=== PATIENT | male | born 1950 | race Caucasian/White ===

== ENCOUNTER → 2016-08-02 | Outpatient (CLI) | payer OTHER, MEDICARE ==
[~2016-08-02] MED LIST: ACET1TAB84 PO; ASPCH81 PO; ASPI81TA28 PO; ATOR-26 PO; CLOP1TAB15 PO; COLC0.6T54 PO; CRS20 PO; HYDR-5688 PO; IBUP-1050 PO; IBUP1TAB PO; LEVO25TA5 PO; METO25TA3 PO; METO25TA56 PO; NTRGSL/4 UT; OMEG10007 PO; [UNRECOGNIZED DRUG - OTHER] PO
--- NOTE | 2016-08-02 16:00 | DIAGNOSTIC IMAGING REPORT ---
RIGHT INGUINAL ULTRASOUND CLINICAL HISTORY: Right lower quadrant pain. Evaluate for inguinal hernia. COMPARISON STUDY: No previous studies for comparison. TECHNIQUE: Sonography of the right groin was performed with and without stress maneuvers. FINDINGS: Note was made of a reducible right inguinal hernia which likely contains bowel and fat. IMPRESSION: Reducible bowel and fat-containing right inguinal hernia. Electronically signed by: Geoff Sutherland M.D. 08/02/2016 3:59 PM Dictated Date/Time: 08/02/2016 3:58 PM
== END | disposition home or self-care (01) ==
LOC: C.ULTR 15:33
PROVIDERS: ATTEND Family Medicine
DX: K40.90 Unilateral inguinal hernia, without obstruction or gangrene, not specified as recurrent (principal)

== ENCOUNTER → 2016-08-24 | Outpatient (CLI) | payer OTHER, MEDICARE ==
--- NOTE | 2016-08-24 16:04 | DIAGNOSTIC IMAGING REPORT ---
CHEST 2 VIEWS ROUTINE CLINICAL HISTORY: COUGH dyspnea COMPARISON STUDY: 12/17/2014 FINDINGS: Mild emphysematous and chronic interstitial change. No acute infiltrate. No evidence for significant cardiac enlargement. Degenerative change thoracic spine. IMPRESSION: Chronic change. No acute process. Electronically signed by: Diony Schaeffer M.D. 08/24/2016 4:02 PM Dictated Date/Time: 08/24/2016 4:01 PM
== END | disposition home or self-care (01) ==
LOC: C.RAD1850 15:52
PROVIDERS: ATTEND Family Medicine
DX: R05 Cough (principal)

== ENCOUNTER → 2016-08-24 | Outpatient (CLI) | payer OTHER, MEDICARE | END | disposition home or self-care (01) | LOC: C.RDSM 14:02 | PROVIDERS: ATTEND Orthopaedic Surgery Sports Medicine | DX: M25.531 Pain in right wrist (principal); R05 Cough ==

== ENCOUNTER → 2016-09-06 | Outpatient (CLI) | payer OTHER, MEDICARE ==
--- NOTE | 2016-09-06 10:06 | DIAGNOSTIC IMAGING REPORT ---
CT SCAN OF THE PARANASAL SINUSES CLINICAL HISTORY: Chronic sinusitis. History of remote sinus surgery. COMPARISON STUDY: No priors. TECHNIQUE: High-resolution CT scan of the paranasal sinuses is performed. Images are reviewed in the axial, sagittal, and coronal planes. IV contrast was not administered for this examination. CT DOSE: 738.91 mGy.cm FINDINGS: Postoperative change: There is evidence of previous maxillary antrectomy with antrostomy formation as well as ethmoid sinus resection. Maxillary antra: There is trace dependent mucosal thickening seen bilaterally. Incomplete bony septation is seen anteriorly on the right. Ethmoid cavities: Mild mucosal thickening is seen bilaterally. Sphenoid sinuses: Trace mucosal thickening is seen on the left. Frontal sinuses: Trace mucosal thickening is seen bilaterally. Ostiomeatal complexes: The antrostomies are widely patent bilaterally. Frontoethmoidal and sphenoethmoidal recesses: Patent bilaterally. Carotid arteries: The carotid arteries are protuberant but covered. A septal attachment is seen bilaterally. Ethmoid roofs: The ethmoid roofs are symmetric. Nasal turbinates: There is mild geoff bullosa of the middle nasal turbinates. Nasal septum: There is mild rightward deviation of the bony nasal septum. Optic nerves: Covered. Orbits: There is no evidence of orbital fracture. There is a full-thickness cortical defect identified in the inferior right orbit with protrusion of orbital fat. This is best seen on coronal image #23. A tiny full-thickness bony defect is also seen within the far lateral aspect of the left orbital floor on coronal image #20. Orbital contents are normal in appearance. Calvarium: The imaged calvarium is normal in appearance Mastoid air cells: There is a left mastoid effusion. The right vascular cells are clear. Brain parenchyma: Partially visualized brain parenchyma is within normal limits. IMPRESSION: 1. Mild paranasal sinus disease and postoperative change as above. 2. There are full-thickness bony defects identified within the orbital floor bilaterally, right larger than left. There is protrusion of orbital fat on the right. 3. Left mastoid effusion. Electronically signed by: Santy Will M.D. 09/06/2016 10:03 AM Dictated Date/Time: 09/06/2016 9:58 AM
== END | disposition home or self-care (01) ==
LOC: C.CTS 09:42
PROVIDERS: ATTEND Otolaryngology
DX: J32.9 Chronic sinusitis, unspecified (principal)

== ENCOUNTER 2016-09-27 07:36 | Day surgery (SDC) | payer OTHER, MEDICARE ==
[2016-09-11 13:15] VITALS: BMI 25.0
--- NOTE | 2016-09-11 13:44 | PAT Medication Instructions ---
Service Date Sep 11, 2016. Current Home Medication List Aspirin (Aspirin Tab-Chewable *), 81 MG PO HS Atorvastatin (Lipitor), 80 MG PO HS Clopidogrel (Plavix), 75 MG PO HS Colchicine (Colchicine), 0.6 MG PO QAM Ibuprofen (Advil), 800 MG PO PRN Ibuprofen-Diphenhydramine Citr (Advil Pm), 2 TAB PO HS Levothyroxine Sodium (Levothyroxine Sodium), 1 TAB PO QAM Metoprolol Succ (Toprol Xl) (Toprol-Xl), 12.5 MG PO HS Nitroglycerin (Nitrostat), 0.4 MG UT PRN [Aleve D Sinus], 1 TAB PO PRN Medication Instructions For Your Scheduled Surgery - Continue as directed: Nitroglycerin (Nitrostat), 0.4 MG UT PRN - Hold the following medications per Cardiology instructions: Clopidogrel (Plavix), 75 MG PO HS - Hold the following medications the morning of surgery: Ibuprofen (Advil), 800 MG PO PRN (otherwise okay to continue per surgeon) [Aleve D Sinus], 1 TAB PO PRN (otherwise okay to continue per surgeon) - Take the following medications the morning of surgery with a sip of water OTHERWISE NOTHING TO EAT OR DRINK AFTER MIDNIGHT: Levothyroxine Sodium (Levothyroxine Sodium), 1 TAB PO QAM Colchicine (Colchicine), 0.6 MG PO QAM - Take the following medications as scheduled the night before surgery: Atorvastatin (Lipitor), 80 MG PO HS Metoprolol Succ (Toprol Xl) (Toprol-Xl), 12.5 MG PO HS Aspirin (Aspirin Tab-Chewable *), 81 MG PO HS Ibuprofen (Advil), 800 MG PO PRN Ibuprofen-Diphenhydramine Citr (Advil Pm), 2 TAB PO HS [Aleve D Sinus], 1 TAB PO PRN If you have any questions please call us at [phone] or [phone] or [phone]
[2016-09-11 14:56] LABS: BASO % 1.2 %; COMPLETE YES; EOS % 5.9 %; HEMATOCRIT 47.1 % (42-52); IG% 0.6 %; LYMPH % 29.9 %; LYMPH ABS # 2.47 K/uL (1.2-3.4); MEAN CELL VOLUME 88.5 fL (80-100); MEAN PLATELET VOLUME 10.4 fL (7.4-10.4); NEUT % 55.4 %; PLATELET COUNT 231 K/uL (130-400); RED BLOOD COUNT 5.32 M/uL (4.7-6.1); WHITE BLOOD COUNT 8.26 K/uL (4.8-10.8)
[2016-09-11 15:26] LABS: BUN/CREATININE RATIO 12.6 (10-20); CALCIUM 9.1 mg/dl (8.5-10.1); CREATININE 1.6 mg/dl (0.60-1.40); POTASSIUM 5.3 mmol/L (3.5-5.1)
[2016-09-20 15:54] LABS: BUN/CREATININE RATIO 9.8 (10-20); CALCIUM 9.1 mg/dl (8.5-10.1); CREATININE 1.8 mg/dl (0.60-1.40); POTASSIUM 4.9 mmol/L (3.5-5.1)
[~2016-09-27] VITALS: Ht 154.9 cm; Wt 62.6 kg
[~2016-09-27 07:36] MED LIST changes: -ACET1TAB84 PO; -ASPI81TA28 PO; +CEFAZOLIN 2000 MG/60 ML D5W IV SCH; -CRS20 PO; +HEPARIN BOLUS IV ONE; +HEPARIN SOD 5000 UNIT/0.5 ML CARP SC SCH; -HYDR-5688 PO; +LACTATED RINGER'S 1000ML 1,000 ML IV SCH; -METO25TA56 PO; -OMEG10007 PO
[2016-09-27] MEDS ORDERED: ONDANSETRON INJ 2 MG/ML 2 ML VIAL ONE (07:53)
[2016-09-27] MEDS ORDERED: PROPOFOL IV EMULSION 10 MG/ML 20 ML VIAL IV ONE (07:53)
[2016-09-27] MEDS ORDERED: MIDAZOLAM HCL 1 MG/ML 2ML VIAL ONE (07:53)
[2016-09-27] MEDS ORDERED: DEXAMETHASONE SOD INJ 4 MG/ML VIAL ONE (07:53)
[2016-09-27] MEDS ORDERED: FENTANYL CITRATE INJ 50 MCG/1 ML 2 ML VIAL ONE (07:53)
[2016-09-27] MEDS ORDERED: LIDOCAINE HCL 2% 2 ML VIAL (20MG/ML) ONE (07:53)
[2016-09-27 07:58] VITALS: BP 117/71; PULSE 63; TEMP 37.1; O2SAT 95; Ht 154.9 cm; Wt 62.6 kg
[2016-09-27] MEDS ORDERED: BUPIVACAINE/EPINEPHRINE 0.5% MPF 1:200,000 30 ML VIAL ONE (08:47)
--- NOTE | 2016-09-27 08:48 | History & Physical Bridge Note ---
H&P Re-Evaluation Bridge Note: I have examined the patient, reviewed the History & Physical and in the interval since the performance of the History & Physical I have noted the following changes of clinical significance: No changes noted
[2016-09-27] MEDS ORDERED: HYDR-5688 PO (08:50)
--- NOTE | 2016-09-27 08:52 | Discharge Instructions ---
Discharge Instructions Date of Service September 27, 2016. Admission Reason for Admission: Right Inguinal Hernia Discharge Discharge Diagnosis / Problem: Right Inguinal Hernia Discharge Goals Goal(s): Decrease discomfort, Improve function Activity Recommendations Activity Limitations: as noted below Lifting Limitations: no more than 10 pounds Exercise/Sports Limitations: until after follow-up appointment May Resume Sexual Activity: after follow-up appointment Shower/Bathe: tomorrow . Instructions / Follow-Up Instructions / Follow-Up You may resume Plavix tomorrow (09/28/2016). Please follow-up with Dr. Jane in the office in 1-2 weeks. Please call the office at [phone] with any questions or concerns. Current Hospital Diet Patient's current hospital diet: Discharge Diet Recommended Diet: Regular Diet Pending Studies Studies pending at discharge: no Medical Emergencies . Who to Call and When: Medical Emergencies: If at any time you feel your situation is an emergency, please call 911 immediately. . Non-Emergent Contact Non-Emergency issues call your: Primary Care Provider, Surgeon Call Non-Emergent contact if: temperature is above 101.5, your pain is not controlled, wound has increased drainage, wound has increased redness . "Provider Documentation" section prepared by Domonique Hernandez. . VTE Core Measure Inpt VTE Proph given/why not?: Unfractionated heparin SQ, SCD's [place] Drug Monitoring Program Search Results: patient reviewed within database, no issues identified
[2016-09-27] MEDS ORDERED: FENTANYL CITRATE INJ 50 MCG/1 ML 2 ML VIAL IV PRN (09:00)
[2016-09-27] MEDS ORDERED: MEPERIDINE HCL 25 MG/ML CARP IV PRN (09:00)
[2016-09-27] MEDS ORDERED: EpHEDrine SULFATE INJ 50 MG/ML AMP IV PRN (09:00)
[2016-09-27] MEDS ORDERED: HYDROmorphone INJ 1 MG/ML SYR IV PRN (09:00)
[2016-09-27] MEDS ORDERED: LABETALOL HCL IV 5 MG/ML 20ML IV PRN (09:00)
[2016-09-27] MEDS ORDERED: ONDANSETRON INJ 2 MG/ML 2 ML VIAL IV PRN ×2 (09:00→10:15)
[2016-09-27] MEDS ORDERED: ATROPINE SULFATE 0.1 MG/ML 5ML SYR IV PRN (09:00)
[2016-09-27] MEDS ORDERED: NEOSTIGMINE METHYLSULFATE 5 MG/5 ML SYR ONE (09:13)
[2016-09-27] MEDS ORDERED: GLYCOPYRROLATE INJ 0.2 MG/ML VIAL ONE (09:13)
[2016-09-27] MEDS ORDERED: ROCURONIUM BROMIDE 10 MG/ML 5 ML VIAL ONE (09:13)
[2016-09-27] MEDS ORDERED: SODIUM CHLORIDE 0.9% 1000ML 1,000 ML IV SCH (10:13)
[2016-09-27] MEDS ORDERED: HYDROCODONE/ACETAMOPHEN 5/325MG TAB PO PRN ×2 (10:15)
--- NOTE | 2016-09-27 10:26 | [facility] Operative Report ---
Operative Report Operative Date September 27, 2016. Pre-Operative Diagnosis Right inguinal hernia Post-Operative Diagnosis indirect right inguinal hernia Procedure(s) Performed open right inguinal hernia repair with mesh Surgeon Dr Jane Book Jogger Surgeon(s) Domonique Hernandez PA-C Estimated Blood Loss 10ML Findings indirect inguinal hernia Specimens NONE Anesthesia LMA Complication(s) None Disposition Recovery Room / PACU I attest to the content of the Intraoperative Record and any orders documented therein. Any exceptions are noted below.
[2016-09-27 11:00] VITALS: BP 110/74; PULSE 73; TEMP 36.9; O2SAT 96
--- NOTE | 2016-09-27 11:09 | OPERATIVE REPORT ---
DATE OF OPERATION: 09/27/2016 PREOPERATIVE DIAGNOSIS: Right inguinal hernia. POSTOPERATIVE DIAGNOSIS: Indirect right inguinal hernia. PROCEDURE: Open right inguinal hernia repair with mesh. SURGEON: Dr. Elfego Jane. COLLAR CUTTER: Domonique Hernandze PA-C. ESTIMATED BLOOD LOSS: Approximately 10 mL. COMPLICATIONS: No immediate. ANESTHESIA: General laryngeal mask airway. OPERATIVE NOTE: After informed consent was obtained, the patient was taken to the operating suite and placed in supine position. After successful placement of laryngeal mask airway, the right groin was shaved and sterilely prepped and draped in usual fashion. An inguinal incision was made with a 15 blade scalpel and carried down through the soft tissue using electrocautery. A Weitlaner retractor was used to help exposure. We skeletonized the external oblique aponeurosis and made a small incision with a new fresh 15 blade. Using Metzenbaum scissors, we did extend this distally through the external ring as well as for several centimeters proximally. Once in the inguinal canal, we were able to bluntly dissect the tissue. I was able to gently elevate the cord and cord structures off the pubic bone using a blunt finger dissection and placed a [place] around it. When we elevated the cord and cord structures, there was no evidence of a direct hernia. We then used small amounts of electrocautery and blunt dissection to inspect the cord. There was a rather large indirect hernia sac as it was intimately associated with the cord structures. We were able use gentle traction countertraction and again small amounts of electrocautery to take this sac down, clear down to the neck of the cord. We were then able to easily dunk this back down into the abdominal cavity. We used a keyholed piece of polypropylene mesh to repair the defect as an onlay. It was secured distally to Asad's ligament, laterally along the shelving portion of Poupart's ligament and medially along the midline musculature. The "arms" of the mesh were wrapped around behind the cord and cord structures and secured to underlying muscle. All this done with 0 Ethibond. The mesh did not impinge on the cord structures themselves and there was adequate hemostasis at the end of the procedure. We did perform a thorough irrigation. I used some Marcaine around the periphery of the mesh for postoperative analgesia. We then closed the external oblique aponeurosis with 2-0 Vicryl in a running fashion. Soft tissue was irrigated and closed with 3-0 Vicryl and skin with 4-0 Monocryl. Some additional Marcaine was injected around the skin for postoperative analgesia and skin glue used as a dressing. The patient was awakened, extubated, and transferred to recovery in stable condition. I attest to the content of the Intraoperative Record and any orders documented therein. Any exceptio ns are noted below.
[2016-09-27 11:30] VITALS: BP 111/81; PULSE 80; O2SAT 93
[2016-09-27 12:02] VITALS: BP 118/67; PULSE 66; TEMP 36.5; O2SAT 94
--- NOTE | 2016-09-27 12:30 | Anesthesiology Progress Note ---
Anesthesia Post Op Note Date & Time September 27, 2016 at 12:29 Vital Signs Pain Intensity: 1 Vital Signs Past 12 Hours Date Time Temp Pulse Resp B/P Pulse Ox O2 Delivery O2 Flow Rate FiO2 09/27/16 12:02 36.5 66 18 118/67 94 Room Air 09/27/16 11:30 80 18 111/81 93 Room Air 09/27/16 11:00 36.9 73 18 110/74 96 Room Air 09/27/16 10:52 68 18 09/27/16 10:52 68 18 90 09/27/16 10:50 113/78 09/27/16 10:50 36.6 66 16 113/78 97 Room Air 09/27/16 10:47 69 17 96 09/27/16 10:47 70 17 09/27/16 10:45 122/76 09/27/16 10:42 70 18 97 09/27/16 10:42 70 18 09/27/16 10:40 129/83 09/27/16 10:37 68 22 09/27/16 10:37 69 22 98 09/27/16 10:36 121/79 09/27/16 10:32 63 17 100 09/27/16 10:32 63 17 09/27/16 10:31 63 16 100 09/27/16 10:31 63 16 09/27/16 10:30 130/79 09/27/16 10:26 60 17 09/27/16 10:26 60 17 100 09/27/16 10:25 120/75 09/27/16 10:21 60 18 100 09/27/16 10:21 61 18 09/27/16 10:20 123/66 09/27/16 10:16 62 18 09/27/16 10:16 62 18 131/68 100 09/27/16 10:16 36.6 62 14 131/68 100 Mask 10 09/27/16 07:58 37.1 63 18 117/71 95 Room Air Notes Mental Status: alert / awake / arousable, participated in evaluation Pt Amnestic to Procedure: Yes Nausea / Vomiting: adequately controlled Pain: adequately controlled Airway Patency, RR, SpO2: stable & adequate BP & HR: stable & adequate Hydration State: stable & adequate Anesthetic Complications: no major complications apparent
== END 2016-09-27 12:27 | disposition home or self-care (01) ==
LOC: C.ACU 07:36
PROVIDERS: ATTEND Surgery
DX: K40.90 Unilateral inguinal hernia, without obstruction or gangrene, not specified as recurrent (principal); J44.9 Chronic obstructive pulmonary disease, unspecified; R91.1 Solitary pulmonary nodule; Z72.0 Tobacco use; Z79.82 Long term (current) use of aspirin; Z79.899 Other long term (current) drug therapy

== ENCOUNTER → 2016-11-08 | Outpatient (CLI) | payer OTHER, MEDICARE ==
[~2016-11-08] MED LIST changes: +ACET1TAB84 PO; +ASPI81TA28 PO; -CEFAZOLIN 2000 MG/60 ML D5W IV SCH; -HEPARIN BOLUS IV ONE; -HEPARIN SOD 5000 UNIT/0.5 ML CARP SC SCH; -IBUP1TAB PO; -LACTATED RINGER'S 1000ML 1,000 ML IV SCH; +METO25TA56 PO; +OMEG10007 PO; -[UNRECOGNIZED DRUG - OTHER] PO
== END | disposition home or self-care (01) ==
LOC: C.RDSM 09:05
PROVIDERS: ATTEND Orthopaedic Surgery Sports Medicine
DX: M25.562 Pain in left knee (principal); M79.672 Pain in left foot

== ENCOUNTER 2017-02-09 13:54 | Emergency (ER) | payer OTHER, MEDICARE ==
[~2017-02-09] VITALS: Ht 165.1 cm; Wt 65.2 kg
[~2017-02-09 13:54] MED LIST changes: -ACET1TAB84 PO; -ASPI81TA28 PO; -METO25TA56 PO; -OMEG10007 PO
[2017-02-09 14:03] VITALS: TEMP 36.5; Ht 165.1 cm; Wt 65.2 kg
--- NOTE | 2017-02-09 15:10 | DIAGNOSTIC IMAGING REPORT ---
R RIBS UNILATERAL WITH PA CHEST CLINICAL HISTORY: fall onto log. Right-sided chest pain. COMPARISON STUDY: Chest 08/24/2016. FINDINGS: The lungs are clear. The heart is normal in size. No pleural effusions. No pneumothorax. Mild deformity within the right lateral ninth and 10th ribs consistent with old, healed fractures. No acute rib fractures. IMPRESSION: No acute rib fractures. No pneumothorax. Electronically signed by: Ike Burnham M.D. 02/09/2017 3:09 PM Dictated Date/Time: 02/09/2017 3:06 PM
[2017-02-09] MEDS ORDERED: ASPI81TA28 PO ×2 (15:14→15:15)
[2017-02-09] MEDS ORDERED: ACET1TAB84 PO (15:14)
[2017-02-09] MEDS ORDERED: OMEG10007 PO (15:14)
[2017-02-09] MEDS ORDERED: METO25TA56 PO (15:14)
[2017-02-09 15:50] VITALS: BP 138/62; PULSE 66; O2SAT 98
--- NOTE | 2017-02-09 21:39 | EMERGENCY ROOM VISIT NOTE ---
History First contact with patient: 14:16 Chief Complaint: RIB PAIN Stated Complaint: ARM AND CHEST PAIN AFTER FALL Nursing Triage Summary: right rib pain and skin tear / abrasion right upper arm s/p fall History of Present Illness The patient is a 66 year old white male who presents to the Emergency Room with complaints of right-sided rib pain after falling earlier today. Patient's accompanies him. He states he was short of breath earlier at home but this has resolved. He was cutting firewood and tripped, falling against a large log. There was no loss of consciousness. He denies striking his head. He does have abrasions present on his right chicas and right upper arm. He also notes a deformity to his right bicep. He denies any loss of motion of the elbow. He has a previous right shoulder rotator cuff insufficiency and states this is unchanged. Right-hand dominant. He points to the anterior lower ribs as his area of discomfort. No abdominal pain. No nausea or vomiting. He denies any cough. He does take Plavix for heart disease. His is worried about any potential bruising or bleeding in his chest. No other complaints. Review of Systems REVIEW OF SYSTEM: HEENT: No dizziness, visual problems, hearing loss, or tinnitus. There is no difficulty swallowing and no oral lesions are present. PULMONARY: No cough, sputum production or hemoptysis. CARDIOVASCULAR: No chest pain, palpitations, or peripheral edema. GASTROINTESTINAL: No diarrhea, constipation, nausea, vomiting, or abdominal pain. GENITOURINARY: No dysuria, frequency, urgency or nocturia. NEUROLOGIC: No weakness, muscle tenderness, epilepsy or history of neurological problems. MUSCULOSKELETAL: No history of joint tenderness/swelling. Positive history of arthritis and arthralgias. SKIN: No rashes or lesions. PSYCHIATRIC: No history of depression or mental illness. ENDOCRINE: No history of diabetes or abnormal hair growth. Past Medical/Surgical History Previous surgeries: Right shoulder surgery 2, knee surgery, hand surgery, foot surgery, cardiac stent placement Medical history: Significant for osteoarthritis, hypertension, heart disease, previous [place], elevated cholesterol, and hypothyroidism Family History Father is from lung cancer. Mother is living. Significant for diabetes, heart disease, hypertension, and cancer. Social History Smoking Status: Former Smoker Smokeless Tobacco Use: No Alcohol Use: none Drug Use: none Marital Status: Housing Status: lives with family Occupation Status: unemployed Current/Historical Medications Scheduled Acetaminophen (Tylenol Arthritis Ext Rel), 1,300 MG PO DAILY Aspirin (Aspirin Ec), 81 MG PO HS Aspirin (Aspirin Ec), 81 MG PO DAILY Atorvastatin (Lipitor), 80 MG PO HS Clopidogrel (Plavix), 75 MG PO HS Colchicine (Colchicine), 0.6 MG PO QAM Fish Oil ([place]-3), 2,400 MG PO BID Levothyroxine Sodium (Levothyroxine Sodium), 1 TAB PO QAM Metoprolol Tartrate (Lopressor) (Lopressor), 12.5 MG PO HS Nitroglycerin (Nitrostat), 0.4 MG UT PRN Physical Exam Vital Signs Date Time Temp Pulse Resp B/P (MAP) Pulse Ox O2 Delivery O2 Flow Rate FiO2 02/09/17 15:50 66 16 138/62 98 02/09/17 14:03 36.5 61 18 149/73 98 Room Air Physical Exam Gen.: Well-developed, well-nourished, elderly white male, in no acute distress. Sitting on a chair. Alert and oriented. Skin:Warm and dry with good turgor. No rashes or lesions. No erythema. He has ecchymosis and mild edema present over the mid body of his right bicep. The patient is not diaphoretic. He has a small abrasion present over the right anterior chicas. He is controlled. He has a larger excoriation present over the right lateral bicep. Bleeding is controlled. No significant for material. No true laceration. Heart: Heart RRR. No MGR. Peripheral pulses are 2+. Lungs: Lungs are clear to auscultation. No crackles rhonchi or wheezing. Good air movement. The patient is able to take a deep breath. Abdomen: Abdomen was inspected, auscultated, and palpated. Bowel sounds present x 4. Soft, nontender to palpation. No hepato-splenomegaly. No masses noted. No rebound. Musculoskeletal: Patient has no discomfort with palpation over his cervical spine, thoracic spine or lumbar spine. He has no pain with palpation over the ribs posteriorly or laterally. He does have discomfort with palpation over the anterior ribs and cartilage at the midclavicular line. It is over ribs 10, 11 and 12. He has discomfort with palpation over his right bicep. Lateral head is flaccid. He continues to have intact tension along the distal tendon. No increase in baseline pain with palpation over his shoulder. Limited shoulder motion secondary to his rotator cuff injury. Neurologic: Gross sensation is intact across the right arm by soft touch. Peripheral pulses are 2+. Medical Decision & Procedures ER Provider Diagnostic Interpretation: Radiographic imaging obtained today of the chest and ribs was read by radiology. No pneumothorax. No acute rib fractures. Old healed rib fractures are present on the right ninth and 10th ribs. ED Course Patient was educated regarding today's findings. Findings were also discussed with his . He was reassured that I do not suspect acute fracture. Practice deep breaths several times per day. Return to the ED for any acute worsening of symptoms or shortness of breath. In regard to the bicep, he will likely require musculoskeletal ultrasound. He already sees Dr. Carvalho and states he will make arrangements for this. In regard to the abrasions, he will keep them clean with soap and water and cover with Triple Antibiotic ointment. Watch for any signs of infection and return to the ED for any other concerns. He should avoid any heavy lifting with the right arm, and I cautioned him about further cutting of firewood until symptoms fully resolve. Medical Decision Possibility of pneumothorax, hemothorax, rib fracture, rib contusion, biceps tendon rupture, biceps muscle rupture, humeral fracture, and abdominal organ injury were considered. Medication Reconcilliation Current Medication List: was personally reviewed by me Blood Pressure Screening Patient's blood pressure: Normal blood pressure Impression Primary Impression: Tear of right biceps muscle Additional Impression: Contusion of rib on right side Departure Information Dispostion Home / Self-Care Referrals Robbin Carvalho MD Forms WORK / SCHOOL INSTRUCTIONS, HOME CARE DOCUMENTATION FORM, TYLENOL USE, IMPORTANT VISIT INFORMATION [facility] Inst[facility] Additional Instructions Ice intermittently as needed for discomfort Gentle motion of the shoulder and elbow to prevent stiffness Follow-up with Dr. Carvalho for reexamination of your right bicep Tylenol every 6 hours as needed for discomfort Return to the ED for any acute changes including shortness of breath Avoid any heavy lifting until symptoms have fully resolved Keep the abrasions clean with soap and water and cover with antibiotic ointment until healed. Problem Qualifiers Primary Impression: Tear of right biceps muscle Encounter type: initial encounter Qualified Codes: S46.211A - Strain of muscle, fascia and tendon of other parts of biceps, right arm, initial encounter Additional Impression: Contusion of rib on right side Encounter type: initial encounter Qualified Codes: S20.211A - Contusion of right front wall of thorax, initial encounter
== END 2017-02-09 15:52 | disposition home or self-care (01) ==
LOC: C.EDB 13:55 → C.EDD 15:52
DX: S46.211A Strain of muscle, fascia and tendon of other parts of biceps, right arm, initial encounter (principal); S20.20XA Contusion of thorax, unspecified, initial encounter; W01.0XXA Fall on same level from slipping, tripping and stumbling without subsequent striking against object, initial encounter; Z79.82 Long term (current) use of aspirin; Z79.899 Other long term (current) drug therapy

== ENCOUNTER → 2017-02-11 | Outpatient (CLI) | payer OTHER, MEDICARE ==
[~2017-02-11] MED LIST changes: +ACET1TAB84 PO; -ASPCH81 PO; +ASPI81TA28 PO; -IBUP-1050 PO; -METO25TA3 PO; +METO25TA56 PO; +OMEG10007 PO
--- NOTE | 2017-02-11 16:17 | DIAGNOSTIC IMAGING REPORT ---
RIGHT ARM 3 VIEWS HISTORY: RIGHT HUMERUS PAIN COMPARISON: None. FINDINGS: There is no fracture or dislocation. Soft tissues are unremarkable. No radiopaque foreign bodies. Mild degenerative changes within the right elbow and glenohumeral joint. Distal resection of the right clavicle. IMPRESSION: No acute fracture or dislocation within the right humerus. Electronically signed by: Ike Burnham M.D. 02/11/2017 4:15 PM Dictated Date/Time: 02/11/2017 4:14 PM
== END | disposition home or self-care (01) ==
LOC: C.RDSM 15:44
PROVIDERS: ATTEND Physician Assistant
DX: M79.601 Pain in right arm (principal)

== ENCOUNTER → 2017-04-09 | Outpatient (CLI) | payer OTHER, MEDICARE ==
--- NOTE | 2017-04-09 12:58 | DIAGNOSTIC IMAGING REPORT ---
EXAMINATION: RENAL ULTRASOUND CLINICAL HISTORY: N18.9 CHRONIC RENAL DISEASE COMPARISON STUDY: FINDINGS: The right kidney measures 10 cm. The left kidney measures 10.5 cm. There is no evidence of hydronephrosis. There is an equivocal 18 mm hypoechoic lesion abutting or arising from the mid pole of the left kidney. This is poorly demonstrated on the current study.. No bladder abnormalities are visualized. Bilateral ureteral jets were visualized. IMPRESSION : 1. Technically limited study secondary to the patient's body habitus and absence of optimal acoustic windows 2. Symmetric renal size and cortical thickness 3. No evidence of hydronephrosis 4. Equivocal 18 mm hypoechoic structure abutting or arising from the mid pole of the left kidney. Electronically signed by: Lan Moreno M.D. 04/09/2017 12:57 PM Dictated Date/Time: 04/09/2017 12:53 PM
== END | disposition home or self-care (01) ==
LOC: C.ULTR 12:04
PROVIDERS: ATTEND Family Medicine
DX: N18.9 Chronic kidney disease, unspecified (principal)

== ENCOUNTER → 2017-04-26 | Outpatient (CLI) | payer OTHER, MEDICARE ==
--- NOTE | 2017-04-26 11:11 | DIAGNOSTIC IMAGING REPORT ---
CT SCAN OF THE PELVIS WITHOUT IV CONTRAST CLINICAL HISTORY: Bilateral groin pain. History of right inguinal hernia repair. COMPARISON STUDY: No priors. TECHNIQUE: CT scan of the pelvis is performed from the pelvic inlet to the proximal femora. Images are reviewed in the axial, sagittal, and coronal planes. IV contrast was not administered due to poor renal function. Oral contrast was utilized. Note that the examination is suboptimal without IV contrast. A dose lowering technique was utilized adhering to the principles of ALARA. CT DOSE: 388.19 mGy.cm FINDINGS: The prostate is mildly enlarged and heterogeneous. The bladder wall is mildly thickened and trabeculated. The seminal vesicles are normal in appearance. There is no pelvic sidewall or inguinal lymphadenopathy. There is atherosclerotic calcification and ectasia of the visualized abdominal aorta. This measures up to 2.5 cm. There is also atherosclerotic calcification of the iliac arteries. The iliac arteries appear ectatic and measure up to 1.8 cm. No inguinal hernia is identified. There is fatty reconversion along the left inguinal canal. The visualized loops of small bowel and colon are normal in caliber. There is moderate diverticulosis of the sigmoid colon without CT evidence of acute diverticulitis. No free air or free fluid is seen in the pelvis. The skeletal structures are osteopenic. Mild arthritic change is present in the hips. There is calcification at the origin of the hamstrings tendon. Advanced lumbosacral spondylosis is partially imaged. There are bilateral pars defects at L5. There is 11 mm of anterolisthesis and advanced degenerative disc space narrowing at L5-S1. Bony overgrowth and degenerative changes also seen at the pubic symphysis. The regional musculature is normal in bulk. IMPRESSION: 1. No inguinal hernia is identified as clinically queried. 2. The prostate is mildly enlarged. There is circumferential bladder wall thickening and trabeculation, likely related to chronic bladder outlet obstruction. Clinical correlation will be required. 3. There is moderate sigmoid diverticulosis without CT evidence of acute diverticulitis. 4. There are bilateral pars defects at L5 with grade 1 anterolisthesis and advanced spondylotic change at this level. Dictated: 04/26/2017 10:15 AM Transcribed: 04/26/2017 11:10 AM [facility] Electronically signed by: Santy Will M.D. 04/26/2017 11:15 AM Dictated Date/Time: 04/26/2017 10:15 AM
== END | disposition home or self-care (01) ==
LOC: C.CTS 09:50
PROVIDERS: ATTEND Surgery
DX: K40.90 Unilateral inguinal hernia, without obstruction or gangrene, not specified as recurrent (principal); N40.0 Benign prostatic hyperplasia without lower urinary tract symptoms; K57.30 Diverticulosis of large intestine without perforation or abscess without bleeding; M43.16 Spondylolisthesis, lumbar region

== ENCOUNTER → 2017-05-15 | Outpatient (CLI) | payer OTHER, MEDICARE ==
[~2017-05-15] MED LIST changes: +ACET650T97 PO; +ASPCH81X PO; +CEPH500C PO; +COEN1CAP7 PO; +COQ10 PO; +LEVO50TA6 PO; +MELA1TAB5 PO; +PHEN10TA31 PO; +TPRSR50 PO; +ZICAM NAE
--- NOTE | 2017-05-16 09:37 | DIAGNOSTIC IMAGING REPORT ---
MRI OF THE CERVICAL SPINE WITHOUT CONTRAST CLINICAL HISTORY: Paresthesias. Hand weakness. Neck pain radiating into right upper extremity. COMPARISON: None. TECHNIQUE: Utilizing a 1.5 Yen magnet and dedicated coil, multiplanar, multiecho imaging of the cervical spine was performed without IV contrast. FINDINGS: There is 3 mm of anterolisthesis of C7 on T1. Note is made of mild levoscoliosis of the cervical spine and dextroscoliosis within visualized portions of the thoracic spine. There is no suspicious marrow replacement. Visualized portions of the posterior fossa are unremarkable. There is no intracanalicular mass or fluid collection. Note is made of a 9 mm focus of increased T2 signal within the right lateral aspect of the cord at the C6 level. There is mild cord volume loss. No additional sites of cord signal abnormality are present. Paravertebral soft tissues are unremarkable. Severe multilevel degenerative disc disease and facet arthrosis is present. No evidence for fracture. C2-C3: The central canal and neural foramen are patent. C3-C4: There is disc space narrowing. Central canal is patent. There is severe bilateral neural foraminal stenosis due to facet arthrosis and uncovertebral hypertrophy. C4-C5: There is disc space narrowing with disc bulge. There is moderate narrowing of the central canal and severe narrowing of both neural foramen. C5-C6: There is disc space narrowing with disc bulge and ligamentous hypertrophy. This results in severe narrowing of the central canal. There is severe right and mild left neural foraminal stenosis. C6-C7: There is disc bulge. There is moderate central canal stenosis with moderate to severe right and moderate left neural foraminal stenosis. C7-T1: Central canal and neural foramen are patent. IMPRESSION: 1. Severe multilevel degenerative disc disease and facet arthrosis with severe central canal stenosis at C5-C6 due to disc bulge and ligamentous hypertrophy. Moderate central canal stenosis at C4-C5 and C6-C7. 2. 9 mm focus of increased T2 signal within the right lateral aspect of the cervical cord at the C6 level. This favors myelomalacia. Cord edema could appear similar although is considered less likely. 3. Severe multilevel neural foraminal stenosis, as detailed above, due to facet arthrosis and uncovertebral hypertrophy. 4. Mild levoscoliosis of the cervical spine and mild dextroscoliosis of the visualized portions of the thoracic spine. Electronically signed by: Geoff Sutherland M.D. 05/16/2017 9:36 AM Dictated Date/Time: 05/16/2017 9:17 AM
== END | disposition home or self-care (01) ==
LOC: C.MRIBC 14:54
PROVIDERS: ATTEND Physician Assistant
DX: R20.2 Paresthesia of skin (principal); M48.02 Spinal stenosis, cervical region; M50.322 Other cervical disc degeneration at C5-C6 level; M47.892 Other spondylosis, cervical region; M50.20 Other cervical disc displacement, unspecified cervical region; M41.23 Other idiopathic scoliosis, cervicothoracic region

== ENCOUNTER → 2017-05-16 | Outpatient (CLI) | payer OTHER, MEDICARE ==
[~2017-05-16] MED LIST changes: -ACET650T97 PO; -ASPCH81X PO; -CEPH500C PO; -COEN1CAP7 PO; -COQ10 PO; -LEVO50TA6 PO; -MELA1TAB5 PO; -PHEN10TA31 PO; -TPRSR50 PO; -ZICAM NAE
[2017-05-16 16:51] LABS: BASO % 1.1 %; BASO ABS # 0.07 K/uL (0-0.2); COMPLETE YES; EOS % 6.8 %; HEMATOCRIT 45.1 % (42-52); IG% 0.8 %; LYMPH % 34.4 %; LYMPH ABS # 2.28 K/uL (1.2-3.4); MEAN CELL VOLUME 87.7 fL (80-100); MEAN CORPUSCULAR HEMOGLOBIN 30.7 pg (25-34); MEAN PLATELET VOLUME 10.6 fL (7.4-10.4); MONO % 9.5 %; NEUT % 47.4 %; PLATELET COUNT 173 K/uL (130-400); RED BLOOD COUNT 5.14 M/uL (4.7-6.1); WHITE BLOOD COUNT 6.63 K/uL (4.8-10.8)
[2017-05-16 17:01] LABS: ALT/SGPT 36 U/L (12-78); AST/SGOT 23 U/L (15-37); BLOOD UREA NITROGEN 14 mg/dl (7-18); BUN/CREATININE RATIO 9.4 (10-20); CALCIUM 8.8 mg/dl (8.5-10.1); CARBON DIOXIDE 29 mmol/L (21-32); CHLORIDE 104 mmol/L (98-107); CREATININE 1.46 mg/dl (0.60-1.40); GLUCOSE 113 mg/dl (70-99); POTASSIUM 4.3 mmol/L (3.5-5.1); SODIUM 136 mmol/L (136-145)
[2017-05-16 17:12] LABS: ALB/GLOB RATIO 1.2 (0.9-2); ALKALINE PHOSPHATASE 117 U/L (45-117)
== END | disposition home or self-care (01) ==
LOC: C.LABBC 14:40
PROVIDERS: ATTEND Physician Assistant
DX: R20.2 Paresthesia of skin (principal); R29.898 Other symptoms and signs involving the musculoskeletal system; E03.9 Hypothyroidism, unspecified; N28.9 Disorder of kidney and ureter, unspecified; M54.5 Low back pain

== ENCOUNTER → 2017-05-28 | Outpatient (CLI) | payer OTHER, MEDICARE ==
--- NOTE | 2017-05-28 15:41 | DIAGNOSTIC IMAGING REPORT ---
LUMBAR SPINE W/O CONTRAST HISTORY: Pain. Neuropathy. LUMBALGIA,NUMBNESS TECHNIQUE: Multiplanar multisequence MRI of the lumbar spine was performed without the use of contrast. COMPARISON: None. FINDINGS: For the purpose of the report the L5-S1 disc space will be located on axial image 5 of 10. Considerable degenerative disc change throughout the entire lumbar region. No evidence for bone marrow replacing process. Reactive edema of the endplates at the L2-L3 level. Grade 1 anterolisthesis L5 on S1 associated with a 6 mm anterior subluxation. L1-L2: Minimal broad-based disc bulge. Neuroforamina are patent bilaterally. Minimal impact anterior thecal sac. L2-L3: Moderate multifactorial narrowing of the spinal canal. Mild broad-based disc herniation. Moderate hypertrophic change posterior elements. Rectosigmoid area osteophytic narrowing left neural foramina. With moderate narrowing of the right. L3-L4: Mild osteophytic narrowing of the neuroforamina bilaterally. Minimal disc bulge. Minimal impact anterior thecal sac. L4-L5: Significant to moderately severe narrowing of the spinal canal multifactorial basis. Broad-based disc herniation. Hypertrophic change posterior elements and facets. Considerable narrowing of the neuroforamina bilaterally. L5-S1: Moderate multifactorial narrowing of the spinal canal. Broad-based disc herniation. Degenerative degenerative change posterior elements with a grade 1 anterolisthesis of L5 on S1 accentuated all findings. This also creates significant narrowing of the neuroforamina bilaterally. IMPRESSION: 1. Multilevel disc herniation spinal stenosis. 2. Grade 1 anterolisthesis L5 on S1 creating moderate narrowing of spinal canal and significant narrowing of the neuroforamina bilaterally. 3. Moderately severe multifactorial narrowing of spinal canal at L4-L5 with considerable narrowing of the neuroforamina bilaterally. 4. Mild osteophytic narrowing of the neuroforamina bilaterally at L3-L4. 5. Moderate multifactorial narrowing of the spinal canal and neuroforamina L2-L3. The above report was generated using voice recognition software. It may contain grammatical, syntax or spelling errors. Electronically signed by: Diony Schaeffer M.D. 05/28/2017 3:39 PM Dictated Date/Time: 05/28/2017 3:35 PM
== END | disposition home or self-care (01) ==
LOC: C.MRIBC 14:32
PROVIDERS: ATTEND Physician Assistant
DX: M54.5 Low back pain (principal); R20.2 Paresthesia of skin

== ENCOUNTER → 2017-06-05 | Outpatient (CLI) | payer OTHER, MEDICARE ==
--- NOTE | 2017-06-05 14:00 | DIAGNOSTIC IMAGING REPORT ---
RENAL ULTRASOUND CLINICAL HISTORY: Left renal lesion. COMPARISON STUDY: Renal ultrasound April 09, 2017. TECHNIQUE: Sonography of the kidneys and the urinary bladder was performed. FINDINGS: The right kidney measures 9.2 x 5.2 x 4.3 cm and the left kidney measures 10.2 x 5.6 x 4.1 cm. There is no hydronephrosis. Note is made of an apparent 1.5 cm lesion arising from the midpole of the left kidney which corresponds to the finding shown on study of April 09, 2017. The appearance favors a cyst although evaluation is difficult given suboptimal penetration. No discrete bladder mass is identified by sonography. IMPRESSION: 1. No hydronephrosis. 2. Apparent 1.5 cm left renal lesion which represents the possible lesion shown on ultrasound April 09, 2017. Evaluation is difficult given suboptimal penetration however the appearance favors a cyst. If desired, a renal protocol CT could be obtained for definitive characterization. Electronically signed by: Geoff Sutherland M.D. 06/05/2017 1:59 PM Dictated Date/Time: 06/05/2017 1:54 PM
== END | disposition home or self-care (01) ==
LOC: C.ULTR 12:50
PROVIDERS: ATTEND Family Medicine
DX: N18.9 Chronic kidney disease, unspecified (principal)

== ENCOUNTER → 2017-07-22 | Outpatient (CLI) | payer OTHER, MEDICARE ==
--- NOTE | 2017-07-22 16:13 | DIAGNOSTIC IMAGING REPORT ---
CHEST 2 VIEWS ROUTINE CLINICAL HISTORY: COUGH dyspnea COMPARISON STUDY: 08/24/2016 FINDINGS: Moderate emphysematous change. No evidence for acute infiltrate. No significant cardiac enlargement. IMPRESSION: Moderate emphysematous change. No acute process. The above report was generated using voice recognition software. It may contain grammatical, syntax or spelling errors. Electronically signed by: Diony Schaeffer M.D. 07/22/2017 4:11 PM Dictated Date/Time: 07/22/2017 4:10 PM
== END | disposition home or self-care (01) ==
LOC: C.RAD1850 16:01
PROVIDERS: ATTEND Family Medicine
DX: R05 Cough (principal)

== ENCOUNTER → 2017-08-16 | Outpatient (CLI) | payer OTHER, MEDICARE ==
--- NOTE | 2017-08-16 13:42 | DIAGNOSTIC IMAGING REPORT ---
LUNG SCREENING, LOW DOSE CLINICAL HISTORY: Smoking history screening COMPARISON STUDY: No previous studies for comparison. CT DOSE: 91.25 mGy.cm TECHNIQUE: Low-dose helical CT was acquired without intravenous contrast from lung apices to bases and reconstructed at 2.5 mm every 2 mm. CAD was utilized for this study. A dose lowering technique was utilized adhering to the principles of ALARA. FINDINGS: Diffuse emphysematous and fibrotic change. No focal infiltrate. No significant mediastinal or hilar adenopathy. 3 mm nodule anterior aspect right middle lobe image 79 considered low suspicion. 2 mm nodular density pleural-based posterior aspect left lower lobe. Nodule 2 Category: Nodule 2 Status: Nodule 2 Description: Nodule 2 Lesion ID: Nodule 2 Slice Number: Nodule 2 Volume (mm3): Nodule 2 Major [place] mm: Nodule 2 Minor [place] mm: Nodule 1 Category: Nodule 1 Status: Nodule 1 Description: Nodule 1 Lesion ID: Nodule 1 Slice Number: Nodule 1 Volume (mm3): Nodule 1 Major [place] mm: Nodule 1 Minor [place] mm: IMPRESSION: Emphysematous change. Diffuse chronic fibrosis. Small low suspicion nodules anterior right middle lobe and posterior left lower lobe. CAD FINDINGS: Overall Lung RADS Category: 1 Lung RADS Management Recommendation: Continue annual lung cancer screening. Lung RADS Follow Up Date: 2018-08-16 Lung RADS Nodule ID: The above report was generated using voice recognition software. It may contain grammatical, syntax or spelling errors. Electronically signed by: Diony Schaeffer M.D. 08/16/2017 1:41 PM Dictated Date/Time: 08/16/2017 1:28 PM
== END | disposition home or self-care (01) ==
LOC: C.CTS 13:11
PROVIDERS: ATTEND Family Medicine
DX: Z12.2 Encounter for screening for malignant neoplasm of respiratory organs (principal)

== ENCOUNTER → 2017-08-29 | Outpatient (CLI) | payer OTHER, MEDICARE ==
--- NOTE | 2017-08-29 14:41 | DIAGNOSTIC IMAGING REPORT ---
CT SCAN OF THE ABDOMEN WITHOUT IV CONTRAST CLINICAL HISTORY: Left renal lesion questioned by ultrasound. COMPARISON STUDY: Renal ultrasound dated 06/05/2017. TECHNIQUE: CT scan of the abdomen is performed from the lung bases to the pelvic inlet. Images are reviewed in the axial, sagittal, and coronal planes. IV contrast was not administered for this examination. A dose lowering technique was utilized adhering to the principles of ALARA. CT DOSE: 373.59 mGycm FINDINGS: Lung bases: The heart is normal in size and without pericardial effusion. The coronary arteries are densely calcified. Emphysematous change is noted. There is bibasilar scarring/atelectasis. No airspace consolidation or pleural effusion is identified. There is a tiny hiatal hernia. Liver: The unenhanced liver is normal in size, contour, and attenuation. There is no intrahepatic biliary ductal dilatation. Gallbladder: Unremarkable. Spleen: Normal in size and attenuation. Pancreas: Scattered parenchymal calcifications suggest chronic pancreatitis. The unenhanced pancreas is otherwise grossly unremarkable. Adrenal glands: Unremarkable. Kidneys: The unenhanced kidneys are normal in size and without hydronephrosis. There are no renal calculi identified. There is no evidence of contour deforming renal mass lesion. Abdominal vasculature: There is advanced atherosclerotic calcification and ectasia of the abdominal aorta. The distal abdominal aorta measures up to 2.6 cm. Bowel: Visualized portions of the small bowel and colon are normal in course and caliber. The appendix is well-visualized and normal. Peritoneum: There is no intraperitoneal free air or abdominal ascites. There is a small fat-containing umbilical hernia. Lymphadenopathy: Shotty retroperitoneal nodes measure up to 8 mm in short axis. Skeletal structures: There is moderate lumbar sacral spondylosis as well as mild scoliosis. Bilateral pars defects are noted at L5. No lytic or blastic lesions are seen. IMPRESSION: 1. No lesion is identified in the left kidney on this unenhanced examination. The sonographic finding remains indeterminant. A definitive assessment of the left kidney would require IV contrast. 2. Emphysema. 3. Additional findings as above. Electronically signed by: Santy Will M.D. 08/29/2017 2:40 PM Dictated Date/Time: 08/29/2017 2:33 PM
== END | disposition home or self-care (01) ==
LOC: C.CTS 14:19
PROVIDERS: ATTEND Family Medicine
DX: N28.9 Disorder of kidney and ureter, unspecified (principal); R10.9 Unspecified abdominal pain; R53.83 Other fatigue; J43.9 Emphysema, unspecified

== ENCOUNTER 2017-09-23 20:04 | Emergency (ER) | payer OTHER, MEDICARE ==
[~2017-09-23] VITALS: Ht 154.9 cm; Wt 69.1 kg
[2017-09-23 20:06] VITALS: TEMP 36.6; Ht 154.9 cm; Wt 69.1 kg
--- NOTE | 2017-09-23 21:37 | DIAGNOSTIC IMAGING REPORT ---
R FINGER(S) MIN 2 VIEWS ROUTINE CLINICAL HISTORY: R thumb distal injury ? bony involvement COMPARISON: None. DISCUSSION: Considerable soft tissue edematous change. Considerable overlying packing material. No well-defined acute bony abnormality. IMPRESSION: Considerable soft tissue edematous change. No acute bony abnormality. The above report was generated using voice recognition software. It may contain grammatical, syntax or spelling errors. Electronically signed by: Diony Schaeffer M.D. 09/23/2017 9:36 PM Dictated Date/Time: 09/23/2017 9:34 PM
[2017-09-23] MEDS ORDERED: DIPHTHERIA/TETANUS/PERTUSSIS 0.5 ML SYR/VIAL IM. ONE (21:45)
--- NOTE | 2017-09-23 21:51 | EMERGENCY ROOM VISIT NOTE ---
History First contact with patient: 20:16 Chief Complaint: LACERATION/CUT (SUT/DERMABOND) Stated Complaint: R THUMB LACERATION Nursing Triage Summary: Pt cut right thumb tip off on table saw about 1 hour ago. History of Present Illness The patient is a 67 year old male who presents to the Emergency Room with complaints of a laceration to his right thumb that he sustained when he was working with a circular saw. The patient complains of moderate bleeding as he is on Plavix and aspirin. He is right-hand dominant. He denies any other injuries. He is unsure of his last tetanus shot. The patient was first seen by [facility]. He was sent here for evaluation for possible bony involvement and need for cauterization Review of Systems 6 system review negative. Please see pertinent positives in the history of present illness section. Past Medical/Surgical History Coronary artery disease, hypertension Social History Smoking Status: Former Smoker Alcohol Use: none Drug Use: none Marital Status: Housing Status: lives with family Occupation Status: unemployed Current/Historical Medications Scheduled Acetaminophen (Tylenol Arthritis Ext Rel), 1,300 MG PO DAILY Aspirin (Aspirin Ec), 81 MG PO HS Aspirin (Aspirin Ec), 81 MG PO DAILY Atorvastatin (Lipitor), 80 MG PO HS Cephalexin Monohydrate (Keflex), 500 MG PO TID Clopidogrel (Plavix), 75 MG PO HS Colchicine (Colchicine), 0.6 MG PO QAM Fish Oil ([place]-3), 2,400 MG PO BID Levothyroxine Sodium (Levothyroxine Sodium), 1 TAB PO QAM Metoprolol Tartrate (Lopressor) (Lopressor), 12.5 MG PO HS Nitroglycerin (Nitrostat), 0.4 MG UT PRN Physical Exam Vital Signs Date Time Temp Pulse Resp B/P (MAP) Pulse Ox O2 Delivery O2 Flow Rate FiO2 09/23/17 22:37 69 18 155/71 96 09/23/17 20:06 36.6 71 18 160/89 96 Room Air Physical Exam VITALS: Vitals are noted on the nurse's note and reviewed by myself. Vital signs stable. GENERAL: 67-year-old male, in no acute distress, nondiaphoretic, well-developed well-nourished. SKIN: The skin was warm and dry HEAD: Normocephalic atraumatic. MUSCULOSKELETAL: RIGHT HAND: There is a macerated avulsion noted to the distal aspect of the right thumb measuring approximately 3 cm. Mild oozing of blood. No significant blood vessels noted. No bone is visualized at the end of the wound. Full flexion and extension of the thumb NEURO: Patient was alert and oriented to person place and time. Normal sensation to touch. No focal neurological deficits. Medical Decision & Procedures ER Provider Diagnostic Interpretation: thumb xray IMPRESSION: Considerable soft tissue edematous change. No acute bony abnormality. The above report was generated using voice recognition software. It may contain grammatical, syntax or spelling errors. Electronically signed by: Diony Schaeffer M.D. 09/23/2017 9:36 PM Dictated Date/Time: 09/23/2017 9:34 PM Medications Administered Medications (Trade) Dose Ordered Sig/Verena Route Start Time Stop Time Status Last Admin Dose Admin Diphtheria/ Pertussis/Tetanus Vacc (Adacel Inj) 0.5 ml ONCE ONCE IM. 09/23/17 21:45 09/23/17 21:46 DC 09/23/17 21:47 0.5 ML Cephalexin Monohydrate (Keflex Cap) 500 mg NOW ONCE PO 09/23/17 22:15 09/23/17 22:16 DC 09/23/17 22:10 500 MG Gelatin (Surgifoam Sponge 12-7MM (SMALL)) 1 ea STK-MED ONCE .ROUTE 09/23/17 22:09 09/23/17 22:10 DC 09/23/17 22:12 1 EA Procedure The physician assistant district attorney student cleansed and dressed the wound in the following manner under my direct supervision Sterile field was achieved The wound was copiously cleansed with Betadine and irrigated with normal saline under pressure The wound was explored and described as above No significant bleeding was noted Gelfoam was applied to the avulsion He was then given a bulky bandage The patient tolerated the procedure well Hemostasis was achieved ED Course The patient was seen and examined An x-ray of the right thumb was performed The patient was given an Adacel injection. He was also given 1 dose of Keflex 500 mg p.o. The physician assistant district attorney student repaired the wound under my direct supervision Discharge instructions were reviewed, and the patient was discharged in good condition Medical Decision Differential diagnosis: Avulsion injury, laceration, open fracture, coagulopathy This patient is a 67-year-old male presents to the emergency department with an avulsion injury with a table salt to the distal aspect of the right thumb. No bone was visible at the bottom of the wound. X-rays show no fracture. There is no significant active bleeding. It was however fairly deep. The wound was copiously irrigated and cleansed. Gelfoam was applied with hemostasis achieved. Given the depth of the wound in the history of diabetes, the patient will be put on prophylactic antibiotics. He will follow-up with his primary care for a wound recheck later this week. He was cautioned for signs of infection, for which she will return to the emergency department This chart was completed in part utilizing [email or web address] Speech Voice Recognition software. Attempts were made to minimize the grammatical errors, random word insertions, pronoun errors and incomplete sentences. Any formal questions or concerns about the content, text or information contained within the body of this dictation should be directly addressed to the provider for clarification. Medication Reconcilliation Current Medication List: was personally reviewed by me Blood Pressure Screening Patient's blood pressure: Elevated blood pressure Blood pressure disposition: Did not require urgent referral Impression Primary Impression: Avulsion of skin of right thumb Departure Information Dispostion Home / Self-Care Condition GOOD Prescriptions Cephalexin Monohydrate (Keflex) 500 Mg Cap 500 MG PO TID for 5 Days, #15 CAP Prov: Stacia Olivera PA-C 09/23/17 Referrals Dylon James M.D. (PCP) Patient Instructions ED Gelfoam Dressing, [facility] Additional Instructions You were seen in the emergency department for a laceration to your right thumb. A Gelfoam dressing was applied. Please take the ENTIRE course of Keflex Please follow-up with your primary care physician or the orthopedic doctor this Saturday to have the wound rechecked. Leave the GELFOAM and dressing in place for the next 48 hours. Keep the dressing clean and dry until time for removal. To remove the GELFOAM dressing, remove the overlying tape and then soak the wound in warm water until the piece of GELFOAM can be easily removed. Proper wound care is essential for adequate wound healing and infection prevention. You can shower and clean the wound with soap and water. Do not scour over the wound, pat dry with a towel. You can use a dressing/bandage over the wound for the next 2-3 days. After this time you may leave the wound dry and open to the air. Look for signs of infection of the wound including: increased pain, swelling, foul discharge, streaking, or increased temperature. If any of these are noticed you should return to the Emergency Department for further assessment and treatment. As with any laceration you may have received nerve damage to the surrounding tissues. This damage could be permanent. For pain control, you can use the following [id number] medicines (if >12 yo): - Regular strength (325mg/tab) Tylenol (acetaminophen) 2 tabs every 4-6 hours as needed. Do not exceed 12 tablets in a 24 hour period. Avoid taking more than 4 grams (4000 mg) of Tylenol per day. This includes any other sources of acetaminophen you may take on a regular basis. Return to the emergency department if your symptoms worsen despite treatment course outlined above.
[2017-09-23] MEDS ORDERED: GELATIN SPONGE SZ 100 EXT STA (22:02)
[2017-09-23] MEDS ORDERED: GELATIN SPONGE 12-7MM ONE (22:09)
[2017-09-23] MEDS ORDERED: CEPHALEXIN MONOHYDRATE 250 MG CAP PO ONE (22:15)
[2017-09-23] MEDS ORDERED: CEPH500C PO ×2 (22:25→22:30)
[2017-09-23 22:37] VITALS: BP 155/71; PULSE 69; O2SAT 96
== END 2017-09-23 22:38 | disposition home or self-care (01) ==
LOC: C.EDB 20:06 → C.EDD 22:38
DX: S61.002A Unspecified open wound of left thumb without damage to nail, initial encounter (principal); W31.2XXA Contact with powered woodworking and forming machines, initial encounter; I10 Essential (primary) hypertension; I25.10 Atherosclerotic heart disease of native coronary artery without angina pectoris; Z79.01 Long term (current) use of anticoagulants; Z79.82 Long term (current) use of aspirin; Z79.899 Other long term (current) drug therapy; Z87.891 Personal history of nicotine dependence

== ENCOUNTER → 2017-09-26 | Outpatient (CLI) | payer OTHER, MEDICARE ==
[~2017-09-26] MED LIST changes: +CEPH500C PO
[2017-09-26 18:21] LABS: ALBUMIN 3.7 gm/dl (3.4-5.0); BLOOD UREA NITROGEN 11 mg/dl (7-18); CALCIUM 8.7 mg/dl (8.5-10.1); CARBON DIOXIDE 29 mmol/L (21-32); CREATININE 0.93 mg/dl (0.60-1.40); GLUCOSE 87 mg/dl (70-99); POTASSIUM 3.9 mmol/L (3.5-5.1); SODIUM 142 mmol/L (136-145)
[2017-09-26 18:24] LABS: ALKALINE PHOSPHATASE 89 U/L (45-117); ALT/SGPT 43 U/L (12-78); AST/SGOT 29 U/L (15-37); TOTAL PROTEIN 6.5 gm/dl (6.4-8.2)
== END | disposition home or self-care (01) ==
LOC: C.LAB 16:50
PROVIDERS: ATTEND Urology
DX: N28.1 Cyst of kidney, acquired (principal)

== ENCOUNTER → 2017-10-03 | Outpatient (CLI) | payer OTHER, MEDICARE ==
[2017-10-03 17:11] LABS: CREATININE 1.66 mg/dl (0.60-1.40)
== END | disposition home or self-care (01) ==
LOC: C.LAB 16:05
PROVIDERS: ATTEND Internal Medicine Gastroenterology
DX: K86.1 Other chronic pancreatitis (principal)

== ENCOUNTER → 2017-12-20 | Day surgery (SDC) | payer OTHER, MEDICARE ==
[2017-12-16 13:13] VITALS: Ht 156.2 cm; Wt 67.3 kg
[~2017-12-20] VITALS: Ht 156.2 cm; Wt 67.3 kg
[~2017-12-20] MED LIST changes: -ACET1TAB84 PO; +ACET650T97 PO; +ASPCH81X PO; -ASPI81TA28 PO; -ATOR-26 PO; +ATROPINE SULFATE 0.1 MG/ML 5ML SYR IV PRN; -CEPH500C PO; -COLC0.6T54 PO; +COQ10 PO; +DEXAMETHASONE SOD INJ 4 MG/ML VIAL ONE; +EpHEDrine SULFATE INJ 50 MG/ML AMP IV PRN; +FENTANYL CITRATE INJ 50 MCG/1 ML 2 ML VIAL IV PRN; +FENTANYL CITRATE INJ 50 MCG/1 ML 2 ML VIAL ONE; +HYDROmorphone INJ 1 MG/ML SYR IV PRN; +LACTATED RINGER'S 1000ML 1,000 ML IV SCH; -LEVO25TA5 PO; +LEVO50TA6 PO; +LIDOCAINE HCL 2% 2 ML VIAL (20MG/ML) ONE; +MELA1TAB5 PO; -METO25TA56 PO; -NTRGSL/4 UT; +ONDANSETRON INJ 2 MG/ML 2 ML VIAL IV PRN; +ONDANSETRON INJ 2 MG/ML 2 ML VIAL ONE; +PHEN10TA31 PO; +PHENYLEPHRINE 100MCG/ML 5ML SYR IV PRN; +PROMETHAZINE HCL INJ 12.5 MG in SODIUM CHLORIDE 0.9% 50ML 50 ML IV PRN; +PROPOFOL IV EMULSION 10 MG/ML 20 ML VIAL ONE; +SODIUM CHLORIDE 0.9% 500ML 500 ML IV ONE; +SUCCINYLCHOLINE CHLORIDE 20 MG/ML 10 ML VIAL IV ONE; +TPRSR50 PO; +ZICAM NAE
[2017-12-20 07:03] VITALS: BP 133/80; PULSE 82; TEMP 36.3; O2SAT 95
[2017-12-20 07:21] LABS: HEMATOCRIT 47.4 % (42-52); HEMOGLOBIN 16.6 g/dL (14.0-18.0); MEAN CELL VOLUME 87.8 fL (80-100); MEAN CORPUSCULAR HEMOGLOBIN 30.7 pg (25-34); MEAN PLATELET VOLUME 10.7 fL (7.4-10.4); PLATELET COUNT 202 K/uL (130-400); RED CELL DISTRIBUTION WIDTH SD 41.1 fL (36.4-46.3)
--- NOTE | 2017-12-20 08:15 | Endo History and Physical ---
History & Physical Date of Service: Dec 20, 2017. Chief Complaint: Referring Physician: History of Present Illness abd pain; chnages on CT of [place]ance[place] Past Surgical History Hx Cardiac Surgery: Yes (HEART CATH/2 STENTS 2008,CATH NO STENT 2010) Hx Abdominal Surgery: Yes (INGUINAL HERNIA) Hx Post-Op Nausea and Vomiting: No Hx Cancer Surgery: No Hx Thoracic Surgery: No Hx Orthopedic: Yes (RT FOOT SURGERY X2,RT SHOULDER ARTHRSOCOPY, RT RCR,RT KNEE SCOPE) Hx Urinary Tract Surgery: No Social History Smoking Status: Former Smoker Hx Substance Use: No Hx Alcohol Use: No Allergies Coded Allergies: Tomato (Verified Allergy, Intermediate, HIVES, 12/20/17) Codeine (Verified Adverse Reaction, Mild, STOMACH PROBLEMS-ABD PAIN, ) Oxycodone (Verified Adverse Reaction, Unknown, GI SYMPTOMS, 12/20/17) Current Medications Reported Home Medications Medications Dose Route/Sig Max Daily Dose Days Date Category Dose Instructions [Coq10] 1 Tab PO HS 12/16/17 Reported Phenylephrine Hcl (Phenylephrine Hcl (Oral)) 10 Mg Tab 1 Tab PO BID 11/01/17 Reported [Zicam] 1 [place] GRISEL BID 11/01/17 Reported Kp Melatonin (Melatonin) 3 Mg Tab 2 Tab PO HS 11/01/17 Reported Tylenol 8 Hour Arthritis (Acetaminophen) 650 Mg Tab 2 Tab PO TID PRN 11/01/17 Reported [place]-3 (Fish Oil) 1 Ea Cap 1,200 Mg PO HS 11/01/17 Reported Aspirin Chewable (Aspirin) 81 Mg Chew 81 Mg PO HS 11/01/17 Reported PT WILL FOLLOW [employer] Levothyroxine Sodium 50 Mcg Tab 1 Tab PO HS 11/01/17 Reported Metoprolol Succinate ER (Metoprolol Succinate) 50 Mg Tabcr 25 Mg PO HS 11/01/17 Reported Plavix (Clopidogrel Bisulfate) 75 Mg Tab 75 Mg PO HS 09/03/11 Reported PT WILL FOLLOW CARDIOLOGST INSTRUCTIONS Vital Signs Weight (Kilograms): 67.27 Height (Feet): 5 Height (Inches): 1.5 Date Time Temp Pulse Resp B/P (MAP) Pulse Ox O2 Delivery O2 Flow Rate FiO2 12/20/17 07:03 36.3 82 18 133/80 (97) 95 Room Air Physical Exam General Appearance: WD/WN, no apparent distress Respiratory/Chest: Auscultation: breath sounds normal Cardiovascular: Heart Auscultation: RRR Abdomen: Bowel Sounds: normal Inspection & Palpation: soft, non-distended, no tenderness, guarding & rebound Assessment and Plan EGD/EUS possible FNA
--- NOTE | 2017-12-20 09:24 | [facility] Post Operative Brief Note ---
Immediate Operative Summary Operative Date Dec 20, 2017. Pre-Operative Diagnosis abdominal pain; abnormal CT scan Post-Operative Diagnosis abdominal pain; abnormal CT scan Procedure(s) Performed Esophagogastroduodenoscopy with Biopsies; Upper Endoscopic Ultrasonography with hyperechoic stranding Surgeon Dr. Ernesto Godoy Rail Operator Surgeon(s) none Estimated Blood Loss 0mL Findings Consistent with Post-Op Diagnosis Fluids (cc crystalloids) o ml Specimens specimens maintained by cytology & endoscopy staff Drains None Anesthesia Type General Complication(s) none Disposition Disposition: Recovery Room / PACU Overlapping Procedure I was immediately available: during the entire case
--- NOTE | 2017-12-20 09:56 | GI REPORT ---
Patient Name: Ryan Trujillo Procedure Date: 12/20/2017 8:32 AM Date of : 1950 Admit Type: Outpatient Age: 67 Gender: Male Attending MD: Blayne Godoy MD Procedure: Upper GI endoscopy Providers: Blayne Godoy MD Referring MD: Blayne Godoy MD Indications: Epigastric abdominal pain Medicines: General Anesthesia Complications: No immediate complications. Estimated blood loss: Minimal. Estimated Blood Loss: Estimated blood loss: none. Procedure: Pre-Anesthesia Assessment: - Prior to the procedure, a History and Physical was performed, and patient medications and allergies were reviewed. The patient's tolerance of previous anesthesia was also reviewed. The risks and benefits of the procedure and the sedation options and risks were discussed with the patient. All questions were answered, and informed consent was obtained. Prior Anticoagulants: The patient has taken no previous anticoagulant or antiplatelet agents. ASA Grade Assessment: II - A patient with mild systemic disease. After reviewing the risks and benefits, the patient was deemed in satisfactory condition to undergo the procedure. After obtaining informed consent, the endoscope was passed under direct vision. Throughout the procedure, the patient's blood pressure, pulse, and oxygen saturations were monitored continuously. The Scope was introduced through the mouth, and advanced to the second part of duodenum. The upper GI endoscopy was accomplished without difficulty. The patient tolerated the procedure well. Findings: The upper third of the esophagus and middle third of the esophagus were normal. A medium-sized hiatus hernia was found. The proximal extent of the gastric folds (end of tubular esophagus) was 33 cm from the incisors. The hiatal narrowing was 37 cm from the incisors. The Z-line was 33 cm from the incisors. Patchy mildly erythematous mucosa without bleeding was found in the gastric body and in the gastric antrum. Biopsies were taken with a cold forceps for histology. Verification of patient identification for the specimen was done by the physician and radio electronics technician using the patient's name and medical record number. Patchy mildly erythematous mucosa without active bleeding and with no stigmata of bleeding was found in the duodenal bulb and in the first portion of the duodenum. The second portion of the duodenum was normal. The cardia and gastric fundus were normal on retroflexion. Impression: - Normal upper third of esophagus and middle third of esophagus. - Medium-sized hiatal hernia. - Erythematous mucosa in the gastric body and antrum. Biopsied. - Erythematous duodenopathy. - Normal second portion of the duodenum. Recommendation: - Perform an upper endoscopic ultrasound (UEUS) today. - Discharge patient to home (ambulatory). - Advance diet as tolerated. - Continue present medications. - Await pathology results. - Return to referring physician as previously scheduled. MD Blayne Durant MD 12/20/2017 9:56:01 AM This report has been signed electronically. Note Initiated On: 12/20/2017 8:32 AM Number of Addenda: 0 I attest to the content of the Intraoperative Record and orders documented therein, exceptions below {[id number]}
--- NOTE | 2017-12-20 10:13 | Anesthesiology Progress Note ---
Anesthesia Post Op Note Date & Time Dec 20, 2017 at 10:13 Vital Signs Pain Intensity: 0 Vital Signs Past 12 Hours Date Time Temp Pulse Resp B/P (MAP) Pulse Ox O2 Delivery O2 Flow Rate FiO2 12/20/17 10:10 65 16 114/74 95 Nasal Cannula 3 12/20/17 10:00 36.4 65 16 117/80 95 Nasal Cannula 3 12/20/17 09:50 68 16 107/77 95 Nasal Cannula 3 12/20/17 09:40 68 16 110/72 95 Oxymask 3 12/20/17 09:32 36.5 65 18 115/70 97 Oxymask 5 12/20/17 07:03 36.3 82 18 133/80 (97) 95 Room Air Notes Mental Status: alert / awake / arousable, participated in evaluation Pt Amnestic to Procedure: Yes Nausea / Vomiting: adequately controlled Pain: adequately controlled Airway Patency, RR, SpO2: stable & adequate BP & HR: stable & adequate Hydration State: stable & adequate Anesthetic Complications: no major complications apparent
[2017-12-20 10:25] VITALS: BP 109/60; PULSE 63; TEMP 36.8; O2SAT 96
--- NOTE | 2017-12-20 10:33 | GI REPORT ---
Patient Name: Ryan Trujillo Procedure Date: 12/20/2017 8:31 AM Date of : 1950 Admit Type: Outpatient Age: 67 Gender: Male Attending MD: Blayne Godoy MD Procedure: Upper EUS Providers: Blayne Godoy MD Referring MD: Fransisco Bruce MD Indications: Suspected chronic pancreatitis, Suspected esophageal neoplasm Medicines: General Anesthesia Complications: No immediate complications. Estimated blood loss: Minimal. Estimated Blood Loss: Estimated blood loss was minimal. Estimated blood loss: None. Estimated blood loss: none. Estimated blood loss: none. Procedure: Pre-Anesthesia Assessment: - Prior to the procedure, a History and Physical was performed, and patient medications and allergies were reviewed. The patient's tolerance of previous anesthesia was also reviewed. The risks and benefits of the procedure and the sedation options and risks were discussed with the patient. All questions were answered, and informed consent was obtained. Prior Anticoagulants: The patient has taken no previous anticoagulant or antiplatelet agents. ASA Grade Assessment: II - A patient with mild systemic disease. After reviewing the risks and benefits, the patient was deemed in satisfactory condition to undergo the procedure. After obtaining informed consent, the endoscope was passed under direct vision. Throughout the procedure, the patient's blood pressure, pulse, and oxygen saturations were monitored continuously. The Endosonoscope was introduced through the mouth, and advanced to the duodenum for ultrasound examination from the esophagus, stomach and duodenum. The upper EUS was accomplished without difficulty. The patient tolerated the procedure well. Findings: Endoscopic Finding : The examined esophagus was normal. A medium-sized hiatal hernia was present. Patchy mild inflammation characterized by erythema was found in the gastric body and in the gastric antrum. Patchy mild inflammation characterized by erythema was found in the duodenal bulb. Endosonographic Finding : The esophagus, stomach and duodenum and adjacent structures were visualized endosonographically. There was no sign of significant endosonographic abnormality in the esophagus. No pathologic lymphadenopathy was identified. Endosonographic images of the stomach were unremarkable. No pathologic lymphadenopathy was identified. There was no sign of significant endosonographic abnormality in the examined duodenum. No pathologic lymphadenopathy was identified. There was no sign of significant endosonographic abnormality in the ampulla. No pathologic lymphadenopathy and no masses were identified. There was no sign of significant endosonographic abnormality in the common bile duct and in the gallbladder. The maximum diameter of the ducts were 4 mm. No stones, no biliary sludge and ducts of normal caliber were identified. There was no sign of significant endosonographic abnormality in the visualized portion of the liver. No focal pathology was identified. Pancreatic parenchymal abnormalities were noted in the entire pancreas. These consisted of hyperechoic foci. There was no sign of significant endosonographic abnormality in the pancreatic head, pancreatic body and pancreatic tail. The pancreatic duct measured up to 3 mm in diameter. The pancreatic duct was well visualized from ampulla to tail, the pancreatic duct was regular in contour. No lymphadenopathy seen. There was no sign of significant endosonographic abnormality in the entire examined left adrenal gland. No abnormal echogenicity was identified. There was no sign of significant endosonographic abnormality in the entire examined left kidney. No abnormal echogenicity was identified. There was no sign of significant endosonographic abnormality in the in the kidney/right. No focal pathology was identified. There was no sign of significant endosonographic abnormality in the visualized portion of the spleen. No abnormal echogenicity was identified. The region of the celiac plexus and celiac ganglia was visualized and showed no sign of significant endosonographic abnormality. The vascular anatomy of the region was normal. Impression: - Normal esophagus. - Medium-sized hiatal hernia. - Gastritis. - Duodenitis. - No specimens collected. Recommendation: - Discharge patient to home (ambulatory). - Resume regular diet indefinitely. - Continue present medications. - Repeat the upper endoscopic ultrasound is not recommended. - Return to referring physician as previously scheduled. MD Blayne Durant MD 12/20/2017 10:33:00 AM This report has been signed electronically. Note Initiated On: 12/20/2017 8:31 AM Number of Addenda: 0 I attest to the content of the Intraoperative Record and orders documented therein, exceptions below {[id number]}
--- NOTE | 2017-12-20 10:42 | Discharge Instructions ---
Endoscopy Patient Instructions Date / Procedure(s) Performed Dec 20, 2017. EGD, Other Allergy Information Coded Allergies: Tomato (Verified Allergy, Intermediate, HIVES, 12/20/17) Codeine (Verified Adverse Reaction, Mild, STOMACH PROBLEMS-ABD PAIN, ) Oxycodone (Verified Adverse Reaction, Unknown, GI SYMPTOMS, 12/20/17) Discharge Date / Findings Dec 20, 2017. mild gastritis /duodenitis on EGD- bx 20 EUS with minimal hyperechoic pancreatic stranding- no smples taken Medication Instructions Restart Stopped Medication(s): Reported Home Medications Medications Dose Route/Sig Max Daily Dose Days Date Category Dose Instructions [Coq10] 1 Tab PO HS 12/16/17 Reported Phenylephrine Hcl (Phenylephrine Hcl (Oral)) 10 Mg Tab 1 Tab PO BID 11/01/17 Reported [Zicam] 1 [place] GRISEL BID 11/01/17 Reported Kp Melatonin (Melatonin) 3 Mg Tab 2 Tab PO HS 11/01/17 Reported Tylenol 8 Hour Arthritis (Acetaminophen) 650 Mg Tab 2 Tab PO TID PRN 11/01/17 Reported [place]-3 (Fish Oil) 1 Ea Cap 1,200 Mg PO HS 11/01/17 Reported Aspirin Chewable (Aspirin) 81 Mg Chew 81 Mg PO HS 11/01/17 Reported PT WILL FOLLOW [facility]ICKER Levothyroxine Sodium 50 Mcg Tab 1 Tab PO HS 11/01/17 Reported Metoprolol Succinate ER (Metoprolol Succinate) 50 Mg Tabcr 25 Mg PO HS 11/01/17 Reported Plavix (Clopidogrel Bisulfate) 75 Mg Tab 75 Mg PO HS 09/03/11 Reported PT WILL FOLLOW CARDIOLOGST INSTRUCTIONS Increase Zantac - ranitidine to 150mg twice daily Reported Home Medications Medications Dose Route/Sig Max Daily Dose Days Date Category Dose Instructions [Coq10] 1 Tab PO HS 12/16/17 Reported Phenylephrine Hcl (Phenylephrine Hcl (Oral)) 10 Mg Tab 1 Tab PO BID 11/01/17 Reported [Zicam] 1 [place] GRISEL BID 11/01/17 Reported Kp Melatonin (Melatonin) 3 Mg Tab 2 Tab PO HS 11/01/17 Reported Tylenol 8 Hour Arthritis (Acetaminophen) 650 Mg Tab 2 Tab PO TID PRN 11/01/17 Reported [place]-3 (Fish Oil) 1 Ea Cap 1,200 Mg PO HS 11/01/17 Reported Aspirin Chewable (Aspirin) 81 Mg Chew 81 Mg PO HS 11/01/17 Reported PT WILL FOLLOW T[facility]DEM [facility] STICKER Levothyroxine Sodium 50 Mcg Tab 1 Tab PO HS 11/01/17 Reported Metoprolol Succinate ER (Metoprolol Succinate) 50 Mg Tabcr 25 Mg PO HS 11/01/17 Reported Plavix (Clopidogrel Bisulfate) 75 Mg Tab 75 Mg PO HS 09/03/11 Reported PT WILL FOLLOW CARDIOLOGST INSTRUCTIONS Provider Instructions Activity Restrictions - No exercising or heavy lifting for 24 hours. - Do not drink alcohol the day of the procedure. - Do not drive a car or operate machinery until the day after the procedure. - Do not make any important decisions or sign important papers in 24 hours after the procedure. Following Day: - Return to full activity which may include returning to work/school. Diet Start your diet with liquids and light foods (jello, soup, juice, toast). Then eat your usual diet if not nauseated. Treatment For Common After Affects For mild abdominal pain, bloating, or excessive gas: - Rest - Eat lightly - Lie on right side Follow-Up Information Follow-up with as scheduled Anesthesia Information What You Should Know You have had a procedure that required some medicine to reduce anxiety and discomfort. This treatment is called moderate sedation. After receiving the treatment, you may be sleepy, but you will be able to breathe on your own. The effects of the treatment may last for several hours. Follow these instructions along with Activity/Diet recommendations noted above: * Do NOT do anything where dizziness or clumsiness would be dangerous. * Rest quietly at home today, then you can be up and about tomorrow. * Have a responsible person stay with you the rest of today. * You may have had an I.V. today. If so, you may take the dressing off later today. Recommendations Call your doctor if: * Trouble breathing * Continuous vomiting for more than 24 hours * Temperature above 101 degrees * Severe abdominal pain or bloating * Pain not relieved by pain medicine ordered * There is increased drainage or redness from any incision * A large amount of rectal bleeding greater than 2-3 tablespoons. (If you had a polyp/s removed or have hemorrhoids, a small amount of blood - from the rectum is to be expected.) * You have any unanswered questions or concerns. IN THE EVENT OF A SERIOUS EMERGENCY, GO TO THE NEAREST EMERGENCY ROOM Your discharge instructions were prepared by provider Blayne Godoy. Patient Instructions Signature Page Ryan Trujillo Patient (or Guardian) Signature/Date: I have read and understand the instructions given to me by my caregivers. Caregiver/RN/Doctor Signature/Date: The above-named patient and/or guardian has received patient instructions on this date. + Original Patient Signature Page (only) stays with chart. Please make copy for patient.
[2017-12-20 11:00] VITALS: BP 115/65; PULSE 64; TEMP 36.8; O2SAT 96
== END | disposition home or self-care (01) ==
LOC: C.ACU 06:44
PROVIDERS: ATTEND Internal Medicine Gastroenterology
DX: R10.9 Unspecified abdominal pain (principal); K86.1 Other chronic pancreatitis; Z87.891 Personal history of nicotine dependence; Z88.5 Allergy status to narcotic agent; Z79.82 Long term (current) use of aspirin; J44.9 Chronic obstructive pulmonary disease, unspecified; I25.2 Old myocardial infarction; I25.10 Atherosclerotic heart disease of native coronary artery without angina pectoris; I12.9 Hypertensive chronic kidney disease with stage 1 through stage 4 chronic kidney disease, or unspecified chronic kidney disease; K21.9 Gastro-esophageal reflux disease without esophagitis; M19.90 Unspecified osteoarthritis, unspecified site; N18.2 Chronic kidney disease, stage 2 (mild); E21.3 Hyperparathyroidism, unspecified

== ENCOUNTER 2021-05-31 17:55 | Inpatient (IN) ==
[2021-05-31 18:45] LABS: Basophils # (auto) 0.06 K/uL (0-0.2); Eosinophils # (auto) 0.02 K/uL (0-0.5); Eosinophils % (auto) 0.3 %; Hematocrit (blood only) 53.9 % (42-52); Immature Granulocytes # (auto) 0.04 K/uL (0.00-0.02); Immature Granulocytes % (auto) 0.7 %; Lymphocytes # (auto) 0.59 K/uL (1.2-3.4); Lymphocytes % (auto) 9.6 %; Mean Corpuscular Hemoglobin 32.8 pg (25-34); Mean Corpuscular Hgb Conc 35.3 g/dL (32-36); Mean Corpuscular Volume 92.9 fL (80-100); Mean Platelet Volume 11.2 fL (7.4-10.4); Monocytes # (auto) 0.92 K/uL (0.11-0.59); Neutrophils # (auto) 4.51 K/uL (1.4-6.5); Neutrophils % (auto) 73.4 %; Platelet Count 191 K/uL (130-400); RDW Coefficient of Variation 14.2 % (11.5-14.5); RDW Standard Deviation 48.1 fL (36.4-46.3); White Blood Count 6.14 K/uL (4.8-10.8)
[2021-05-31] MEDS ORDERED: DEXAMETHASONE SOD INJ 4 MG/ML VIAL IV STA (18:50)
[2021-05-31] MEDS ORDERED: ASPIRIN CHEW 324 MG PO STA (18:50)
[2021-05-31 19:00] LABS: INR 1.1 (0.9-1.1); Partial Thromboplastin Ratio 1.1; Prothrombin Time 10.7 Seconds (9.0-12.0)
[2021-05-31 19:16] LABS: Troponin I 0.06 ng/ml (0-0.04)
--- NOTE | 2021-05-31 19:17 | Emergency Department Note ---
History of Present Illness General Chief Complaint: Shortness of Breath/Dyspnea Stated Complaint: SOB, TROUBLE SLEEPING, SINUS INFECTION Time Seen by Provider: 05/31/21 18:36 History of Present Illness Provider Complaint: shortness of breath Onset (ago): day(s) (1) Severity: moderate Consistency/Duration: + progressively worsening Maximum Pain Intensity: 7 Current Pain Intensity: 7 Relieved By: + oxygen and + rest Exacerbated By: + exertion and + coughing Context: + recent illness (Recently diagnosed with influenza) Known history of: COPD Associated symptoms: + chest pain, + fever, + cough, + wheezing, + sputum production and + chest congestion; no hemoptysis, no nausea/vomiting, no abdominal pain or no rash Treatment prior to arrival: none Related Data Home oxygen amount: none Home Medications Medication Instructions Recorded Confirmed Type aspirin 81 mg chewable tablet 81 mg PO HS 02/07/18 05/31/21 History clopidogrel 75 mg tablet (Plavix) 75 mg PO HS 02/07/18 05/31/21 History levothyroxine 50 mcg capsule 50 mcg PO QAM 02/07/18 05/31/21 History metoprolol tartrate 25 mg tablet 12.5 mg PO HS 09/10/18 05/31/21 History cholecalciferol (vitamin D3) 50 50 mcg PO Q OTHER DAY cap 02/02/20 05/31/21 History mcg (2,000 unit) capsule (Vitamin D3) cartilage 40 mg-collagen II 10 1 tab PO BID 11/24/20 05/31/21 History mg-boron 5 mg-hyaluronate 3.3 mg tablet ([employer]) nitroglycerin 0.4 mg sublingual 0.4 mg USEASDIRECTD PRN 11/24/20 05/31/21 History tablet (Nitrostat) albuterol sulfate 90 mcg/actuation 2 puff INHALATION Q6H PRN #18 g 12/05/20 05/31/21 Rx aerosol inhaler atorvastatin 40 mg tablet (Lipitor) 40 mg PO HS 01/03/21 05/31/21 History melatonin 10 mg tablet 10 mg PO HS PRN 01/03/21 05/31/21 History tiotropium 2.5 mcg-olodaterol 2.5 2 puff INHALATION DAILY 01/03/21 05/31/21 History mcg/actuation mist for inhalation (Stiolto Respimat) diphenhydramine HCl 25 mg capsule 25 - 50 mg PO DIRECTED PRN 01/22/21 05/31/21 History (Benadryl) acetaminophen 500 mg tablet 1,000 mg PO BID 04/23/21 05/31/21 History (Tylenol Extra Strength) amoxicillin 875 mg-potassium 1 tab PO BID 05/27/21 05/31/21 History clavulanate 125 mg tablet prednisone 20 mg tablet 20 mg PO .as directed #15 tab 05/30/21 05/31/21 Rx Allergies Allergy/AdvReac Type Severity Reaction Status Date / Time hornet venom Allergy Intermediate EXTRA Verified 05/31/21 19:42 SWELLING AT SITE tomato Allergy Intermediate HIVES Verified 05/31/21 19:42 codeine AdvReac Mild STOMACH Verified 05/31/21 19:42 PROBLEMS-ABD PAIN Past Med/Surg History Medical History (Updated 05/31/21 @ 21:02 by Klever Condon) Chronic kidney disease STAGE 3 Chronic obstructive pulmonary disease GERD (gastroesophageal reflux disease) Hyperlipidemia Hypertension Hypothyroidism Insomnia Myocardial Infarction 2008 Osteoarthritis Spinal stenosis Stomach ulcer Surgical History Hammer toes of both feet History of arthroscopy KNEE History of cardiac cath History of colonoscopy History of endoscopic sinus surgery History of heart artery stent STENT X 06/2008 History of herniorrhaphy INGUINAL History of repair of rotator cuff RT History of surgery LEFT INDEX FINGER REPAIR History of tooth extraction Family History Brother Family history of diabetes mellitus Mother Family history of diabetes mellitus Social History Smoking Status: Former smoker Cigarettes Per Day: 40; Second Hand Exposure: No; Hx Alcohol Use: No Hx Substance Use: No Preferred Language: Albanian Communication Ability: Effective Control Systems Drafting Officer Required: No Beliefs That Will Affect Care: None Current Living Situation: Spouse Feels Safe at Home: Yes Assistive Devices: None Review of Systems A total of 10 systems reviewed and were otherwise negative Physical Exam Vital Signs: Vital Signs - 24 hr 05/31/21 18:07 05/31/21 18:13 05/31/21 19:00 Temperature 36.3 C L Temperature Source Temporal Artery Sc an Pulse Rate 101 H Pulse Rate [Apical ] 78 Pulse Rhythm Regular Pulse Strength Normal Respiratory Rate 28 H 20 Respiratory Effort / Characteristics Labored Respiratory Depth Respiratory Patter n Regular Blood Pressure [Ri ght Arm] 103/79 Blood Pressure Madisyn n [Right Arm] 87 Blood Pressure Pos ition Sitting Pulse Oximetry 88 L 94 95 Oxygen Delivery Me thod Room Air Nasal Cannula Nasal Cannula Oxygen Flow Rate 2 2 Sepsis Recent Feve r Within 48 Hours No Sepsis New/Unexpla ined Change in Men bola Status No Sepsis Action Take n by Nursing No Action Required 05/31/21 19:01 05/31/21 19:05 05/31/21 19:12 Temperature Temperature Source Pulse Rate 77 Pulse Rate [Apical ] Pulse Rhythm Pulse Strength Respiratory Rate Respiratory Effort / Characteristics Respiratory Depth Respiratory Patter n Blood Pressure [Ri ght Arm] Blood Pressure Madisyn n [Right Arm] Blood Pressure Pos ition Pulse Oximetry 95 95 95 Oxygen Delivery Me thod Nasal Cannula Nasal Cannula Nasal Cannula Oxygen Flow Rate 2 2 2 Sepsis Recent Feve r Within 48 Hours Sepsis New/Unexpla ined Change in Men bola Status Sepsis Action Take n by Nursing 05/31/21 19:20 05/31/21 19:42 05/31/21 20:00 Temperature Temperature Source Pulse Rate Pulse Rate [Apical ] 74 73 Pulse Rhythm Pulse Strength Respiratory Rate 22 22 20 Respiratory Effort / Characteristics Spontaneous Short of Breath Spontaneous Short of Breath Spontaneous Short of Breath Respiratory Depth Normal Normal Respiratory Patter n Blood Pressure [Ri ght Arm] 116/72 119/82 Blood Pressure Madisyn n [Right Arm] 86 94 Blood Pressure Pos ition Pulse Oximetry 94 95 95 Oxygen Delivery Me thod Nasal Cannula Nasal Cannula Nasal Cannula Oxygen Flow Rate 2 2 2 Sepsis Recent Feve r Within 48 Hours Sepsis New/Unexpla ined Change in Men bola Status Sepsis Action Take n by Nursing Physical Exam: Physical Exam HENT: Exam performed. - Head: Normocephalic and atraumatic. - Right Ear: External ear normal. No mastoid tenderness. - Left Ear: External ear normal. No mastoid tenderness. - Mouth/Throat: The oropharynx is clear and moist. No trismus in the jaw. No dental abscesses or uvula swelling. No oropharyngeal exudate or tonsillar abscesses. EYES: Conjunctivae and EOM are normal. Pupils are equal, round, and reactive to light. Right eye exhibits no discharge. Left eye exhibits no discharge. No scleral icterus. NECK: Normal range of motion. Neck supple. No JVD present. No spinous process tenderness present. No carotid bruit present. No rigidity. No tracheal deviation and normal range of motion present. No Brudzinski's sign and no Kernig's sign noted. CV: Normal rate, regular rhythm, normal heart sounds and intact distal pulses. There is no peripheral edema. Palpable radial pulses bue. PULM/CHEST: Rhonchi bilaterally ABD: The abdomen is soft. Bowel sounds are normal. He has no distension. No mass is present. There is no tenderness. There is no rebound, no guarding, no Valdes's sign and no tenderness at McBurney's point. Rovsig negative. MUSC/SKEL: Normal range of motion. There is no peripheral edema, tenderness or deformity. LYMPH: No cervical adenopathy. NEURO: He is alert and oriented to person, place, and time. He has normal strength. No cranial nerve deficit or sensory deficit. Coordination and gait normal. GCS eye subscore is 4. GCS verbal subscore is 5. GCS motor subscore is 6. Cerebellar tests wnl. SKIN: Skin is warm and dry. He is not diaphoretic. PSYCH: He has a normal mood and affect. Behavior is normal. Judgment and thought content normal. Course Course 183: The patient was evaluated in room C10. A complete history and physical exam was performed Cardiac monitoring: An order was placed for continuous cardiac monitoring. The monitor shows a rate of 70 with sinus rhythm Patient was found to be hypoxic on room air. Supplemental oxygen was applied to the patient which improved his oxygen saturation. Patient has many symptoms concerning for COVID-19. Given the patient's hypoxia, Decadron 6 mg IV ordered for the patient. Patient's EKG does show a lot of T wave inversions. These T wave inversions do appear old. Aspirin also ordered for the patient 2015: Vital signs stable on supplemental oxygen via nasal cannula. Labs show a elevated troponin of 0.06. Hemoglobin 19. VBG within normal limits. Patient is COVID-positive. Imaging does show no central pulmonary emboli however there is question segmental pulmonary embolus of the right lower lobe. Given the CTA finding as well as the elevated troponin, patient will be started on heparin bolus and drip as patient is in a hypercoagulable state with his COVID diagnosis. [facility]. Post notified. Administered Medications Heparin Sodium/Dextrose (Heparin Sodium/Dextrose) 25,000 units in 500 mls @ 21 mls/hr IV .[id number] [facility]; Protocol Stop: 06/30/21 20:29 Last Admin: 05/31/21 20:37 Dose: 1,050 units/hr, 21 mls/hr Documented by: [id number] Cosigned by: [id number] Discontinued Medications Aspirin (Aspirin Chew 324 Mg) 324 mg PO NOW STA Stop: 05/31/21 18:51 Last Admin: 05/31/21 18:57 Dose: 324 mg Documented by: [id number] Dexamethasone (Dexamethasone Sod Inj 4 Mg/Ml Vial) 6 mg IV NOW STA Stop: 05/31/21 18:51 Last Admin: 05/31/21 18:57 Dose: 6 mg Documented by: [id number] Heparin Sodium (Porcine) (Heparin Sod (Porcine) 1000 Unit/Ml) 1 units IV NOW ONE Stop: 05/31/21 20:27 Last Admin: 05/31/21 20:37 Dose: 5,000 units Documented by: [id number] Cosigned by: [id number] Heparin Sodium/Dextrose (Heparin Iv Adult Wt-Based Standard With Bolus Protocol) 1 ea IV NOW STA; Protocol Stop: 05/31/21 20:12 Last Admin: 05/31/21 20:21 Dose: 1 ea Documented by: [id number] Ioversol (Optiray 320 125ml) 113 ml IV ONCE ONE Stop: 05/31/21 19:34 Last Admin: 05/31/21 19:36 Dose: 113 ml Documented by: [id number] Medical Decision Making Laboratory Data Result diagrams: 05/31/21 18:25 05/31/21 18:25 Lab Results 05/31/21 05/31/21 05/31/21 Range/Units 18:25 18:25 18:25 WBC 6.14 (4.8-10.8) K/uL RBC 5.80 (4.7-6.1) M/uL Hgb 19.0 H (14.0-18.0) g/dL Hct 53.9 H (42-52) % MCV 92.9 (80-100) fL MCH 32.8 (25-34) pg MCHC 35.3 (32-36) g/dL RDW Std Deviation 48.1 H (36.4-46.3) fL RDW Coeff of Navin 14.2 (11.5-14.5) % Plt Count 191 (130-400) K/uL MPV 11.2 H (7.4-10.4) fL Immature Gran % (Auto) 0.7 % Neut % (Auto) 73.4 % Lymph % (Auto) 9.6 % Rutherford % (Auto) 15.0 % Eos % (Auto) 0.3 % Baso % (Auto) 1.0 % Neut # (Auto) 4.51 (1.4-6.5) K/uL Lymph # (Auto) 0.59 L (1.2-3.4) K/uL [place]ford # (Auto) 0.92 H (0.11-0.59) K/uL Eos # (Auto) 0.02 (0-0.5) K/uL Baso # (Auto) 0.06 (0-0.2) K/uL Immature Gran # (Auto) 0.04 H (0.00-0.02) K/uL PT 10.7 (9.0-12.0) Seconds INR 1.1 (0.9-1.1) APTT 29.0 (21.0-31.0) Seconds PTT Ratio 1.1 VBG pH (7.36-7.41) VBG pCO2 (38-50) mmHg VBG pO2 mmHg VBG HCO3 mmol/L VBG O2 Saturation % VBG Base Excess mEq/L Barometric Pressure mm/Hg Sodium 136 (136-145) mmol/L Potassium 4.4 (3.5-5.1) mmol/L Chloride 105 (98-107) mmol/L Carbon Dioxide 18 L (21-32) mmol/L Anion Gap 13 H (3-11) BUN 17 (6-23) mg/dl Creatinine 1.00 (0.6-1.4) mg/dl Est Cr Clr Drug Dosing 56.2 ml/min Est GFR ( Amer) 87.4 ml/min Est GFR (Non-Af Amer) 75.4 ml/min BUN/Creatinine Ratio 17.0 (10-20) Glucose 117 H (70-99) mg/dl Lactate (0.4-2.0) mmol/L Calcium 9.5 (8.5-10.1) mg/dl Magnesium 1.8 (1.7-2.4) mg/dl Total Bilirubin 0.9 (0.2-1.0) mg/dl AST 43 H (13-39) U/L ALT 43 (7-52) U/L Alkaline Phosphatase 78 (34-104) U/L Troponin I 0.06 H* (0-0.04) ng/ml B-Natriuretic Peptide Total Protein 7.3 (6.0-8.3) gm/dl Albumin 4.5 (3.4-5.0) gm/dl Globulin 2.8 (2.5-4.0) gm/dl Albumin/Globulin Ratio 1.6 (0.9-2) Procalcitonin (0-0.5) ng/ml SARS-CoV-2 (PCR) (Negative) Influenza Type A (PCR) (Neg) Influenza Type B (PCR) (Neg) RSV (RT-PCR) (Neg) 05/31/21 05/31/21 05/31/21 Range/Units 18:25 18:28 19:14 WBC (4.8-10.8) K/uL RBC (4.7-6.1) M/uL Hgb (14.0-18.0) g/dL Hct (42-52) % MCV (80-100) fL MCH (25-34) pg MCHC (32-36) g/dL RDW Std Deviation (36.4-46.3) fL RDW Coeff of Navin (11.5-14.5) % Plt Count (130-400) K/uL MPV (7.4-10.4) fL Immature Gran % (Auto) % Neut % (Auto) % Lymph % (Auto) % Rutherford % (Auto) % Eos % (Auto) % Baso % (Auto) % Neut # (Auto) (1.4-6.5) K/uL Lymph # (Auto) (1.2-3.4) K/uL [place] # (Auto) (0.11-0.59) K/uL Eos # (Auto) (0-0.5) K/uL Baso # (Auto) (0-0.2) K/uL Immature Gran # (Auto) (0.00-0.02) K/uL PT (9.0-12.0) Seconds INR (0.9-1.1) APTT (21.0-31.0) Seconds PTT Ratio VBG pH 7.45 H (7.36-7.41) VBG pCO2 29 L (38-50) mmHg VBG pO2 57 mmHg VBG HCO3 20 mmol/L VBG O2 Saturation 89.4 % VBG Base Excess -2.6 mEq/L Barometric Pressure 732.5 mm/Hg Sodium (136-145) mmol/L Potassium (3.5-5.1) mmol/L Chloride (98-107) mmol/L Carbon Dioxide (21-32) mmol/L Anion Gap (3-11) BUN (6-23) mg/dl Creatinine (0.6-1.4) mg/dl Est Cr Clr Drug Dosing ml/min Est GFR ( Amer) ml/min Est GFR (Non-Af Amer) ml/min BUN/Creatinine Ratio (10-20) Glucose (70-99) mg/dl Lactate (0.4-2.0) mmol/L Calcium (8.5-10.1) mg/dl Magnesium (1.7-2.4) mg/dl Total Bilirubin (0.2-1.0) mg/dl AST (13-39) U/L ALT (7-52) U/L Alkaline Phosphatase (34-104) U/L Troponin I (0-0.04) ng/ml B-Natriuretic Peptide Total Protein (6.0-8.3) gm/dl Albumin (3.4-5.0) gm/dl Globulin (2.5-4.0) gm/dl Albumin/Globulin Ratio (0.9-2) Procalcitonin < 0.05 (0-0.5) ng/ml SARS-CoV-2 (PCR) POSITIVE A* (Negative) Influenza Type A (PCR) Negative (Neg) Influenza Type B (PCR) Negative (Neg) RSV (RT-PCR) Negative (Neg) 05/31/21 05/31/21 05/31/21 Range/Units 19:14 19:14 19:57 WBC (4.8-10.8) K/uL RBC (4.7-6.1) M/uL Hgb (14.0-18.0) g/dL Hct (42-52) % MCV (80-100) fL MCH (25-34) pg MCHC (32-36) g/dL RDW Std Deviation (36.4-46.3) fL RDW Coeff of Navin (11.5-14.5) % Plt Count (130-400) K/uL MPV (7.4-10.4) fL Immature Gran % (Auto) % Neut % (Auto) % Lymph % (Auto) % [place] % (Auto) % Eos % (Auto) % Baso % (Auto) % Neut # (Auto) (1.4-6.5) K/uL Lymph # (Auto) (1.2-3.4) K/uL [place] # (Auto) (0.11-0.59) K/uL Eos # (Auto) (0-0.5) K/uL Baso # (Auto) (0-0.2) K/uL Immature Gran # (Auto) (0.00-0.02) K/uL PT (9.0-12.0) Seconds INR (0.9-1.1) APTT (21.0-31.0) Seconds PTT Ratio VBG pH (7.36-7.41) VBG pCO2 (38-50) mmHg VBG pO2 mmHg VBG HCO3 mmol/L VBG O2 Saturation % VBG Base Excess mEq/L Barometric Pressure mm/Hg Sodium (136-145) mmol/L Potassium (3.5-5.1) mmol/L Chloride (98-107) mmol/L Carbon Dioxide (21-32) mmol/L Anion Gap (3-11) BUN (6-23) mg/dl Creatinine (0.6-1.4) mg/dl Est Cr Clr Drug Dosing ml/min Est GFR ( Amer) ml/min Est GFR (Non-Af Amer) ml/min BUN/Creatinine Ratio (10-20) Glucose (70-99) mg/dl Lactate Cancelled (0.4-2.0) mmol/L Calcium (8.5-10.1) mg/dl Magnesium (1.7-2.4) mg/dl Total Bilirubin (0.2-1.0) mg/dl AST (13-39) U/L ALT (7-52) U/L Alkaline Phosphatase (34-104) U/L Troponin I (0-0.04) ng/ml B-Natriuretic Peptide Cancelled Total Protein (6.0-8.3) gm/dl Albumin (3.4-5.0) gm/dl Globulin (2.5-4.0) gm/dl Albumin/Globulin Ratio (0.9-2) Procalcitonin (0-0.5) ng/ml SARS-CoV-2 (PCR) (Negative) Influenza Type A (PCR) (Neg) Influenza Type B (PCR) (Neg) RSV (RT-PCR) (Neg) 05/31/21 Range/Units 20:42 WBC (4.8-10.8) K/uL RBC (4.7-6.1) M/uL Hgb (14.0-18.0) g/dL Hct (42-52) % MCV (80-100) fL MCH (25-34) pg MCHC (32-36) g/dL RDW Std Deviation (36.4-46.3) fL RDW Coeff of Navin (11.5-14.5) % Plt Count (130-400) K/uL MPV (7.4-10.4) fL Immature Gran % (Auto) % Neut % (Auto) % Lymph % (Auto) % [place] % (Auto) % Eos % (Auto) % Baso % (Auto) % Neut # (Auto) (1.4-6.5) K/uL Lymph # (Auto) (1.2-3.4) K/uL [place] # (Auto) (0.11-0.59) K/uL Eos # (Auto) (0-0.5) K/uL Baso # (Auto) (0-0.2) K/uL Immature Gran # (Auto) (0.00-0.02) K/uL PT (9.0-12.0) Seconds INR (0.9-1.1) APTT (21.0-31.0) Seconds PTT Ratio VBG pH (7.36-7.41) VBG pCO2 (38-50) mmHg VBG pO2 mmHg VBG HCO3 mmol/L VBG O2 Saturation % VBG Base Excess mEq/L Barometric Pressure mm/Hg Sodium (136-145) mmol/L Potassium (3.5-5.1) mmol/L Chloride (98-107) mmol/L Carbon Dioxide (21-32) mmol/L Anion Gap (3-11) BUN (6-23) mg/dl Creatinine (0.6-1.4) mg/dl Est Cr Clr Drug Dosing ml/min Est GFR ( Amer) ml/min Est GFR (Non-Af Amer) ml/min BUN/Creatinine Ratio (10-20) Glucose (70-99) mg/dl Lactate (0.4-2.0) mmol/L Calcium (8.5-10.1) mg/dl Magnesium (1.7-2.4) mg/dl Total Bilirubin (0.2-1.0) mg/dl AST (13-39) U/L ALT (7-52) U/L Alkaline Phosphatase (34-104) U/L Troponin I (0-0.04) ng/ml B-Natriuretic Peptide Total Protein (6.0-8.3) gm/dl Albumin (3.4-5.0) gm/dl Globulin (2.5-4.0) gm/dl Albumin/Globulin Ratio (0.9-2) Procalcitonin Cancelled (0-0.5) ng/ml SARS-CoV-2 (PCR) (Negative) Influenza Type A (PCR) (Neg) Influenza Type B (PCR) (Neg) RSV (RT-PCR) (Neg) Imaging Data Radiologist's Impression: Chest CTA 05/31/21 18:51 CT angio chest PE protocol CT DOSE: 342.73 mGy.cm HISTORY: 70 years-old Male with roPE. Acute shortness of breath TECHNIQUE: Multiple CTA images of the chest were obtained after the intravenous administration of 113 ml Optiray. Coronal and sagittal MIPS were obtained from the axial data set and were submitted for review. All measurements were obtained according to NASCET criteria. A dose lowering technique was utilized adhering to the principles of ALARA. COMPARISON: CT abdomen and pelvis the eighth 2021, CTA chest 01/03/2021 FINDINGS: CTA: Mild cardiomegaly with moderate coronary artery calcifications. There is no pericardial effusion. Atherosclerosis of the thoracic aorta without aneurysm. Dilated pulmonary artery measuring over 3 cm redemonstrated. There is satisfactory opacification of the pulmonary arterial tree, however there is limited evaluation of the segmental and subsegmental branches secondary to respiratory motion artifact. No central pulmonary emboli identified. There is a questioned segmental filling defects within the right lower lobe on image [address] CHEST: Unremarkable thyroid. Mildly enlarged paratracheal lymph nodes measuring up to approximate 1.2 cm are similar to prior. No new or progressive adenopathy. Unchanged mild subcarinal and right hilar adenopathy. No pneumothorax, pleural effusion or overt pulmonary edema. Severe pulmonary emphysema with areas of pleural-parenchymal scarring. Areas of chronic reticulation are suggestive of fibrosis. Limited evaluation of the lungs secondary to respiratory motion artifact. There are no suspicious pulmonary nodules or masses identified. Unchanged likely benign fissural lymph nodes node of the left lung as seen on images 117 and 190. The central airways are patent. Mild distal esophageal wall thickening. No acute process of the imaged upper abdomen. Unremarkable soft tissues. Degenerative changes of the spine and shoulders. Lower cervical spinal fusion hardware is again noted. 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 Upper thoracic dextroscoliosis. IMPRESSION: 1. Limited exam secondary to respiratory motion artifact. No central pulmonary emboli are identified, however there is a questioned segmental pulmonary embolus of the right lower lobe. Correlation with lower extremity Doppler recommended. 2. Severe emphysema. 3. Unchanged mediastinal and hilar adenopathy. 4. No pleural effusion or airspace consolidation typical for pneumonia. ACT 112: Negative or not required by law. The above report was generated using voice recognition software. It may contain grammatical, syntax or spelling errors. Electronically signed by: Ji Rosa M.D. 05/31/2021 8:00 PM ECG Data Interpretation: EKG #1 1815: Sinus rhythm with rate of 84. RI QRS and QTc intervals within normal limits. T wave inversion leads V1 through V5. No ST elevation or ST depression. No signal change from the EKG done in May 2021. EKG #2 at 1901: Sinus rhythm with a rate of 79. RI QRS and QTc intervals within normal limits. No ST elevation ST depression. T wave inversion in leads V1 through V5. No significant change from the previous EKG. [facility] Narrative 1836: The patient was evaluated in room C10. A complete history and physical e xam was performed Cardiac monitoring: An order was placed for continuous cardiac monitoring. The monitor shows a rate of 70 with sinus rhythm Patient was found to be hypoxic on room air. Supplemental oxygen was applied to the patient which improved his oxygen saturation. Patient has many symptoms concerning for COVID-19. Given the patient's hypoxia, Decadron 6 mg IV ordered for the patient. Patient's EKG does show a lot of T wave inversions. These T wave inversions do appear old. Aspirin also ordered for the patient 2015: Vital signs stable on supplemental oxygen via nasal cannula. Labs show a elevated troponin of 0.06. Hemoglobin 19. VBG within normal limits. Patient is COVID-positive. Imaging does show no central pulmonary emboli however there is question segmental pulmonary embolus of the right lower lobe. Given the CTA finding as well as the elevated troponin, patient will be started on heparin bolus and drip as patient is in a hypercoagulable state with his COVID d iagnosis. Patient will be admitted to the [facility] hospitalist team Dr. Post notified. Impression & Plan Hypoxia, Pulmonary embolism, COVID-19 Discharge Plan Visit Data Chief Complaint: Shortness of Breath/Dyspnea Stated Complaint: SOB, TROUBLE SLEEPING, SINUS INFECTION Discharge Problem: Hypoxia, Pulmonary embolism, COVID-19 Patient Disposition: Admitted As Inpatient Forms Stand Alone Forms: [facility] Prescriptions Prescriptions: No Action prednisone 20 mg tablet 20 mg PO .as directed Qty: 15 RF: 0 albuterol sulfate 90 mcg/actuation HFA aerosol inhaler 2 puff inhalation Q6H PRN (Reason: Shortness Of Breath Or Wheezing) Qty: 18 RF: 3 metoprolol tartrate 25 mg tablet 12.5 mg PO HS RF: 0 cholecalciferol (vitamin D3) [Vitamin D3] 50 mcg (2,000 unit) capsule 50 mcg PO Q OTHER DAY RF: 0 clopidogrel [Plavix] 75 mg Tablet 75 mg PO HS RF: 0 aspirin 81 mg Tablet,Chewable 81 mg PO HS RF: 0 levothyroxine 50 mcg Capsule 50 mcg PO QAM RF: 0 Stiolto Respimat 2.5-2.5 mcg/actuation Mist 2 puff INHALATION DAILY RF: 0 atorvastatin [Lipitor] 40 mg tablet 40 mg PO HS RF: 0 melatonin 10 mg Tablet 10 mg PO HS PRN (Reason: Sleep) RF: 0 amoxicillin-pot clavulanate 875-125 mg tablet 1 tab PO BID RF: 0 nitroglycerin [Nitrostat] 0.4 mg Tablet, Sublingual 0.4 mg USEASDIRECTD PRN (Reason: Chest Pain) RF: 0 [facility] 40-10-5-3.3 mg Tablet 1 tab PO BID RF: 0 diphenhydramine HCl [Benadryl] 25 mg Capsule 25 - 50 mg PO DIRECTED PRN (Reason: Allergic Reaction) RF: 0 acetaminophen [Tylenol Extra Strength] 500 mg Tablet 1,000 mg PO BID RF: 0 Referrals Referrals: Dylon James [Primary Care Provider] -
[2021-05-31 19:24] LABS: Albumin Globulin Ratio 1.6 (0.9-2); Albumin Level 4.5 gm/dl (3.4-5.0); Bilirubin,Total 0.9 mg/dl (0.2-1.0); Calcium 9.5 mg/dl (8.5-10.1); Creatinine Clr Calc Pharmacy 56.2 ml/min; Est GFR (African American) 87.4 ml/min; Est GFR (Non-African American) 75.4 ml/min; Globulin 2.8 gm/dl (2.5-4.0); Magnesium 1.8 mg/dl (1.7-2.4); Potassium 4.4 mmol/L (3.5-5.1); Total Protein 7.3 gm/dl (6.0-8.3)
[2021-05-31] MEDS ORDERED: OPTIRAY 320 125ml IV ONE (19:33)
[2021-05-31 19:43] LABS: Influenza A virus by PCR Negative (Neg); Influenza B virus by PCR Negative (Neg); RSV by PCR Negative (Neg)
[2021-05-31 19:44] LABS: Base Excess VBG -2.6 mEq/L; Oxygen Saturation VBG 89.4 %; pH VBG 7.45 (7.36-7.41)
[2021-05-31 19:56] LABS: SARS CoV2 RNA(COVID-19) InHosp POSITIVE (Negative)
--- NOTE | 2021-05-31 20:01 | CT Scan Report ---
CT angio chest PE protocol CT DOSE: 342.73 mGy.cm HISTORY: 70 years-old Male with roPE. Acute shortness of breath TECHNIQUE: Multiple CTA images of the chest were obtained after the intravenous administration of 113 ml Optiray. Coronal and sagittal MIPS were obtained from the axial data set and were submitted for review. All measurements were obtained according to NASCET criteria. A dose lowering technique was u tilized adhering to the principles of ALARA. COMPARISON: CT abdomen and pelvis the eighth 2021, CTA chest 01/03/2021 FINDINGS: CTA: Mild cardiomegaly with moderate coronary artery calcifications. There is no pericardial effusion. Ath erosclerosis of the thoracic aorta without aneurysm. Dilated pulmonary artery measuring over 3 cm red emonstrated. There is satisfactory opacification of the pulmonary arterial tree, however there is haknins ited evaluation of the segmental and subsegmental branches secondary to respiratory motion artifact. No central pulmonary emboli identified. There is a questioned segmental filling defects within the ri ght lower lobe on image [address] CHEST: Unremarkable thyroid. Mildly enlarged paratracheal lymph nodes measuring up to approximate 1.2 cm are similar to prior. No new or progressive adenopathy. Unchanged mild subcarinal and right hilar adenop athy. No pneumothorax, pleural effusion or overt pulmonary edema. Severe pulmonary emphysema with areas of pleural-parenchymal scarring. Areas of chronic reticulation are suggestive of fibrosis. Limited evalu ation of the lungs secondary to respiratory motion artifact. There are no suspicious pulmonary nodule s or masses identified. Unchanged likely benign fissural lymph nodes node of the left lung as seen on images 117 and 190. The central airways are patent. Mild distal esophageal wall thickening. No acute process of the imaged upper abdomen. Unremarkable so ft tissues. Degenerative changes of the spine and shoulders. Lower cervical spinal fusion hardware is again noted. 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 Upper thoracic dextroscolios is. IMPRESSION: 1. Limited exam secondary to respiratory motion artifact. No central pulmonary emboli are identified, however there is a questioned segmental pulmonary embolus of the right lower lobe. Correlation with lower extremity Doppler recommended. 2. Severe emphysema. 3. Unchanged mediastinal and hilar adenopathy. 4. No pleural effusion or airspace consolidation typical for pneumonia. ACT 112: Negative or not required by law. The above report was generated using voice recognition software. It may contain grammatical, syntax o r spelling errors. Electronically signed by: Ji Rosa M.D. 05/31/2021 8:00 PM
[2021-05-31] MEDS ORDERED: Heparin IV Adult Wt-Based Standard WITH Bolus Protocol IV STA (20:11)
[2021-05-31] MEDS ORDERED: HEPARIN SOD (PORCINE) 1000 UNIT/ML IV ONE (20:26)
[2021-05-31] MEDS: HEPARIN SODIUM/DEXTROSE 25,000 UNITS/500 ML BAG IV SCH (20:37)
[2021-05-31] MEDS ORDERED: AZITHROMYCIN 500 MG in DEXTROSE 5% 250 ML IV STA (21:21)
--- NOTE | 2021-05-31 21:27 | History & Physical Report ---
Date of Service May 31, 2021 Assessment & Plan (1) COVID-19: Plan: COVID 19 - Patient vaccinated x 2 with Pfizer, no Booster - patient is approximate day 3 of illness - Mildly hypoxia however considering he has Severe Emphysema (C)- a spo2 on room air of 88 is acceptable- however with returning from restroom he was 80% and visibly dyspneic - Continue Decadron for his dyspnea- 6mg - Patient currently declined remdesivir, but if he did not feel better in the ne xt few days would like to re-address - Continue oxygen support he is currently on 2LNC- titrate for SPo2 >88--- NC/HNFC/CPAP/BIPAP/INTUBATION - CRP <0.5 - PCT pending on admission - LDH 133 (2) COPD with emphysema: Plan: As above - continue his albuterol - Continue his tiotropium - He was trialed on breo and Spiriva to see if improved symptoms last year- he did not feel this helped much - He was started on prednisone as outpatient but 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 No central pulmonary emboli are identified, however there is a questioned segmental pulmonary embolus of the right lower lobe. Correlation with lower extremity Doppler recommended. - Can't exclude so will continue heparin drip at this time - Will get lower extremity duplex - Continue anticoagulation as warranted (4) Elevated troponin I level: Plan: Likely demand type II from hypoxia - continue trend troponin q6 hours (5) CAD (coronary artery disease): Plan: As above - Was on Plavix and ASA - Heparin drip so will hold Plavix at this time - Continue statin - Continue with metoprolol - NTG sl prn (6) Multiple pulmonary nodules: Plan: Follows with pulmonary (7) Hyperlipidemia: Plan: Continue statin History of Present Illness Primary Care Provider: Dylon James 70 YOM with past medical history of: CAD with bare metal stents x2 2008-LAD left circ, and recent cath in November with non-obstructive disease, HTN, HLD, Hypothyroidism, Emphysema, pulmonary nodules. Patient comes to the EMD today for complaints of increased dyspnea, head congestion and chest pressure with cough. Patient originally started feeling ill the day after [place] with onset of chills, fatigue, body aches and sinus congestion. He was tested positive for influenza at that time but his COVID test was negative at that time. He continued to experience head congestion and was seen here on the with negative COVID test. He was started on Doxycycline at that time which upset his stomach, so he came back in today for concern. He was also experiencing increase in his shortness of breath and cough. He is not coughing up anything but at times will cough up some yellow sputum, his normal COPD sputum is brown. He has not had to use his inhalers more and his SPO2 on arrival was 88. He had another COVID test today that was positive. He also had a CTA of the chest that revealed a possible right lower segmental PE, he also had routine labs drawn to include Troponin I that was minimally elevated to 0.06, no acute dynamic changes on his ECG. His pain that he was experiencing was pressure that was associated with making him cough. This has not occurred with him getting up and ambulating or when he was feeling dyspneic. Not associated with any other symptoms. For this he was started on Heparin drip by the [facility]. Patient states that he is vaccinated but did not get his booster and that is grand kids that live with him have had some fatigue and URI symptoms this past week. Patient will be admitted, he is early in his COVID course at this time, continue to trend out his Troponin I, will continue Decadron and will add on Azithromycin for COPD and possible bacterial component and his sinus congestion. Patient has had his COVID vaccine and his COVID test is: POSITIVE Allergies Allergy/AdvReac Type Severity Reaction Status Date / Time hornet venom Allergy Intermediate EXTRA Verified 05/31/21 19:42 SWELLING AT SITE tomato Allergy Intermediate HIVES Verified 05/31/21 19:42 codeine AdvReac Mild STOMACH Verified 05/31/21 19:42 PROBLEMS-ABD PAIN Home Medications Medication Instructions Recorded Confirmed Type aspirin 81 mg chewable tablet 81 mg PO HS 02/07/18 05/31/21 History clopidogrel 75 mg tablet (Plavix) 75 mg PO HS 02/07/18 05/31/21 History levothyroxine 50 mcg capsule 50 mcg PO QAM 02/07/18 05/31/21 History metoprolol tartrate 25 mg tablet 12.5 mg PO HS 09/10/18 05/31/21 History cholecalciferol (vitamin D3) 50 50 mcg PO Q OTHER DAY cap 02/02/20 05/31/21 History mcg (2,000 unit) capsule (Vitamin D3) cartilage 40 mg-collagen II 10 1 tab PO BID 11/24/20 05/31/21 History mg-boron 5 mg-hyaluronate 3.3 mg tablet ([facility]) nitroglycerin 0.4 mg sublingual 0.4 mg USEASDIRECTD PRN 11/24/20 05/31/21 History tablet (Nitrostat) albuterol sulfate 90 mcg/actuation 2 puff INHALATION Q6H PRN #18 g 12/05/20 05/31/21 Rx aerosol inhaler atorvastatin 40 mg tablet (Lipitor) 40 mg PO HS 01/03/21 05/31/21 History melatonin 10 mg tablet 10 mg PO HS PRN 01/03/21 05/31/21 History tiotropium 2.5 mcg-olodaterol 2.5 2 puff INHALATION DAILY 01/03/21 05/31/21 History mcg/actuation mist for inhalation (Stiolto Respimat) diphenhydramine HCl 25 mg capsule 25 - 50 mg PO DIRECTED PRN 01/22/21 05/31/21 History (Benadryl) acetaminophen 500 mg tablet 1,000 mg PO BID 04/23/21 05/31/21 History (Tylenol Extra Strength) amoxicillin 875 mg-potassium 1 tab PO BID 05/27/21 05/31/21 History clavulanate 125 mg tablet prednisone 20 mg tablet 20 mg PO .as directed #15 tab 05/30/21 05/31/21 Rx Past Med/Surg History Medical History Chronic kidney disease STAGE 3 Chronic obstructive pulmonary disease GERD (gastroesophageal reflux disease) Hyperlipidemia Hypertension Hypothyroidism Insomnia Myocardial Infarction 2008 Osteoarthritis Spinal stenosis Stomach ulcer Surgical History Hammer toes of both feet History of arthroscopy KNEE History of cardiac cath History of colonoscopy History of endoscopic sinus surgery History of heart artery stent STENT X 06/2008 History of herniorrhaphy INGUINAL History of repair of rotator cuff RT History of surgery LEFT INDEX FINGER REPAIR History of tooth extraction Family History Brother Family history of diabetes mellitus Mother Family history of diabetes mellitus Social History Smoking Status: Former smoker Cigarettes Per Day: 40; Second Hand Exposure: No; Hx Alcohol Use: No Hx Substance Use: No Preferred Language: Cambodian Communication Ability: Effective [employer] Required: No Beliefs That Will Affect Care: None Current Living Situation: Family Other Information That Helps Us Care for You: No Feels Safe at Home: Yes Safety Concerns: Feels Safe At This Time Assistive Devices: Oxygen - Continuous Review of Systems Constitutional: REVIEW OF SYSTEMS: Constitutional: No fever, sweats or chills Eyes: No diplopia, no worsening or blurred vision ENT: normal hearing, no trouble swallowing Respiratory: (+) cough, sputum, dyspnea at rest or on exertion Cardiovascular: (+) pressure, No chest pain, palpitations Abdomen: No pain, nausea, vomiting, diarrhea or constipation Musculoskeletal: joint pain, calf pain, swelling Neurologic: No weakness, numbness/tingling, or balance problems Psychiatric: No anxiety or depression Skin: No rash or itch Physical Exam Physical Exam: PHYSICAL EXAM: General: awake, alert, no apparent distress Head: Normocephalic, atraumatic ENT: PERRL, EOMI, no pharyngeal exudate, mucous membranes moist Neuro: AAO x 3, speech clear and appropriate, strength intact bilaterally 5/5, sensation intact and equal all extremities and dermatomes, no pronator drift Chest: equal rise and fall of the chest, no accessory muscle use, no heaves or thrills, Clear to auscultation, on room air, Cardiac: Regular rate and rhythm, telemetry reviewed, skin warm dry, cap refill <3 seconds, peripheral pulses +2 no JVD, no murmur, no edema GI: NABS x 4 quadrants, soft, nontender to palpation, no rebound, guarding or tenderness : Spontaneously voiding, no pain, no CVA tenderness, Extremities: Normal inspection, no peripheral edema or erythema, calfs nontender to palpation Psych: Normal mood and affect Skin: no rash or erythema Results & Data Results & Data ([facility]) Vital Signs (Past 12 Hours) Vital Signs Temp Pulse Pulse Resp BP Pulse Ox 05/31/21 20:00 73 20 119/82 95 05/31/21 19:42 74 22 116/72 95 05/31/21 19:20 22 94 05/31/21 19:12 77 95 05/31/21 19:05 95 05/31/21 19:01 95 05/31/21 19:00 78 20 103/79 95 05/31/21 18:13 94 05/31/21 18:07 36.3 C L 101 H 28 H 88 L Laboratory Results Abnormal lab results 05/31/21 05/31/21 05/31/21 Range/Units 18:25 18:25 18:28 Hgb 19.0 H (14.0-18.0) g/dL Hct 53.9 H (42-52) % RDW Std Deviation 48.1 H (36.4-46.3) fL MPV 11.2 H (7.4-10.4) fL Lymph # (Auto) 0.59 L (1.2-3.4) K/uL [place] # (Auto) 0.92 H (0.11-0.59) K/uL Immature Gran # (Auto) 0.04 H (0.00-0.02) K/uL VBG pH (7.36-7.41) VBG pCO2 (38-50) mmHg Carbon Dioxide 18 L (21-32) mmol/L Anion Gap 13 H (3-11) Glucose 117 H (70-99) mg/dl AST 43 H (13-39) U/L Troponin I 0.06 H* (0-0.04) ng/ml B-Natriuretic Peptide (0-100) pg/ml SARS-CoV-2 (PCR) POSITIVE A* (Negative) 05/31/21 05/31/21 Range/Units 19:14 20:42 Hgb (14.0-18.0) g/dL Hct (42-52) % RDW Std Deviation (36.4-46.3) fL MPV (7.4-10.4) fL Lymph # (Auto) (1.2-3.4) K/uL [place] # (Auto) (0.11-0.59) K/uL Immature Gran # (Auto) (0.00-0.02) K/uL VBG pH 7.45 H (7.36-7.41) VBG pCO2 29 L (38-50) mmHg Carbon Dioxide (21-32) mmol/L Anion Gap (3-11) Glucose (70-99) mg/dl AST (13-39) U/L Troponin I (0-0.04) ng/ml B-Natriuretic Peptide 277 H (0-100) pg/ml SARS-CoV-2 (PCR) (Negative) Diagnostic Findings Chest CTA 05/31/21 18:51 CT angio chest PE protocol CT DOSE: 342.73 mGy.cm HISTORY: 70 years-old Male with roPE. Acute shortness of breath TECHNIQUE: Multiple CTA images of the chest were obtained after the intravenous administration of 113 ml Optiray. Coronal and sagittal MIPS were obtained from the axial data set and were submitted for review. All measurements were obtain ed according to NASCET criteria. A dose lowering technique was utilized adhering to the principles of ALARA. COMPARISON: CT abdomen and pelvis the eighth 2021, CTA chest 01/03/2021 FINDINGS: CTA: Mild cardiomegaly with moderate coronary artery calcifications. There is no pericardial effusion. Atherosclerosis of the thoracic aorta without aneurysm. Dilated pulmonary artery measuring over 3 cm redemonstrated. There is satisfactory opacification of the pulmonary arterial tree, however there is limited evaluation of the segmental and subsegmental branches secondary to respiratory motion artifact. No central pulmonary emboli identified. There is a questioned segmental filling defects within the right lower lobe on image [address] CHEST: Unremarkable thyroid. Mildly enlarged paratracheal lymph nodes measuring up to approximate 1.2 cm are similar to prior. No new or progressive adenopathy. Unchanged mild subcarinal and right hilar adenopathy. No pneumothorax, pleural effusion or overt pulmonary edema. Severe pulmonary emphysema with areas of pleural-parenchymal scarring. Areas of chronic reticulation are suggestive of fibrosis. Limited evaluation of the lungs secondary to respiratory motion artifact. There are no suspicious pulmonary nodules or masses identified. Unchanged likely benign fissural lymph nodes node of the left lung as seen on images 117 and 190. The central airways are patent. Mild distal esophageal wall thickening. No acute process of the imaged upper abdomen. Unremarkable soft tissues. Degenerative changes of the spine and shoulders. Lower cervical spinal fusion hardware is again noted. 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 Upper thoracic dextroscoliosis. IMPRESSION: 1. Limited exam secondary to respiratory motion artifact. No central pulmonary emboli are identified, however there is a questioned segmental pulmonary embolus of the right lower lobe. Correlation with lower extremity Doppler recommended. 2. Severe emphysema. 3. Unchanged mediastinal and hilar adenopathy. 4. No pleural effusion or airspace consolidation typical for pneumonia. ACT 112: Negative or not required by law. The above report was generated using voice recognition software. It may contain grammatical, syntax or spelling errors. Electronically signed by: Ji Rosa M.D. 05/31/2021 8:00 PM Medications Administered Home Medications aspirin 81 mg chewable tablet 81 mg PO HS 02/07/18 [History Confirmed 05/31/21] clopidogrel 75 mg tablet (Plavix) 75 mg PO HS 02/07/18 [History Confirmed 05/31/21] levothyroxine 50 mcg capsule 50 mcg PO QAM 02/07/18 [History Confirmed 05/31/21] metoprolol tartrate 25 mg tablet 12.5 mg PO HS 09/10/18 [History Confirmed 05/31/21] cholecalciferol (vitamin D3) 50 mcg (2,000 unit) capsule (Vitamin D3) 50 mcg PO Q OTHER DAY cap 02/02/20 [History Confirmed 05/31/21] cartilage 40 mg-collagen II 10 mg-boron 5 mg-hyaluronate 3.3 mg tablet ([email or web address]) 1 tab PO BID 11/24/20 [History Confirmed 05/31/21] nitroglycerin 0.4 mg sublingual tablet (Nitrostat) 0.4 mg USEASDIRECTD PRN 11/24/20 [History Confirmed 05/31/21] albuterol sulfate 90 mcg/actuation aerosol inhaler 2 puff INHALATION Q6H PRN #18 g 12/05/20 [Rx Confirmed 05/31/21] atorvastatin 40 mg tablet (Lipitor) 40 mg PO HS 01/03/21 [History Confirmed 05/31/21] melatonin 10 mg tablet 10 mg PO HS PRN 01/03/21 [History Confirmed 05/31/21] tiotropium 2.5 mcg-olodaterol 2.5 mcg/actuation mist for inhalation (Stiolto Respimat) 2 puff INHALATION DAILY 01/03/21 [History Confirmed 05/31/21] diphenhydramine HCl 25 mg capsule (Benadryl) 25 - 50 mg PO DIRECTED PRN 01/22/21 [History Confirmed 05/31/21] acetaminophen 500 mg tablet (Tylenol Extra Strength) 1,000 mg PO BID 04/23/21 [History Confirmed 05/31/21] amoxicillin 875 mg-potassium clavulanate 125 mg tablet 1 tab PO BID 05/27/21 [History Confirmed 05/31/21] prednisone 20 mg tablet 20 mg PO .as directed #15 tab 05/30/21 [Rx Confirmed 05/31/21] Active Medications Heparin Sodium/Dextrose (Heparin Sodium/Dextrose) 25,000 units in 500 mls @ 21 mls/hr IV .[id number] [facility]; Protocol Stop: 06/30/21 20:29 Last Admin: 05/31/21 20:37 Dose: 1,050 units/hr, 21 mls/hr Documented by: Azithromycin 500 mg/ Dextrose 255 mls @ 127.5 mls/hr IV NOW STA Stop: 05/31/21 23:20 ECG Additional Comments: Normal sinus rhythm Right axis deviation ST & T wave abnormality, consider anterolateral ischemia Abnormal ECG When compared with ECG of 31-MAY-2021 18:15, (unconfirmed) No significant change was found Code Status & VTE Plan Code Status CODE: FULL VTE: SCDS, Heparin drip VTE Prophylaxis Plan VTE Prophylaxis will be ordered: Yes Supervising Physician Co-Signing Physician Notes Patient examined, chart reviewed, discussed with ARASELI Osullivan and I agree with the plan as above Covid-19, hypoxic on arrival at 88% on RA. Hypoxic after ambulation to 80% Elevated troponin Possible PE noted on CTA Exam is unremarkable +S1/S2, regular, no m//rg Lungs CTA Abd soft, NT/ND Ext- no edema Labs and images reviewed Inflammatory markers are WNL Assessment/Plan -Covid tx with O2, Dexamethasone -Azithromycin -Trend troponin -Heparin gtt for PE -Continue home medications for COPD, CAD - holding plavix -Remainder as above PG Care Time/CCT Total # of Minutes Spent Total Time Spent with Patient: Total time spent is greater than 50% in coordination of care (as documented) at patient's floor/unit and/or counseling patient: Coding Level of Care Code 00077 Initial Inpt Care Lvl 3 Diagnoses COPD with emphysema J43.9 Emphysema type: unspecified Pulmonary embolism I26.99 Acute cor pulmonale presence: unspecified Chronicity: acute Pulmonary embolism type: unspecified CAD (coronary artery disease) I25.10 Multiple pulmonary nodules R91.8 Hyperlipidemia E78.5 COVID-19 U07.1 Elevated troponin I level R77.8 (1) COPD with emphysema Emphysema type: unspecified Qualified Code(s): J43.9 - Emphysema, unspecified (2) Pulmonary embolism Acute cor pulmonale presence: unspecified Chronicity: acute Pulmonary embolism type: unspecified Qualified Code(s): I26.99 - Other pulmonary embolism without acute cor pulmonale
[2021-05-31 21:44] LABS: Ferritin 159.4 ng/ml (8-388)
[2021-05-31 22:25] LABS: Appearance Urine Clear (Clear); Bilirubin Urine Negative (Negative); Blood Urine Negative (Negative); Color Urine Yellow; Glucose Urine UA Negative (Negative); Ketones Urine 1+ (Negative); Leukocyte Esterase Urine Negative (Negative); Nitrite Urine Negative (Negative); Protein Urine Negative (Negative); Specific Gravity Urine > 1.045 (1.000-1.030); Urobilinogen Urine Negative (Negative)
[2021-05-31] MEDS ORDERED: ACETAMINOPHEN 325 MG TAB PO PRN (22:53)
[2021-05-31] MEDS ORDERED: NITROGLYCERIN SL 0.4 MG/TAB TAB SL PRN (22:53)
[2021-05-31] MEDS ORDERED: ONDANSETRON INJ 2 MG/ML 2 ML VIAL IV PRN (22:53)
[2021-05-31] MEDS: ATORVASTATIN 40 MG TAB PO SCH (23:34)
[2021-05-31] MEDS: ASPIRIN 81 MG ECTAB PO SCH (23:34)
[2021-05-31] MEDS: METOPROLOL TARTRATE 25 MG TAB PO SCH (23:34)
[2021-06-01 01:31] LABS: Partial Thromboplastin Ratio > 5.3
[2021-06-01 01:42] LABS: Partial Thromboplastin Time > 139.0 Seconds (21.0-31.0)
[2021-06-01] MEDS: ALBUTEROL HFA 8 GM INHALER INH SCH ×4 (01:55→20:43)
[2021-06-01 03:14] LABS: Partial Thromboplastin Ratio > 5.3
[2021-06-01 03:18] LABS: Partial Thromboplastin Time > 139.0 Seconds (21.0-31.0)
[2021-06-01 04:43] LABS: Basophils # (auto) 0.01 K/uL (0-0.2); Basophils % (auto) 0.2 %; Hematocrit (blood only) 51.2 % (42-52); Hemoglobin 17.4 g/dL (14.0-18.0); Immature Granulocytes # (auto) 0.04 K/uL (0.00-0.02); Immature Granulocytes % (auto) 0.8 %; Lymphocytes # (auto) 0.88 K/uL (1.2-3.4); Lymphocytes % (auto) 17.7 %; Mean Corpuscular Hemoglobin 32.3 pg (25-34); Mean Corpuscular Volume 95.2 fL (80-100); Mean Platelet Volume 10.9 fL (7.4-10.4); Monocytes # (auto) 0.26 K/uL (0.11-0.59); Monocytes % (auto) 5.2 %; Neutrophils # (auto) 3.79 K/uL (1.4-6.5); Neutrophils % (auto) 76.1 %; Platelet Count 195 K/uL (130-400); RDW Coefficient of Variation 14.2 % (11.5-14.5); RDW Standard Deviation 49.1 fL (36.4-46.3); Red Blood Count 5.38 M/uL (4.7-6.1); White Blood Count 4.98 K/uL (4.8-10.8)
[2021-06-01 05:02] LABS: BUN Creatinine Ratio 16.7 (10-20); Calcium 9.4 mg/dl (8.5-10.1); Creatinine Clr Calc Pharmacy 51.7 ml/min; Est GFR (African American) 79.6 ml/min; Est GFR (Non-African American) 68.7 ml/min; Potassium 5.2 mmol/L (3.5-5.1)
[2021-06-01 05:08] LABS: Partial Thromboplastin Ratio 2.5
[2021-06-01 05:10] LABS: Partial Thromboplastin Time 66.3 Seconds (21.0-31.0)
[2021-06-01] MEDS: LEVOTHYROXINE SODIUM 50 MCG TABLET PO SCH (05:49)
[2021-06-01] MEDS: dexAMETHasone 6 MG in SYRINGE 0 ML IV SCH (07:33)
[2021-06-01] MEDS: FAMOTIDINE 20 MG in SYRINGE 3 ML IV SCH (07:33)
[2021-06-01] MEDS: UMECLIDINIUM/VILANTEROL 62.5/25MCG 7 PUFFS/INHALER INH SCH (07:33)
--- NOTE | 2021-06-01 07:54 | Ultrasound Report ---
US venous doppler LE BI CLINICAL HISTORY: Bilateral lower extremity swelling. Evaluate for DVT- questionable segmental PE COMPARISON: None available at the time of this dictation. TECHNIQUE: Bilateral lower extremity real-time compression venous ultrasound with Color Doppler imagi ng. Utilizing real-time ultrasonic imaging multiple real time high-resolution ultrasonic images with comp ression and noncompression maneuvers of the deep venous system in addition to color doppler imaging w ere performed from the common femoral vein through the proximal calf veins. FINDINGS: Currently there is normal compressibility of the deep venous system from the common femoral vein thro ugh the proximal calf veins. No current evidence of acute thrombosis is identified. Impression: No evidence of deep venous thrombus. ACT 112: Negative or not required by law. Electronically signed by: Abdirashid Escobar M.D. 06/01/2021 7:53 AM
[2021-06-01 12:18] LABS: Partial Thromboplastin Ratio 2.9
[2021-06-01 12:22] LABS: Partial Thromboplastin Time 76.6 Seconds (21.0-31.0)
--- NOTE | 2021-06-01 14:30 | Electrocardiogram Report ---
Test Reason : Blood Pressure : / mmHG Vent. Rate : 084 BPM Atrial Rate : 084 BPM P-R Int : 136 ms QRS Dur : 090 ms QT Int : 386 ms P-R-T Axes : 049 120 -14 degrees QTc Int : 456 ms Normal sinus rhythm Right axis deviation Persistent T-wave inversion in Anterior leads Nonspecific ST abnormality Inferior leads Abnormal ECG When compared with ECG of 27-MAY-2021 12:21, Vent. rate has increased BY [address] abnormality Inferior leads now present Confirmed by Irving Chapin ([id number]) on 06/01/2021 2:30:17 PM Referred By: REFERRED SELF Confirmed By:Irving Chapin
--- NOTE | 2021-06-01 14:31 | Electrocardiogram Report ---
Test Reason : Blood Pressure : / mmHG Vent. Rate : 054 BPM Atrial Rate : 054 BPM P-R Int : 148 ms QRS Dur : 098 ms QT Int : 508 ms P-R-T Axes : 000 106 179 degrees QTc Int : 481 ms Sinus bradycardia Rightward axis Persistent T-wave inversion in Anterior leads Abnormal ECG When compared with ECG of 31-MAY-2021 19:01, No significant change was found Confirmed by Irving Chapin ([id number]) on 06/01/2021 2:31:18 PM Referred By: REFERRED SELF Confirmed By:Irving Chapin
--- NOTE | 2021-06-01 14:31 | Electrocardiogram Report ---
Test Reason : Blood Pressure : / mmHG Vent. Rate : 079 BPM Atrial Rate : 079 BPM P-R Int : 138 ms QRS Dur : 086 ms QT Int : 392 ms P-R-T Axes : 037 111 010 degrees QTc Int : 449 ms Normal sinus rhythm Right axis deviation T-wave inversion in Anterior leads Abnormal ECG When compared with ECG of 31-MAY-2021 18:15, Nonspecific ST abnormality Inferior leads no longer present Confirmed by Irving Chapin ([id number]) on 06/01/2021 2:30:50 PM Referred By: REFERRED SELF Confirmed By:Irving Chapin
[2021-06-01] MEDS: HEPARIN SODIUM/DEXTROSE 25,000 UNITS/500 ML BAG IV SCH ×2 (19:05→21:20)
[2021-06-01 19:23] LABS: Partial Thromboplastin Ratio 2.5
[2021-06-01 19:26] LABS: Partial Thromboplastin Time 66.4 Seconds (21.0-31.0)
[2021-06-01] MEDS: ASPIRIN 81 MG ECTAB PO SCH (20:55)
[2021-06-01] MEDS: ATORVASTATIN 40 MG TAB PO SCH (20:55)
[2021-06-01] MEDS: METOPROLOL TARTRATE 25 MG TAB PO SCH (20:55)
[2021-06-01] MEDS: AZITHROMYCIN 250 MG in DEXTROSE 5% 250 ML IV SCH (21:20)
--- NOTE | 2021-06-01 21:51 | Hospitalist Progress Note ---
Date of Service June 01, 2021 Assessment & Plan (1) COVID-19: Plan: COVID 19 - Patient vaccinated x 2 with Pfizer, no Booster - patient is approximate day 3 of illness - Mildly hypoxia however considering he has Severe Emphysema (C)- a spo2 on room air of 88 is acceptable- however with returning from restroom he was 80% and visibly dyspneic - Continue Decadron for his dyspnea- 6mg - Patient currently declined remdesivir, but if he did not feel better in the ne xt few days would like to re-address - Continue oxygen support he is currently on 2LNC- titrate for SPo2 >88--- NC/HNFC/CPAP/BIPAP/INTUBATION - CRP <0.5 - Procalcitonin is negative. - LDH 133 -currently on 2 liters, continue decadron as above. (2) COPD with emphysema: Plan: As above - continue his albuterol - Continue his tiotropium - He was trialed on breo and Spiriva to see if improved symptoms last year- he did not feel this helped much - He was started on prednisone as outpatient but did not greens picker the prescription yet- as above continue Decadron (3) Pulmonary embolism: Plan: Limited exam secondary to respiratory motion artifact. No central pulmonary emboli are identified, however there is a questioned segmental pulmonary embolus of the right lower lobe. Correlation with lower extremity Doppler recommended. - Can't exclude so will continue heparin drip at this time - Will get lower extremity duplex - Continue anticoagulation as warranted (4) Elevated troponin I level: Plan: Likely demand type II from hypoxia - continue trend troponin q6 hours (5) CAD (coronary artery disease): Plan: As above - Was on Plavix and ASA - Heparin drip so will hold Plavix at this time - Continue statin - Continue with metoprolol - NTG sl prn (6) Multiple pulmonary nodules: Plan: Follows with pulmonary (7) Hyperlipidemia: Plan: Continue statin Admission and Anticipated Discharge Date Admission Date: May 31, 2021 Subjective 70 yo male reports feeling well. He is tolerating 2 liters nasal cannula. Review of Systems Review of Systems: All systems reviewed & are unremarkable except as noted in HPI & below Physical Exam Physical Exam: General: awake, alert, no apparent distress Head: Normocephalic, atraumatic ENT: PERRL, EOMI, no pharyngeal exudate, mucous membranes moist Neuro: AAO x 3, speech clear and appropriate, strength intact bilaterally 5/5, sensation intact and equal all extremities and dermatomes, no pronator drift Chest: equal rise and fall of the chest, no accessory muscle use, no heaves or thrills, Clear to auscultation, on room air, Cardiac: Regular rate and rhythm, telemetry reviewed, skin warm dry, cap refill <3 seconds, peripheral pulses +2 no JVD, no murmur, no edema GI: NABS x 4 quadrants, soft, nontender to palpation, no rebound, guarding or tenderness : Spontaneously voiding, no pain, no CVA tenderness, Extremities: Normal inspection, no peripheral edema or erythema, calfs nontender to palpation Psych: Normal mood and affect Skin: no rash or erythema Results & Data Results & Data ([facility]) Vital Signs (Past 12 Hours) Vital Signs Temp Pulse Resp BP Pulse Ox 06/01/21 20:44 69 18 93 06/01/21 19:00 36.7 C 73 20 108/72 94 06/01/21 15:04 36.5 C 57 L 20 101/61 95 06/01/21 13:26 65 18 93 06/01/21 11:03 36.6 C 65 20 110/69 96 PG Care Time/CCT Total # of Minutes Spent Total Time Spent with Patient: Total time spent is greater than 50% in coordination of care (as documented) at patient's floor/unit and/or counseling patient: Coding Level of Care Code 30472 Subseq Hosp Care Lvl 2 Diagnoses COVID-19 U07.1 COPD with emphysema J43.9 Emphysema type: unspecified Pulmonary embolism I26.99 Acute cor pulmonale presence: unspecified Chronicity: acute Pulmonary embolism type: unspecified Elevated troponin I level R77.8 CAD (coronary artery disease) I25.10 Multiple pulmonary nodules R91.8 Hyperlipidemia E78.5 Time Spent (min) 25 (1) COPD with emphysema Emphysema type: unspecified Qualified Code(s): J43.9 - Emphysema, unspecified (2) Pulmonary embolism Acute cor pulmonale presence: unspecified Chronicity: acute Pulmonary embolism type: unspecified Qualified Code(s): I26.99 - Other pulmonary embolism without acute cor pulmonale
[2021-06-01] MEDS: DEXTROMETHORPHAN POLYMR COMPLX 30 MG/5 ML UDP PO PRN (22:48)
[2021-06-02] MEDS: MELATONIN 3 MG TAB PO PRN ×2 (00:01→21:59)
[2021-06-02] MEDS: ALBUTEROL HFA 8 GM INHALER INH SCH ×4 (00:46→19:41)
[2021-06-02 02:36] LABS: Hematocrit (blood only) 49.4 % (42-52); Hemoglobin 17.4 g/dL (14.0-18.0); Immature Granulocytes # (auto) 0.02 K/uL (0.00-0.02); Immature Granulocytes % (auto) 0.2 %; Lymphocytes # (auto) 1.02 K/uL (1.2-3.4); Lymphocytes % (auto) 11.9 %; Mean Corpuscular Hemoglobin 32.9 pg (25-34); Mean Corpuscular Hgb Conc 35.2 g/dL (32-36); Mean Corpuscular Volume 93.4 fL (80-100); Mean Platelet Volume 10.4 fL (7.4-10.4); Monocytes # (auto) 1.02 K/uL (0.11-0.59); Monocytes % (auto) 11.9 %; Neutrophils # (auto) 6.51 K/uL (1.4-6.5); Platelet Count 192 K/uL (130-400); RDW Coefficient of Variation 13.8 % (11.5-14.5); RDW Standard Deviation 46.8 fL (36.4-46.3); Red Blood Count 5.29 M/uL (4.7-6.1); White Blood Count 8.57 K/uL (4.8-10.8)
[2021-06-02 03:00] LABS: Partial Thromboplastin Ratio 2.6
[2021-06-02 03:01] LABS: Partial Thromboplastin Time 68.4 Seconds (21.0-31.0)
[2021-06-02 03:03] LABS: Anion Gap 7 (3-11); BUN Creatinine Ratio 20.2 (10-20); Blood Urea Nitrogen 20 mg/dl (6-23); Carbon Dioxide 24 mmol/L (21-32); Chloride 101 mmol/L (98-107); Creatinine Clr Calc Pharmacy 56.4 ml/min; Est GFR (African American) 88.4 ml/min; Est GFR (Non-African American) 76.3 ml/min; Glucose 124 mg/dl (70-99); Magnesium 1.9 mg/dl (1.7-2.4); Potassium 4.7 mmol/L (3.5-5.1); Sodium 132 mmol/L (136-145)
[2021-06-02] MEDS: LEVOTHYROXINE SODIUM 50 MCG TABLET PO SCH (05:29)
[2021-06-02] MEDS: dexAMETHasone 6 MG in SYRINGE 0 ML IV SCH (08:56)
[2021-06-02] MEDS: FAMOTIDINE 20 MG in SYRINGE 3 ML IV SCH (08:56)
[2021-06-02] MEDS: UMECLIDINIUM/VILANTEROL 62.5/25MCG 7 PUFFS/INHALER INH SCH (08:57)
[2021-06-02 10:55] LABS: Partial Thromboplastin Time 53.2 Seconds (21.0-31.0)
[2021-06-02 17:34] LABS: Partial Thromboplastin Ratio 1.9
[2021-06-02 17:41] LABS: Partial Thromboplastin Time 50.3 Seconds (21.0-31.0)
--- NOTE | 2021-06-02 19:14 | Electrocardiogram Report ---
Test Reason : Blood Pressure : / mmHG Vent. Rate : 057 BPM Atrial Rate : 057 BPM P-R Int : 146 ms QRS Dur : 096 ms QT Int : 482 ms P-R-T Axes : 044 080 -08 degrees QTc Int : 469 ms Sinus bradycardia Prolonged QT Abnormal ECG When compared with ECG of 01-JUN-2021 05:44, No significant change was found Confirmed by Navarro Mcduffie ([id number]) on 06/02/2021 7:14:34 PM Referred By: REFERRED SELF Confirmed By:Navarro Mcduffie
[2021-06-02] MEDS: DEXTROMETHORPHAN POLYMR COMPLX 30 MG/5 ML UDP PO PRN (19:21)
--- NOTE | 2021-06-02 20:11 | Hospitalist Progress Note ---
Date of Service June 02, 2021 Assessment & Plan (1) COVID-19: Plan: COVID 19 - Patient vaccinated x 2 with Pfizer, no Booster - patient is approximate day 5 of illness - Mildly hypoxia however considering he has Severe Emphysema (C)- a spo2 on room air of 88 is acceptable- however with returning from restroom he was 80% and visibly dyspneic - Continue Decadron for his dyspnea- 6mg - Patient currently declined remdesivir, as patient feels well, will hold off. - Continue oxygen support he is currently on 2LNC- titrate for SPo2 >88--- NC/HNFC/CPAP/BIPAP/INTUBATION - CRP <0.5 - Procalcitonin is negative. - LDH 133 -currently on 2 liters, continue decadron as above. -Plan for 2 step in AM. (2) COPD with emphysema: Plan: Acute and chronic respiratory failure with hypoxia Presenting with increased SOB with cough, wheezing, SpO2 on arrival of 88% with worsening hypoxia after ambulation to 80%. Risk Factor(s): Age, COPD, COVID-19, possible PE Treatment: Decadron, supplemental O2, labs, albuterol, tiotropium, heparin infusionAs above - continue his albuterol - Continue his tiotropium - He was trialed on breo and Spiriva to see if improved symptoms last year- he did not feel this helped much - He was started on prednisone as outpatient but did not picker feeder the prescription yet- as above continue Decadron (3) Pulmonary embolism: Plan: Limited exam secondary to respiratory motion artifact. No central pulmonary emboli are identified, however there is a questioned segmental pulmonary embolus of the right lower lobe. Correlation with lower extremity Doppler recommended. - Can't exclude so will continue heparin drip at this time - Will get lower extremity duplex: this is negative. - will likely withold anticoagulation at discharge. - may consider curbsiding pulmonary tomorrow if agree with radiological finding. - Continue anticoagulation for the meantime (4) Elevated troponin I level: Plan: demand ischemia - trop peaked at 0.06 (5) CAD (coronary artery disease): Plan: As above - Was on Plavix and ASA - Heparin drip so will hold Plavix at this time - Continue statin - Continue with metoprolol - NTG sl prn (6) Multiple pulmonary nodules: Plan: Follows with pulmonary (7) Hyperlipidemia: Plan: Continue statin Admission and Anticipated Discharge Date Admission Date: May 31, 2021 Subjective Patient reports breathing better. He has no new cough. Review of Systems Review of Systems: All systems reviewed & are unremarkable except as noted in HPI & below Physical Exam Physical Exam: General: awake, alert, no apparent distress Head: Normocephalic, atraumatic ENT: PERRL, EOMI, no pharyngeal exudate, mucous membranes moist Neuro: AAO x 3, speech clear and appropriate, strength intact bilaterally 5/5, sensation intact and equal all extremities and dermatomes, no pronator drift Chest: equal rise and fall of the chest, no accessory muscle use, no heaves or thrills, Clear to auscultation, on room air, Cardiac: Regular rate and rhythm, telemetry reviewed, skin warm dry, cap refill <3 seconds, peripheral pulses +2 no JVD, no murmur, no edema GI: NABS x 4 quadrants, soft, nontender to palpation, no rebound, guarding or tenderness : Spontaneously voiding, no pain, no CVA tenderness, Extremities: Normal inspection, no peripheral edema or erythema, calfs nontender to palpation Psych: Normal mood and affect Skin: no rash or erythema Results & Data Results & Data ([facility]) Vital Signs (Past 12 Hours) Vital Signs Temp Pulse Pulse Resp BP BP Pulse Ox 06/02/21 19:41 70 18 90 06/02/21 19:09 36.6 C 68 20 110/68 91 06/02/21 14:41 36.7 C 64 18 106/60 91 06/02/21 12:41 71 18 94 06/02/21 12:09 53 L 06/02/21 11:02 36.5 C 59 L 16 106/67 94 PG Care Time/CCT Total # of Minutes Spent Total Time Spent with Patient: Total time spent is greater than 50% in coordination of care (as documented) at patient's floor/unit and/or counseling patient: Coding Level of Care Code 60311 Subseq Hosp Care Lvl 2 Diagnoses COVID-19 U07.1 COPD with emphysema J43.9 Emphysema type: unspecified Pulmonary embolism I26.99 Acute cor pulmonale presence: unspecified Chronicity: acute Pulmonary embolism type: unspecified Elevated troponin I level R77.8 CAD (coronary artery disease) I25.10 Multiple pulmonary nodules R91.8 Hyperlipidemia E78.5 (1) COPD with emphysema Emphysema type: unspecified Qualified Code(s): J43.9 - Emphysema, unspecified (2) Pulmonary embolism Acute cor pulmonale presence: unspecified Chronicity: acute Pulmonary embolism type: unspecified Qualified Code(s): I26.99 - Other pulmonary embolism without acute cor pulmonale
[2021-06-02] MEDS: ATORVASTATIN 40 MG TAB PO SCH (21:59)
[2021-06-02] MEDS: AZITHROMYCIN 250 MG in DEXTROSE 5% 250 ML IV SCH (22:00)
[2021-06-02] MEDS: ASPIRIN 81 MG ECTAB PO SCH (22:00)
[2021-06-02] MEDS: METOPROLOL TARTRATE 25 MG TAB PO SCH (22:00)
[2021-06-03] MEDS: ALBUTEROL HFA 8 GM INHALER INH SCH ×2 (01:00→08:33)
[2021-06-03] MEDS: LEVOTHYROXINE SODIUM 50 MCG TABLET PO SCH (05:54)
[2021-06-03 07:13] LABS: Basophils # (auto) 0.01 K/uL (0-0.2); Basophils % (auto) 0.2 %; Hematocrit (blood only) 45.6 % (42-52); Hemoglobin 15.7 g/dL (14.0-18.0); Immature Granulocytes # (auto) 0.02 K/uL (0.00-0.02); Immature Granulocytes % (auto) 0.3 %; Lymphocytes # (auto) 0.74 K/uL (1.2-3.4); Lymphocytes % (auto) 11.3 %; Mean Corpuscular Hemoglobin 32.2 pg (25-34); Mean Corpuscular Hgb Conc 34.4 g/dL (32-36); Mean Corpuscular Volume 93.6 fL (80-100); Mean Platelet Volume 10.8 fL (7.4-10.4); Monocytes # (auto) 0.57 K/uL (0.11-0.59); Monocytes % (auto) 8.7 %; Neutrophils # (auto) 5.23 K/uL (1.4-6.5); Neutrophils % (auto) 79.5 %; Platelet Count 167 K/uL (130-400); RDW Coefficient of Variation 13.9 % (11.5-14.5); RDW Standard Deviation 47.4 fL (36.4-46.3); Red Blood Count 4.87 M/uL (4.7-6.1); White Blood Count 6.57 K/uL (4.8-10.8)
[2021-06-03 07:32] LABS: BUN Creatinine Ratio 18.9 (10-20); Calcium 8.8 mg/dl (8.5-10.1); Creatinine Clr Calc Pharmacy 52.5 ml/min; Est GFR (African American) 81.4 ml/min; Est GFR (Non-African American) 70.3 ml/min; Magnesium 1.7 mg/dl (1.7-2.4); Potassium 4.6 mmol/L (3.5-5.1)
[2021-06-03 08:10] LABS: Partial Thromboplastin Time 53.2 Seconds (21.0-31.0)
[2021-06-03] MEDS: dexAMETHasone 6 MG in SYRINGE 0 ML IV SCH (08:57)
[2021-06-03] MEDS: FAMOTIDINE 20 MG in SYRINGE 3 ML IV SCH (09:01)
[2021-06-03] MEDS: UMECLIDINIUM/VILANTEROL 62.5/25MCG 7 PUFFS/INHALER INH SCH (09:02)
[2021-06-03] MEDS ORDERED: ALBUTEROL HFA 8 GM INHALER INH PRN (09:47)
--- NOTE | 2021-06-03 13:24 | Discharge Summary ---
Date of Service June 03, 2021 Admission HPI Per Admitting Provider 70 YOM with past medical history of: CAD with bare metal stents x2 2008-LAD left circ, and recent cath in November with non-obstructive disease, HTN, HLD, Hypothyroidism, Emphysema, pulmonary nodules. Patient comes to the EMD today for complaints of increased dyspnea, head congestion and chest pressure with cough. Patient originally started feeling ill the day after [place] with onset of chills, fatigue, body aches and sinus congestion. He was tested positive for influenza at that time but his COVID test was negative at that time. He continued to experience head congestion and was seen here on the with negative COVID test. He was started on Doxycycline at that time which upset his stomach, so he came back in today for concern. He was also experiencing increase in his shortness of breath and cough. He is not coughing up anything but at times will cough up some yellow sputum, his normal COPD sputum is brown. He has not had to use his inhalers more and his SPO2 on arrival was 88. He had another COVID test today that was positive. He also had a CTA of the chest that revealed a possible right lower segmental PE, he also had routine labs drawn to include Troponin I that was minimally elevated to 0.06, no acute dynamic changes on his ECG. His pain that he was experiencing was pressure that was associated with making him cough. This has not occurred with him getting up and ambulating or when he was feeling dyspneic. Not associated with any other symptoms. For this he was started on Heparin drip by the EMD. Patient states that he is vaccinated but did not get his booster and that is grand kids that live with him have had some fatigue and URI symptoms this past week. Patient will be admitted, he is early in his COVID course at this time, continue to trend out his Troponin I, will continue Decadron and will add on Azithromycin for COPD and possible bacterial component and his sinus congestion. Patient has had his COVID vaccine and his COVID test is: POSITIVE Principal Diagnosis Covid-19 COPD exacerbation Discharge Exam Constitutional WD/WN, vitals as above Eyes EOM intact bilaterally; no conjunctival abnormality ENMT external ear and nose normal, oropharynx normal Neck trachea midline, no thyromegaly normal visual inspection Respiratory normal respiratory effort, lungs clear to auscultation no respiratory distress Cardiovascular RRR, no murmur, no edema Gastrointestinal (Abdomen) Inspection/Auscultation: abdomen normal to inspection; abdomen not distended Musculoskeletal no cyanosis or clubbing, extremities motor strength 5/5 Skin no rashes, warm and dry Neurologic moves all extremities and awake Psychiatric Orientation: alert, oriented to person and cooperative Discharge Data Allergies Allergy/AdvReac Type Severity Reaction Status Date / Time hornet venom Allergy Intermediate EXTRA Verified 05/31/21 19:42 SWELLING AT SITE tomato Allergy Intermediate HIVES Verified 05/31/21 19:42 codeine AdvReac Mild STOMACH Verified 05/31/21 19:42 PROBLEMS-ABD PAIN Consultations 05/31/21 20:16 ED Decision to Admit Stat Ordered Studies 05/31/21 18:51 CT angio chest PE protocol Stat 06/01/21 US venous doppler LE Routine Hospital Course (1) COVID-19: COVID 19 - Patient vaccinated x 2 with Pfizer, no Booster. Do NOT feel he has Covid-19 pneumonia given CTA chest findings. - patient is approximate day 5 of illness - Mildly hypoxia however considering he has Severe Emphysema (C)- a spo2 on room air of 88 is acceptable- however with returning from restroom he was 80% and visibly dyspneic - Continue Decadron for his dyspnea- 6mg - Patient currently declined remdesivir, as patient feels well, will hold off. - Continue oxygen support he is currently on 2LNC- titrate for SPo2 >88--- NC/HNFC/CPAP/BIPAP/INTUBATION - CRP <0.5 - Procalcitonin is negative. - LDH 133 -currently on 2 liters, continue decadron as above. -> Discharged with home O2 arranged for 3L at rest and 5L with exertion. Discharged home to complete previously obtained steroids and antibiotics. (2) COPD with emphysema: Acute and chronic respiratory failure with hypoxia Presenting with increased SOB with cough, wheezing, SpO2 on arrival of 88% with worsening hypoxia after ambulation to 80%. Risk Factor(s): Age, COPD, COVID-19, possible PE Treatment: Decadron, supplemental O2, labs, albuterol, tiotropium, heparin infusionAs above - continue his albuterol - Continue his tiotropium - He was trialed on breo and Spiriva to see if improved symptoms last year- he did not feel this helped much - He was started on prednisone as outpatient but had not picked up the prescription yet -> Instructed to do so. (3) Pulmonary embolism: Limited exam secondary to respiratory motion artifact. No central pulmonary emboli are identified, however there is a questioned segmental pulmonary embolus of the right lower lobe. Correlation with lower extremity Doppler recommended. - Was on heparin drip in hospital - Will get lower extremity duplex: this is negative. -> Reviewed in person with in-house radiologist who feels this is unlikely to be a PE and more likely to be artifact. Given lack of any other VTE present (no other areas on CTA chest and negative LE Dopplers) elect to avoid anticoagulation and continue his DAPT. (4) Elevated troponin I level: demand ischemia - trop peaked at 0.06 (5) CAD (coronary artery disease): As above - Continue Plavix and ASA - Continue statin - Continue with metoprolol - NTG sl prn (6) Multiple pulmonary nodules: Follows with pulmonary (7) Hyperlipidemia: Continue statin Total Time Total Time Spent Total Time Spent (In Minutes): 35 Discharge Plan Discharge Items Patient Disposition: Home - Self-Care Reason For Visit: DYSPNEA, HYPOXIA, COVID, ? SEGMENTAL PE Discharge Diagnosis: Covid-19 pneumonia Activity: Resume your previous activity Non-emergency contact: Primary Care Provider Call non-emergency contact if: your pain is not controlled and your temperature is above 101 Follow-up/Referrals: Dylon James [Primary Care Provider] - Diet: Regular Addtl Attending Provider Instructions: Mr. Trujillo, You were admitted with Covid-19 pneumonia which caused you to have trouble breathing and lowered your oxygen level. You are doing better, and we are sending you home on home oxygen which we will arrange prior to you going home. There was some question of whether you had a small (tiny!) blood clot in your lungs, but on re-review, we do not feel this is the case. We also did ultrasounds of your legs and there was definitely NO blood clot in the legs. Because you were having a mild COPD flare, you should continue the steroids (prednisone) that Dr. Price had ordered for you. Our record indicates you picked it up on May 31, so you should have 4 more days of this left. You should als o finish the antibiotic that Dr. Maloney prescribed to help finish off any bacteria in your lungs or elsewhere. Pending Studies at Discharge: No Stand-Alone Forms: My [facility], Smoking Cessation Medications and DC Order Prescriptions: Continued prednisone 20 mg tablet 20 mg PO .as directed Qty: 15 RF: 0 albuterol sulfate 90 mcg/actuation HFA aerosol inhaler 2 puff inhalation Q6H PRN (Reason: Shortness Of Breath Or Wheezing) Qty: 18 RF: 3 metoprolol tartrate 25 mg tablet 12.5 mg PO HS RF: 0 cholecalciferol (vitamin D3) [Vitamin D3] 50 mcg (2,000 unit) capsule 50 mcg PO Q OTHER DAY RF: 0 clopidogrel [Plavix] 75 mg Tablet 75 mg PO HS RF: 0 aspirin 81 mg Tablet,Chewable 81 mg PO HS RF: 0 levothyroxine 50 mcg Capsule 50 mcg PO QAM RF: 0 Stiolto Respimat 2.5-2.5 mcg/actuation Mist 2 puff INHALATION DAILY RF: 0 atorvastatin [Lipitor] 40 mg tablet 40 mg PO HS RF: 0 melatonin 10 mg Tablet 10 mg PO HS PRN (Reason: Sleep) RF: 0 amoxicillin-pot clavulanate 875-125 mg tablet 1 tab PO BID RF: 0 nitroglycerin [Nitrostat] 0.4 mg Tablet, Sublingual 0.4 mg USEASDIRECTD PRN (Reason: Chest Pain) RF: 0 [facility] 40-10-5-3.3 mg Tablet 1 tab PO BID RF: 0 diphenhydramine HCl [Benadryl] 25 mg Capsule 25 - 50 mg PO DIRECTED PRN (Reason: Allergic Reaction) RF: 0 acetaminophen [Tylenol Extra Strength] 500 mg Tablet 1,000 mg PO BID RF: 0 Discharge Orders: Discharge Order (Routine); Ordered 06/03/21 Ordered By: Pranav Moya Admission Data Admit Date/Time: 05/31/21 20:46 Attending Provider: Pranav Moya Admit Provider: Mechelle Post Primary Care Provider: Dylon James Other Providers: Pranav Moya Coding Level of Care Code D/C DAY MANAGEMENT >30 MINS Diagnoses COVID-19 U07.1 COPD with emphysema J43.9 Emphysema type: unspecified Pulmonary embolism I26.99 Acute cor pulmonale presence: unspecified Chronicity: acute Pulmonary embolism type: unspecified Elevated troponin I level R77.8 CAD (coronary artery disease) I25.10 Multiple pulmonary nodules R91.8 Hyperlipidemia E78.5
[2021-06-05 11:29] LABS: C Reactive Protein < 0.50 mg/dl (0-0.5)
[2021-06-05 12:08] LABS: C Reactive Protein < 0.50 mg/dl (0-0.5)
== END 2021-06-03 16:00 | disposition home or self-care (01) | DRG 177 ==
LOC: ED 17:55 → SUATTDRO 20:46 → 2W 20:46

== ENCOUNTER 2021-06-08 16:58 | Inpatient (IN) ==
--- NOTE | 2021-06-08 17:18 | Emergency Department Note ---
History of Present Illness General Chief complaint: Shortness of Breath/Dyspnea Stated complaint: SOB Time Seen by Provider: 06/08/21 17:06 Source: patient History of Present Illness Provider complaint: Shortness of breath Onset (ago): day(s) Location: chest Severity: moderate Pain Consistency: + intermittent Quality: + other (Short of breath) Exacerbated By: + other (Exertion) Associated symptoms: + chest pain, + cough and + shortness of breath; no fever/chills, no headaches or no nausea/vomiting This is a 70-year-old male recently discharged from the hospital for COVID-19 and placed on supplemental oxygen presenting with worsening shortness of breath for the past day. He states that whenever he exerts himself he gets very short of breath even walking across the hallway. He has had no chest pain except for 2 days ago when he had some pressure in the middle of his chest. He has had no chest pain or discomfort since then. He denies any leg swelling or pain. He has a history of COPD but was not on oxygen until he was admitted for COVID-19. He did receive 2 Pfizer vaccinations but no booster shot. He denies any fever, abdominal pain, vomiting or urinary symptoms. He does state that he has had diarrhea since he got COVID. Home Medications Medication Instructions Recorded Confirmed Type aspirin 81 mg chewable tablet 81 mg PO HS 02/07/18 06/08/21 History clopidogrel 75 mg tablet (Plavix) 75 mg PO HS 02/07/18 06/08/21 History levothyroxine 50 mcg capsule 50 mcg PO QAM 02/07/18 06/08/21 History metoprolol tartrate 25 mg tablet 12.5 mg PO HS 09/10/18 06/08/21 History cholecalciferol (vitamin D3) 50 50 mcg PO Q OTHER DAY cap 02/02/20 06/08/21 History mcg (2,000 unit) capsule (Vitamin D3) cartilage 40 mg-collagen II 10 1 tab PO BID 11/24/20 06/08/21 History mg-boron 5 mg-hyaluronate 3.3 mg tablet (CloudTalk) nitroglycerin 0.4 mg sublingual 0.4 mg SUBLINGUAL USEASDIRECTD PRN 11/24/20 06/08/21 History tablet (Nitrostat) albuterol sulfate 90 mcg/actuation 2 puff INHALATION Q6H PRN #18 g 12/05/20 06/08/21 Rx aerosol inhaler atorvastatin 40 mg tablet (Lipitor) 40 mg PO HS 01/03/21 06/08/21 History melatonin 10 mg tablet 10 mg PO HS PRN 01/03/21 06/08/21 History tiotropium 2.5 mcg-olodaterol 2.5 2 puff INHALATION DAILY 01/03/21 06/08/21 H istory mcg/actuation mist for inhalation (Stiolto Respimat) diphenhydramine HCl 25 mg capsule 25 - 50 mg PO DIRECTED PRN 01/22/21 06/08/21 History (Benadryl) acetaminophen 500 mg tablet 1,000 mg PO BID 04/23/21 06/08/21 History (Tylenol Extra Strength) prednisone 20 mg tablet 20 mg PO .as directed #15 tab 05/30/21 06/08/21 Rx Allergies Allergy/AdvReac Type Severity Reaction Status Date / Time hornet venom Allergy Intermediate EXTRA Verified 06/08/21 18:32 SWELLING AT SITE tomato Allergy Intermediate HIVES Verified 06/08/21 18:32 codeine AdvReac Mild STOMACH Verified 06/08/21 18:32 PROBLEMS-ABD PAIN Past Med/Surg History Medical History Chronic kidney disease STAGE 3 Chronic obstructive pulmonary disease GERD (gastroesophageal reflux disease) Hyperlipidemia Hypertension Hypothyroidism Insomnia Myocardial Infarction 2008 Osteoarthritis Spinal stenosis Stomach ulcer Surgical History Hammer toes of both feet History of arthroscopy KNEE History of cardiac cath History of colonoscopy History of endoscopic sinus surgery History of heart artery stent STENT X 06/2008 History of herniorrhaphy INGUINAL History of repair of rotator cuff RT History of surgery LEFT INDEX FINGER REPAIR History of tooth extraction Family History Brother Family history of diabetes mellitus Mother Family history of diabetes mellitus Social History Smoking Status: Former smoker Cigarettes Per Day: 40; Second Hand Exposure: No; Hx Alcohol Use: No Hx Substance Use: No Preferred Language: Yakut Communication Ability: Effective 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 and A total of 10 systems reviewed and were otherwise negative Physical Exam Vital Signs Vital Signs - 24 hr 06/08/21 17:26 06/08/21 17:51 06/08/21 18:27 Temperature 36.8 C Temperature Source Oral Pulse Rate 61 Pulse Rate [Left Apical] 63 61 Pulse Rhythm Regular Pulse Rhythm [Left Apical] Regular Regular Pulse Strength Normal Pulse Strength [Left Apical] Normal Normal Respiratory Rate 20 20 20 Respiratory Effort / Characteristics Non-Labored Non-Labored Non-Labored Respiratory Depth Normal Normal Normal Respiratory Pattern Regular Blood Pressure 133/76 Blood Pressure [Left Arm] 133/76 109/68 Blood Pressure Mean 95 Blood Pressure Mean [Left Arm] 95 81 Pulse Oximetry 96 95 94 Oxygen Delivery Method Nasal Cannula Nasal Cannula Nasal Cannula Oxygen Flow Rate 6 4 4 Sepsis Recent Fever Within 48 Hours No Sepsis New/Unexplained Change in Mental Status No Sepsis Action Taken by Nursing No Action Required Oxygen Flow Rate - Titration 4 Pulse Oximetry Post Tiitration 95 06/08/21 19:50 06/08/21 19:52 06/08/21 20:00 Temperature Temperature Source Pulse Rate 66 Pulse Rate [Left Apical] Pulse Rhythm Pulse Rhythm [Left Apical] Pulse Strength Pulse Strength [Left Apical] Respiratory Rate 20 Respiratory Effort / Characteristics Respiratory Depth Respiratory Pattern Blood Pressure 113/81 Blood Pressure [Left Arm] Blood Pressure Mean 91 Blood Pressure Mean [Left Arm] Pulse Oximetry 48 L 96 98 Oxygen Delivery Method Nasal Cannula Oxymask Non-rebreather Oxymask Oxymask Oxygen Flow Rate 4 15 10 Sepsis Recent Fever Within 48 Hours Sepsis New/Unexplained Change in Mental Status Sepsis Action Taken by Nursing Oxygen Flow Rate - Titration 15 10 Pulse Oximetry Post Tiitration 96 90 06/08/21 21:15 Temperature Temperature Source Pulse Rate Pulse Rate [Left Apical] 65 Pulse Rhythm Pulse Rhythm [Left Apical] Pulse Strength Pulse Strength [Left Apical] Respiratory Rate 23 Respiratory Effort / Characteristics Respiratory Depth Respiratory Pattern Blood Pressure Blood Pressure [Left Arm] 119/76 Blood Pressure Mean Blood Pressure Mean [Left Arm] 90 Pulse Oximetry 93 Oxygen Delivery Method Oxymask Oxygen Flow Rate 10 Sepsis Recent Fever Within 48 Hours Sepsis New/Unexplained Change in Mental Status Sepsis Action Taken by Nursing Oxygen Flow Rate - Titration Pulse Oximetry Post Tiitration Constitutional: Vital signs reviewed. Eyes: Pupils are equal round reactive to light. Conjunctiva are noninjected. ENT: Pharynx is clear without erythema or exudate. Mucous membranes are moist. Neck supple without meningeal signs. Respiratory: Bibasilar rales. No wheezing. Breath sounds are equal bilaterally. Cardiovascular: Regular rate and rhythm. No rubs or gallops. GI: Soft, nondistended and nontender. Bowel sounds are present. Musculoskeletal: No peripheral edema. No lower extremity tenderness. Integumentary: No cyanosis. or jaundice. Neurological: The patient is awake and alert. No focal deficits. Psychiatric: Normal affect. Not anxious appearing. Course Administered Medications Vancomycin HCl 1,250 mg/ (Sodium Chloride) 525 mls @ 200 mls/hr IV NOW ONE Stop: 06/08/21 22:42 Last Admin: 06/08/21 21:32 Dose: 200 mls/hr Documented by: [id number] Discontinued Medications Dexamethasone Sodium Phosphate (DexamethasonePf 10 Mg/Ml Vial) 10 mg IV NOW ONE Stop: 06/08/21 20:09 Last Admin: 06/08/21 20:37 Dose: 10 mg Documented by: [id number] Piperacillin Sod/Tazobactam Sod (Zosyn) 4.5 gm in 120 mls @ 240 mls/hr IV NOW ONE Stop: 06/08/21 20:35 Last Infusion: 06/08/21 21:07 Dose: 0 mls/hr Documented by: [id number] Admin: 06/08/21 20:37 Dose: 240 mls/hr Documented by: [id number] Azithromycin 500 mg/ Dextrose 255 mls @ 127.5 mls/hr IV NOW STA Stop: 06/08/21 22:05 Last Admin: 06/08/21 21:49 Dose: 127.5 mls/hr Documented by: [id number] Ioversol (Optiray 320 125ml) 113 ml IV ONCE ONE Stop: 06/08/21 19:38 Last Admin: 06/08/21 19:39 Dose: 113 ml Documented by: [id number] Critical Care Time Critical Care Time: Yes Total Critical Care Time: 35 I have personally spent approximately 35 minutes of critical care time in the direct management of this patient. This includes bedside care, interpretation of diagnostic studies, and testing, discussion with consultants, patient, and family members, and other required patient management activities. These minutes are in excess of all separately billable procedures. Medical Decision Making Differential Diagnosis COPD exacerbation, CHF, multifocal pneumonia, pulmonary embolism, COVID-19 Medical Records Attestation: I reviewed the patient's medical records. I did perform a limited focused review of portions of the patient's old chart on the electronic medical record. The patient was admitted on May 31 for chest pain and shortness of breath. He was diagnosed with COVID-19. He had an elevated troponin which was thought to be demand ischemia. He had a CT of his chest which was equivocal but ultimately the radiologist felt it was not likely to be a PE and he had no signs of DVT on Dopplers of his legs. He was not anticoagulated. Home Medications Current Medication List: was personally reviewed by me Laboratory Data Attestation: I reviewed the patient's lab results. Result diagrams: 06/08/21 17:12 06/08/21 17:12 Lab Results 06/08/21 06/08/21 06/08/21 Range/Units 17:12 17:12 17:12 WBC 8.21 (4.8-10.8) K/uL RBC 5.25 (4.7-6.1) M/uL Hgb 16.9 (14.0-18.0) g/dL Hct 48.7 (42-52) % MCV 92.8 (80-100) fL MCH 32.2 (25-34) pg MCHC 34.7 (32-36) g/dL RDW Std Deviation 45.8 (36.4-46.3) fL RDW Coeff of Navin 13.5 (11.5-14.5) % Plt Count 182 (130-400) K/uL MPV 10.9 H (7.4-10.4) fL Immature Gran % (Auto) 0.7 % Neut % (Auto) 82.1 % Lymph % (Auto) 7.3 % [place] % (Auto) 8.5 % Eos % (Auto) 1.2 % Baso % (Auto) 0.2 % Neut # (Auto) 6.73 H (1.4-6.5) K/uL Lymph # (Auto) 0.60 L (1.2-3.4) K/uL [place] # (Auto) 0.70 H (0.11-0.59) K/uL Eos # (Auto) 0.10 (0-0.5) K/uL Baso # (Auto) 0.02 (0-0.2) K/uL Immature Gran # (Auto) 0.06 H (0.00-0.02) K/uL PT 10.1 (9.0-12.0) Seconds INR 1.0 (0.9-1.1) APTT 24.4 (21.0-31.0) Seconds PTT Ratio 0.9 ABG pH (7.35-7.45) ABG pCO2 (35-46) mmHg ABG pO2 (80-95) mmHg ABG HCO3 (19-24) mmol/L ABG O2 Saturation (90-95) % ABG Base Excess (-9-1.8) mEq/L Jesus Test (Pos) Barometric Pressure mm/Hg Oxygen Given Sodium 136 (136-145) mmol/L Potassium 3.9 (3.5-5.1) mmol/L Chloride 102 (98-107) mmol/L Carbon Dioxide 27 (21-32) mmol/L Anion Gap 7 (3-11) BUN 21 (6-23) mg/dl Creatinine 0.92 (0.6-1.4) mg/dl Est Cr Clr Drug Dosing 64.1 ml/min Est GFR ( Amer) 96.6 ml/min Est GFR (Non-Af Amer) 83.4 ml/min BUN/Creatinine Ratio 22.8 H (10-20) Glucose 147 H (70-99(Fasting)) mg/dl Calcium 8.7 (8.5-10.1) mg/dl Total Bilirubin 1.1 H (0.2-1.0) mg/dl AST 30 (13-39) U/L ALT 29 (7-52) U/L Alkaline Phosphatase 61 (34-104) U/L Troponin I 0.04 (0-0.04) ng/ml C-Reactive Protein (0-0.5) mg/dl B-Natriuretic Peptide (0-100) pg/ml Total Protein 6.1 (6.0-8.3) gm/dl Albumin 3.6 (3.4-5.0) gm/dl Globulin 2.5 (2.5-4.0) gm/dl Albumin/Globulin Ratio 1.4 (0.9-2) Procalcitonin (0-0.5) ng/ml 06/08/21 06/08/21 06/08/21 Range/Units 17:44 20:25 20:25 WBC (4.8-10.8) K/uL RBC (4.7-6.1) M/uL Hgb (14.0-18.0) g/dL Hct (42-52) % MCV (80-100) fL MCH (25-34) pg MCHC (32-36) g/dL RDW Std Deviation (36.4-46.3) fL RDW Coeff of Navin (11.5-14.5) % Plt Count (130-400) K/uL MPV (7.4-10.4) fL Immature Gran % (Auto) % Neut % (Auto) % Lymph % (Auto) % [place] % (Auto) % Eos % (Auto) % Baso % (Auto) % Neut # (Auto) (1.4-6.5) K/uL Lymph # (Auto) (1.2-3.4) K/uL [place] # (Auto) (0.11-0.59) K/uL Eos # (Auto) (0-0.5) K/uL Baso # (Auto) (0-0.2) K/uL Immature Gran # (Auto) (0.00-0.02) K/uL PT (9.0-12.0) Seconds INR (0.9-1.1) APTT (21.0-31.0) Seconds PTT Ratio ABG pH 7.42 (7.35-7.45) ABG pCO2 32 L (35-46) mmHg ABG pO2 79 L (80-95) mmHg ABG HCO3 21 (19-24) mmol/L ABG O2 Saturation 96.3 H (90-95) % ABG Base Excess -2.8 (-9-1.8) mEq/L Jesus Test Pos (Pos) Barometric Pressure 741.4 mm/Hg Oxygen Given ROOM AIR Sodium (136-145) mmol/L Potassium (3.5-5.1) mmol/L Chloride (98-107) mmol/L Carbon Dioxide (21-32) mmol/L Anion Gap (3-11) BUN (6-23) mg/dl Creatinine (0.6-1.4) mg/dl Est Cr Clr Drug Dosing ml/min Est GFR ( Amer) ml/min Est GFR (Non-Af Amer) ml/min BUN/Creatinine Ratio (10-20) Glucose (70-99(Fasting)) mg/dl Calcium (8.5-10.1) mg/dl Total Bilirubin (0.2-1.0) mg/dl AST (13-39) U/L ALT (7-52) U/L Alkaline Phosphatase (34-104) U/L Troponin I (0-0.04) ng/ml C-Reactive Protein 1.23 H (0-0.5) mg/dl B-Natriuretic Peptide 104 H (0-100) pg/ml Total Protein (6.0-8.3) gm/dl Albumin (3.4-5.0) gm/dl Globulin (2.5-4.0) gm/dl Albumin/Globulin Ratio (0.9-2) Procalcitonin (0-0.5) ng/ml 06/08/21 Range/Units 20:25 WBC (4.8-10.8) K/uL RBC (4.7-6.1) M/uL Hgb (14.0-18.0) g/dL Hct (42-52) % MCV (80-100) fL MCH (25-34) pg MCHC (32-36) g/dL RDW Std Deviation (36.4-46.3) fL RDW Coeff of Navin (11.5-14.5) % Plt Count (130-400) K/uL MPV (7.4-10.4) fL Immature Gran % (Auto) % Neut % (Auto) % Lymph % (Auto) % [place] % (Auto) % Eos % (Auto) % Baso % (Auto) % Neut # (Auto) (1.4-6.5) K/uL Lymph # (Auto) (1.2-3.4) K/uL [place] # (Auto) (0.11-0.59) K/uL Eos # (Auto) (0-0.5) K/uL Baso # (Auto) (0-0.2) K/uL Immature Gran # (Auto) (0.00-0.02) K/uL PT (9.0-12.0) Seconds INR (0.9-1.1) APTT (21.0-31.0) Seconds PTT Ratio ABG pH (7.35-7.45) ABG pCO2 (35-46) mmHg ABG pO2 (80-95) mmHg ABG HCO3 (19-24) mmol/L ABG O2 Saturation (90-95) % ABG Base Excess (-9-1.8) mEq/L Jesus Test (Pos) Barometric Pressure mm/Hg Oxygen Given Sodium (136-145) mmol/L Potassium (3.5-5.1) mmol/L Chloride (98-107) mmol/L Carbon Dioxide (21-32) mmol/L Anion Gap (3-11) BUN (6-23) mg/dl Creatinine (0.6-1.4) mg/dl Est Cr Clr Drug Dosing ml/min Est GFR ( Amer) ml/min Est GFR (Non-Af Amer) ml/min BUN/Creatinine Ratio (10-20) Glucose (70-99(Fasting)) mg/dl Calcium (8.5-10.1) mg/dl Total Bilirubin (0.2-1.0) mg/dl AST (13-39) U/L ALT (7-52) U/L Alkaline Phosphatase (34-104) U/L Troponin I (0-0.04) ng/ml C-Reactive Protein (0-0.5) mg/dl B-Natriuretic Peptide (0-100) pg/ml Total Protein (6.0-8.3) gm/dl Albumin (3.4-5.0) gm/dl Globulin (2.5-4.0) gm/dl Albumin/Globulin Ratio (0.9-2) Procalcitonin < 0.05 (0-0.5) ng/ml Imaging Data Radiologist's Impression: Chest CTA 06/08/21 17:28 CT ANGIOGRAM OF THE CHEST CLINICAL HISTORY: Dyspnea. Covid. COMPARISON STUDY: Chest CT dated 05/31/2021. TECHNIQUE: Following the IV administration of 113 cc of Optiray 320, CT angiogram of the chest was performed from the upper abdomen to the thoracic inlet utilizing the pulmonary embolus protocol. Images are reviewed in the axial, sagittal, and coronal planes. 3-D MIPS images are created and assessed. IV contrast was administered without complication. A dose lowering technique was utilized adhering to the principles of ALARA. CT DOSE: 397.90 mGy.cm FINDINGS: Thyroid: Imaged portions of the thyroid gland are normal in size and attenuation. Thoracic aorta: The thoracic aorta is normal in caliber and demonstrates standar d 3-vessel arch anatomy. No dissection is seen. Pulmonary vasculature: The pulmonary trunk is dilated, measuring up to 3.8 cm in diameter. This suggests pulmonary artery hypertension. There are no filling defects identified in main, lobar, or segmental pulmonary branches to suggest pulmonary embolus. Heart: The heart is enlarged and without pericardial effusion. The coronary arteries are densely calcified. Lungs and pleural spaces: Emphysema is noted. Multifocal groundglass consolidation is seen throughout both lungs with a subpleural and lower lobe predominant. This has significantly progressed from 05/31/2021. No pleural effusion is seen. Foci of parenchymal scarring are seen throughout both lungs. The trachea and central airways are clear. A 5 mm pleural-based nodule in the left lower lobe along the major fissure on image #148 is unchanged. Mediastinum: There are mildly enlarged mediastinal lymph nodes. An AP window node measures 12 mm in short axis. Autumn: Enlarged hilar nodes measure up to 14 mm in short axis. Axillae: There is no axillary lymphadenopathy. Upper abdomen: A small hiatal hernia is noted. Partially visualized upper abdominal viscera is otherwise grossly unremarkable. Skeletal structures: The skeletal structures are osteopenic. No lytic or blastic bony lesions are seen. Fusion hardware is seen in the lower cervical spine. Degenerative change and kyphoscoliosis is noted in the thoracic spine. Advanced arthritic change is seen in the shoulders. IMPRESSION: 1. There is no evidence of pulmonary embolus in the main, lobar, or segmental pulmonary arteries. The subsegmental pulmonary embolus suggested in the right lower lobe on 05/31/2021 is no longer identified. 2. Cardiomegaly and emphysema with evidence of pulmonary artery hypertension. 3. Multifocal groundglass consolidation has significantly progressed from 05/31/2021 and consistent with the reported history of a viral pneumonia. Radiographic follow-up to resolution is recommended. 4. Enlarged mediastinal and hilar lymph nodes are likely reactive. 5. Additional findings as above. ACT 112: Negative or not required by law. Electronically signed by: Santy Will M.D. 06/08/2021 7:53 PM ECG Data Attestation: I personally reviewed and interpreted this ECG as follows: Indication: + SOB/dyspnea Rate (beats per minute): 77 Rhythm: + normal sinus ECG Lynn: + Normal ECG ST segments: + T-wave inversions (Anterior septal leads and lead III); no ST elevation ECG Findings: no PVCs Comparison ECG Date: from (06/02/2021) Change: the following changes noted (T wave inversions were present previously and were more pronounced then) MDM Narrative I did evaluate the patient as noted above. The patient has COVID-19. He is presenting with worsening shortness of breath with a decrease in his pulse ox. He did have chest pain 2 days ago but not since. He was recently admitted for COVID-19 and an elevated troponin. He had an equivocal CT angiogram of the chest. After discussion with the patient he was agreeable to performing a second CT angiogram to make sure he did not have a PE. IV access was established. I did place an order for continuous cardiac monitoring. The monitor showed normal sinus rhythm at a rate of 63 bpm. I did order and personally review the patient's 12-lead EKG as described above. He has T wave inversions as noted above but they were more prominent on his previous EKG. I did order and review the patient's blood work as noted in the electronic medical record. CBC is unremarkable without leukocytosis or anemia. His electrolytes are unremarkable. Troponin is negative. LFTs are unremarkable. I did order a CT angiogram of the chest. I did review the images myself as well as the radiology report as described above. There is no evidence of pulmonary embolism. He does have groundglass opacities consistent with multifocal viral pneumonia. When he came back from CT he desatted into the 40s. He was placed on a nonrebreather mask and then high flow oxygen. An ABG was ordered and is pending. I did discuss case with the hospitalist and case manager specialist. The hospitalist requested the patient be treated with IV Decadron and IV antibiotics which the resident did order. Resident Physician Supervision Note: I did perform an independent evaluation and examination of this patient as described. I also saw this patient in conjunction with the resident, Dr. Kelly, and guided management for the patient. Impression & Plan Hypoxemia, COPD with emphysema, Multifocal pneumonia, COVID-19 Discharge Plan Visit Data Chief Complaint: Shortness of Breath/Dyspnea Stated Complaint: SOB ED Provider: Christian Emmanuel ED Midlevel Provider: Mackenzie Kelly Discharge Problem: Hypoxemia, COPD with emphysema, Multifocal pneumonia, COVID-19 Patient Disposition: Being Evaluated by Hospitalist Forms Stand Alone Forms: [facility] [place] Prescriptions Prescriptions: No Action prednisone 20 mg tablet 20 mg PO .as directed Qty: 15 RF: 0 albuterol sulfate 90 mcg/actuation HFA aerosol inhaler 2 puff inhalation Q6H PRN (Reason: Shortness Of Breath Or Wheezing) Qty: 18 RF: 3 metoprolol tartrate 25 mg tablet 12.5 mg PO HS RF: 0 cholecalciferol (vitamin D3) [Vitamin D3] 50 mcg (2,000 unit) capsule 50 mcg PO Q OTHER DAY RF: 0 clopidogrel [Plavix] 75 mg Tablet 75 mg PO HS RF: 0 aspirin 81 mg Tablet,Chewable 81 mg PO HS RF: 0 levothyroxine 50 mcg Capsule 50 mcg PO QAM RF: 0 Stiolto Respimat 2.5-2.5 mcg/actuation Mist 2 puff INHALATION DAILY RF: 0 atorvastatin [Lipitor] 40 mg tablet 40 mg PO HS RF: 0 melatonin 10 mg Tablet 10 mg PO HS PRN (Reason: Sleep) RF: 0 nitroglycerin [Nitrostat] 0.4 mg Tablet, Sublingual 0.4 mg sublingual USEASDIRECTD PRN (Reason: Chest Pain) RF: 0 [facility] 40-10-5-3.3 mg Tablet 1 tab PO BID RF: 0 diphenhydramine HCl [Benadryl] 25 mg Capsule 25 - 50 mg PO DIRECTED PRN (Reason: Allergic Reaction) RF: 0 acetaminophen [Tylenol Extra Strength] 500 mg Tablet 1,000 mg PO BID RF: 0 Referrals Referrals: Dylon James [Primary Care Provider] - Discharge Problem: COPD with emphysema Qualifiers: Emphysema type: unspecified Qualified Code(s): J43.9 - Emphysema, unspecified
[2021-06-08 17:45] LABS: Basophils # (auto) 0.02 K/uL (0-0.2); Basophils % (auto) 0.2 %; Eosinophils % (auto) 1.2 %; Hematocrit (blood only) 48.7 % (42-52); Hemoglobin 16.9 g/dL (14.0-18.0); Immature Granulocytes # (auto) 0.06 K/uL (0.00-0.02); Immature Granulocytes % (auto) 0.7 %; Lymphocytes % (auto) 7.3 %; Mean Corpuscular Hemoglobin 32.2 pg (25-34); Mean Corpuscular Hgb Conc 34.7 g/dL (32-36); Mean Corpuscular Volume 92.8 fL (80-100); Mean Platelet Volume 10.9 fL (7.4-10.4); Monocytes % (auto) 8.5 %; Neutrophils # (auto) 6.73 K/uL (1.4-6.5); Neutrophils % (auto) 82.1 %; Platelet Count 182 K/uL (130-400); RDW Coefficient of Variation 13.5 % (11.5-14.5); RDW Standard Deviation 45.8 fL (36.4-46.3); Red Blood Count 5.25 M/uL (4.7-6.1); White Blood Count 8.21 K/uL (4.8-10.8)
[2021-06-08 17:58] LABS: Partial Thromboplastin Ratio 0.9; Partial Thromboplastin Time 24.4 Seconds (21.0-31.0); Prothrombin Time 10.1 Seconds (9.0-12.0)
[2021-06-08 18:06] LABS: Albumin Globulin Ratio 1.4 (0.9-2); Albumin Level 3.6 gm/dl (3.4-5.0); BUN Creatinine Ratio 22.8 (10-20); Bilirubin,Total 1.1 mg/dl (0.2-1.0); Calcium 8.7 mg/dl (8.5-10.1); Creatinine Clr Calc Pharmacy 64.1 ml/min; Est GFR (African American) 96.6 ml/min; Est GFR (Non-African American) 83.4 ml/min; Globulin 2.5 gm/dl (2.5-4.0); Potassium 3.9 mmol/L (3.5-5.1); Total Protein 6.1 gm/dl (6.0-8.3)
[2021-06-08 18:53] LABS: Troponin I 0.04 ng/ml (0-0.04)
[2021-06-08] MEDS ORDERED: OPTIRAY 320 125ml IV ONE (19:37)
--- NOTE | 2021-06-08 19:55 | CT Scan Report ---
CT ANGIOGRAM OF THE CHEST CLINICAL HISTORY: Dyspnea. Covid. COMPARISON STUDY: Chest CT dated 05/31/2021. TECHNIQUE: Following the IV administration of 113 cc of Optiray 320, CT angiogram of the chest was pe rformed from the upper abdomen to the thoracic inlet utilizing the pulmonary embolus protocol. Images are reviewed in the axial, sagittal, and coronal planes. 3-D MIPS images are created and assessed. I V contrast was administered without complication. A dose lowering technique was utilized adhering to the principles of ALARA. CT DOSE: 397.90 mGy.cm FINDINGS: Thyroid: Imaged portions of the thyroid gland are normal in size and attenuation. Thoracic aorta: The thoracic aorta is normal in caliber and demonstrates standard 3-vessel arch anato my. No dissection is seen. Pulmonary vasculature: The pulmonary trunk is dilated, measuring up to 3.8 cm in diameter. This sugge sts pulmonary artery hypertension. There are no filling defects identified in main, lobar, or segment al pulmonary branches to suggest pulmonary embolus. Heart: The heart is enlarged and without pericardial effusion. The coronary arteries are densely calc ified. Lungs and pleural spaces: Emphysema is noted. Multifocal groundglass consolidation is seen throughout both lungs with a subpleural and lower lobe predominant. This has significantly progressed from 05/31. No pleural effusion is seen. Foci of parenchymal scarring are seen throughout both lungs. The trachea and central airways are clear. A 5 mm pleural-based nodule in the left lower lobe along the m ajor fissure on image #148 is unchanged. Mediastinum: There are mildly enlarged mediastinal lymph nodes. An AP window node measures 12 mm in s hort axis. Autumn: Enlarged hilar nodes measure up to 14 mm in short axis. Axillae: There is no axillary lymphadenopathy. Upper abdomen: A small hiatal hernia is noted. Partially visualized upper abdominal viscera is otherw ise grossly unremarkable. Skeletal structures: The skeletal structures are osteopenic. No lytic or blastic bony lesions are see n. Fusion hardware is seen in the lower cervical spine. Degenerative change and kyphoscoliosis is not ed in the thoracic spine. Advanced arthritic change is seen in the shoulders. IMPRESSION: 1. There is no evidence of pulmonary embolus in the main, lobar, or segmental pulmonary arteries. The subsegmental pulmonary embolus suggested in the right lower lobe on 05/31/2021 is no longer identifie d. 2. Cardiomegaly and emphysema with evidence of pulmonary artery hypertension. 3. Multifocal groundglass consolidation has significantly progressed from 05/31/2021 and consistent wi th the reported history of a viral pneumonia. Radiographic follow-up to resolution is recommended. 4. Enlarged mediastinal and hilar lymph nodes are likely reactive. 5. Additional findings as above. ACT 112: Negative or not required by law. Electronically signed by: Santy Will M.D. 06/08/2021 7:53 PM
[2021-06-08] MEDS ORDERED: VANCOMYCIN CONSULT ACTIVE PRN ×2 (20:05→23:20)
[2021-06-08] MEDS ORDERED: VANCOMYCIN HCL 1,250 MG in SODIUM CHLORIDE 0.9% 500 ML IV ONE (20:05)
[2021-06-08] MEDS ORDERED: PIPERACILLIN/TAZOBACTAM 4.5 GM/120 ML BAG IV ONE (20:06)
[2021-06-08] MEDS ORDERED: PIPERACILL/TAZOBAC CONSULT ACTIVE PRN ×2 (20:06→23:20)
[2021-06-08] MEDS ORDERED: AZITHROMYCIN 500 MG in DEXTROSE 5% 250 ML IV STA (20:06)
[2021-06-08] MEDS ORDERED: dexAMETHasone**PF** 10 MG/ML VIAL IV ONE (20:08)
[2021-06-08 20:40] LABS: Base Excess ABG -2.8 mEq/L (-9-1.8); HCO3 ABG 21 mmol/L (19-24); Oxygen Saturation ABG 96.3 % (90-95); PCO2 ABG 32 mmHg (35-46); PO2 ABG 79 mmHg (80-95); pH ABG 7.42 (7.35-7.45)
[2021-06-08 20:41] LABS: Allen Test Pos (Pos)
--- NOTE | 2021-06-08 21:29 | History & Physical Report ---
Date of Service June 08, 2021 Assessment & Plan (1) COVID-19: Plan: COVID-19 multifocal pneumonia/secondary bacterial pneumonia/COPD/with progressively worsening hypoxia- Admit to monitored bed Dexamethasone 10 mg IV every morning Vancomycin IV per pharmacokinetic monitoring Zosyn 4.5 g IV every 8 hours Azithromycin 500 mg IV daily Guaifenesin extended release 1200 mg p.o. twice daily Vitamin D 5000 international units p.o. every morning Albuterol HFA 2 puffs 4 times daily, and every 2 hours as needed DuoNebs every 2 hours as needed Oxygen titration to keep pulse ox 92% (2) Secondary bacterial pneumonia: Plan: See above (3) Multifocal pneumonia: Plan: See above (4) Hypoxemia: Plan: See above (5) Hyperlipidemia: Plan: Continue atorvastatin 40 mg daily (6) COPD (chronic obstructive pulmonary disease): Plan: See above (7) CAD (coronary artery disease): Plan: Continue metoprolol and aspirin History of Present Illness Chief Complaint: The patient presents to the emergency department with persistent worsening shortness of breath and a pulse ox recording of 64% at home Primary Care Provider: Dylon James The patient is a 70-year-old male with a past medical history including COVID-19 pneumonia, hyperlipidemia, COPD, pulmonary embolism, CAD, multiple pulmonary nodules and hypoxia. The patient is most recently admitted from 05/31-06/03/21 for treatment of COVID-19 infection, COPD, pulmonary embolism and elevated troponin level with hypoxia. Patient was discharged on increased oxygen of 3 L at rest and 5 L with exertion, steroids and antibiotics. He was noted to have more difficulty breathing today by his , who measured his pulse ox at home while on oxygen, which was recorded as 64%, and came to the ED for assessment Allergies Allergy/AdvReac Type Severity Reaction Status Date / Time hornet venom Allergy Intermediate EXTRA Verified 06/08/21 18:32 SWELLING AT SITE tomato Allergy Intermediate HIVES Verified 06/08/21 18:32 codeine AdvReac Mild STOMACH Verified 06/08/21 18:32 PROBLEMS-ABD PAIN Home Medications Medication Instructions Recorded Confirmed Type aspirin 81 mg chewable tablet 81 mg PO HS 02/07/18 06/08/21 History clopidogrel 75 mg tablet (Plavix) 75 mg PO HS 02/07/18 06/08/21 History levothyroxine 50 mcg capsule 50 mcg PO QAM 02/07/18 06/08/21 History metoprolol tartrate 25 mg tablet 12.5 mg PO HS 09/10/18 06/08/21 History cholecalciferol (vitamin D3) 50 50 mcg PO Q OTHER DAY cap 02/02/20 06/08/21 History mcg (2,000 unit) capsule (Vitamin D3) cartilage 40 mg-collagen II 10 1 tab PO BID 11/24/20 06/08/21 History mg-boron 5 mg-hyaluronate 3.3 mg tablet ([employer]) nitroglycerin 0.4 mg sublingual 0.4 mg SUBLINGUAL USEASDIRECTD PRN 11/24/20 06/08/21 History tablet (Nitrostat) albuterol sulfate 90 mcg/actuation 2 puff INHALATION Q6H PRN #18 g 12/05/20 06/08/21 Rx aerosol inhaler atorvastatin 40 mg tablet (Lipitor) 40 mg PO HS 01/03/21 06/08/21 History melatonin 10 mg tablet 10 mg PO HS PRN 01/03/21 06/08/21 History tiotropium 2.5 mcg-olodaterol 2.5 2 puff INHALATION DAILY 01/03/21 06/08/21 History mcg/actuation mist for inhalation (Stiolto Respimat) diphenhydramine HCl 25 mg capsule 25 - 50 mg PO DIRECTED PRN 01/22/21 06/08/21 History (Benadryl) acetaminophen 500 mg tablet 1,000 mg PO BID 04/23/21 06/08/21 History (Tylenol Extra Strength) prednisone 20 mg tablet 20 mg PO .as directed #15 tab 05/30/21 06/08/21 Rx Past Med/Surg History Medical History (Updated 06/09/21 @ 02:44 by Van Ackerman MD) Chronic kidney disease STAGE 3 Chronic obstructive pulmonary disease GERD (gastroesophageal reflux disease) Hyperlipidemia Hypertension Hypothyroidism Insomnia Myocardial Infarction 2008 Osteoarthritis Spinal stenosis Stomach ulcer Surgical History Hammer toes of both feet History of arthroscopy KNEE History of cardiac cath History of colonoscopy History of endoscopic sinus surgery History of heart artery stent STENT X 06/2008 History of herniorrhaphy INGUINAL History of repair of rotator cuff RT History of surgery LEFT INDEX FINGER REPAIR History of tooth extraction Family History Brother Family history of diabetes mellitus Mother Family history of diabetes mellitus Social History Smoking Status: Former smoker Cigarettes Per Day: 40; Second Hand Exposure: No; Do You Dip or Chew Tobacco: No; Tobacco Cessation Education Requested by Patient: No Hx Alcohol Use: No Hx Substance Use: No Preferred Language: [place] Communication Ability: Effective Rn X Ray Required: No Beliefs That Will Affect Care: None marital status: Current Living Situation: Spouse Other Information That Helps Us Care for You: No Feels Safe at Home: Yes Safety Concerns: Feels Safe At This Time Assistive Devices: Hearing Aid - Right and Oxygen - Continuous Review of Systems Review of Systems: The patient denies chest pain, palpitations, lower extremity swelling, sore throat, fevers, chills, sweats, nausea, vomiting, diarrhea , constipation, abdominal pain, pelvic pain, blood in urine or stool, dysuria, urinary frequency or urgency, lightheadedness, dizziness, headache, memory loss, loss of consciousness, rash, abnormal bruising or bleeding, focal weakness, numbness or tingling in arms or legs, generalized arthralgias or myalgias, back or neck pain, or night sweats. The review of systems is otherwise negative other than for that already noted above, and at least 10 systems have been reviewed. Physical Exam Physical Exam: The patient is awake, alert and oriented 3, well developed and well nourished, normocephalic and atraumatic, lying in bed and in no acute distress. HEENT--PERRL, EOMI, mucous membranes and oropharynx normal Neck--supple. No JVD. No bruits. Thyroid normal, trachea midline, no adenopathy. Heart--normal S1 and S2. No murmurs, rubs or gallops. Lungs--coarse breath sounds bilaterally. No further respiratory distress, no accessory muscle use. Abdomen--normal bowel sounds and soft. Nontender. Nondistended, no hernias or masses, no organomegaly. Extremities--no cyanosis or clubbing. No edema. Dermatologic--normal skin turgor, normal color, no abnormal lymph nodes, no rash. Neurologic--cranial nerves II through XII grossly intact. Rheumatologic--normal range of motion. Psychiatric--normal affect. Results & Data Results & Data ([facility] [place]) Vital Signs (Past 12 Hours) Vital Signs Temp Pulse Pulse Resp BP BP Pulse Ox 06/08/21 21:15 65 23 119/76 93 06/08/21 20:00 66 20 113/81 98 06/08/21 19:52 96 06/08/21 19:50 48 L 06/08/21 18:27 61 20 109/68 94 06/08/21 17:51 63 20 133/76 95 06/08/21 17:26 36.8 C 61 20 133/76 96 Laboratory Results Laboratory Results WBC 8.21 K/uL (4.8-10.8) 06/08/21 17:12 RBC 5.25 M/uL (4.7-6.1) 06/08/21 17:12 Hgb 16.9 g/dL (14.0-18.0) 06/08/21 17:12 Hct 48.7 % (42-52) 06/08/21 17:12 MCV 92.8 fL (80-100) 06/08/21 17:12 MCH 32.2 pg (25-34) 06/08/21 17:12 MCHC 34.7 g/dL (32-36) 06/08/21 17:12 RDW Std Deviation 45.8 fL (36.4-46.3) 06/08/21 17:12 RDW Coeff of Navin 13.5 % (11.5-14.5) 06/08/21 17:12 Plt Count 182 K/uL (130-400) 06/08/21 17:12 MPV 10.9 fL (7.4-10.4) H 06/08/21 17:12 Immature Gran % (Auto) 0.7 % 06/08/21 17:12 Neut % (Auto) 82.1 % 06/08/21 17:12 Lymph % (Auto) 7.3 % 06/08/21 17:12 Allen % (Auto) 8.5 % 06/08/21 17:12 Eos % (Auto) 1.2 % 06/08/21 17:12 Baso % (Auto) 0.2 % 06/08/21 17:12 Neut # (Auto) 6.73 K/uL (1.4-6.5) H 06/08/21 17:12 Lymph # (Auto) 0.60 K/uL (1.2-3.4) L 06/08/21 17:12 Allen # (Auto) 0.70 K/uL (0.11-0.59) H 06/08/21 17:12 Eos # (Auto) 0.10 K/uL (0-0.5) 06/08/21 17:12 Baso # (Auto) 0.02 K/uL (0-0.2) 06/08/21 17:12 Immature Gran # (Auto) 0.06 K/uL (0.00-0.02) H 06/08/21 17:12 PT 10.1 Seconds (9.0-12.0) 06/08/21 17:12 INR 1.0 (0.9-1.1) 06/08/21 17:12 APTT 24.4 Seconds (21.0-31.0) 06/08/21 17:12 PTT Ratio 0.9 06/08/21 17:12 ABG pH 7.42 (7.35-7.45) 06/08/21 20:25 ABG pCO2 32 mmHg (35-46) L 06/08/21 20:25 ABG pO2 79 mmHg (80-95) L 06/08/21 20:25 ABG HCO3 21 mmol/L (19-24) 06/08/21 20:25 ABG O2 Saturation 96.3 % (90-95) H 06/08/21 20:25 ABG Base Excess -2.8 mEq/L (-9-1.8) 06/08/21 20:25 Jesus Test Pos (Pos) 06/08/21 20:25 Barometric Pressure 741.4 mm/Hg 06/08/21 20:25 Oxygen Given ROOM AIR 06/08/21 20:25 Sodium 136 mmol/L (136-145) 06/08/21 17:12 Potassium 3.9 mmol/L (3.5-5.1) 06/08/21 17:12 Chloride 102 mmol/L (98-107) 06/08/21 17:12 Carbon Dioxide 27 mmol/L (21-32) 06/08/21 17:12 Anion Gap 7 (3-11) 06/08/21 17:12 BUN 21 mg/dl (6-23) 06/08/21 17:12 Creatinine 0.92 mg/dl (0.6-1.4) 06/08/21 17:12 Est Cr Clr Drug Dosing 64.1 ml/min 06/08/21 17:12 Est GFR ( Amer) 96.6 ml/min 06/08/21 17:12 Est GFR (Non-Af Amer) 83.4 ml/min 06/08/21 17:12 BUN/Creatinine Ratio 22.8 (10-20) H 06/08/21 17:12 Glucose 147 mg/dl (70-99(Fasting)) H 06/08/21 17:12 Calcium 8.7 mg/dl (8.5-10.1) 06/08/21 17:12 Total Bilirubin 1.1 mg/dl (0.2-1.0) H 06/08/21 17:12 AST 30 U/L (13-39) 06/08/21 17:12 ALT 29 U/L (7-52) 06/08/21 17:12 Alkaline Phosphatase 61 U/L (34-104) 06/08/21 17:12 Troponin I 0.04 ng/ml (0-0.04) 06/08/21 17:12 C-Reactive Protein 1.23 mg/dl (0-0.5) H 06/08/21 20:25 B-Natriuretic Peptide 104 pg/ml (0-100) H 06/08/21 17:44 Total Protein 6.1 gm/dl (6.0-8.3) 06/08/21 17:12 Albumin 3.6 gm/dl (3.4-5.0) 06/08/21 17:12 Globulin 2.5 gm/dl (2.5-4.0) 06/08/21 17:12 Albumin/Globulin Ratio 1.4 (0.9-2) 06/08/21 17:12 Procalcitonin < 0.05 ng/ml (0-0.5) 06/08/21 20:25 Urine Color Yellow 06/08/21 Unknown Urine Appearance Clear (Clear) 06/08/21 Unknown Urine pH 7.0 (4.5-7.5) 06/08/21 Unknown Ur Specific [place] > 1.045 (1.000-1.030) H 06/08/21 Unknown Urine Protein Negative (Negative) 06/08/21 Unknown Urine Glucose (UA) 1+ (Negative) H 06/08/21 Unknown Urine Ketones Negative (Negative) 06/08/21 Unknown Urine Blood Negative (Negative) 06/08/21 Unknown Urine Nitrite Negative (Negative) 06/08/21 Unknown Urine Bilirubin Negative (Negative) 06/08/21 Unknown Urine Urobilinogen Negative (Negative) 06/08/21 Unknown Ur Leukocyte Esterase Negative (Negative) 06/08/21 Unknown Impressions Chest CTA 06/08/21 17:28 CT ANGIOGRAM OF THE CHEST CLINICAL HISTORY: Dyspnea. Covid. COMPARISON STUDY: Chest CT dated 05/31/2021. TECHNIQUE: Following the IV administration of 113 cc of Optiray 320, CT angiogram of the chest was performed from the upper abdomen to the thoracic inlet utilizing the pulmonary embolus protocol. Images are reviewed in the axial, sagittal, and coronal planes. 3-D MIPS images are created and assessed. IV contrast was administered without complication. A dose lowering technique was utilized adhering to the principles of ALARA. CT DOSE: 397.90 mGy.cm FINDINGS: Thyroid: Imaged portions of the thyroid gland are normal in size and att enuation. Thoracic aorta: The thoracic aorta is normal in caliber and demonstrates standard 3-vessel arch anatomy. No dissection is seen. Pulmonary vasculature: The pulmonary trunk is dilated, measuring up to 3.8 cm in diameter. This suggests pulmonary artery hypertension. There are no filling defects identified in main, lobar, or segmental pulmonary branches to suggest pulmonary embolus. Heart: The heart is enlarged and without pericardial effusion. The coronary arteries are densely calcified. Lungs and pleural spaces: Emphysema is noted. Multifocal groundglass consolidation is seen throughout both lungs with a subpleural and lower lobe predominant. This has significantly progressed from 05/31/2021. No pleural effusion is seen. Foci of parenchymal scarring are seen throughout both lungs. The trachea and central airways are clear. A 5 mm pleural-based nodule in the left lower lobe along the major fissure on image #148 is unchanged. Mediastinum: There are mildly enlarged mediastinal lymph nodes. An AP window node measures 12 mm in short axis. Autumn: Enlarged hilar nodes measure up to 14 mm in short axis. Axillae: There is no axillary lymphadenopathy. Upper abdomen: A small hiatal hernia is noted. Partially visualized upper abdominal viscera is otherwise grossly unremarkable. Skeletal structures: The skeletal structures are osteopenic. No lytic or blastic bony lesions are seen. Fusion hardware is seen in the lower cervical spine. Degenerative change and kyphoscoliosis is noted in the thoracic spine. Advanced arthritic change is seen in the shoulders. IMPRESSION: 1. There is no evidence of pulmonary embolus in the main, lobar, or segmental pulmonary arteries. The subsegmental pulmonary embolus suggested in the right lower lobe on 05/31/2021 is no longer identified. 2. Cardiomegaly and emphysema with evidence of pulmonary artery hypertension. 3. Multifocal groundglass consolidation has significantly progressed from 05/31/2021 and consistent with the reported history of a viral pneumonia. Radiographic follow-up to resolution is recommended. 4. Enlarged mediastinal and hilar lymph nodes are likely reactive. 5. Additional findings as above. ACT 112: Negative or not required by law. Electronically signed by: Santy Will M.D. 06/08/2021 7:53 PM Code Status & VTE Plan Code Status Full code VTE Prophylaxis Plan VTE Prophylaxis will be ordered: Yes PG Care Time/CCT Total # of Minutes Spent Total Time Spent with Patient: Total time spent is greater than 50% in coordination of care (as documented) at patient's floor/unit and/or counseling patient: Coding Level of Care Code 18470 Initial Inpt Care Lvl 3 Diagnoses Secondary bacterial pneumonia J15.9 Hypoxemia R09.02 Multifocal pneumonia J18.9 COVID-19 U07.1 Hyperlipidemia E78.5 COPD (chronic obstructive pulmonary disease) J44.9 CAD (coronary artery disease) I25.10
[2021-06-08 22:20] LABS: Appearance Urine Clear (Clear); Bilirubin Urine Negative (Negative); Blood Urine Negative (Negative); Color Urine Yellow; Glucose Urine UA 1+ (Negative); Ketones Urine Negative (Negative); Leukocyte Esterase Urine Negative (Negative); Nitrite Urine Negative (Negative); Protein Urine Negative (Negative); Specific Gravity Urine > 1.045 (1.000-1.030); Urobilinogen Urine Negative (Negative)
[2021-06-08] MEDS ORDERED: ONDANSETRON INJ 2 MG/ML 2 ML VIAL IV PRN (23:20)
[2021-06-08] MEDS ORDERED: NITROGLYCERIN SL 0.4 MG/TAB TAB SL PRN (23:20)
[2021-06-09] MEDS ORDERED: ACETAMINOPHEN 500 MG TAB PO ONE (00:22)
[2021-06-09] MEDS ORDERED: TRIAMCINOLONE ACET NASAL SPRAY 10.8ML BTL NAE PRN (00:44)
[2021-06-09] MEDS: SODIUM CHLORIDE 0.65% NA SOLN 45 ML (OCEAN) NAE PRN (01:15)
[2021-06-09] MEDS ORDERED: PIPERACILLIN/TAZOBACTAM 3.375 GM in DEXTROSE 5% 100 ML IV SCH (02:00)
--- NOTE | 2021-06-09 03:30 | Pharmacy Report ---
Pharmacy Vanc AUC Short Note - Date of Service June 09, 2021 - Assessment & Plan Assessment 70 year old M receiving Vancomycin, Zosyn and Azithromycin for treatment of COVID Pneumonia. * PMHx significant for COPD and CKD. Recently admitted and recent abx received. No allergies to abx. * Afebrile. No leukocytosis. Procal negative. * Cultures pending. MRSA nasal swab pending. Plan Vancomycin * AUC/FLYNN is the preferred PK/PD target for vancomycin * AUC guided dosing is effective and associated with decreased risk of nephrotoxicity compared to traditional trough targets * [place] 1250 mg IV x 1 in ED * Maintenance dose of 750 mg IV every 12 hours is expected to achieve goal AUC/FLYNN of 400-600 mg/L.hr and associated with a 12% risk of nephrotoxicity. * Trough ordered for 06/10/21 Zosyn * 4.5 g IV x 1 in the ED followed by 3.375 g IV every 8 hours Pharmacy will continue to follow and will adjust dose/frequency as necessary. Thank you.
[2021-06-09] MEDS: LEVOTHYROXINE SODIUM 50 MCG TABLET PO SCH (06:41)
[2021-06-09] MEDS ORDERED: ALBUTEROL HFA 8 GM INHALER INH SCH (07:00)
[2021-06-09 07:30] LABS: Hematocrit (blood only) 44.8 % (42-52); Hemoglobin 15.7 g/dL (14.0-18.0); Immature Granulocytes # (auto) 0.04 K/uL (0.00-0.02); Immature Granulocytes % (auto) 0.9 %; Lymphocytes # (auto) 0.56 K/uL (1.2-3.4); Lymphocytes % (auto) 12.5 %; Mean Corpuscular Hemoglobin 32.2 pg (25-34); Mean Platelet Volume 10.9 fL (7.4-10.4); Monocytes # (auto) 0.21 K/uL (0.11-0.59); Monocytes % (auto) 4.7 %; Neutrophils # (auto) 3.68 K/uL (1.4-6.5); Neutrophils % (auto) 81.9 %; Platelet Count 179 K/uL (130-400); RDW Coefficient of Variation 13.4 % (11.5-14.5); RDW Standard Deviation 45.2 fL (36.4-46.3); Red Blood Count 4.87 M/uL (4.7-6.1); White Blood Count 4.49 K/uL (4.8-10.8)
[2021-06-09 07:51] LABS: Albumin Globulin Ratio 1.3 (0.9-2); Albumin Level 3.2 gm/dl (3.4-5.0); BUN Creatinine Ratio 24.1 (10-20); Bilirubin,Total 1.1 mg/dl (0.2-1.0); Calcium 8.2 mg/dl (8.5-10.1); Creatinine Clr Calc Pharmacy 70.1 ml/min; Est GFR (African American) 104.7 ml/min; Est GFR (Non-African American) 90.3 ml/min; Globulin 2.4 gm/dl (2.5-4.0); Potassium 4.5 mmol/L (3.5-5.1); Total Protein 5.6 gm/dl (6.0-8.3)
[2021-06-09] MEDS ORDERED: VANCOMYCIN HCL 750 MG in SODIUM CHLORIDE 0.9% 250 ML IV SCH (09:00)
[2021-06-09] MEDS ORDERED: dexAMETHasone 10 MG in SYRINGE 0 ML IV SCH (09:00)
[2021-06-09] MEDS ORDERED: dexAMETHasone 20 MG in SYRINGE 0 ML IV SCH (09:00)
[2021-06-09] MEDS: ACETAMINOPHEN 500 MG TAB PO SCH ×2 (09:25→22:11)
[2021-06-09] MEDS: CHOLECALCIFEROL 1,000 UNITS 25 MCG TAB PO SCH (09:26)
[2021-06-09] MEDS: UMECLIDINIUM/VILANTEROL 62.5/25MCG 7 PUFFS/INHALER INH SCH (09:26)
[2021-06-09] MEDS: guaiFENesin 600 MG TABCR PO SCH ×2 (09:26→22:14)
[2021-06-09] MEDS ORDERED: ALBUTEROL HFA 8 GM INHALER INH PRN (09:39)
[2021-06-09] MEDS: dexAMETHasone 20 MG in DEXTROSE 5% 25 ML IV SCH (11:21)
--- NOTE | 2021-06-09 11:49 | Hospitalist Progress Note ---
Date of Service June 09, 2021 Assessment & Plan (1) COVID-19: Plan: COVID-19 multifocal pneumonia/COPD/with progressively worsening hypoxia- will give dexamethasone 20mg IV x 5 days then 10mg IV x 5 days since he got worse since discharge CRP is slightly elevated hold on antibiotics for now, MRSA swab negative told him to lay prone as much as possible he is on 15L mask today, might need high flow for his nasal congestion he has his own nasal spray BID, Delsym for cough (his request) he says Afrin does not help him (2) Multifocal pneumonia: Plan: See above (3) Hypoxemia: Plan: See above on 15L mask currently told him to lay prone as often as possible dexamethasone (4) Hyperlipidemia: Plan: Continue atorvastatin 40 mg daily (5) COPD (chronic obstructive pulmonary disease): Plan: See above (6) CAD (coronary artery disease): Plan: Continue metoprolol and aspirin Admission and Anticipated Discharge Date Admission Date: June 08, 2021 Subjective patient says he was doing okay at home after being discharged on 06/03, but he would get short of breath on exertion just walking to the bathroom and he was winded (suspect he was removing his oxygen to walk) he complains of nasal congestion, brought in his own nasal spray requesting Delsym for his cough reviewed labs and chart he is eating very little today, was not eating well at home either encouraged him to lay on his stomach will give him dexamethasone 20mg IV daily x 5 days Review of Systems Review of Systems: All systems reviewed & are unremarkable except as noted in Subjective Constitutional: + fatigue and + weakness Ear, Nose, Mouth, Throat: + nasal congestion Respiratory: + cough, + dyspnea and + dyspnea on exertion Physical Exam Physical Exam: General: well developed, well nourished, ill appearing, no distress Neck: supple, trachea midline, normal thyroid Lungs: clear to auscultation bilaterally, slightly tachypneic, no accessory muscle use, no distress Heart: regular S1 and S2, no murmur, peripheral pulses normal, capillary refill normal, no edema Abdomen: soft, NT, ND, + BS, no hepatomegaly, normal to percussion Extremities: normal in appearance, no cyanosis, no petechiae, strength is 5/5 bilaterally Neuro: awake, cooperative, moves all extremities, no focal motor deficits, CN II-XII intact, sensation in extremities intact, normal speech Skin: warm, dry, no rash, normal turgor Psych: Awake, alert oriented x 3, euthymic affect Results & Data Results & Data ([facility]) Vital Signs (Past 12 Hours) Vital Signs Temp Pulse Pulse Resp BP Pulse Ox 06/09/21 11:26 36.0 C L 62 19 123/72 91 06/09/21 08:22 62 20 83 L 06/09/21 07:39 36.4 C L 79 18 97/59 L 89 L 06/09/21 07:24 60 06/09/21 03:13 66 16 93/45 L 92 Laboratory Results Laboratory Results - last 24 hr 06/08/21 06/08/21 06/08/21 17:12 17:12 17:12 WBC 8.21 RBC 5.25 Hgb 16.9 Hct 48.7 MCV 92.8 MCH 32.2 MCHC 34.7 RDW Std Deviation 45.8 RDW Coeff of Navin 13.5 Plt Count 182 MPV 10.9 H Immature Gran % (Auto) 0.7 Neut % (Auto) 82.1 Lymph % (Auto) 7.3 [place] % (Auto) 8.5 Eos % (Auto) 1.2 Baso % (Auto) 0.2 Neut # (Auto) 6.73 H Lymph # (Auto) 0.60 L [place] # (Auto) 0.70 H Eos # (Auto) 0.10 Baso # (Auto) 0.02 Immature Gran # (Auto) 0.06 H PT 10.1 INR 1.0 APTT 24.4 PTT Ratio 0.9 ABG pH ABG pCO2 ABG pO2 ABG HCO3 ABG O2 Saturation ABG Base Excess Jesus Test Barometric Pressure Oxygen Given Sodium 136 Potassium 3.9 Chloride 102 Carbon Dioxide 27 Anion Gap 7 BUN 21 Creatinine 0.92 Est Cr Clr Drug Dosing 64.1 Est GFR ( Amer) 96.6 Est GFR (Non-Af Amer) 83.4 BUN/Creatinine Ratio 22.8 H Glucose 147 H Calcium 8.7 Total Bilirubin 1.1 H AST 30 ALT 29 Alkaline Phosphatase 61 Troponin I 0.04 C-Reactive Protein B-Natriuretic Peptide Total Protein 6.1 Albumin 3.6 Globulin 2.5 Albumin/Globulin Ratio 1.4 Procalcitonin Urine Color Urine Appearance Urine pH Ur Specific [place] Urine Protein Urine Glucose (UA) Urine Ketones Urine Blood Urine Nitrite Urine Bilirubin Urine Urobilinogen Ur Leukocyte Esterase Nasal Screen MRSA (PCR) 06/08/21 06/08/21 06/08/21 17:44 20:25 20:25 WBC RBC Hgb Hct MCV MCH MCHC RDW Std Deviation RDW Coeff of Navin Plt Count MPV Immature Gran % (Auto) Neut % (Auto) Lymph % (Auto) [place] % (Auto) Eos % (Auto) Baso % (Auto) Neut # (Auto) Lymph # (Auto) [place] # (Auto) Eos # (Auto) Baso # (Auto) Immature Gran # (Auto) PT INR APTT PTT Ratio ABG pH 7.42 ABG pCO2 32 L ABG pO2 79 L ABG HCO3 21 ABG O2 Saturation 96.3 H ABG Base Excess -2.8 Jesus Test Pos Barometric Pressure 741.4 Oxygen Given ROOM AIR Sodium Potassium Chloride Carbon Dioxide Anion Gap BUN Creatinine Est Cr Clr Drug Dosing Est GFR ( Amer) Est GFR (Non-Af Amer) BUN/Creatinine Ratio Glucose Calcium Total Bilirubin AST ALT Alkaline Phosphatase Troponin I C-Reactive Protein 1.23 H B-Natriuretic Peptide 104 H Total Protein Albumin Globulin Albumin/Globulin Ratio Procalcitonin Urine Color Urine Appearance Urine pH Ur Specific [place] Urine Protein Urine Glucose (UA) Urine Ketones Urine Blood Urine Nitrite Urine Bilirubin Urine Urobilinogen Ur Leukocyte Esterase Nasal Screen MRSA (PCR) 06/08/21 06/08/21 06/09/21 20:25 Unknown 06:29 WBC 4.49 L RBC 4.87 Hgb 15.7 Hct 44.8 MCV 92.0 MCH 32.2 MCHC 35.0 RDW Std Deviation 45.2 RDW Coeff of Navin 13.4 Plt Count 179 MPV 10.9 H Immature Gran % (Auto) 0.9 Neut % (Auto) 81.9 Lymph % (Auto) 12.5 [place] % (Auto) 4.7 Eos % (Auto) 0.0 Baso % (Auto) 0.0 Neut # (Auto) 3.68 Lymph # (Auto) 0.56 L [place] # (Auto) 0.21 Eos # (Auto) 0.00 Baso # (Auto) 0.00 Immature Gran # (Auto) 0.04 H PT INR APTT PTT Ratio ABG pH ABG pCO2 ABG pO2 ABG HCO3 ABG O2 Saturation ABG Base Excess Jesus Test Barometric Pressure Oxygen Given Sodium Potassium Chloride Carbon Dioxide Anion Gap BUN Creatinine Est Cr Clr Drug Dosing Est GFR ( Amer) Est GFR (Non-Af Amer) BUN/Creatinine Ratio Glucose Calcium Total Bilirubin AST ALT Alkaline Phosphatase Troponin I C-Reactive Protein B-Natriuretic Peptide Total Protein Albumin Globulin Albumin/Globulin Ratio Procalcitonin < 0.05 Urine Color Yellow Urine Appearance Clear Urine pH 7.0 Ur Specific [place] > 1.045 H Urine Protein Negative Urine Glucose (UA) 1+ H Urine Ketones Negative Urine Blood Negative Urine Nitrite Negative Urine Bilirubin Negative Urine Urobilinogen Negative Ur Leukocyte Esterase Negative Nasal Screen MRSA (PCR) 06/09/21 06/09/21 06:29 Unknown WBC RBC Hgb Hct MCV MCH MCHC RDW Std Deviation RDW Coeff of Navin Plt Count MPV Immature Gran % (Auto) Neut % (Auto) Lymph % (Auto) [place] % (Auto) Eos % (Auto) Baso % (Auto) Neut # (Auto) Lymph # (Auto) [place] # (Auto) Eos # (Auto) Baso # (Auto) Immature Gran # (Auto) PT INR APTT PTT Ratio ABG pH ABG pCO2 ABG pO2 ABG HCO3 ABG O2 Saturation ABG Base Excess Jesus Test Barometric Pressure Oxygen Given Sodium 132 L Potassium 4.5 Chloride 103 Carbon Dioxide 24 Anion Gap 5 BUN 19 Creatinine 0.79 Est Cr Clr Drug Dosing 70.1 Est GFR ( Amer) 104.7 Est GFR (Non-Af Amer) 90.3 BUN/Creatinine Ratio 24.1 H Glucose 193 H Calcium 8.2 L Total Bilirubin 1.1 H AST 22 ALT 23 Alkaline Phosphatase 56 Troponin I C-Reactive Protein B-Natriuretic Peptide Total Protein 5.6 L Albumin 3.2 L Globulin 2.4 L Albumin/Globulin Ratio 1.3 Procalcitonin Urine Color Urine Appearance Urine pH Ur Specific [place] Urine Protein Urine Glucose (UA) Urine Ketones Urine Blood Urine Nitrite Urine Bilirubin Urine Urobilinogen Ur Leukocyte Esterase Nasal Screen MRSA (PCR) Negative Medications Administered Current Inpatient Medications Acetaminophen (Acetaminophen 500 Mg Tab) 1,000 mg PO BID [facility] Stop: 07/09/21 08:59 Last Admin: 06/09/21 09:25 Dose: 1,000 mg Documented by: Albuterol (Albuterol Hfa 8 Gm Inhaler) 2 puffs INH QIDR PRN PRN Reason: Shortness Of Breath Or Wheezing Stop: 07/09/21 06:59 Aspirin (Aspirin 81 Mg Chew) 81 mg PO HS [facility] Stop: 07/09/21 20:59 Atorvastatin Calcium (Atorvastatin 40 Mg Tab) 40 mg PO HS [facility] Stop: 07/09/21 20:59 Clopidogrel Bisulfate (Clopidogrel Bisulfate 75 Mg Tab) 75 mg PO HS [facility] Stop: 07/09/21 20:59 Enoxaparin Sodium (Enoxaparin Inj 40 Mg/0.4 Ml Syr) 40 mg SQ Q24H [facility] Stop: 07/10/21 08:59 Guaifenesin (Guaifenesin 600 Mg Tabcr) 1,200 mg PO Q12 [facility] Stop: 07/09/21 08:59 Last Admin: 06/09/21 09:26 Dose: 1,200 mg Documented by: Dexamethasone 20 mg/ Dextrose 30 mls @ 0.833 mls/min IV DAILY [facility] Stop: 07/09/21 08:59 Last Admin: 06/09/21 11:21 Dose: 0.8 mls/min Documented by: Levothyroxine Sodium (Levothyroxine Sodium 50 Mcg Tablet) 50 mcg PO DAILYBB [facility] Stop: 07/09/21 06:29 Last Admin: 06/09/21 06:41 Dose: 50 mcg Documented by: Melatonin (Melatonin 3 Mg Tab) 3 mg PO HS PRN; Protocol PRN Reason: Sleep Stop: 07/09/21 00:01 Metoprolol Tartrate (Metoprolol Tartrate 25 Mg Tab) 12.5 mg PO HS [facility] Stop: 07/09/21 20:59 Nitroglycerin (Nitroglycerin Sl 0.4 Mg/Tab Tab) 0.4 mg SL UD PRN PRN Reason: Chest Pain Stop: 07/08/21 23:19 Ondansetron HCl (Ondansetron Inj 2 Mg/Ml 2 Ml Vial) 4 mg IV Q6H PRN PRN Reason: Nausea Stop: 07/08/21 23:19 Sodium Chloride (Sodium Chloride 0.65% Na Soln 45 Ml ([place])) 2 sprays GRISEL Q12H PRN PRN Reason: Nasal Congestion Stop: 07/09/21 00:43 Last Admin: 06/09/21 01:15 Dose: 2 sprays Documented by: Triamcinolone Acetonide (Triamcinolone Acet Nasal [place] 10.8ml Btl) 2 sprays GRISEL DAILY PRN PRN Reason: nasal congestion Stop: 07/09/21 08:59 Last Admin: 06/09/21 02:55 Dose: 2 sprays Documented by: Umeclidinium/Vilanterol (Umeclidinium/Vilanterol 62.5/25mcg 7 Puffs/Inhaler) 1 puffs INH DAILY [facility]; Protocol Stop: 07/09/21 08:59 Last Admin: 06/09/21 09:26 Dose: 1 puffs Documented by: Vitamin D (Cholecalciferol 1,000 Units 25 Mcg Tab) 2,000 units PO DAILY [facility] Stop: 07/09/21 08:59 Last Admin: 06/09/21 09:26 Dose: 2,000 units Documented by: PG Care Time/CCT Total # of Minutes Spent Total Time Spent with Patient: Total time spent is greater than 50% in coordination of care (as documented) at patient's floor/unit and/or counseling patient: Coding Level of Care Code 31764 Subseq Hosp Care Lvl 2 Diagnoses COVID-19 U07.1 Multifocal pneumonia J18.9 Hypoxemia R09.02 Hyperlipidemia E78.5 COPD (chronic obstructive pulmonary disease) J44.9 CAD (coronary artery disease) I25.10
--- NOTE | 2021-06-09 20:58 | Electrocardiogram Report ---
Test Reason : Blood Pressure : / mmHG Vent. Rate : 073 BPM Atrial Rate : 073 BPM P-R Int : 128 ms QRS Dur : 100 ms QT Int : 396 ms P-R-T Axes : 051 078 011 degrees QTc Int : 436 ms Normal sinus rhythm Possible Left atrial enlargement T wave abnormality, consider anterior ischemia Abnormal ECG When compared with ECG of 02-JUN-2021 05:17, No significant change was found Confirmed by Koko Giles ([id number]) on 06/09/2021 8:58:41 PM Referred By: REFERRED SELF Confirmed By:Koko Giles
[2021-06-09] MEDS ORDERED: AZITHROMYCIN 500 MG in DEXTROSE 5% 250 ML IV SCH (21:00)
[2021-06-09] MEDS: CLOPIDOGREL BISULFATE 75 MG TAB PO SCH (22:14)
[2021-06-09] MEDS: ATORVASTATIN 40 MG TAB PO SCH (22:14)
[2021-06-09] MEDS: ASPIRIN 81 MG CHEW PO SCH (22:14)
[2021-06-09] MEDS: METOPROLOL TARTRATE 25 MG TAB PO SCH (22:15)
[2021-06-10] MEDS: LEVOTHYROXINE SODIUM 50 MCG TABLET PO SCH (05:49)
[2021-06-10 08:06] LABS: Hematocrit (blood only) 45.3 % (42-52); Hemoglobin 15.6 g/dL (14.0-18.0); Immature Granulocytes # (auto) 0.07 K/uL (0.00-0.02); Immature Granulocytes % (auto) 0.7 %; Lymphocytes # (auto) 0.82 K/uL (1.2-3.4); Lymphocytes % (auto) 8.7 %; Mean Corpuscular Hemoglobin 31.6 pg (25-34); Mean Corpuscular Hgb Conc 34.4 g/dL (32-36); Mean Corpuscular Volume 91.9 fL (80-100); Mean Platelet Volume 10.5 fL (7.4-10.4); Monocytes # (auto) 0.73 K/uL (0.11-0.59); Monocytes % (auto) 7.8 %; Neutrophils # (auto) 7.76 K/uL (1.4-6.5); Neutrophils % (auto) 82.8 %; Platelet Count 190 K/uL (130-400); RDW Coefficient of Variation 13.2 % (11.5-14.5); Red Blood Count 4.93 M/uL (4.7-6.1); White Blood Count 9.38 K/uL (4.8-10.8)
[2021-06-10 08:29] LABS: Albumin Globulin Ratio 1.3 (0.9-2); Albumin Level 3.3 gm/dl (3.4-5.0); BUN Creatinine Ratio 27.4 (10-20); Calcium 8.6 mg/dl (8.5-10.1); Creatinine Clr Calc Pharmacy 65.4 ml/min; Est GFR (African American) 102.1 ml/min; Est GFR (Non-African American) 88.1 ml/min; Globulin 2.6 gm/dl (2.5-4.0); Potassium 4.5 mmol/L (3.5-5.1); Total Protein 5.9 gm/dl (6.0-8.3)
[2021-06-10] MEDS ORDERED: VANCOMYCIN TROUGH ONE (08:30)
[2021-06-10] MEDS: ACETAMINOPHEN 500 MG TAB PO SCH ×2 (08:33→20:59)
[2021-06-10] MEDS: ENOXAPARIN INJ 40 MG/0.4 ML SYR SQ SCH (08:34)
[2021-06-10] MEDS: CHOLECALCIFEROL 1,000 UNITS 25 MCG TAB PO SCH (08:35)
[2021-06-10] MEDS: guaiFENesin 600 MG TABCR PO SCH ×2 (08:35→21:02)
[2021-06-10] MEDS: dexAMETHasone 20 MG in DEXTROSE 5% 25 ML IV SCH (08:36)
[2021-06-10] MEDS: UMECLIDINIUM/VILANTEROL 62.5/25MCG 7 PUFFS/INHALER INH SCH (08:39)
--- NOTE | 2021-06-10 13:43 | Hospitalist Progress Note ---
Date of Service June 10, 2021 Assessment & Plan (1) COVID-19: Plan: COVID-19 multifocal pneumonia/COPD/with progressively worsening hypoxia- Was requiring 15L Oxymask yesterday, now weaned to 10L Oxymask but dropped to 85% with talking to me in the room. continue dexamethasone 20mg IV x 5 days then 10mg IV x 5 days since he got worse since discharge-change to 10mg on 06/14/21 CRP is slightly elevated-repeat in AM hold on antibiotics for now, MRSA swab negative, PCT negative CTA Chest neg for PE but shows multifocal PNA -told him to lay prone as much as possible -continue supplemental O2 to keep POx>88% -follow Sputum cx, BCxs -for his nasal congestion he has his own nasal spray BID, Delsym for cough (his request) -he says Afrin does not help him -continue IS, added flutter valve-will need to be on wall high flow NC to use flutter (2) Multifocal pneumonia: Plan: See above (3) Hypoxemia: Plan: See above (4) Hyperlipidemia: Plan: Continue atorvastatin 40 mg daily (5) COPD (chronic obstructive pulmonary disease): Plan: See above (6) CAD (coronary artery disease): Plan: Continue metoprolol and aspirin, Plavix (7) Hypothyroidism: Plan: no TSH in our system for 5 years -check TSH in AM continue LT4 Plan: DVT proph-Lovenox Dispo- continued stay on tele, would not dc until O2 requirement no more than 4- 5LNC with exertion Admission and Anticipated Discharge Date Admission Date: June 08, 2021 Subjective Pt anxious to get out of here, discussed need to get O2 requirement down to 4- 5LNC prior to disharge. Encouraged prone positioning, OOB to chair. He is lying flat on his back in bed to watch TV but says he will get OOB to chair later. Has back pain with sitting upright in bed. Feels like mucus is stuck in his anterior chest. No nausea, is eating, moving his bowels. Tele with SB, rates 40-50s Review of Systems Review of Systems: All systems reviewed & are unremarkable except as noted in HPI & below Physical Exam Constitutional: WD/WN, vitals as above Eyes: + anicteric sclerae Neck: trachea midline, no thyromegaly Respiratory: normal respiratory effort, lungs clear to auscultation Cardiovascular: RRR, no murmur, no edema Chest (Breasts): Chest: normal inspection of chest Gastrointestinal (Abdomen): normal bowel sounds, soft, nontender, no hepatosplenomegaly Musculoskeletal: Extremities: extremities normal to inspection; no cyanosis and no clubbing Skin: no rashes, warm and dry Neurologic: moves all extremities and awake; no focal motor deficits Psychiatric: A+Ox3, euthymic affect Lymphatic: no lymphedema Results & Data Results & Data ([facility]) Vital Signs (Past 12 Hours) Vital Signs Temp Pulse Pulse Resp BP Pulse Ox 06/10/21 11:06 37.0 C 54 L 20 118/66 94 06/10/21 10:26 47 L 06/10/21 08:29 36.5 C 75 18 123/73 91 06/10/21 03:12 36.6 C 60 18 133/73 90 Laboratory Results 06/10/21 06/10/21 Range/Units 07:24 07:24 WBC 9.38 (4.8-10.8) K/uL RBC 4.93 (4.7-6.1) M/uL Hgb 15.6 (14.0-18.0) g/dL Hct 45.3 (42-52) % MCV 91.9 (80-100) fL MCH 31.6 (25-34) pg MCHC 34.4 (32-36) g/dL RDW Std Deviation 44.0 (36.4-46.3) fL RDW Coeff of Navin 13.2 (11.5-14.5) % Plt Count 190 (130-400) K/uL MPV 10.5 H (7.4-10.4) fL Immature Gran % (Auto) 0.7 % Neut % (Auto) 82.8 % Lymph % (Auto) 8.7 % [place] % (Auto) 7.8 % Eos % (Auto) 0.0 % Baso % (Auto) 0.0 % Neut # (Auto) 7.76 H (1.4-6.5) K/uL Lymph # (Auto) 0.82 L (1.2-3.4) K/uL [place] # (Auto) 0.73 H (0.11-0.59) K/uL Eos # (Auto) 0.00 (0-0.5) K/uL Baso # (Auto) 0.00 (0-0.2) K/uL Immature Gran # (Auto) 0.07 H (0.00-0.02) K/uL Sodium 134 L (136-145) mmol/L Potassium 4.5 (3.5-5.1) mmol/L Chloride 102 (98-107) mmol/L Carbon Dioxide 27 (21-32) mmol/L Anion Gap 5 (3-11) BUN 23 (6-23) mg/dl Creatinine 0.84 (0.6-1.4) mg/dl Est Cr Clr Drug Dosing 65.4 ml/min Est GFR ( Amer) 102.1 ml/min Est GFR (Non-Af Amer) 88.1 ml/min BUN/Creatinine Ratio 27.4 H (10-20) Glucose 143 H (70-99(Fasting)) mg/dl Calcium 8.6 (8.5-10.1) mg/dl Total Bilirubin 1.0 (0.2-1.0) mg/dl AST 17 (13-39) U/L ALT 20 (7-52) U/L Alkaline Phosphatase 53 (34-104) U/L Total Protein 5.9 L (6.0-8.3) gm/dl Albumin 3.3 L (3.4-5.0) gm/dl Globulin 2.6 (2.5-4.0) gm/dl Albumin/Globulin Ratio 1.3 (0.9-2) PG Care Time/CCT Total # of Minutes Spent Total Time Spent with Patient: Total time spent is greater than 50% in coordination of care (as documented) at patient's floor/unit and/or counseling patient: Coding Level of Care Code 98956 Subseq Hosp Care Lvl 3 Diagnoses COVID-19 U07.1 Multifocal pneumonia J18.9 Hypoxemia R09.02 Hyperlipidemia E78.5 COPD (chronic obstructive pulmonary disease) J44.9 CAD (coronary artery disease) I25.10 Hypothyroidism E03.9
[2021-06-10] MEDS ORDERED: ACETAMINOPHEN 500 MG TAB PO ONE (18:23)
[2021-06-10] MEDS: ATORVASTATIN 40 MG TAB PO SCH (21:01)
[2021-06-10] MEDS: ASPIRIN 81 MG CHEW PO SCH (21:02)
[2021-06-10] MEDS: METOPROLOL TARTRATE 25 MG TAB PO SCH (21:03)
[2021-06-10] MEDS: CLOPIDOGREL BISULFATE 75 MG TAB PO SCH (21:03)
[2021-06-10] MEDS: MELATONIN 3 MG TAB PO PRN (23:36)
[2021-06-11] MEDS: LEVOTHYROXINE SODIUM 50 MCG TABLET PO SCH (06:10)
[2021-06-11 06:46] LABS: Basophils # (auto) 0.01 K/uL (0-0.2); Basophils % (auto) 0.1 %; Eosinophils # (auto) 0.01 K/uL (0-0.5); Eosinophils % (auto) 0.1 %; Hematocrit (blood only) 43.7 % (42-52); Hemoglobin 15.1 g/dL (14.0-18.0); Immature Granulocytes # (auto) 0.13 K/uL (0.00-0.02); Immature Granulocytes % (auto) 1.3 %; Lymphocytes # (auto) 0.77 K/uL (1.2-3.4); Lymphocytes % (auto) 7.5 %; Mean Corpuscular Hemoglobin 31.9 pg (25-34); Mean Corpuscular Hgb Conc 34.6 g/dL (32-36); Mean Corpuscular Volume 92.2 fL (80-100); Mean Platelet Volume 10.5 fL (7.4-10.4); Monocytes # (auto) 0.68 K/uL (0.11-0.59); Monocytes % (auto) 6.6 %; Neutrophils # (auto) 8.63 K/uL (1.4-6.5); Neutrophils % (auto) 84.4 %; Platelet Count 211 K/uL (130-400); RDW Standard Deviation 43.7 fL (36.4-46.3); Red Blood Count 4.74 M/uL (4.7-6.1); White Blood Count 10.23 K/uL (4.8-10.8)
[2021-06-11 07:22] LABS: Albumin Globulin Ratio 1.3 (0.9-2); Albumin Level 3.2 gm/dl (3.4-5.0); BUN Creatinine Ratio 30.2 (10-20); Bilirubin,Total 0.9 mg/dl (0.2-1.0); C Reactive Protein 0.51 mg/dl (0-0.5); Calcium 8.8 mg/dl (8.5-10.1); Creatinine Clr Calc Pharmacy 63.9 ml/min; Est GFR (African American) 101.1 ml/min; Est GFR (Non-African American) 87.2 ml/min; Globulin 2.4 gm/dl (2.5-4.0); Potassium 4.9 mmol/L (3.5-5.1); Total Protein 5.6 gm/dl (6.0-8.3)
[2021-06-11] MEDS: guaiFENesin 600 MG TABCR PO SCH ×2 (08:26→21:40)
[2021-06-11] MEDS: ENOXAPARIN INJ 40 MG/0.4 ML SYR SQ SCH ×2 (08:28→21:40)
[2021-06-11] MEDS: CHOLECALCIFEROL 1,000 UNITS 25 MCG TAB PO SCH (08:28)
[2021-06-11] MEDS: dexAMETHasone 20 MG in DEXTROSE 5% 25 ML IV SCH (08:31)
[2021-06-11] MEDS: UMECLIDINIUM/VILANTEROL 62.5/25MCG 7 PUFFS/INHALER INH SCH (08:32)
[2021-06-11] MEDS ORDERED: FUROSEMIDE 40 MG TAB PO ONE (15:38)
[2021-06-11] MEDS: DEXTROMETHORPHAN POLYMR COMPLX 30 MG/5 ML UDP PO PRN ×2 (15:40→21:41)
--- NOTE | 2021-06-11 15:40 | Hospitalist Progress Note ---
Date of Service June 11, 2021 Assessment & Plan (1) COVID-19: Plan: COVID-19 multifocal pneumonia/COPD/with progressively worsening hypoxia- Still requiring 15L Oxymask and desaturates with removing the mask even for a couple of seconds to eat or drink. Tried on Vapotherm high flow nasal cannula 06/11 and he could not tolerate it Does use wall high flow nasal cannula at 15 L in order to eat continue dexamethasone 20mg IV x 5 days then 10mg IV x 5 days since he got worse since discharge-change to 10mg on 06/14/21 CRP was only slightly elevated-now down to 0.5 No need for antibiotics, MRSA swab negative, PCT negative CTA Chest neg for PE but shows multifocal PNA -told him to lay prone or on his side as much as possible -continue supplemental O2 to keep POx>88%, he cannot tolerate Vapotherm HFNC -Sputum culture with light normal [place], blood cultures no growth to date -for his nasal congestion he has his own nasal spray BID, Delsym for cough (his request) -he says Afrin does not help him -continue IS, flutter valve -Make DuoNebs scheduled every 6 (2) Multifocal pneumonia: Plan: See above (3) Hypoxemia: Plan: See above (4) Hyperlipidemia: Plan: Continue atorvastatin 40 mg daily (5) COPD (chronic obstructive pulmonary disease): Plan: See above (6) CAD (coronary artery disease): Plan: Continue metoprolol and aspirin, Plavix (7) Hypothyroidism: Plan: TSH here normal continue LT4 at home dose (8) Hyponatremia: Plan: Sodium dropped slightly to 133 Could be from volume overload Give Lasix 40 mg p.o. daily which may help his hypoxia as well Follow BMP in the morning Plan: DVT proph-Lovenox but increase to 40 mg twice daily Dispo- continued stay on tele, would not dc until O2 requirement no more than 4- 5LNC with exertion Admission and Anticipated Discharge Date Admission Date: June 08, 2021 Subjective Patient was very upset that he was on a sodium restricted diet and requested that this be removed. When we discussed the importance of a low-sodium diet preventing fluid retention, he stated "we will put me on my water pill, I take that at home." He reports he was out of bed to chair for a little bit but is currently lying flat on his back when I saw him. Still on 15 L of oxygen mask and very frustrated about when he can go home. He was tried on a Vapotherm high flow nasal cannula and said that it made his whole chest burn and he could not tolerate it. He also reports a lot of coughing causing burning in the chest and requests [facility] cough medicine. Telemetry with sinus bradycardia normal sinus rhythm with rates in the 40s to 70s Review of Systems Review of Systems: All systems reviewed & are unremarkable except as noted in HPI & below Physical Exam Constitutional: WD/WN, vitals as above Eyes: + anicteric sclerae Neck: trachea midline, no thyromegaly Respiratory: normal respiratory effort Auscultation: + diminished lung sounds (Throughout); no crackles, no rhonchi and no wheezes Cardiovascular: RRR, no murmur, no edema Chest (Breasts): Chest: normal inspection of chest Gastrointestinal (Abdomen): normal bowel sounds, soft, nontender, no hepatosplenomegaly Musculoskeletal: Extremities: extremities normal to inspection; no cyanosis and no clubbing Skin: no rashes, warm and dry Neurologic: moves all extremities and awake; no focal motor deficits Psychiatric: A+Ox3, euthymic affect Lymphatic: no lymphedema Results & Data Results & Data ([facility]) Vital Signs (Past 12 Hours) Vital Signs Temp Pulse Pulse Resp BP Pulse Ox 06/11/21 15:00 69 06/11/21 11:27 36.4 C L 64 18 134/69 88 L 06/11/21 08:00 51 L 06/11/21 07:44 36.5 C 62 18 128/71 94 06/11/21 04:30 36.7 C 52 L 20 120/67 93 Laboratory Results 06/11/21 05:48 06/11/21 05:48 CRP 0.51 TSH 1.55 PG Care Time/CCT Total # of Minutes Spent Total Time Spent with Patient: Total time spent is greater than 50% in coordination of care (as documented) at patient's floor/unit and/or counseling patient: Coding Level of Care Code 98417 Subseq Hosp Care Lvl 3 Diagnoses COVID-19 U07.1 Multifocal pneumonia J18.9 Hypoxemia R09.02 Hyperlipidemia E78.5 COPD (chronic obstructive pulmonary disease) J44.9 CAD (coronary artery disease) I25.10 Hypothyroidism E03.9 Hyponatremia E87.1
[2021-06-11] MEDS: ALBUT/IPRATROP 3MG/0.5MG NEB 3 ML VIAL NEB SCH ×2 (16:00→19:17)
[2021-06-11] MEDS ORDERED: CALCIUM CARBONATE 500 MG CHEWABLE TAB PO PRN (19:22)
[2021-06-11] MEDS ORDERED: CALCIUM CARBONATE 500 MG CHEWABLE TAB ONE (19:26)
[2021-06-11] MEDS ORDERED: Nursing to Pharmacy Communication SCH (19:30)
[2021-06-11] MEDS: ATORVASTATIN 40 MG TAB PO SCH (21:40)
[2021-06-11] MEDS: ASPIRIN 81 MG CHEW PO SCH (21:40)
[2021-06-11] MEDS: CLOPIDOGREL BISULFATE 75 MG TAB PO SCH (21:41)
[2021-06-11] MEDS: METOPROLOL TARTRATE 25 MG TAB PO SCH (21:41)
[2021-06-11] MEDS: MELATONIN 3 MG TAB PO PRN (21:41)
[2021-06-12] MEDS ORDERED: COUGH DROP (SUGAR FREE) LOZ 24 LOZ/1 BOX BUCCAL ONE (00:05)
[2021-06-12] MEDS: LEVOTHYROXINE SODIUM 50 MCG TABLET PO SCH (06:18)
[2021-06-12 07:32] LABS: Basophils # (auto) 0.01 K/uL (0-0.2); Basophils % (auto) 0.1 %; Eosinophils # (auto) 0.02 K/uL (0-0.5); Eosinophils % (auto) 0.2 %; Hematocrit (blood only) 44.8 % (42-52); Hemoglobin 15.5 g/dL (14.0-18.0); Immature Granulocytes # (auto) 0.25 K/uL (0.00-0.02); Immature Granulocytes % (auto) 2.4 %; Lymphocytes # (auto) 0.91 K/uL (1.2-3.4); Lymphocytes % (auto) 8.6 %; Mean Corpuscular Hemoglobin 31.8 pg (25-34); Mean Corpuscular Hgb Conc 34.6 g/dL (32-36); Mean Platelet Volume 10.4 fL (7.4-10.4); Monocytes # (auto) 0.57 K/uL (0.11-0.59); Monocytes % (auto) 5.4 %; Neutrophils # (auto) 8.86 K/uL (1.4-6.5); Neutrophils % (auto) 83.3 %; Platelet Count 228 K/uL (130-400); RDW Coefficient of Variation 13.2 % (11.5-14.5); RDW Standard Deviation 44.1 fL (36.4-46.3); Red Blood Count 4.87 M/uL (4.7-6.1); White Blood Count 10.62 K/uL (4.8-10.8)
[2021-06-12 08:27] LABS: BUN Creatinine Ratio 27.8 (10-20); Calcium 8.9 mg/dl (8.5-10.1); Creatinine Clr Calc Pharmacy 56.6 ml/min; Est GFR (African American) 90.7 ml/min; Est GFR (Non-African American) 78.2 ml/min; Magnesium 1.9 mg/dl (1.7-2.4)
[2021-06-12] MEDS: ALBUT/IPRATROP 3MG/0.5MG NEB 3 ML VIAL NEB SCH ×4 (08:28→19:25)
[2021-06-12] MEDS: dexAMETHasone 20 MG in DEXTROSE 5% 25 ML IV SCH (09:19)
[2021-06-12] MEDS: CALCIUM CARBONATE 500 MG CHEWABLE TAB PO PRN ×2 (09:19→15:30)
[2021-06-12] MEDS: ENOXAPARIN INJ 40 MG/0.4 ML SYR SQ SCH ×2 (09:20→20:16)
[2021-06-12] MEDS: FUROSEMIDE 40 MG TAB PO SCH (09:21)
[2021-06-12] MEDS: guaiFENesin 600 MG TABCR PO SCH ×2 (09:21→20:17)
[2021-06-12] MEDS: UMECLIDINIUM/VILANTEROL 62.5/25MCG 7 PUFFS/INHALER INH SCH (09:22)
[2021-06-12] MEDS: CHOLECALCIFEROL 1,000 UNITS 25 MCG TAB PO SCH (09:22)
[2021-06-12] MEDS ORDERED: POLYETHYLENE (MIRALAX) 17 GM PACK PO ONE ×2 (10:00→15:37)
--- NOTE | 2021-06-12 11:03 | Hospitalist Progress Note ---
Date of Service June 12, 2021 Assessment & Plan (1) COVID-19: Plan: COVID-19 multifocal pneumonia/COPD/with progressively worsening hypoxia- Continues to be requiring 15L Oxymask and desaturates with removing the mask even for a couple of seconds to eat or drink or with short distances walking Tried on Vapotherm high flow nasal cannula 06/11 and he could not tolerate it Does use wall high flow nasal cannula at 15 L in order to eat CRP was only slightly elevated-now down to 0.5 No need for antibiotics, MRSA swab negative, PCT negative CTA Chest neg for PE but shows multifocal PNA -Continue dexamethasone 20mg IV x 5 days then 10mg IV x 5 days since he got wo rse since discharge-change to 10mg on 06/14/21 -told him to lay prone or on his side as much as possible-he is finally doing this today -continue supplemental O2 to keep POx>88%, he cannot tolerate Vapotherm HFNC -Sputum culture with light normal malaika, blood cultures no growth to date -for his nasal congestion he has his own nasal spray BID, Delsym for cough (his request) -he says Afrin does not help him -continue IS, flutter valve -Continue DuoNebs scheduled every 6 -Encouraged him to continue to get out of bed and ambulate short distances to expand his lungs -Continue daily Lasix started on 06/11 to keep lungs dry (2) Multifocal pneumonia: Plan: See above (3) Hypoxemia: Plan: See above (4) Hyperlipidemia: Plan: Continue atorvastatin 40 mg daily (5) COPD (chronic obstructive pulmonary disease): Plan: See above (6) CAD (coronary artery disease): Plan: With a history of proximal LAD and mid left circumflex stents Most recent cardiac catheterization on 01/07 performed for abnormal pharmacologic nuclear stress test revealed nonobstructive disease of the LAD and widely patent stents, slow flow in the RCA without significant obstruction suggesting microvascular disease-recommended medical management No acute issues Continue metoprolol and aspirin, Plavix, atorvastatin (7) Hypothyroidism: Plan: TSH here normal continue LT4 at home dose (8) Hyponatremia: Plan: Sodium dropped slightly to 133 and stable today Could be from volume overload Continue to give Lasix 40 mg p.o. daily which may help his hypoxia as well Follow BMP in the morning (9) GERD (gastroesophageal reflux disease): Plan: Having significant indigestion last 24 hours-likely secondary to high-dose corticosteroids He reports he takes Nexium at home, however this is not on his home medication list -Add Protonix Add Carafate Tums as needed (10) Constipation: Plan: Feels constipated, no bowel movement since 06/10 Add on MiraLAX daily and can give an extra dose later if needed Add on senna/docusate 1 tab daily Plan: DVT proph-Lovenox 40 mg twice daily Dispo- continued stay on tele, would not dc until O2 requirement no more than 4- 5LNC with exertion, told him this might take a while Admission and Anticipated Discharge Date Admission Date: June 08, 2021 Subjective Patient reports frustration that his oxygen requirement remains so high. He ambulates in the room and his pulse ox drops but he denies any shortness of breath and does not feel poorly with this. He was lying on his side when I came in and is diligently using his flutter valve and incentive spirometer. He is feeling very constipated today and requests MiraLAX. Had a lot of indigestion last night after eating beef and was taking Tums which helped a little bit but still has some indigestion today Telemetry with normal sinus rhythm with rates in the 60s to 70s, PVCs Overall seems to be in better spirits today Review of Systems Review of Systems: All systems reviewed & are unremarkable except as noted in HPI & below Physical Exam Constitutional: WD/WN, vitals as above Eyes: + anicteric sclerae Neck: trachea midline, no thyromegaly Respiratory: normal respiratory effort, lungs clear to auscultation normal respiratory effort Auscultation: + diminished lung sounds (Throughout); no crackles, no rhonchi and no wheezes Cardiovascular: RRR, no murmur, no edema Chest (Breasts): Chest: normal inspection of chest Gastrointestinal (Abdomen): normal bowel sounds, soft, nontender, no hepatosplenomegaly Musculoskeletal: Extremities: extremities normal to inspection; no cyanosis and no clubbing Skin: no rashes, warm and dry Neurologic: moves all extremities and awake; no focal motor deficits Psychiatric: A+Ox3, euthymic affect Lymphatic: no lymphedema Results & Data Results & Data ([facility]) Vital Signs (Past 12 Hours) Vital Signs Temp Pulse Pulse Resp BP Pulse Ox 06/12/21 08:30 56 L 20 90 06/12/21 07:55 36.9 C 55 L 20 116/74 93 06/12/21 06:26 36.4 C L 54 L 22 142/89 H 91 06/12/21 00:00 73 Laboratory Results 06/12/21 06/12/21 Range/Units 06:33 06:33 WBC 10.62 (4.8-10.8) K/uL RBC 4.87 (4.7-6.1) M/uL Hgb 15.5 (14.0-18.0) g/dL Hct 44.8 (42-52) % MCV 92.0 (80-100) fL MCH 31.8 (25-34) pg MCHC 34.6 (32-36) g/dL RDW Std Deviation 44.1 (36.4-46.3) fL RDW Coeff of Navin 13.2 (11.5-14.5) % Plt Count 228 (130-400) K/uL MPV 10.4 (7.4-10.4) fL Immature Gran % (Auto) 2.4 % Neut % (Auto) 83.3 % Lymph % (Auto) 8.6 % Tyrrell % (Auto) 5.4 % Eos % (Auto) 0.2 % Baso % (Auto) 0.1 % Neut # (Auto) 8.86 H (1.4-6.5) K/uL Lymph # (Auto) 0.91 L (1.2-3.4) K/uL Tyrrell # (Auto) 0.57 (0.11-0.59) K/uL Eos # (Auto) 0.02 (0-0.5) K/uL Baso # (Auto) 0.01 (0-0.2) K/uL Immature Gran # (Auto) 0.25 H (0.00-0.02) K/uL Sodium 133 L (136-145) mmol/L Potassium 4.0 (3.5-5.1) mmol/L Chloride 100 (98-107) mmol/L Carbon Dioxide 25 (21-32) mmol/L Anion Gap 8 (3-11) BUN 27 H (6-23) mg/dl Creatinine 0.97 (0.6-1.4) mg/dl Est Cr Clr Drug Dosing 56.6 ml/min Est GFR ( Amer) 90.7 ml/min Est GFR (Non-Af Amer) 78.2 ml/min BUN/Creatinine Ratio 27.8 H (10-20) Glucose 146 H (70-99(Fasting)) mg/dl Calcium 8.9 (8.5-10.1) mg/dl Magnesium 1.9 (1.7-2.4) mg/dl PG Care Time/CCT Total # of Minutes Spent Total Time Spent with Patient: Total time spent is greater than 50% in coordination of care (as documented) at patient's floor/unit and/or counseling patient: Coding Level of Care Code 26970 Subseq Hosp Care Lvl 3 Diagnoses COVID-19 U07.1 Multifocal pneumonia J18.9 Hypoxemia R09.02 Hyperlipidemia E78.5 COPD (chronic obstructive pulmonary disease) J44.9 CAD (coronary artery disease) I25.10 Hypothyroidism E03.9 Hyponatremia E87.1 GERD (gastroesophageal reflux disease) K21.9 Constipation K59.00
[2021-06-12] MEDS: DOCUSATE SODIUM/SENNA 50/8.6MG TAB PO SCH (13:13)
[2021-06-12] MEDS: SUCRALFATE 1 GM/10 ML UDC PO SCH ×3 (13:13→20:17)
[2021-06-12] MEDS: ACETAMINOPHEN 500 MG TAB PO PRN (15:29)
[2021-06-12] MEDS: PANTOprazole 40 MG TAB PO SCH (17:04)
[2021-06-12] MEDS: DEXTROMETHORPHAN POLYMR COMPLX 30 MG/5 ML UDP PO PRN (20:16)
[2021-06-12] MEDS: CLOPIDOGREL BISULFATE 75 MG TAB PO SCH (20:17)
[2021-06-12] MEDS: ASPIRIN 81 MG CHEW PO SCH (20:17)
[2021-06-12] MEDS: MELATONIN 3 MG TAB PO PRN (20:17)
[2021-06-12] MEDS: ATORVASTATIN 40 MG TAB PO SCH (20:17)
[2021-06-12] MEDS: METOPROLOL TARTRATE 25 MG TAB PO SCH (20:17)
[2021-06-13 06:53] LABS: BUN Creatinine Ratio 33.3 (10-20); Calcium 9.1 mg/dl (8.5-10.1); Creatinine Clr Calc Pharmacy 70.5 ml/min; Est GFR (African American) 105.3 ml/min; Est GFR (Non-African American) 90.8 ml/min; Magnesium 1.9 mg/dl (1.7-2.4); Phosphorus 3.4 mg/dl (2.5-4.9); Potassium 4.3 mmol/L (3.5-5.1)
[2021-06-13] MEDS: ALBUT/IPRATROP 3MG/0.5MG NEB 3 ML VIAL NEB SCH ×4 (08:03→19:19)
[2021-06-13] MEDS: PANTOprazole 40 MG TAB PO SCH (08:10)
[2021-06-13] MEDS: LEVOTHYROXINE SODIUM 50 MCG TABLET PO SCH (08:11)
[2021-06-13] MEDS: SUCRALFATE 1 GM/10 ML UDC PO SCH ×4 (09:33→21:31)
[2021-06-13] MEDS: POLYETHYLENE (MIRALAX) 17 GM PACK PO SCH (09:33)
[2021-06-13] MEDS: FUROSEMIDE 40 MG TAB PO SCH (09:33)
[2021-06-13] MEDS: DOCUSATE SODIUM/SENNA 50/8.6MG TAB PO SCH (09:33)
[2021-06-13] MEDS: CHOLECALCIFEROL 1,000 UNITS 25 MCG TAB PO SCH (09:33)
[2021-06-13] MEDS: ENOXAPARIN INJ 40 MG/0.4 ML SYR SQ SCH ×2 (09:34→21:32)
[2021-06-13] MEDS: guaiFENesin 600 MG TABCR PO SCH ×2 (09:34→21:31)
[2021-06-13] MEDS: dexAMETHasone 20 MG in DEXTROSE 5% 25 ML IV SCH (09:35)
[2021-06-13] MEDS: UMECLIDINIUM/VILANTEROL 62.5/25MCG 7 PUFFS/INHALER INH SCH (09:36)
[2021-06-13] MEDS: CALCIUM CARBONATE 500 MG CHEWABLE TAB PO PRN ×2 (09:38→21:31)
--- NOTE | 2021-06-13 12:45 | Hospitalist Progress Note ---
Date of Service June 13, 2021 Assessment & Plan (1) COVID-19: Plan: COVID-19 multifocal pneumonia/COPD/with progressively worsening hypoxia- Continues to be requiring 15L Oxymask and desaturates with removing the mask even for a couple of seconds to eat or drink or with short distances walking Tried on Vapotherm high flow nasal cannula 06/11 and he could not tolerate it Does use wall high flow nasal cannula at 15 L in order to eat CRP was only slightly elevated-now down to 0.5 No need for antibiotics, MRSA swab negative, PCT negative CTA Chest neg for PE but shows multifocal PNA Slightly improved on 06/13 with pulse ox 94-95% at rest on 15 L-continue to wean down -Continue dexamethasone 20mg IV x 5 days then 10mg IV x 5 days (since he got worse since discharge) change to 10mg on 06/14/21 -told him to lay prone or on his side as much as possible-he is finally doing this -continue supplemental O2 to keep POx>88%, he cannot tolerate Vapotherm HFNC -Sputum culture with light normal malaika, blood cultures no growth to date -for his nasal congestion he has his own nasal spray BID, Delsym for cough (his request) -he says Afrin does not help him -continue IS, flutter valve -Continue DuoNebs scheduled every 6 -Encouraged him to continue to get out of bed and ambulate short distances to expand his lungs-asked the nurse to supervise him doing this today to ensure he does not get too hypoxic -Was started on daily Lasix started on 06/11 to keep lungs dry, however will hold now that he has worsening hyponatremia (2) Multifocal pneumonia: Plan: See above (3) Hypoxemia: Plan: See above (4) Hyperlipidemia: Plan: Continue atorvastatin 40 mg daily (5) COPD (chronic obstructive pulmonary disease): Plan: See above (6) CAD (coronary artery disease): Plan: With a history of proximal LAD and mid left circumflex stents Most recent cardiac catheterization on 01/07 performed for abnormal pharmacologic nuclear stress test revealed nonobstructive disease of the LAD and widely patent stents, slow flow in the RCA without significant obstruction suggesting microvascular disease-recommended medical management No acute issues Continue metoprolol and aspirin, Plavix, atorvastatin (7) Hypothyroidism: Plan: TSH here normal continue LT4 at home dose (8) Hyponatremia: Plan: Sodium dropped further to 131 Initially thought to be due to volume overload, however seems to be worsening with diuresis Hold Lasix 40 mg p.o. daily for tomorrow Follow BMP in the morning (9) GERD (gastroesophageal reflux disease): Plan: Having significant indigestion last 48 hours that is continuous- secondary to high-dose corticosteroids and the fact that his PPI was not ordered on admission He reports he takes Nexium at home, however this is not on his home medication list -Added Protonix on 06/12 Added Carafate on 06/12 Tums as needed Hopefully this will improve soon Work on bowel regimen as well (10) Constipation: Plan: Feels constipated, bloated, had a small bowel movement finally 06/12 Continue on MiraLAX daily and can give an extra dose if needed Continue on senna/docusate 1 tab daily Plan: DVT proph-Lovenox 40 mg twice daily Dispo- continued stay on tele, would not dc until O2 requirement no more than 4- 5LNC with exertion, told him this might take a while Admission and Anticipated Discharge Date Admission Date: June 08, 2021 Subjective Patient feels better today, his pulse ox is 94-95% on 15 L oxygen mask at rest. He is out of bed to chair. He reports when he tried to ambulate in the room yesterday, the respiratory therapist told him not to. I discussed this with his nurse today who will supervise him with ambulation to make sure his pulse ox does not get too low. He finally had a small bowel movement last night but feels like he could have another one here shortly and feels that will help his breathing get better if he can get emptied out. tele with SB-NSR rates 50-70s, couplets/PVCs Review of Systems Review of Systems: All systems reviewed & are unremarkable except as noted in HPI & below Physical Exam Constitutional: WD/WN, vitals as above Eyes: + anicteric sclerae Neck: trachea midline, no thyromegaly Respiratory: normal respiratory effort Auscultation: + diminished lung sounds (Throughout); no crackles, no rhonchi and no wheezes Cardiovascular: RRR, no murmur, no edema Chest (Breasts): Chest: normal inspection of chest Gastrointestinal (Abdomen): normal bowel sounds, soft, nontender, no hepatosplenomegaly Musculoskeletal: Extremities: extremities normal to inspection; no cyanosis and no clubbing Skin: no rashes, warm and dry Neurologic: moves all extremities and awake; no focal motor deficits Psychiatric: A+Ox3, euthymic affect Lymphatic: no lymphedema Results & Data Results & Data ([facility]) Vital Signs (Past 12 Hours) Vital Signs Temp Pulse Resp BP Pulse Ox 06/13/21 11:05 36.7 C 74 20 117/70 87 L 06/13/21 10:50 78 22 86 L 06/13/21 08:03 72 22 06/13/21 07:32 36.7 C 62 22 118/71 92 06/13/21 04:59 51 L 20 92 Laboratory Results 06/13/21 Range/Units 06:01 Sodium 131 L (136-145) mmol/L Potassium 4.3 (3.5-5.1) mmol/L Chloride 98 (98-107) mmol/L Carbon Dioxide 26 (21-32) mmol/L Anion Gap 7 (3-11) BUN 26 H (6-23) mg/dl Creatinine 0.78 (0.6-1.4) mg/dl Est Cr Clr Drug Dosing 70.5 ml/min Est GFR ( Amer) 105.3 ml/min Est GFR (Non-Af Amer) 90.8 ml/min BUN/Creatinine Ratio 33.3 H (10-20) Glucose 180 H (70-99(Fasting)) mg/dl Calcium 9.1 (8.5-10.1) mg/dl Phosphorus 3.4 (2.5-4.9) mg/dl Magnesium 1.9 (1.7-2.4) mg/dl PG Care Time/CCT Total # of Minutes Spent Total Time Spent with Patient: Total time spent is greater than 50% in coordination of care (as documented) at patient's floor/unit and/or counseling patient: Coding Level of Care Code 17708 Subseq Hosp Care Lvl 3 Diagnoses COVID-19 U07.1 Multifocal pneumonia J18.9 Hypoxemia R09.02 Hyperlipidemia E78.5 COPD (chronic obstructive pulmonary disease) J44.9 CAD (coronary artery disease) I25.10 Hypothyroidism E03.9 Hyponatremia E87.1 GERD (gastroesophageal reflux disease) K21.9 Constipation K59.00
[2021-06-13] MEDS: DEXTROMETHORPHAN POLYMR COMPLX 30 MG/5 ML UDP PO PRN ×2 (16:25→21:32)
[2021-06-13] MEDS: ASPIRIN 81 MG CHEW PO SCH (21:31)
[2021-06-13] MEDS: CLOPIDOGREL BISULFATE 75 MG TAB PO SCH (21:31)
[2021-06-13] MEDS: ATORVASTATIN 40 MG TAB PO SCH (21:31)
[2021-06-13] MEDS: METOPROLOL TARTRATE 25 MG TAB PO SCH (21:31)
[2021-06-13] MEDS: MELATONIN 3 MG TAB PO PRN (21:31)
[2021-06-14] MEDS: LEVOTHYROXINE SODIUM 50 MCG TABLET PO SCH (05:59)
[2021-06-14] MEDS: ALBUT/IPRATROP 3MG/0.5MG NEB 3 ML VIAL NEB SCH ×4 (07:21→19:34)
[2021-06-14 07:56] LABS: BUN Creatinine Ratio 29.4 (10-20); Calcium 8.4 mg/dl (8.5-10.1); Creatinine Clr Calc Pharmacy 64.8 ml/min; Est GFR (African American) 101.6 ml/min; Est GFR (Non-African American) 87.7 ml/min; Potassium 4.2 mmol/L (3.5-5.1)
[2021-06-14] MEDS: dexAMETHasone 10 MG in SYRINGE 0 ML IV SCH (08:45)
[2021-06-14] MEDS ORDERED: dexAMETHasone 10 MG in DEXTROSE 5% 25 ML IV SCH (09:00)
[2021-06-14] MEDS: POLYETHYLENE (MIRALAX) 17 GM PACK PO SCH (09:39)
[2021-06-14] MEDS: PANTOprazole 40 MG TAB PO SCH (09:40)
[2021-06-14] MEDS: guaiFENesin 600 MG TABCR PO SCH ×2 (09:40→20:30)
[2021-06-14] MEDS: CHOLECALCIFEROL 1,000 UNITS 25 MCG TAB PO SCH (09:40)
[2021-06-14] MEDS: SUCRALFATE 1 GM/10 ML UDC PO SCH ×4 (09:41→20:29)
[2021-06-14] MEDS: ENOXAPARIN INJ 40 MG/0.4 ML SYR SQ SCH ×2 (09:42→20:29)
[2021-06-14] MEDS: DOCUSATE SODIUM/SENNA 50/8.6MG TAB PO SCH (09:43)
[2021-06-14] MEDS: UMECLIDINIUM/VILANTEROL 62.5/25MCG 7 PUFFS/INHALER INH SCH (09:44)
--- NOTE | 2021-06-14 12:41 | Hospitalist Progress Note ---
Date of Service June 14, 2021 Assessment & Plan (1) COVID-19: Plan: COVID-19 multifocal pneumonia/COPD/with progressively worsening hypoxia- Continues to be requiring 15L Oxymask and desaturates with removing the mask even for a couple of seconds to eat or drink or with short distances walking Tried on Vapotherm high flow nasal cannula 06/11 and he could not tolerate it Does use wall high flow nasal cannula at 15 L in order to eat CRP was only slightly elevated-now down to 0.5 No need for antibiotics, MRSA swab negative, PCT negative CTA Chest neg for PE but shows multifocal PNA Slightly improved on 06/13 with pulse ox 94-95% at rest on 15 L-continue to wean down but has been stuck at 15L for many days -received dexamethasone 20mg IV x 5 day, now on 10mg IV x 5 days since 06/14/21 -told him to lay prone or on his side as much as possible-he is finally doing this -continue supplemental O2 to keep POx>88%, he cannot tolerate Vapotherm HFNC -Sputum culture with light normal malaika, blood cultures no growth to date -for his nasal congestion he has his own nasal spray BID, Delsym for cough (his request) -he says Afrin does not help him -continue IS, flutter valve -Continue DuoNebs scheduled every 6 -Encouraged him to continue to get out of bed and ambulate short distances to expand his lungs-asked the nurse to supervise him doing this today to ensure he does not get too hypoxic -Was started on daily Lasix started on 06/11 to keep lungs dry, however will hold now that he has worsening hyponatremia -check CXR today -provided encouragement that sometimes this is a normal prolonged recovery for COVID (2) Multifocal pneumonia: Plan: See above (3) Hypoxemia: Plan: See above (4) Hyperlipidemia: Plan: Continue atorvastatin 40 mg daily (5) COPD (chronic obstructive pulmonary disease): Plan: See above continue DUonebs, steroids, O2 (6) CAD (coronary artery disease): Plan: With a history of proximal LAD and mid left circumflex stents Most recent cardiac catheterization on 01/07 performed for abnormal pharmacologic nuclear stress test revealed nonobstructive disease of the LAD and widely patent stents, slow flow in the RCA without significant obstruction suggesting microvascular disease-recommended medical management No acute issues Continue metoprolol and aspirin, Plavix, atorvastatin (7) Hypothyroidism: Plan: TSH here normal continue LT4 at home dose (8) Hyponatremia: Plan: Sodium dropped to 131 and stable there Initially thought to be due to volume overload, however seems to be worsening with diuresis continue to hold Lasix 40 mg p.o. daily Follow BMP in the morning (9) GERD (gastroesophageal reflux disease): Plan: Having significant indigestion that is continuous- secondary to high-dose corticosteroids and the fact that his PPI was not ordered on admission He reports he takes Nexium at home, however this is not on his home medication list -Added Protonix on 06/12 and finally having some improvement in symptoms on 06/14 Added Carafate on 06/12 Tums as needed Constipation now improving also Hopefully GERD will improve soon (10) Constipation: Plan: Feels constipated, bloated, had a small bowel movement finally 06/12, then larger on 06/13 Continue on MiraLAX daily Continue on senna/docusate 1 tab daily Plan: DVT proph-Lovenox 40 mg twice daily Dispo- continued stay on tele, would not dc until O2 requirement no more [id number] with exertion, told him this might take a while Admission and Anticipated Discharge Date Admission Date: June 08, 2021 Subjective Pt shows me a large piece of dark yellow sputum he just coughed out. Feels like his chest is finally clearing out and he can breathe better. However, he is not able to be weaned less than 15L Oxymask. He did ambulate back and forth 10 times in room yesterday without difficulty and plans on doing so again today. He moved his bowels last evening and feels better from that standpoint. Still anxious for discharge but I again reiterated he cannot go home until he is down to no more than 6LNC Tele with NSR, PVCs, rates in 70s Review of Systems Review of Systems: All systems reviewed & are unremarkable except as noted in HPI & below Physical Exam Constitutional: WD/WN, vitals as above Eyes: + anicteric sclerae Neck: trachea midline, no thyromegaly Respiratory: normal respiratory effort Auscultation: + diminished lung sounds (Throughout); no crackles, no rhonchi and no wheezes Cardiovascular: RRR, no murmur, no edema Chest (Breasts): Chest: normal inspection of chest Gastrointestinal (Abdomen): normal bowel sounds, soft, nontender, no hepatosplenomegaly Musculoskeletal: Extremities: extremities normal to inspection; no cyanosis and no clubbing Skin: no rashes, warm and dry Neurologic: moves all extremities and awake; no focal motor deficits Psychiatric: A+Ox3, euthymic affect Lymphatic: no lymphedema Results & Data Results & Data ([facility]) Vital Signs (Past 12 Hours) Vital Signs Temp Pulse Pulse Resp BP Pulse Ox 06/14/21 11:20 36.5 C 80 23 118/67 90 06/14/21 10:55 64 20 94 06/14/21 07:32 36.6 C 61 17 122/64 91 06/14/21 07:22 50 L 20 94 06/14/21 03:00 37.0 C 62 18 122/79 94 Laboratory Results 06/14/21 Range/Units 06:59 Sodium 131 L (136-145) mmol/L Potassium 4.2 (3.5-5.1) mmol/L Chloride 98 (98-107) mmol/L Carbon Dioxide 27 (21-32) mmol/L Anion Gap 6 (3-11) BUN 25 H (6-23) mg/dl Creatinine 0.85 (0.6-1.4) mg/dl Est Cr Clr Drug Dosing 64.8 ml/min Est GFR ( Amer) 101.6 ml/min Est GFR (Non-Af Amer) 87.7 ml/min BUN/Creatinine Ratio 29.4 H (10-20) Glucose 161 H (70-99(Fasting)) mg/dl Calcium 8.4 L (8.5-10.1) mg/dl Magnesium 2.0 (1.7-2.4) mg/dl PG Care Time/CCT Total # of Minutes Spent Total Time Spent with Patient: Total time spent is greater than 50% in coordination of care (as documented) at patient's floor/unit and/or counseling patient: Coding Level of Care Code 98852 Subseq Hosp Care Lvl 3 Diagnoses COVID-19 U07.1 Multifocal pneumonia J18.9 Hypoxemia R09.02 Hyperlipidemia E78.5 COPD (chronic obstructive pulmonary disease) J44.9 CAD (coronary artery disease) I25.10 Hypothyroidism E03.9 Hyponatremia E87.1 GERD (gastroesophageal reflux disease) K21.9 Constipation K59.00
--- NOTE | 2021-06-14 15:18 | XRay Report ---
XR chest 1V portable HISTORY: 70 years-old Male f/u COVID PNA,hypoxia acute shortness of breath with hypoxia. Reported Co vid pneumonia COMPARISON: CTA chest 06/08/2021, chest radiograph 05/19/2021 TECHNIQUE: Portable AP view of the chest FINDINGS: Cardiac silhouette is enlarged. Suggested trace pleural effusions. No pneumothorax. Emphysema. Inters titial coarsening with multifocal left greater than right airspace opacities redemonstrated, mildly p rogressed from prior. Degenerative changes of the shoulders and spine. Partially imaged cervical spin al fusion hardware. IMPRESSION: 1. Progressively worsened left greater than right airspace opacities suggestive of multifocal pneumon ia. 2. Cardiomegaly. 3. Emphysema. ACT 112: Negative or not required by law. The above report was generated using voice recognition software. It may contain grammatical, syntax o r spelling errors. Electronically signed by: Ji Rosa M.D. 06/14/2021 3:16 PM
[2021-06-14] MEDS: METOPROLOL TARTRATE 25 MG TAB PO SCH (20:29)
[2021-06-14] MEDS: ASPIRIN 81 MG CHEW PO SCH (20:30)
[2021-06-14] MEDS: ACETAMINOPHEN 500 MG TAB PO PRN (20:30)
[2021-06-14] MEDS: ATORVASTATIN 40 MG TAB PO SCH (20:30)
[2021-06-14] MEDS: CLOPIDOGREL BISULFATE 75 MG TAB PO SCH (20:30)
[2021-06-15] MEDS: LEVOTHYROXINE SODIUM 50 MCG TABLET PO SCH (05:39)
[2021-06-15] MEDS: ALBUT/IPRATROP 3MG/0.5MG NEB 3 ML VIAL NEB SCH ×4 (07:49→19:36)
[2021-06-15 08:22] LABS: Basophils # (auto) 0.01 K/uL (0-0.2); Basophils % (auto) 0.1 %; Eosinophils # (auto) 0.08 K/uL (0-0.5); Eosinophils % (auto) 0.8 %; Hematocrit (blood only) 43.3 % (42-52); Hemoglobin 15.4 g/dL (14.0-18.0); Immature Granulocytes # (auto) 0.39 K/uL (0.00-0.02); Lymphocytes # (auto) 0.84 K/uL (1.2-3.4); Lymphocytes % (auto) 8.7 %; Mean Corpuscular Hemoglobin 32.4 pg (25-34); Mean Corpuscular Hgb Conc 35.6 g/dL (32-36); Mean Corpuscular Volume 91.2 fL (80-100); Mean Platelet Volume 10.3 fL (7.4-10.4); Monocytes # (auto) 0.84 K/uL (0.11-0.59); Monocytes % (auto) 8.7 %; Neutrophils # (auto) 7.47 K/uL (1.4-6.5); Neutrophils % (auto) 77.7 %; Platelet Count 233 K/uL (130-400); RDW Coefficient of Variation 13.4 % (11.5-14.5); RDW Standard Deviation 43.5 fL (36.4-46.3); Red Blood Count 4.75 M/uL (4.7-6.1); White Blood Count 9.63 K/uL (4.8-10.8)
[2021-06-15 08:54] LABS: Albumin Globulin Ratio 1.6 (0.9-2); Albumin Level 3.3 gm/dl (3.4-5.0); BUN Creatinine Ratio 34.3 (10-20); Bilirubin,Total 1.1 mg/dl (0.2-1.0); Calcium 8.3 mg/dl (8.5-10.1); Creatinine Clr Calc Pharmacy 78.6 ml/min; Est GFR (Non-African American) 94.9 ml/min; Globulin 2.1 gm/dl (2.5-4.0); Phosphorus 2.3 mg/dl (2.5-4.9); Potassium 4.1 mmol/L (3.5-5.1); Total Protein 5.4 gm/dl (6.0-8.3)
[2021-06-15] MEDS: dexAMETHasone 10 MG in SYRINGE 0 ML IV SCH (09:38)
[2021-06-15] MEDS: UMECLIDINIUM/VILANTEROL 62.5/25MCG 7 PUFFS/INHALER INH SCH (09:40)
[2021-06-15] MEDS: SUCRALFATE 1 GM/10 ML UDC PO SCH ×4 (09:41→20:04)
[2021-06-15] MEDS: POLYETHYLENE (MIRALAX) 17 GM PACK PO SCH (09:43)
[2021-06-15] MEDS: guaiFENesin 600 MG TABCR PO SCH ×2 (09:44→20:06)
[2021-06-15] MEDS: ENOXAPARIN INJ 40 MG/0.4 ML SYR SQ SCH ×2 (09:44→20:04)
[2021-06-15] MEDS: CHOLECALCIFEROL 1,000 UNITS 25 MCG TAB PO SCH (09:47)
[2021-06-15] MEDS: PANTOprazole 40 MG TAB PO SCH (09:47)
[2021-06-15] MEDS: DOCUSATE SODIUM/SENNA 50/8.6MG TAB PO SCH (09:47)
[2021-06-15] MEDS: ACETAMINOPHEN 500 MG TAB PO PRN ×2 (11:16→21:20)
[2021-06-15] MEDS: POT PHOSPHATE MONOBASIC W/ SOD TAB PO SCH ×3 (12:21→20:04)
--- NOTE | 2021-06-15 13:16 | Hospitalist Progress Note ---
Date of Service June 15, 2021 Assessment & Plan (1) COVID-19: Plan: COVID-19 multifocal pneumonia/COPD/with progressively worsening hypoxia- Was continuing to be requiring 15L Oxymask for 6 days straight-finally down to 8 L oxygen mask on 06/15 after starting hypertonic saline nebulizers twice daily Tried on Vapotherm high flow nasal cannula 06/11 and he could not tolerate it CRP was only slightly elevated-now down to 0.5 No need for antibiotics, MRSA swab negative, PCT negative CTA Chest neg for PE but shows multifocal PNA -received dexamethasone 20mg IV x 5 day, now on 10mg IV x 5 days since 06/14/21 -Continue to lay prone or on his side as much as possible-he is finally doing this -continue supplemental O2 to keep POx>88%, he cannot tolerate Vapotherm HFNC -Sputum culture with light normal malaika, blood cultures no growth to date -for his nasal congestion he has his own nasal spray BID, Delsym for cough (his request) -he says Afrin does not help him -continue IS, flutter valve -Continue DuoNebs scheduled every 6 and added on hypertonic saline nebulizers twice daily on 06/15 -Encouraged him to continue to get out of bed and ambulate short distances to expand his lungs-asked the nurse to supervise him doing this today to ensure he does not get too hypoxic -Was started on daily Lasix started on 06/11 to keep lungs dry -Repeat chest x-ray 06/14 with progressively worsening left-sided pneumonia -provided encouragement that sometimes this is a normal prolonged recovery for COVID (2) Multifocal pneumonia: Plan: See above Ensure to follow chest x-ray to resolution 1 month after discharge (3) Hypoxemia: Plan: See above (4) Hyperlipidemia: Plan: Continue atorvastatin 40 mg daily (5) COPD (chronic obstructive pulmonary disease): Plan: See above continue DUonebs, steroids, O2 (6) CAD (coronary artery disease): Plan: With a history of proximal LAD and mid left circumflex stents Most recent cardiac catheterization on 01/07 performed for abnormal pharmacologic nuclear stress test revealed nonobstructive disease of the LAD and widely patent stents, slow flow in the RCA without significant obstruction suggesting microvascular disease-recommended medical management No acute issues Continue metoprolol and aspirin, Plavix, atorvastatin (7) Hypothyroidism: Plan: TSH here normal continue LT4 at home dose (8) Hyponatremia: Plan: Sodium dropped to 131 and stable there for many days Initially thought to be due to volume overload, however seems to be worsening with diuresis Urine sodium 29, urine osmolality elevated at 340-points more towards SIADH- recommend fluid restriction but he absolutely refuses as he likes to drink almost 4 L a day of water-he is agreeable to cutting this down to 3 L of water per day Restart Lasix 40 mg p.o. daily Follow BMP in the morning (9) GERD (gastroesophageal reflux disease): Plan: Having significant indigestion that is continuous- secondary to high-dose corticosteroids and the fact that his PPI was not ordered on admission He reports he takes Nexium at home, however this is not on his home medication list -Added Protonix on 06/12 and finally having some improvement in symptoms on 06/14 Added Carafate on 06/12 Tums as needed Constipation now improving also (10) Constipation: Plan: Feels constipated, bloated, had a small bowel movement finally 06/12, then larger on 06/13 and again 06/14 Continue on MiraLAX daily Continue on senna/docusate 1 tab daily Plan: DVT proph-Lovenox 40 mg twice daily Dispo- continued stay on tele, would not dc until O2 requirement no more [id number] with exertion, told him this might take a while Admission and Anticipated Discharge Date Admission Date: June 08, 2021 Subjective Patient reports feeling okay, coughed a little more sputum today. Is eating and drinking. In fact, he is drinking 3500 ounces of water every day. Still remains on 15 L oxygen. Moving bowels, making urine. Telemetry with normal sinus rhythm and sinus bradycardia. Review of Systems Review of Systems: All systems reviewed & are unremarkable except as noted in HPI & below Physical Exam Constitutional: WD/WN, vitals as above Eyes: + anicteric sclerae Neck: trachea midline, no thyromegaly Respiratory: normal respiratory effort Auscultation: + diminished lung sounds (Throughout); no crackles, no rhonchi and no wheezes Cardiovascular: RRR, no murmur, no edema Chest (Breasts): Chest: normal inspection of chest Gastrointestinal (Abdomen): normal bowel sounds, soft, nontender, no hepatosplenomegaly Musculoskeletal: Extremities: extremities normal to inspection; no cyanosis and no clubbing Skin: no rashes, warm and dry Neurologic: moves all extremities and awake; no focal motor deficits Psychiatric: A+Ox3, euthymic affect Lymphatic: no lymphedema Results & Data Results & Data ([facility]) Vital Signs (Past 12 Hours) Vital Signs Temp Pulse Resp BP Pulse Ox 06/15/21 11:36 36.9 C 71 19 101/53 L 93 06/15/21 10:52 91 06/15/21 10:43 55 L 18 95 06/15/21 07:49 57 L 21 94 06/15/21 07:12 37.0 C 54 L 18 123/73 94 06/15/21 03:00 36.6 C 54 L 18 122/76 94 Laboratory Results 06/15/21 06/15/21 06/15/21 Range/Units Unknown Unknown 08:06 WBC (4.8-10.8) K/uL RBC (4.7-6.1) M/uL Hgb (14.0-18.0) g/dL Hct (42-52) % MCV (80-100) fL MCH (25-34) pg MCHC (32-36) g/dL RDW Std Deviation (36.4-46.3) fL RDW Coeff of Navin (11.5-14.5) % Plt Count (130-400) K/uL MPV (7.4-10.4) fL Immature Gran % (Auto) % Neut % (Auto) % Lymph % (Auto) % Schleicher % (Auto) % Eos % (Auto) % Baso % (Auto) % Neut # (Auto) (1.4-6.5) K/uL Lymph # (Auto) (1.2-3.4) K/uL Schleicher # (Auto) (0.11-0.59) K/uL Eos # (Auto) (0-0.5) K/uL Baso # (Auto) (0-0.2) K/uL Immature Gran # (Auto) (0.00-0.02) K/uL Sodium 131 L (136-145) mmol/L Potassium 4.1 (3.5-5.1) mmol/L Chloride 100 (98-107) mmol/L Carbon Dioxide 24 (21-32) mmol/L Anion Gap 7 (3-11) BUN 24 H (6-23) mg/dl Creatinine 0.70 (0.6-1.4) mg/dl Est Cr Clr Drug Dosing 78.6 ml/min Est GFR ( Amer) 110.0 ml/min Est GFR (Non-Af Amer) 94.9 ml/min BUN/Creatinine Ratio 34.3 H (10-20) Glucose 130 H (70-99(Fasting)) mg/dl Calcium 8.3 L (8.5-10.1) mg/dl Phosphorus 2.3 L (2.5-4.9) mg/dl Magnesium 2.0 (1.7-2.4) mg/dl Total Bilirubin 1.1 H (0.2-1.0) mg/dl AST 20 (13-39) U/L ALT 36 (7-52) U/L Alkaline Phosphatase 47 (34-104) U/L Total Protein 5.4 L (6.0-8.3) gm/dl Albumin 3.3 L (3.4-5.0) gm/dl Globulin 2.1 L (2.5-4.0) gm/dl Albumin/Globulin Ratio 1.6 (0.9-2) Urine Osmolality 470 L (500-800) mOsm/kg Ur Random Sodium 29 mmol/L 06/15/21 Range/Units 08:06 WBC 9.63 (4.8-10.8) K/uL RBC 4.75 (4.7-6.1) M/uL Hgb 15.4 (14.0-18.0) g/dL Hct 43.3 (42-52) % MCV 91.2 (80-100) fL MCH 32.4 (25-34) pg MCHC 35.6 (32-36) g/dL RDW Std Deviation 43.5 (36.4-46.3) fL RDW Coeff of Navin 13.4 (11.5-14.5) % Plt Count 233 (130-400) K/uL MPV 10.3 (7.4-10.4) fL Immature Gran % (Auto) 4.0 % Neut % (Auto) 77.7 % Lymph % (Auto) 8.7 % Schleicher % (Auto) 8.7 % Eos % (Auto) 0.8 % Baso % (Auto) 0.1 % Neut # (Auto) 7.47 H (1.4-6.5) K/uL Lymph # (Auto) 0.84 L (1.2-3.4) K/uL Schleicher # (Auto) 0.84 H (0.11-0.59) K/uL Eos # (Auto) 0.08 (0-0.5) K/uL Baso # (Auto) 0.01 (0-0.2) K/uL Immature Gran # (Auto) 0.39 H (0.00-0.02) K/uL Sodium (136-145) mmol/L Potassium (3.5-5.1) mmol/L Chloride (98-107) mmol/L Carbon Dioxide (21-32) mmol/L Anion Gap (3-11) BUN (6-23) mg/dl Creatinine (0.6-1.4) mg/dl Est Cr Clr Drug Dosing ml/min Est GFR ( Amer) ml/min Est GFR (Non-Af Amer) ml/min BUN/Creatinine Ratio (10-20) Glucose (70-99(Fasting)) mg/dl Calcium (8.5-10.1) mg/dl Phosphorus (2.5-4.9) mg/dl Magnesium (1.7-2.4) mg/dl Total Bilirubin (0.2-1.0) mg/dl AST (13-39) U/L ALT (7-52) U/L Alkaline Phosphatase (34-104) U/L Total Protein (6.0-8.3) gm/dl Albumin (3.4-5.0) gm/dl Globulin (2.5-4.0) gm/dl Albumin/Globulin Ratio (0.9-2) Urine Osmolality (500-800) mOsm/kg Ur Random Sodium mmol/L PG Care Time/CCT Total # of Minutes Spent Total Time Spent with Patient: Total time spent is greater than 50% in coordination of care (as documented) at patient's floor/unit and/or counseling patient: Coding Level of Care Code 70002 Subseq Hosp Care Lvl 3 Diagnoses COVID-19 U07.1 Multifocal pneumonia J18.9 Hypoxemia R09.02 Hyperlipidemia E78.5 COPD (chronic obstructive pulmonary disease) J44.9 CAD (coronary artery disease) I25.10 Hypothyroidism E03.9 Hyponatremia E87.1 GERD (gastroesophageal reflux disease) K21.9 Constipation K59.00
[2021-06-15] MEDS ORDERED: FUROSEMIDE 40 MG TAB PO ONE (13:30)
[2021-06-15] MEDS: SODIUM CHLOR 7% 4 ML NEB NEB SCH ×2 (14:12→19:39)
[2021-06-15] MEDS: METOPROLOL TARTRATE 25 MG TAB PO SCH (20:04)
[2021-06-15] MEDS: ASPIRIN 81 MG CHEW PO SCH (20:05)
[2021-06-15] MEDS: ATORVASTATIN 40 MG TAB PO SCH (20:05)
[2021-06-15] MEDS: CLOPIDOGREL BISULFATE 75 MG TAB PO SCH (20:06)
[2021-06-15] MEDS: MELATONIN 3 MG TAB PO PRN (21:20)
[2021-06-15] MEDS: DEXTROMETHORPHAN POLYMR COMPLX 30 MG/5 ML UDP PO PRN (21:21)
[2021-06-16] MEDS: LEVOTHYROXINE SODIUM 50 MCG TABLET PO SCH (06:07)
[2021-06-16] MEDS ORDERED: COUGH DROP (SUGAR FREE) LOZ 24 LOZ/1 BOX BUCCAL ONE (06:12)
[2021-06-16] MEDS: UMECLIDINIUM/VILANTEROL 62.5/25MCG 7 PUFFS/INHALER INH SCH (07:21)
[2021-06-16] MEDS: POT PHOSPHATE MONOBASIC W/ SOD TAB PO SCH ×4 (07:22→19:53)
[2021-06-16] MEDS: FUROSEMIDE 40 MG TAB PO SCH (07:22)
[2021-06-16] MEDS: guaiFENesin 600 MG TABCR PO SCH ×2 (07:23→19:54)
[2021-06-16] MEDS: SUCRALFATE 1 GM/10 ML UDC PO SCH ×4 (07:23→19:53)
[2021-06-16] MEDS: ACETAMINOPHEN 500 MG TAB PO PRN ×2 (07:23→21:14)
[2021-06-16] MEDS: CHOLECALCIFEROL 1,000 UNITS 25 MCG TAB PO SCH (07:24)
[2021-06-16] MEDS: POLYETHYLENE (MIRALAX) 17 GM PACK PO SCH (07:24)
[2021-06-16] MEDS: DOCUSATE SODIUM/SENNA 50/8.6MG TAB PO SCH (07:24)
[2021-06-16] MEDS: PANTOprazole 40 MG TAB PO SCH (07:24)
[2021-06-16] MEDS: ENOXAPARIN INJ 40 MG/0.4 ML SYR SQ SCH ×2 (07:25→19:53)
[2021-06-16] MEDS: dexAMETHasone 10 MG in SYRINGE 0 ML IV SCH (07:27)
[2021-06-16] MEDS: ALBUT/IPRATROP 3MG/0.5MG NEB 3 ML VIAL NEB SCH ×4 (07:46→19:23)
[2021-06-16] MEDS: SODIUM CHLOR 7% 4 ML NEB NEB SCH ×2 (07:47→19:24)
[2021-06-16 08:18] LABS: BUN Creatinine Ratio 31.1 (10-20); Calcium 8.4 mg/dl (8.5-10.1); Creatinine Clr Calc Pharmacy 45.2 ml/min; Est GFR (African American) 68.7 ml/min; Est GFR (Non-African American) 59.3 ml/min; Potassium 3.8 mmol/L (3.5-5.1)
--- NOTE | 2021-06-16 10:02 | Hospitalist Progress Note ---
Date of Service June 16, 2021 Assessment & Plan (1) COVID-19: Plan: COVID-19 multifocal pneumonia/COPD/with progressively worsening hypoxia- Was continuing to be requiring 15L Oxymask for 6 days straight-finally down to 8 L oxygen mask on 06/15 after starting hypertonic saline nebulizers twice daily Tried on Vapotherm high flow nasal cannula 06/11 and he could not tolerate it CRP was only slightly elevated-now down to 0.5 No need for antibiotics, MRSA swab negative, PCT negative CTA Chest neg for PE but shows multifocal PNA -received dexamethasone 20mg IV x 5 day, now on 10mg IV x 5 days since 06/14/21 -Continue to lay prone or on his side as much as possible-he is finally doing this -continue supplemental O2 to keep POx>88%, he cannot tolerate Vapotherm HFNC -Sputum culture with light normal malaika, blood cultures no growth -for his nasal congestion he has his own nasal spray BID, Delsym for cough (his request) -he says Afrin does not help him -continue IS, flutter valve -Continue DuoNebs scheduled every 6 and added on hypertonic saline nebulizers twice daily on 06/15 -Encouraged him to continue to get out of bed and ambulate short distances to expand his lungs-asked the nurse to supervise him doing this today to ensure he does not get too hypoxic -Was started on daily Lasix started on 06/11 to keep lungs dry -Repeat chest x-ray 06/14 with progressively worsening left-sided pneumonia -provided encouragement that sometimes this is a normal prolonged recovery for COVID Hopeful to discharge to home once down to 6L O2 (2) Multifocal pneumonia: Plan: See above Ensure to follow chest x-ray to resolution 1 month after discharge (3) Hypoxemia: Plan: See above (4) Hyperlipidemia: Plan: Continue atorvastatin 40 mg daily, ASA (5) COPD (chronic obstructive pulmonary disease): Plan: See above continue DUonebs, steroids, O2 (6) CAD (coronary artery disease): Plan: With a history of proximal LAD and mid left circumflex stents Most recent cardiac catheterization on 01/07 performed for abnormal pharmacologic nuclear stress test revealed nonobstructive disease of the LAD and widely patent stents, slow flow in the RCA without significant obstruction suggesting microvascular disease-recommended medical management No acute issues Continue metoprolol and aspirin, Plavix, atorvastatin (7) Hypothyroidism: Plan: TSH here normal continue LT4 at home dose (8) Hyponatremia: Plan: Sodium dropped to 131 and stable there for many days Initially thought to be due to volume overload, however seemed to be worsening with diuresis Urine sodium 29, urine osmolality elevated at 340-points more towards SIADH- recommend fluid restriction but he absolutely refuses as he likes to drink almost 4 L a day of water-he is agreeable to cutting this down to 3 L of water per day Restarted Lasix 40 mg p.o. daily Na+ now improved to 132 Follow BMP in the morning (9) GERD (gastroesophageal reflux disease): Plan: Having significant indigestion that is continuous- secondary to high-dose corticosteroids and the fact that his PPI was not ordered on admission He reports he takes Nexium at home, however this is not on his home medication list -Added Protonix and Carafate on 06/12 and now improved (10) Constipation: Plan: Feels constipated, bloated, had a small bowel movement finally 06/12, then daily since then Continue on MiraLAX daily Continue on senna/docusate 1 tab daily Plan: DVT proph-Lovenox 40 mg twice daily Dispo- continued stay on tele, would not dc until O2 requirement no more than 6LNC with exertion, told him this might take a while, but is finally starting to improve Admission and Anticipated Discharge Date Admission Date: June 08, 2021 Subjective Pt coughing up a lot of sputum today and shows me the three saved tissues with sputum on his table. Feels better, had a slight bloody nose which is now resolved. Eating and drinking, moving bowels. Has mad a conscious effort to cut down to only 3 of the large cups of water in the last 24 hrs but c/o dry mouth, Biotene doesn't help. Tele NSR Review of Systems Review of Systems: All systems reviewed & are unremarkable except as noted in HPI & below Physical Exam Constitutional: WD/WN, vitals as above Eyes: + anicteric sclerae Neck: trachea midline, no thyromegaly Respiratory: normal respiratory effort Auscultation: + diminished lung sounds (left base, improving); no crackles, no rhonchi and no wheezes Cardiovascular: RRR, no murmur, no edema Chest (Breasts): Chest: normal inspection of chest Gastrointestinal (Abdomen): normal bowel sounds, soft, nontender, no hepatosplenomegaly Musculoskeletal: Extremities: extremities normal to inspection; no cyanosis and no clubbing Skin: no rashes, warm and dry Neurologic: moves all extremities and awake; no focal motor deficits Psychiatric: A+Ox3, euthymic affect Lymphatic: no lymphedema Results & Data Results & Data ([facility]) Vital Signs (Past 12 Hours) Vital Signs Temp Pulse Pulse Resp BP Pulse Ox 06/16/21 07:57 65 06/16/21 07:48 68 20 90 06/16/21 07:27 69 19 112/71 90 06/16/21 03:29 36.6 C 62 16 114/59 L 95 06/16/21 02:06 82 06/15/21 22:37 36.8 C 70 20 116/71 90 Laboratory Results 06/16/21 06/15/21 06/15/21 Range/Units 07:06 Unknown Unknown Sodium 132 L (136-145) mmol/L Potassium 3.8 (3.5-5.1) mmol/L Chloride 100 (98-107) mmol/L Carbon Dioxide 24 (21-32) mmol/L Anion Gap 8 (3-11) BUN 38 H (6-23) mg/dl Creatinine 1.22 D (0.6-1.4) mg/dl Est Cr Clr Drug Dosing 45.2 ml/min Est GFR ( Amer) 68.7 ml/min Est GFR (Non-Af Amer) 59.3 ml/min BUN/Creatinine Ratio 31.1 H (10-20) Glucose 127 H (70-99(Fasting)) mg/dl Calcium 8.4 L (8.5-10.1) mg/dl Urine Osmolality 470 L (500-800) mOsm/kg Ur Random Sodium 29 mmol/L PG Care Time/CCT Total # of Minutes Spent Total Time Spent with Patient: Total time spent is greater than 50% in coordination of care (as documented) at patient's floor/unit and/or counseling patient: Coding Level of Care Code 52037 Subseq Hosp Care Lvl 3 Diagnoses COVID-19 U07.1 Multifocal pneumonia J18.9 Hypoxemia R09.02 Hyperlipidemia E78.5 COPD (chronic obstructive pulmonary disease) J44.9 CAD (coronary artery disease) I25.10 Hypothyroidism E03.9 Hyponatremia E87.1 GERD (gastroesophageal reflux disease) K21.9 Constipation K59.00
[2021-06-16] MEDS: CLOPIDOGREL BISULFATE 75 MG TAB PO SCH (19:54)
[2021-06-16] MEDS: METOPROLOL TARTRATE 25 MG TAB PO SCH (19:54)
[2021-06-16] MEDS: ASPIRIN 81 MG CHEW PO SCH (19:54)
[2021-06-16] MEDS: ATORVASTATIN 40 MG TAB PO SCH (19:55)
[2021-06-16] MEDS: MELATONIN 3 MG TAB PO PRN (21:14)
[2021-06-16] MEDS: DEXTROMETHORPHAN POLYMR COMPLX 30 MG/5 ML UDP PO PRN (21:15)
[2021-06-17] MEDS: LEVOTHYROXINE SODIUM 50 MCG TABLET PO SCH (06:01)
[2021-06-17] MEDS: FUROSEMIDE 40 MG TAB PO SCH (07:40)
[2021-06-17] MEDS: POT PHOSPHATE MONOBASIC W/ SOD TAB PO SCH ×4 (07:40→19:59)
[2021-06-17] MEDS: SUCRALFATE 1 GM/10 ML UDC PO SCH ×4 (07:41→19:59)
[2021-06-17] MEDS: guaiFENesin 600 MG TABCR PO SCH ×2 (07:41→19:57)
[2021-06-17] MEDS: PANTOprazole 40 MG TAB PO SCH (07:41)
[2021-06-17] MEDS: ENOXAPARIN INJ 40 MG/0.4 ML SYR SQ SCH ×2 (07:41→19:57)
[2021-06-17] MEDS: CHOLECALCIFEROL 1,000 UNITS 25 MCG TAB PO SCH (07:41)
[2021-06-17] MEDS: DOCUSATE SODIUM/SENNA 50/8.6MG TAB PO SCH (07:41)
[2021-06-17] MEDS: dexAMETHasone 10 MG in SYRINGE 0 ML IV SCH (07:42)
[2021-06-17] MEDS: POLYETHYLENE (MIRALAX) 17 GM PACK PO SCH (07:42)
[2021-06-17] MEDS: UMECLIDINIUM/VILANTEROL 62.5/25MCG 7 PUFFS/INHALER INH SCH (07:42)
[2021-06-17] MEDS: SODIUM CHLOR 7% 4 ML NEB NEB SCH ×2 (08:11→21:15)
[2021-06-17] MEDS: ALBUT/IPRATROP 3MG/0.5MG NEB 3 ML VIAL NEB SCH ×4 (08:11→21:15)
[2021-06-17 09:01] LABS: BUN Creatinine Ratio 38.2 (10-20); Calcium 8.3 mg/dl (8.5-10.1); Creatinine Clr Calc Pharmacy 61.9 ml/min; Est GFR (African American) 99.7 ml/min; Phosphorus 3.1 mg/dl (2.5-4.9); Potassium 3.8 mmol/L (3.5-5.1)
--- NOTE | 2021-06-17 16:22 | Hospitalist Progress Note ---
Date of Service June 17, 2021 Assessment & Plan (1) COVID-19: Plan: COVID-19 multifocal pneumonia/COPD/withhypoxia Required 6 days of 15 L oxygen mask, now starting to downtrend Currently requiring 6-8 L, titrate to SPO2 greater than 88% Did not tolerate Vapotherm Prior CRP down trended to 0.5 PCT previously negative, MRSA swab negative, no indication for antibiotics Prior CTA negative for PE Completed high-dose Dex 20 mg x 5 days, continue 10 mg IV 5 days until 06/19 Lasix daily to promote dry status CXR 06/14 progressively worsened Attempting to titrate down to 4-6 L for discharge on home oxygen (2) Multifocal pneumonia: Plan: See above Ensure to follow chest x-ray to resolution 1 month after discharge (3) Hypoxemia: Plan: See above (4) Hyperlipidemia: Plan: Continue atorvastatin 40 mg daily, ASA (5) COPD (chronic obstructive pulmonary disease): Plan: See above continue DUonebs, steroids, O2 (6) CAD (coronary artery disease): Plan: -With a history of proximal LAD and mid left circumflex stents -Most recent cardiac catheterization on 01/07 performed for abnormal pharmacologic nuclear stress test revealed nonobstructive disease of the LAD and widely patent stents, slow flow in the RCA without significant obstruction suggesting microvascular disease -Continue medical management - No acute issues - Continue metoprolol and aspirin, Plavix, atorvastatin (7) Hypothyroidism: Plan: TSH here normal continue LT4 at home dose (8) Hyponatremia: Plan: Sodium dropped to 131 and stable there for many days Initially thought to be due to volume overload, however seemed to be worsening with diuresis Urine sodium 29, urine osmolality elevated at 340 suggestive of SIADH -recommend fluid restriction but he absolutely refuses as he likes to drink almost 4 L a day of water. Agreeable to cutting this down to 3 L of water per day Restarted Lasix 40 mg p.o. daily Na+ now improved to 133 Follow BMP (9) GERD (gastroesophageal reflux disease): Plan: Continue PPI/Carafate Previously treated with PPI/Carafate with improvement in epigastric symptoms (10) Constipation: Plan: Improved Continue on MiraLAX daily Continue on senna/docusate 1 tab daily Plan: DVT proph-Lovenox 40 mg twice daily Dispo- continued stay on tele, would not dc until O2 requirement no more than 6LNC with exertion, patient starting to clinically improve Admission and Anticipated Discharge Date Admission Date: June 08, 2021 Gennaro Davis is seen at the bedside this morning. He reports he feels well, is not short of breath. He reports that he uses oxygen at home, and has been as low as 80 and has not been lightheaded/dizzy or short of breath in the past. He denies chest pain or chest pressure at time of assessment. No nausea, vomiting. He reports it is very important for him to get out of the hospital tomorrow. Discussed that it is reasonable for him to get home when his oxygen requirements have decreased to 4-6 L or less as this is what he can be sent home with, however do not medically recommend that he return home prior to this. Review of Systems Review of Systems: All systems reviewed & are unremarkable except as noted in Subjective Physical Exam Physical Exam: General: A&Ox3. NAD. Cooperative. Nontoxic. HEENT: Atraumatic, normocephalic. Vision/hearing grossly intact. Pulm: CTAB A&P. -wheezes, -rales, -rhonchi. Symmetrical chest rise. No increased work of breathing. No respiratory distress. On oxymask at time of assessment. Cardiac: RRR, -mrg. Radial pulses intact and symmetrical. Abdominal: Nontender, nondistended, soft. BS present. Results & Data Results & Data ([facility]) Vital Signs (Past 12 Hours) Vital Signs Temp Pulse Pulse Pulse Resp BP Pulse Ox 06/17/21 15:19 80 22 84 L 06/17/21 15:07 36.6 C 85 85 19 131/78 86 L 06/17/21 12:33 60 06/17/21 11:49 36.1 C L 88 22 116/66 90 06/17/21 11:15 85 18 92 06/17/21 08:13 75 22 90 06/17/21 07:49 91 H 06/17/21 07:23 37.0 C 58 L 19 116/67 95 PG Care Time/CCT Total # of Minutes Spent Total Time Spent with Patient: Total time spent is greater than 50% in coordination of care (as documented) at patient's floor/unit and/or counseling patient: Coding Level of Care Code 19725 Subseq Hosp Care Lvl 2 Diagnoses COVID-19 U07.1 Multifocal pneumonia J18.9 Hypoxemia R09.02 Hyperlipidemia E78.5 COPD (chronic obstructive pulmonary disease) J44.9 CAD (coronary artery disease) I25.10 Hypothyroidism E03.9 Hyponatremia E87.1 GERD (gastroesophageal reflux disease) K21.9 Constipation K59.00
[2021-06-17] MEDS: CLOPIDOGREL BISULFATE 75 MG TAB PO SCH (19:57)
[2021-06-17] MEDS: METOPROLOL TARTRATE 25 MG TAB PO SCH (19:58)
[2021-06-17] MEDS: ASPIRIN 81 MG CHEW PO SCH (19:58)
[2021-06-17] MEDS: ATORVASTATIN 40 MG TAB PO SCH (19:58)
[2021-06-18] MEDS: MELATONIN 3 MG TAB PO PRN ×2 (00:26→22:44)
[2021-06-18] MEDS: ACETAMINOPHEN 500 MG TAB PO PRN ×3 (00:26→22:43)
[2021-06-18] MEDS: DEXTROMETHORPHAN POLYMR COMPLX 30 MG/5 ML UDP PO PRN ×2 (00:26→22:44)
[2021-06-18] MEDS: LEVOTHYROXINE SODIUM 50 MCG TABLET PO SCH (05:31)
[2021-06-18] MEDS: CHOLECALCIFEROL 1,000 UNITS 25 MCG TAB PO SCH (07:50)
[2021-06-18] MEDS: FUROSEMIDE 40 MG TAB PO SCH (07:50)
[2021-06-18] MEDS: DOCUSATE SODIUM/SENNA 50/8.6MG TAB PO SCH (07:50)
[2021-06-18] MEDS: POT PHOSPHATE MONOBASIC W/ SOD TAB PO SCH ×3 (07:51→19:34)
[2021-06-18] MEDS: ENOXAPARIN INJ 40 MG/0.4 ML SYR SQ SCH ×2 (07:51→19:53)
[2021-06-18] MEDS: guaiFENesin 600 MG TABCR PO SCH ×2 (07:51→19:55)
[2021-06-18] MEDS: SUCRALFATE 1 GM/10 ML UDC PO SCH ×3 (07:51→19:34)
[2021-06-18] MEDS: PANTOprazole 40 MG TAB PO SCH (07:52)
[2021-06-18] MEDS: POLYETHYLENE (MIRALAX) 17 GM PACK PO SCH (07:52)
[2021-06-18] MEDS: SODIUM CHLOR 7% 4 ML NEB NEB SCH ×2 (08:01→20:16)
[2021-06-18] MEDS: ALBUT/IPRATROP 3MG/0.5MG NEB 3 ML VIAL NEB SCH ×4 (08:01→20:15)
[2021-06-18] MEDS: dexAMETHasone 10 MG in SYRINGE 0 ML IV SCH (09:07)
[2021-06-18] MEDS: UMECLIDINIUM/VILANTEROL 62.5/25MCG 7 PUFFS/INHALER INH SCH (09:07)
--- NOTE | 2021-06-18 13:45 | Hospitalist Progress Note ---
Date of Service June 18, 2021 Assessment & Plan (1) COVID-19: Plan: COVID-19 multifocal pneumonia/COPD/withhypoxia Required 6 days of 15 L oxygen mask, now starting to downtrend Currently requiring 6-8 L, titrate to SPO2 greater than 88% Did not tolerate Vapotherm Prior CRP down trended to 0.5 PCT previously negative, MRSA swab negative, no indication for antibiotics Prior CTA negative for PE Completed high-dose Dex 20 mg x 5 days, continue 10 mg IV 5 days until 06/19 Lasix daily to promote dry status CXR 06/14 progressively worsened Attempting to titrate down to 4-6 L for discharge on home oxygen Patient with desaturations to 70s 06/18. Serial x-ray tomorrow morning. Repeat CRP tomorrow morning. (2) Multifocal pneumonia: Plan: See above Ensure to follow chest x-ray to resolution 1 month after discharge (3) Hypoxemia: Plan: See above (4) Hyperlipidemia: Plan: Continue atorvastatin 40 mg daily, ASA (5) COPD (chronic obstructive pulmonary disease): Plan: See above continue DUonebs, steroids, O2 (6) CAD (coronary artery disease): Plan: -With a history of proximal LAD and mid left circumflex stents -Most recent cardiac catheterization on 01/07 performed for abnormal pharmacologic nuclear stress test revealed nonobstructive disease of the LAD and widely patent stents, slow flow in the RCA without significant obstruction suggesting microvascular disease -Continue medical management - No acute issues - Continue metoprolol and aspirin, Plavix, atorvastatin (7) Hypothyroidism: Plan: TSH here normal continue LT4 at home dose (8) Hyponatremia: Plan: Sodium dropped to 131 and stable there for many days Initially thought to be due to volume overload, however seemed to be worsening with diuresis Urine sodium 29, urine osmolality elevated at 340 suggestive of SIADH -recommend fluid restriction but he absolutely refuses as he likes to drink almost 4 L a day of water. Agreeable to cutting this down to 3 L of water per day Restarted Lasix 40 mg p.o. daily Na+ now improved to 133 Follow BMP (9) GERD (gastroesophageal reflux disease): Plan: Continue PPI/Carafate Previously treated with PPI/Carafate with improvement in epigastric symptoms (10) Constipation: Plan: Improved Continue on MiraLAX daily Continue on senna/docusate 1 tab daily Plan: DVT proph-Lovenox 40 mg twice daily Dispo- continued stay on tele, would not dc until O2 requirement no more than 6LNC with exertion, patient with slow clinical improvement Admission and Anticipated Discharge Date Admission Date: June 08, 2021 Subjective Patient is seen in room this morning. He had taken pulse oximetry off so he can go to the bathroom and shave. He reports he feels well, and has not felt short of breath or lightheaded at all even when hypoxic. After walking back to the bed he was hypoxic to the 70s with gradual uptrend back to 80s and then 90 after increasing his oxygen to 7-9 L. Patient reports he felt well through this, and did not have symptoms. He is frustrated by his slow progression and would like to go home, discussed that with his desaturation to the 70s and still requiring 9 L of oxygen that it is not yet safe for him to return home on nasal cannula. Did discuss that it is more concerning that he tolerates his hypoxia without symptoms as oxygen levels in the 70s. Reduce stress on his heart and other organs and could lead to a shortening of his life or without him realizing that his body was having severe oxygen stress. Patient expresses understanding of this, and well frustrated by slow recovery agrees to remain for further treatment and oxygen down titration. No chest pain, chest pressure, nausea, vomiting, diarrhea, constipation, pain today. Review of Systems Review of Systems: All systems reviewed & are unremarkable except as noted in Subjective Physical Exam Physical Exam: General: A&Ox3. NAD. Cooperative. Nontoxic. Shaving at time of reassessment, walked approximately 50 feet back to bedside and found to be in the SPO2 70s on 6 L of oxygen, slow uptrend back to goal. HEENT: Atraumatic, normocephalic. Vision/hearing grossly intact. Pulm: Diminished without overt wheezes, no rales.. Symmetrical chest rise. Cardiac: Tachycardic after walking back to the bed, -mrg. Radial pulses intact and symmetrical. Abdominal: Nontender, nondistended, soft. BS present. Results & Data Results & Data ([facility]) Vital Signs (Past 12 Hours) Vital Signs Temp Pulse Pulse Resp BP Pulse Ox 06/18/21 12:00 36.7 C 100 H 20 116/67 94 06/18/21 11:10 20 84 L 06/18/21 11:00 68 17 94 06/18/21 10:16 64 06/18/21 08:17 63 06/18/21 08:02 62 20 91 06/18/21 07:28 36.7 C 68 17 117/69 91 06/18/21 05:28 36.5 C 71 20 124/72 94 PG Care Time/CCT Total # of Minutes Spent Total Time Spent with Patient: Total time spent is greater than 50% in coordination of care (as documented) at patient's floor/unit and/or counseling patient: Coding Level of Care Code 45431 Subseq Hosp Care Lvl 2 Diagnoses COVID-19 U07.1 Multifocal pneumonia J18.9 Hypoxemia R09.02 Hyperlipidemia E78.5 COPD (chronic obstructive pulmonary disease) J44.9 CAD (coronary artery disease) I25.10 Hypothyroidism E03.9 Hyponatremia E87.1 GERD (gastroesophageal reflux disease) K21.9 Constipation K59.00
[2021-06-18] MEDS: ATORVASTATIN 40 MG TAB PO SCH (19:54)
[2021-06-18] MEDS: CLOPIDOGREL BISULFATE 75 MG TAB PO SCH (19:54)
[2021-06-18] MEDS: ASPIRIN 81 MG CHEW PO SCH (19:54)
[2021-06-18] MEDS: METOPROLOL TARTRATE 25 MG TAB PO SCH (19:54)
[2021-06-19] MEDS: LEVOTHYROXINE SODIUM 50 MCG TABLET PO SCH (06:16)
[2021-06-19 06:45] LABS: Eosinophils # (auto) 0.14 K/uL (0-0.5); Eosinophils % (auto) 1.4 %; Hematocrit (blood only) 40.3 % (42-52); Hemoglobin 13.9 g/dL (14.0-18.0); Immature Granulocytes # (auto) 0.25 K/uL (0.00-0.02); Immature Granulocytes % (auto) 2.6 %; Lymphocytes # (auto) 0.66 K/uL (1.2-3.4); Lymphocytes % (auto) 6.8 %; Mean Corpuscular Hgb Conc 34.5 g/dL (32-36); Mean Corpuscular Volume 92.9 fL (80-100); Mean Platelet Volume 10.1 fL (7.4-10.4); Monocytes # (auto) 0.67 K/uL (0.11-0.59); Monocytes % (auto) 6.9 %; Neutrophils # (auto) 7.97 K/uL (1.4-6.5); Neutrophils % (auto) 82.3 %; Platelet Count 202 K/uL (130-400); RDW Coefficient of Variation 13.5 % (11.5-14.5); RDW Standard Deviation 46.1 fL (36.4-46.3); Red Blood Count 4.34 M/uL (4.7-6.1); White Blood Count 9.69 K/uL (4.8-10.8)
[2021-06-19 07:12] LABS: Anion Gap 8 (3-11); BUN Creatinine Ratio 38.2 (10-20); Blood Urea Nitrogen 34 mg/dl (6-23); C Reactive Protein < 0.50 mg/dl (0-0.5); Calcium 8.1 mg/dl (8.5-10.1); Carbon Dioxide 26 mmol/L (21-32); Chloride 99 mmol/L (98-107); Creatinine Clr Calc Pharmacy 62.7 ml/min; Est GFR (African American) 99.7 ml/min; Glucose 177 mg/dl (70-99(Fasting)); Potassium 3.7 mmol/L (3.5-5.1); Sodium 133 mmol/L (136-145)
[2021-06-19] MEDS: POT PHOSPHATE MONOBASIC W/ SOD TAB PO SCH ×5 (07:15→20:32)
[2021-06-19] MEDS: SUCRALFATE 1 GM/10 ML UDC PO SCH ×5 (07:16→20:33)
[2021-06-19] MEDS: ALBUT/IPRATROP 3MG/0.5MG NEB 3 ML VIAL NEB SCH ×2 (07:21→10:39)
[2021-06-19] MEDS: SODIUM CHLOR 7% 4 ML NEB NEB SCH ×3 (07:22→19:08)
[2021-06-19] MEDS: CHOLECALCIFEROL 1,000 UNITS 25 MCG TAB PO SCH (08:32)
[2021-06-19] MEDS: PANTOprazole 40 MG TAB PO SCH (08:32)
[2021-06-19] MEDS: FUROSEMIDE 40 MG TAB PO SCH (08:32)
[2021-06-19] MEDS: guaiFENesin 600 MG TABCR PO SCH ×2 (08:32→20:31)
[2021-06-19] MEDS: POLYETHYLENE (MIRALAX) 17 GM PACK PO SCH (08:33)
[2021-06-19] MEDS: DOCUSATE SODIUM/SENNA 50/8.6MG TAB PO SCH (08:33)
[2021-06-19] MEDS: ENOXAPARIN INJ 40 MG/0.4 ML SYR SQ SCH ×2 (08:33→20:34)
[2021-06-19] MEDS: dexAMETHasone 10 MG in SYRINGE 0 ML IV SCH (08:34)
[2021-06-19] MEDS: UMECLIDINIUM/VILANTEROL 62.5/25MCG 7 PUFFS/INHALER INH SCH (08:34)
[2021-06-19] MEDS: NYSTATIN SUSP 500,000 U/5 ML UDC PO SCH ×3 (08:43→20:31)
--- NOTE | 2021-06-19 09:53 | Hospitalist Progress Note ---
Date of Service June 19, 2021 Assessment & Plan (1) COVID-19: Plan: COVID-19 multifocal pneumonia/COPD/withhypoxia Required 6 days of 15 L oxygen mask, now starting to downtrend Currently O2 req downtrending, off oxymask to 7-8L of NC this afternoon. COntinue to titrate to SPO2 greater than 88% Did not tolerate Vapotherm PCT previously negative, MRSA swab negative, no indication for antibiotics Prior CTA negative for PE Completed high-dose Dex 20 mg x 5 days, continue 10 mg IV 5 days until 06/19 Lasix daily to promote dry status CXR 06/14 progressively worsened CRP has downtrended to normal 06/19. Steroids complete 06/19, no additional steroids at this time - Pt feels clinically well, although still with desats to the 70s with exertion (2) Multifocal pneumonia: Plan: See above Ensure to follow chest x-ray to resolution 1 month after discharge (3) Hypoxemia: Plan: See above (4) Hyperlipidemia: Plan: Continue atorvastatin 40 mg daily, ASA (5) COPD (chronic obstructive pulmonary disease): Plan: See above continue DUonebs, steroids, O2 (6) CAD (coronary artery disease): Plan: -With a history of proximal LAD and mid left circumflex stents -Most recent cardiac catheterization on 01/07 performed for abnormal pharmacologic nuclear stress test revealed nonobstructive disease of the LAD and widely patent stents, slow flow in the RCA without significant obstruction suggesting microvascular disease -Continue medical management - No acute issues - Continue metoprolol and aspirin, Plavix, atorvastatin (7) Hypothyroidism: Plan: TSH here normal continue LT4 at home dose (8) Hyponatremia: Plan: - Initially sodium dropped to 131 and stable there for many days ?volume overload, however seemed to be worsening with diuresis - Urine sodium 29, urine osmolality elevated at 340 suggestive of SIADH - Recommend fluid restriction pt adamently refuses as he likes to drink almost 4 L a day of water. Agreeable to cutting this down to 2-3 L of water per day. Asymptomatic with Na >130, will follow with labwork at this time. - Restarted Lasix 40 mg p.o. daily - Na 133 - Follow BMP (9) GERD (gastroesophageal reflux disease): Plan: Continue PPI/Carafate Previously treated with PPI/Carafate with improvement in epigastric symptoms (10) Constipation: Plan: Improved - Continue on MiraLAX daily - Continue on senna/docusate 1 tab daily Plan: DVT proph-Lovenox 40 mg twice daily Dispo- continued stay on tele, would not dc until O2 requirement no more than 6LNC with exertion, patient with slow clinical improvement Admission and Anticipated Discharge Date Admission Date: June 08, 2021 Subjective Clinically feels well. Continues to be hypoxic with exertion, but downtrending oxygen requirements. Is asymptomatic during desaturations to the 70s. Discussed with respiratory, adjusting nebs. Patient transitioned to nasal cannula in approximately 7 L this afternoon. Continue to follow, and weaning with goal of 4 L. Denies fever, chills, sweats, Cough, lightheadedness, dizziness, chest pain, chest pressure. Review of Systems Review of Systems: The patient denies chest pain, palpitations, lower extremity swelling, sore throat, fevers, chills, sweats, nausea, vomiting, diarrhea , constipation, abdominal pain, pelvic pain, blood in urine or stool, dysuria, urinary frequency or urgency, lightheadedness, dizziness, headache, memory loss, loss of consciousness, rash, abnormal bruising or bleeding, focal weakness, numbness or tingling in arms or legs, generalized arthralgias or myalgias, back or neck pain, or night sweats. The review of systems is otherwise negative other than for that already noted above, and at least 10 systems have been reviewed. Physical Exam Physical Exam: General: A&Ox3. NAD. Cooperative. Nontoxic. HEENT: Atraumatic, normocephalic. Vision/hearing grossly intact. Pulm: Rosaclear without wheezes/rales. Symmetrical chest rise. Cardiac: Regular rate and rhythm, -mrg. Radial pulses intact and symmetrical. Abdominal: Nontender, nondistended, soft. BS present. Results & Data Results & Data ([facility]) Vital Signs (Past 12 Hours) Vital Signs Temp Pulse Pulse Resp BP Pulse Ox 06/19/21 09:10 77 18 76 L 06/19/21 07:22 68 19 97 06/19/21 07:11 36.2 C L 66 18 131/78 98 06/19/21 03:04 36.8 C 74 18 115/73 95 06/18/21 23:45 36.5 C 67 16 127/79 96 06/18/21 22:18 82 PG Care Time/CCT Total # of Minutes Spent Total Time Spent with Patient: Total time spent is greater than 50% in coordination of care (as documented) at patient's floor/unit and/or counseling patient: Coding Level of Care Code 79446 Subseq Hosp Care Lvl 2 Diagnoses COVID-19 U07.1 Multifocal pneumonia J18.9 Hypoxemia R09.02 Hyperlipidemia E78.5 COPD (chronic obstructive pulmonary disease) J44.9 CAD (coronary artery disease) I25.10 Hypothyroidism E03.9 Hyponatremia E87.1 GERD (gastroesophageal reflux disease) K21.9 Constipation K59.00
--- NOTE | 2021-06-19 11:59 | XRay Report ---
XR chest 1V portable CLINICAL HISTORY: hypoxia. Follow-up airspace opacities COMPARISON STUDY: 06/14/2021 TECHNIQUE: 1 view of the chest FINDINGS: Single frontal view of the chest demonstrates the heart to again be mildly enlarged. Compared to the previous examination, there has been continued progressive worsening of bilateral alveolar opacities, left greater than right. There is now blunting of the right costophrenic angle is well characteristi c of a right pleural effusion. There is no evidence for vascular congestion. There is no acute osseou s pathology. IMPRESSION: Continued interval worsening of bilateral airspace opacities, left greater than right. ACT 112: Negative or not required by law. Electronically signed by: Abdirashid Escobar M.D. 06/19/2021 11:57 AM
[2021-06-19] MEDS: DEXTROMETHORPHAN POLYMR COMPLX 30 MG/5 ML UDP PO PRN (20:31)
[2021-06-19] MEDS: METOPROLOL TARTRATE 25 MG TAB PO SCH (20:32)
[2021-06-19] MEDS: ASPIRIN 81 MG CHEW PO SCH (20:33)
[2021-06-19] MEDS: ATORVASTATIN 40 MG TAB PO SCH (20:33)
[2021-06-19] MEDS: ACETAMINOPHEN 500 MG TAB PO PRN (20:34)
[2021-06-19] MEDS: CLOPIDOGREL BISULFATE 75 MG TAB PO SCH (20:34)
[2021-06-19] MEDS ORDERED: COUGH DROP (SUGAR FREE) LOZ 24 LOZ/1 BOX BUCCAL PRN (21:37)
[2021-06-20] MEDS: LEVOTHYROXINE SODIUM 50 MCG TABLET PO SCH (06:52)
[2021-06-20] MEDS: SODIUM CHLOR 7% 4 ML NEB NEB SCH ×2 (07:39→19:20)
[2021-06-20] MEDS: dexAMETHasone 10 MG in SYRINGE 0 ML IV SCH (08:27)
[2021-06-20] MEDS: POLYETHYLENE (MIRALAX) 17 GM PACK PO SCH (08:27)
[2021-06-20] MEDS: ENOXAPARIN INJ 40 MG/0.4 ML SYR SQ SCH ×2 (08:28→21:05)
[2021-06-20] MEDS: PANTOprazole 40 MG TAB PO SCH (08:28)
[2021-06-20] MEDS: FUROSEMIDE 40 MG TAB PO SCH (08:29)
[2021-06-20] MEDS: UMECLIDINIUM/VILANTEROL 62.5/25MCG 7 PUFFS/INHALER INH SCH (08:29)
[2021-06-20] MEDS: POT PHOSPHATE MONOBASIC W/ SOD TAB PO SCH ×4 (08:29→21:07)
[2021-06-20] MEDS: CHOLECALCIFEROL 1,000 UNITS 25 MCG TAB PO SCH (08:29)
[2021-06-20] MEDS: DOCUSATE SODIUM/SENNA 50/8.6MG TAB PO SCH (08:29)
[2021-06-20] MEDS: NYSTATIN SUSP 500,000 U/5 ML UDC PO SCH ×3 (08:30→21:04)
[2021-06-20] MEDS: SUCRALFATE 1 GM/10 ML UDC PO SCH ×4 (08:30→21:04)
[2021-06-20] MEDS: guaiFENesin 600 MG TABCR PO SCH ×2 (08:30→21:06)
[2021-06-20] MEDS: ACETAMINOPHEN 500 MG TAB PO PRN ×2 (08:32→21:13)
[2021-06-20 09:29] LABS: Basophils # (auto) 0.02 K/uL (0-0.2); Basophils % (auto) 0.2 %; Eosinophils # (auto) 0.22 K/uL (0-0.5); Eosinophils % (auto) 1.9 %; Hematocrit (blood only) 46.5 % (42-52); Hemoglobin 16.1 g/dL (14.0-18.0); Immature Granulocytes # (auto) 0.37 K/uL (0.00-0.02); Immature Granulocytes % (auto) 3.1 %; Lymphocytes # (auto) 0.85 K/uL (1.2-3.4); Lymphocytes % (auto) 7.2 %; Mean Corpuscular Hemoglobin 32.6 pg (25-34); Mean Corpuscular Hgb Conc 34.6 g/dL (32-36); Mean Corpuscular Volume 94.1 fL (80-100); Mean Platelet Volume 10.3 fL (7.4-10.4); Monocytes # (auto) 0.81 K/uL (0.11-0.59); Monocytes % (auto) 6.9 %; Neutrophils # (auto) 9.48 K/uL (1.4-6.5); Neutrophils % (auto) 80.7 %; Platelet Count 226 K/uL (130-400); RDW Coefficient of Variation 13.8 % (11.5-14.5); Red Blood Count 4.94 M/uL (4.7-6.1); White Blood Count 11.75 K/uL (4.8-10.8)
[2021-06-20 10:12] LABS: BUN Creatinine Ratio 36.6 (10-20); Calcium 8.9 mg/dl (8.5-10.1); Creatinine Clr Calc Pharmacy 59.7 ml/min; Est GFR (African American) 95.4 ml/min; Est GFR (Non-African American) 82.3 ml/min
--- NOTE | 2021-06-20 16:52 | Hospitalist Progress Note ---
Date of Service June 20, 2021 Assessment & Plan (1) COVID-19: Plan: COVID-19 multifocal pneumonia/COPD/withhypoxia Required 6 days of 15 L oxygen mask, now starting to downtrend Currently O2 req downtrending, off oxymask to 7-8L of NC this afternoon. COntinue to titrate to SPO2 greater than 88% Did not tolerate Vapotherm PCT previously negative, MRSA swab negative, no indication for antibiotics Prior CTA negative for PE Completed high-dose Dex 20 mg x 5 days, continue 10 mg IV 5 days until 06/19 Lasix daily to promote dry status CXR 06/14 progressively worsened CRP has downtrended to normal 06/19. Steroids complete 06/19, no additional steroids at this time - Pt feels clinically well, although still with desats to the 70s with exertion. Variable oxygen requirements 06/20, up to 11 L of nasal cannula in afternoon. Continues to require hospitalization with high oxygen requirements Remains on Decadron, with slight leukocytosis today but afebrile. Follow-up chest x-ray and procal pending (2) Multifocal pneumonia: Plan: See above Ensure to follow chest x-ray to resolution 1 month after discharge (3) Hypoxemia: Plan: See above (4) Hyperlipidemia: Plan: Continue atorvastatin 40 mg daily, ASA (5) COPD (chronic obstructive pulmonary disease): Plan: See above continue DUonebs, steroids, O2 (6) CAD (coronary artery disease): Plan: -With a history of proximal LAD and mid left circumflex stents -Most recent cardiac catheterization on 01/07 performed for abnormal pharmacologic nuclear stress test revealed nonobstructive disease of the LAD and widely patent stents, slow flow in the RCA without significant obstruction suggesting microvascular disease -Continue medical management - No acute issues - Continue metoprolol and aspirin, Plavix, atorvastatin (7) Hypothyroidism: Plan: TSH here normal continue LT4 at home dose (8) Hyponatremia: Plan: - Initially sodium dropped to 131 and stable there for many days ?volume overload, however seemed to be worsening with diuresis - Urine sodium 29, urine osmolality elevated at 340 suggestive of SIADH - Recommend fluid restriction pt adamently refuses as he likes to drink almost 4 L a day of water. Agreeable to cutting this down to 2-3 L of water per day. Asymptomatic with Na >130, will follow with labwork at this time. - Restarted Lasix 40 mg p.o. daily - Na 133 - Follow BMP (9) GERD (gastroesophageal reflux disease): Plan: Continue PPI/Carafate Previously treated with PPI/Carafate with improvement in epigastric symptoms (10) Constipation: Plan: Improved - Continue on MiraLAX daily - Continue on senna/docusate 1 tab daily Plan: DVT proph-Lovenox 40 mg twice daily Dispo- continued stay on tele, would not dc until O2 requirement no more than 6LNC with exertion, patient with slow clinical improvement Admission and Anticipated Discharge Date Admission Date: June 08, 2021 Subjective Seen at bedside, patient was in bathroom on morning assessment. Asymptomatic, up to 11 L nasal cannula with ambulation Review of Systems Review of Systems: All systems reviewed & are unremarkable except as noted in Subjective Physical Exam Physical Exam: General: A&Ox3. NAD. Cooperative. Nontoxic. HEENT: Atraumatic, normocephalic. Vision/hearing grossly intact. Pulm: Rosaclear without wheezes/rales. Symmetrical chest rise. Cardiac: Regular rate and rhythm, -mrg. Radial pulses intact and symmetrical. Abdominal: Nontender, nondistended, soft. BS present. Results & Data Results & Data ([facility]) Vital Signs (Past 12 Hours) Vital Signs Temp Pulse Resp BP Pulse Ox 06/20/21 15:22 36.4 C L 93 H 20 121/88 93 06/20/21 11:37 36.6 C 72 22 117/58 L 93 06/20/21 08:01 36.4 C L 68 18 115/63 94 06/20/21 07:39 64 18 92 PG Care Time/CCT Total # of Minutes Spent Total Time Spent with Patient: Total time spent is greater than 50% in coordination of care (as documented) at patient's floor/unit and/or counseling patient: Coding Level of Care Code 15909 Subseq Hosp Care Lvl 1 Diagnoses COVID-19 U07.1 Multifocal pneumonia J18.9 Hypoxemia R09.02 Hyperlipidemia E78.5 COPD (chronic obstructive pulmonary disease) J44.9 CAD (coronary artery disease) I25.10 Hypothyroidism E03.9 Hyponatremia E87.1 GERD (gastroesophageal reflux disease) K21.9 Constipation K59.00
--- NOTE | 2021-06-20 20:23 | XRay Report ---
SINGLE VIEW CHEST CLINICAL HISTORY: Hypoxia. FINDINGS: An AP, portable, upright chest radiograph is compared to study dated 06/19/2021 and correlat ed with chest CT dated 06/08/2021. The heart is enlarged noting atherosclerotic calcification of the t horacic aorta. Emphysema and chronic interstitial thickening is similar to previous. Multifocal airsp amara opacities are again seen throughout both lungs, left greater than right. No large pleural effusio n or pneumothorax is seen. The skeletal structures are osteopenic. The bony thorax is grossly intact. Fusion hardware is noted in the lower cervical spine. IMPRESSION: 1. Cardiomegaly and emphysema. 2. Multifocal airspace opacities throughout both lungs are similar to previous. ACT 112: Negative or not required by law. Electronically signed by: Santy Will M.D. 06/20/2021 8:21 PM
[2021-06-20] MEDS: DEXTROMETHORPHAN POLYMR COMPLX 30 MG/5 ML UDP PO PRN (21:03)
[2021-06-20] MEDS: ASPIRIN 81 MG CHEW PO SCH (21:05)
[2021-06-20] MEDS: METOPROLOL TARTRATE 25 MG TAB PO SCH (21:06)
[2021-06-20] MEDS: ATORVASTATIN 40 MG TAB PO SCH (21:08)
[2021-06-20] MEDS: CLOPIDOGREL BISULFATE 75 MG TAB PO SCH (21:08)
[2021-06-21] MEDS: LEVOTHYROXINE SODIUM 50 MCG TABLET PO SCH (06:02)
[2021-06-21] MEDS: SODIUM CHLOR 7% 4 ML NEB NEB SCH ×2 (07:20→19:28)
[2021-06-21 07:47] LABS: Basophils # (auto) 0.02 K/uL (0-0.2); Basophils % (auto) 0.2 %; Eosinophils # (auto) 0.21 K/uL (0-0.5); Eosinophils % (auto) 1.8 %; Hematocrit (blood only) 42.9 % (42-52); Hemoglobin 14.7 g/dL (14.0-18.0); Immature Granulocytes # (auto) 0.38 K/uL (0.00-0.02); Immature Granulocytes % (auto) 3.2 %; Lymphocytes # (auto) 0.87 K/uL (1.2-3.4); Lymphocytes % (auto) 7.4 %; Mean Corpuscular Hgb Conc 34.3 g/dL (32-36); Mean Corpuscular Volume 93.5 fL (80-100); Mean Platelet Volume 10.4 fL (7.4-10.4); Monocytes # (auto) 0.61 K/uL (0.11-0.59); Monocytes % (auto) 5.2 %; Neutrophils # (auto) 9.62 K/uL (1.4-6.5); Neutrophils % (auto) 82.2 %; Platelet Count 203 K/uL (130-400); RDW Coefficient of Variation 13.7 % (11.5-14.5); RDW Standard Deviation 46.2 fL (36.4-46.3); Red Blood Count 4.59 M/uL (4.7-6.1); White Blood Count 11.71 K/uL (4.8-10.8)
[2021-06-21 08:32] LABS: Calcium 8.7 mg/dl (8.5-10.1); Creatinine Clr Calc Pharmacy 51.3 ml/min; Est GFR (African American) 78.7 ml/min; Est GFR (Non-African American) 67.9 ml/min; Potassium 3.7 mmol/L (3.5-5.1)
[2021-06-21] MEDS: POT PHOSPHATE MONOBASIC W/ SOD TAB PO SCH ×4 (08:35→21:13)
[2021-06-21] MEDS: POLYETHYLENE (MIRALAX) 17 GM PACK PO SCH (08:35)
[2021-06-21] MEDS: PANTOprazole 40 MG TAB PO SCH (08:35)
[2021-06-21] MEDS: guaiFENesin 600 MG TABCR PO SCH ×2 (08:35→21:12)
[2021-06-21] MEDS: DOCUSATE SODIUM/SENNA 50/8.6MG TAB PO SCH (08:36)
[2021-06-21] MEDS: FUROSEMIDE 40 MG TAB PO SCH (08:36)
[2021-06-21] MEDS: CHOLECALCIFEROL 1,000 UNITS 25 MCG TAB PO SCH (08:37)
[2021-06-21] MEDS: ENOXAPARIN INJ 40 MG/0.4 ML SYR SQ SCH ×2 (08:37→21:14)
[2021-06-21] MEDS: SUCRALFATE 1 GM/10 ML UDC PO SCH ×4 (08:39→21:13)
[2021-06-21] MEDS: dexAMETHasone 10 MG in SYRINGE 0 ML IV SCH (08:39)
[2021-06-21] MEDS: NYSTATIN SUSP 500,000 U/5 ML UDC PO SCH ×4 (08:40→21:24)
[2021-06-21] MEDS: UMECLIDINIUM/VILANTEROL 62.5/25MCG 7 PUFFS/INHALER INH SCH (10:46)
--- NOTE | 2021-06-21 18:25 | Hospitalist Progress Note ---
Date of Service June 21, 2021 Assessment & Plan (1) COVID-19: Plan: COVID-19 multifocal pneumonia/COPD/withhypoxia Required 6 days of 15 L oxygen mask, now starting to downtrend Currently O2 req downtrending, off oxymask to 7-8L of NC this afternoon. COntinue to titrate to SPO2 greater than 88% Did not tolerate Vapotherm PCT previously negative, MRSA swab negative, no indication for antibiotics Prior CTA negative for PE Completed high-dose Dex 20 mg x 5 days followed by 10 mg x 1 week Lasix daily to promote dry status CXR 06/14 progressively worsened CRP has downtrended to normal 06/19. Steroids complete, discontinued 06/21. -06/20: Pt feels clinically well, although still with desats to the 70s with exertion. Variable oxygen requirements 06/20, up to 11 L of nasal cannula in afternoon. Continues to require hospitalization with high oxygen requirements 06/21: leukocytosis persists, trend, afebrile Chest x-ray shows multifocal opacities similar to prior, PCT 0.06. Oxygen requirements slowly downtrending, continues to require admission for hypoxia. Goal no more than 6 L oxygen with exertion (2) Multifocal pneumonia: Plan: See above Ensure to follow chest x-ray to resolution 1 month after discharge (3) Hypoxemia: Plan: See above (4) Hyperlipidemia: Plan: Continue atorvastatin 40 mg daily, ASA (5) COPD (chronic obstructive pulmonary disease): Plan: See above continue DUonebs, steroids, O2 (6) CAD (coronary artery disease): Plan: -With a history of proximal LAD and mid left circumflex stents -Most recent cardiac catheterization on 01/07 performed for abnormal pharmacologic nuclear stress test revealed nonobstructive disease of the LAD and widely patent stents, slow flow in the RCA without significant obstruction suggesting microvascular disease -Continue medical management - No acute issues - Continue metoprolol and aspirin, Plavix, atorvastatin (7) Hypothyroidism: Plan: TSH here normal continue LT4 at home dose (8) Hyponatremia: Plan: - Initially sodium dropped to 131 and stable there for many days ?volume overload, however seemed to be worsening with diuresis - Urine sodium 29, urine osmolality elevated at 340 suggestive of SIADH - Recommend fluid restriction pt adamently refuses as he likes to drink almost 4 L a day of water. Agreeable to cutting this down to 2-3 L of water per day. Asymptomatic with Na >130, will follow with labwork at this time. - Restarted Lasix 40 mg p.o. daily - Na 133 - Follow BMP (9) GERD (gastroesophageal reflux disease): Plan: Continue PPI/Carafate Previously treated with PPI/Carafate with improvement in epigastric symptoms (10) Constipation: Plan: Improved - Continue on MiraLAX daily - Continue on senna/docusate 1 tab daily Plan: DVT proph-Lovenox 40 mg twice daily Dispo- continued stay on tele, two-step when nearing no more than 6 L with exertion. Patient with slow clinical improvement Admission and Anticipated Discharge Date Admission Date: June 08, 2021 Subjective Seen at bedside. Has had more desats today, but is tolerating 8-9 L of oxygen. Does desat quickly to 70s/80s with ambulation, and when taking nasal cannula off to shave. Patient encouraged to keep his nasal cannula on, discussed the importance of maintaining sats above 88% and minimizing desaturations. Continues to cough up wilson sputum. Denies shortness of breath, fever, chills, nausea, vomiting, diarrhea, constipation Review of Systems Review of Systems: All systems reviewed & are unremarkable except as noted in Subjective Physical Exam Physical Exam: General: A&Ox3. NAD. Cooperative. Nontoxic. HEENT: Atraumatic, normocephalic. Vision/hearing grossly intact. Pulm: Bibasilar crackles, moderate air movement, without wheezes/rales. Symmetrical chest rise. Does desat quickly with ambulation while in room. Cardiac: Regular rate and rhythm, -mrg. Radial pulses intact and symmetrical. Abdominal: Nontender, nondistended, soft. BS present. Results & Data Results & Data ([facility]) Vital Signs (Past 12 Hours) Vital Signs Temp Pulse Pulse Resp BP Pulse Ox 06/21/21 15:10 36.6 C 82 18 147/80 H 89 L 06/21/21 15:00 72 06/21/21 11:38 65 06/21/21 11:12 36.6 C 93 H 16 137/71 90 06/21/21 07:27 36.3 C L 65 22 119/69 96 06/21/21 07:20 62 18 90 PG Care Time/CCT Total # of Minutes Spent Total Time Spent with Patient: Total time spent is greater than 50% in coordination of care (as documented) at patient's floor/unit and/or counseling patient: Coding Level of Care Code 10003 Subseq Hosp Care Lvl 2 Diagnoses COVID-19 U07.1 Multifocal pneumonia J18.9 Hypoxemia R09.02 Hyperlipidemia E78.5 COPD (chronic obstructive pulmonary disease) J44.9 CAD (coronary artery disease) I25.10 Hypothyroidism E03.9 Hyponatremia E87.1 GERD (gastroesophageal reflux disease) K21.9 Constipation K59.00
[2021-06-21] MEDS: ASPIRIN 81 MG CHEW PO SCH (21:13)
[2021-06-21] MEDS: ATORVASTATIN 40 MG TAB PO SCH (21:13)
[2021-06-21] MEDS: CLOPIDOGREL BISULFATE 75 MG TAB PO SCH (21:13)
[2021-06-21] MEDS: METOPROLOL TARTRATE 25 MG TAB PO SCH (21:14)
[2021-06-21] MEDS: ACETAMINOPHEN 500 MG TAB PO PRN (21:15)
[2021-06-21] MEDS: MELATONIN 3 MG TAB PO PRN (21:15)
[2021-06-21] MEDS: DEXTROMETHORPHAN POLYMR COMPLX 30 MG/5 ML UDP PO PRN (21:28)
[2021-06-22] MEDS: LEVOTHYROXINE SODIUM 50 MCG TABLET PO SCH (04:58)
[2021-06-22] MEDS: SODIUM CHLOR 7% 4 ML NEB NEB SCH ×2 (07:33→19:45)
[2021-06-22 07:57] LABS: Hematocrit (blood only) 41.4 % (42-52); Hemoglobin 14.2 g/dL (14.0-18.0); Mean Corpuscular Hemoglobin 31.8 pg (25-34); Mean Corpuscular Hgb Conc 34.3 g/dL (32-36); Mean Corpuscular Volume 92.6 fL (80-100); Mean Platelet Volume 10.4 fL (7.4-10.4); Platelet Count 172 K/uL (130-400); RDW Coefficient of Variation 13.6 % (11.5-14.5); RDW Standard Deviation 45.6 fL (36.4-46.3); Red Blood Count 4.47 M/uL (4.7-6.1); White Blood Count 10.05 K/uL (4.8-10.8)
[2021-06-22 08:20] LABS: Basophils # (auto) 0.05 K/uL (0-0.2); Basophils % (auto) 0.5 %; Eosinophils # (auto) 0.22 K/uL (0-0.5); Eosinophils % (auto) 2.2 %; Immature Granulocytes # (auto) 0.51 K/uL (0.00-0.02); Immature Granulocytes % (auto) 5.1 %; Lymphocytes # (auto) 1.02 K/uL (1.2-3.4); Lymphocytes % (auto) 10.1 %; Monocytes # (auto) 0.73 K/uL (0.11-0.59); Monocytes % (auto) 7.3 %; Neutrophils # (auto) 7.52 K/uL (1.4-6.5); Neutrophils % (auto) 74.8 %
[2021-06-22 08:24] LABS: BUN Creatinine Ratio 41.8 (10-20); Calcium 8.3 mg/dl (8.5-10.1); Creatinine Clr Calc Pharmacy 61.4 ml/min; Est GFR (African American) 97.9 ml/min; Est GFR (Non-African American) 84.5 ml/min; Potassium 3.7 mmol/L (3.5-5.1)
[2021-06-22] MEDS: ASPIRIN 81 MG CHEW PO SCH (08:55)
[2021-06-22] MEDS: NYSTATIN SUSP 500,000 U/5 ML UDC PO SCH ×4 (09:21→21:05)
[2021-06-22] MEDS: CHOLECALCIFEROL 1,000 UNITS 25 MCG TAB PO SCH (09:21)
[2021-06-22] MEDS: ENOXAPARIN INJ 40 MG/0.4 ML SYR SQ SCH ×2 (09:22→21:00)
[2021-06-22] MEDS: POT PHOSPHATE MONOBASIC W/ SOD TAB PO SCH ×4 (09:22→20:57)
[2021-06-22] MEDS: DOCUSATE SODIUM/SENNA 50/8.6MG TAB PO SCH (09:22)
[2021-06-22] MEDS: POLYETHYLENE (MIRALAX) 17 GM PACK PO SCH (09:22)
[2021-06-22] MEDS: SUCRALFATE 1 GM/10 ML UDC PO SCH ×4 (09:22→20:58)
[2021-06-22] MEDS: guaiFENesin 600 MG TABCR PO SCH ×2 (09:22→20:58)
[2021-06-22] MEDS: PANTOprazole 40 MG TAB PO SCH (09:22)
[2021-06-22] MEDS: FUROSEMIDE 40 MG TAB PO SCH (09:22)
[2021-06-22] MEDS: UMECLIDINIUM/VILANTEROL 62.5/25MCG 7 PUFFS/INHALER INH SCH (09:24)
[2021-06-22] MEDS: ACETAMINOPHEN 500 MG TAB PO PRN (16:18)
--- NOTE | 2021-06-22 16:33 | Hospitalist Progress Note ---
Date of Service June 22, 2021 Assessment & Plan (1) COVID-19: Plan: COVID-19 multifocal pneumonia/COPD/withhypoxia Initial Covid + 05/31/2021 Covid - 05/27/2021 Required 6 days of 15 L oxygen mask Did not tolerate Vapotherm PCT previously negative, MRSA swab negative, no indication for antibiotics Prior CTA negative for PE Completed high-dose Dex 20 mg x 5 days followed by 10 mg x 1 week Lasix daily to promote dry status CXR 06/14 progressively worsened CRP downtrended to normal 06/19. Steroids complete, discontinued 06/21. -06/20: Pt clinically well, although still with desats to the 70s with exertion. Variable oxygen requirements 06/20, up to 11 L of nasal cannula in afternoon. Continues to require hospitalization with high oxygen requirements 06/21: leukocytosis persists, trend, afebrile Chest x-ray shows multifocal opacities similar to prior, PCT 0.06. Oxygen requirements slowly downtrending, continues to require admission for hypoxia. Goal no more than 6 L oxygen with exertion 06/22: No leukocytosis today, resolved with completion of steroids. Patient reports he had a rough night, continues to have desaturations with ambulation but felt more tired yesterday evening No fevers. Cough unchanged, does have some intermittent sinus congestion. No leukocytosis, sodium remains around 132, creatinine and potassium stable. Patient with uptrend in oxygen requirements today,on nasal cannula 8 L AM, placed on oxymask 8 L in afternoon. She continues with slow clinical improvement now 2 weeks into illness. Oxygenation is somewhat worse after finishing steroids, CRP returned to normal but we will recheck in the morning due to worsening (2) Multifocal pneumonia: Plan: See above Ensure to follow chest x-ray to resolution 1 month after discharge (3) Hypoxemia: Plan: See above (4) Hyperlipidemia: Plan: Continue atorvastatin 40 mg daily, ASA (5) COPD (chronic obstructive pulmonary disease): Plan: See above continue DUonebs, steroids, O2 (6) CAD (coronary artery disease): Plan: -With a history of proximal LAD and mid left circumflex stents -Most recent cardiac catheterization on 01/07 performed for abnormal pharmacologic nuclear stress test revealed nonobstructive disease of the LAD and widely patent stents, slow flow in the RCA without significant obstruction suggesting microvascular disease -Continue medical management - No acute issues - Continue metoprolol and aspirin, Plavix, atorvastatin (7) Hypothyroidism: Plan: TSH here normal continue LT4 at home dose (8) Hyponatremia: Plan: - Initially sodium dropped to 131 and stable there for many days ?volume overload, however seemed to be worsening with diuresis - Urine sodium 29, urine osmolality elevated at 340 suggestive of SIADH - Recommend fluid restriction pt adamently refuses as he likes to drink almost 4 L a day of water. Agreeable to cutting this down to 2-3 L of water per day. Asymptomatic with Na >130, will follow with labwork at this time. - Restarted Lasix 40 mg p.o. daily - Na remains slightly hyponatremic but stable - Follow BMP (9) GERD (gastroesophageal reflux disease): Plan: Continue PPI Previously treated with PPI/Carafate with improvement in epigastric symptoms (10) Constipation: Plan: Improved - Continue on MiraLAX daily - Continue on senna/docusate 1 tab daily Plan: DVT proph-Lovenox 40 mg twice daily Dispo- continued stay on tele, two-step when nearing no more than 6 L with exertion. Patient with slow clinical progression Admission and Anticipated Discharge Date Admission Date: June 08, 2021 Subjective Seen at bedside today. Patient is laying in bed initially, reports he had a rough night and was very tired yesterday. Has intermittently had his nasal cannula, off with quick desaturations and desaturations during exertion. He reports that he knows he is having slow clinical progression may still have many days left in the hospital. Has some nasal pressure today in the sinuses, reports he has this at baseline and improves with Zicam nasal spray. Has not had benefit with Flonase in the past, discussed rebound with this. No sinus pain. No fever/chills. Review of Systems Review of Systems: All systems reviewed & are unremarkable except as noted in Subjective Physical Exam Physical Exam: General: A&Ox3. NAD. Cooperative. Nontoxic. HEENT: Atraumatic, normocephalic. Vision/hearing grossly intact. Pulm: Bibasilar crackles, moderate air movement, without wheezes/rales. Symmetrical chest rise. Laying in bed at time of asessment SPO2 ~90 on NC, desats to 85% when sitting up to edge of bed Cardiac: Regular rate and rhythm, -mrg. Radial pulses intact and symmetrical. Abdominal: Nontender, nondistended, soft. BS present. Results & Data Results & Data ([facility]) Vital Signs (Past 12 Hours) Vital Signs Temp Pulse Pulse Resp BP Pulse Ox 06/22/21 15:40 93 H 06/22/21 15:28 36.9 C 88 19 124/82 89 L 06/22/21 08:01 63 06/22/21 07:33 69 16 89 L 06/22/21 07:23 36.5 C 91 H 19 135/77 91 PG Care Time/CCT Total # of Minutes Spent Total Time Spent with Patient: Total time spent is greater than 50% in coordination of care (as documented) at patient's floor/unit and/or counseling patient: Coding Level of Care Code 96529 Subseq Hosp Care Lvl 2 Diagnoses COVID-19 U07.1 Multifocal pneumonia J18.9 Hypoxemia R09.02 Hyperlipidemia E78.5 COPD (chronic obstructive pulmonary disease) J44.9 CAD (coronary artery disease) I25.10 Hypothyroidism E03.9 Hyponatremia E87.1 GERD (gastroesophageal reflux disease) K21.9 Constipation K59.00
[2021-06-22] MEDS: CLOPIDOGREL BISULFATE 75 MG TAB PO SCH (20:58)
[2021-06-22] MEDS: ATORVASTATIN 40 MG TAB PO SCH (20:58)
[2021-06-22] MEDS: METOPROLOL TARTRATE 25 MG TAB PO SCH (20:59)
[2021-06-22] MEDS: DEXTROMETHORPHAN POLYMR COMPLX 30 MG/5 ML UDP PO PRN (21:06)
[2021-06-23] MEDS: LEVOTHYROXINE SODIUM 50 MCG TABLET PO SCH (06:08)
[2021-06-23] MEDS: SODIUM CHLOR 7% 4 ML NEB NEB SCH ×2 (07:18→19:26)
[2021-06-23 07:45] LABS: Hematocrit (blood only) 43.9 % (42-52); Hemoglobin 15.3 g/dL (14.0-18.0); Mean Corpuscular Hemoglobin 32.6 pg (25-34); Mean Corpuscular Hgb Conc 34.9 g/dL (32-36); Mean Corpuscular Volume 93.4 fL (80-100); Mean Platelet Volume 9.7 fL (7.4-10.4); Platelet Count 153 K/uL (130-400); RDW Coefficient of Variation 13.9 % (11.5-14.5); RDW Standard Deviation 47.1 fL (36.4-46.3); White Blood Count 10.57 K/uL (4.8-10.8)
[2021-06-23] MEDS: guaiFENesin 600 MG TABCR PO SCH ×2 (07:59→22:20)
[2021-06-23] MEDS: CHOLECALCIFEROL 1,000 UNITS 25 MCG TAB PO SCH (07:59)
[2021-06-23] MEDS: FUROSEMIDE 40 MG TAB PO SCH (07:59)
[2021-06-23] MEDS: DOCUSATE SODIUM/SENNA 50/8.6MG TAB PO SCH (07:59)
[2021-06-23] MEDS: POT PHOSPHATE MONOBASIC W/ SOD TAB PO SCH ×4 (07:59→22:21)
[2021-06-23] MEDS: SUCRALFATE 1 GM/10 ML UDC PO SCH ×4 (07:59→22:21)
[2021-06-23] MEDS: PANTOprazole 40 MG TAB PO SCH (07:59)
[2021-06-23] MEDS: ENOXAPARIN INJ 40 MG/0.4 ML SYR SQ SCH ×2 (07:59→22:20)
[2021-06-23] MEDS: POLYETHYLENE (MIRALAX) 17 GM PACK PO SCH (08:00)
[2021-06-23] MEDS: NYSTATIN SUSP 500,000 U/5 ML UDC PO SCH ×3 (08:00→22:21)
[2021-06-23] MEDS: UMECLIDINIUM/VILANTEROL 62.5/25MCG 7 PUFFS/INHALER INH SCH (08:00)
[2021-06-23 08:14] LABS: BUN Creatinine Ratio 39.6 (10-20); Calcium 8.2 mg/dl (8.5-10.1); Creatinine Clr Calc Pharmacy 58.3 ml/min; Est GFR (African American) 91.8 ml/min; Est GFR (Non-African American) 79.2 ml/min; Potassium 3.7 mmol/L (3.5-5.1)
[2021-06-23 08:17] LABS: Basophils # (auto) 0.03 K/uL (0-0.2); Basophils % (auto) 0.3 %; Eosinophils # (auto) 0.46 K/uL (0-0.5); Eosinophils % (auto) 4.4 %; Immature Granulocytes # (auto) 0.44 K/uL (0.00-0.02); Immature Granulocytes % (auto) 4.2 %; Lymphocytes # (auto) 0.95 K/uL (1.2-3.4); Monocytes % (auto) 6.6 %; Neutrophils # (auto) 7.99 K/uL (1.4-6.5); Neutrophils % (auto) 75.5 %
[2021-06-23] MEDS: ACETAMINOPHEN 500 MG TAB PO PRN (09:37)
[2021-06-23] MEDS: SODIUM CHLORIDE 0.65% NA SOLN 45 ML (OCEAN) NAE PRN (10:15)
[2021-06-23] MEDS ORDERED: dexAMETHasone 10 MG in SYRINGE 0 ML IV ONE (13:30)
--- NOTE | 2021-06-23 13:39 | Hospitalist Progress Note ---
Date of Service June 23, 2021 Assessment & Plan (1) COVID-19: Plan: COVID-19 multifocal pneumonia/COPD/withhypoxia Initial Covid + 05/31/2021 Covid - 05/27/2021 Required 6 days of 15 L oxygen mask Did not tolerate Vapotherm PCT previously negative, MRSA swab negative, no indication for antibiotics Prior CTA negative for PE Completed high-dose Dex 20 mg x 5 days followed by 10 mg x 1 week Lasix daily to promote dry status CXR 06/14 progressively worsened CRP downtrended to normal 06/19. Steroids taper complete, discontinued 06/21. Patient had been clinically improving up until that point 06/23: Patient with rapid decrease in exercise tolerance and exertional hypoxia overnight, increasing fatigue, regression of his prior improvement. CRP previously normalized, is slightly elevated today. No fever, no change in cough/sputum spacious for superimposed bacterial pneumonia. Due to rapid increase in requirements will repeat CTA, patient has been on PPx Lovenox with normal kidney function. Given elevated CRP with this will follow for signs of clot or secondary causes, if negative will start with 10 mg Decadron dose, and proceed with 6 mg twice daily x4 days, then 6 mg daily repeat course. (2) Multifocal pneumonia: Plan: See above Ensure to follow chest x-ray to resolution 1 month after discharge (3) Hypoxemia: Plan: See above (4) Hyperlipidemia: Plan: Continue atorvastatin 40 mg daily, ASA (5) COPD (chronic obstructive pulmonary disease): Plan: See above continue DUonebs, steroids, O2 (6) CAD (coronary artery disease): Plan: -With a history of proximal LAD and mid left circumflex stents -Most recent cardiac catheterization on 01/07 performed for abnormal pharmacologic nuclear stress test revealed nonobstructive disease of the LAD and widely patent stents, slow flow in the RCA without significant obstruction suggesting microvascular disease -Continue medical management - No acute issues - Continue metoprolol and aspirin, Plavix, atorvastatin (7) Hypothyroidism: Plan: TSH here normal continue LT4 at home dose (8) Hyponatremia: Plan: - Initially sodium dropped to 131 and stable there for many days ?volume overload, however seemed to be worsening with diuresis - Urine sodium 29, urine osmolality elevated at 340 suggestive of SIADH - Recommend fluid restriction pt adamantly refused as he likes to drink almost 4 L a day of water. Agreeable to cutting this down to 2-3 L of water per day. Asymptomatic with Na >130, will follow with labwork at this time. - Restarted Lasix 40 mg p.o. daily. Held x1 dose for high ratio and CTA, resume next - Na remains slightly hyponatremic but stable - Follow BMP (9) GERD (gastroesophageal reflux disease): Plan: Continue PPI Previously treated with PPI/Carafate with improvement in epigastric symptoms (10) Constipation: Plan: Improved - Continue on MiraLAX daily - Continue on senna/docusate 1 tab daily Plan: DVT proph-Lovenox 40 mg twice daily, CTA eval as above Dispo- continued stay on tele, two-step when nearing no more than 6 L with exertion. Patient with slow clinical progression and worsening after completion of original steroid taper appreciative of updates by phone Admission and Anticipated Discharge Date Admission Date: June 08, 2021 Subjective Patient with increased fatigue today. Rapid increase in exertional dyspnea last night, patient feels like he suddenly just has trouble getting to the bathroom and back without shortness of breath. Denies fever, chills, sweats, nausea, vomiting, diarrhea. Appetite diminished somewhat today. Continues to have some sinus pressure after stopping Zicam, no tenderness to palpation/percussion. No leg swelling. updated on care by phone. Review of Systems Review of Systems: All systems reviewed & are unremarkable except as noted in Subjective Physical Exam Physical Exam: General: A&Ox3. NAD. Cooperative. Nontoxic. Appears more fatigued laying in bed today. HEENT: Atraumatic, normocephalic. Vision/hearing grossly intact. Pulm: On oxygen mask, trace crackles bilaterally moderate air movement, without wheezes/rales. Symmetrical chest rise. Cardiac: Regular rate and rhythm, -mrg. Radial pulses intact and symmetrical. Abdominal: Nontender, nondistended, soft. BS present. Extremities: No edema, no calf asymmetry Results & Data Results & Data ([facility]) Vital Signs (Past 12 Hours) Vital Signs Temp Pulse Pulse Pulse Resp BP Pulse Ox 06/23/21 13:15 94 H 06/23/21 11:08 90 22 101/77 92 06/23/21 09:40 24 87 L 06/23/21 09:28 96 H 06/23/21 08:41 36.4 C L 114 H 22 122/89 93 06/23/21 08:04 22 83 L 06/23/21 07:20 104 H 26 H 92 06/23/21 02:45 36.4 C L 93 H 32 H 126/74 88 L 06/23/21 01:50 78 PG Care Time/CCT Total # of Minutes Spent Total Time Spent with Patient: Total time spent is greater than 50% in coordination of care (as documented) at patient's floor/unit and/or counseling patient: Coding Level of Care Code 39327 Subseq Hosp Care Lvl 2 Diagnoses COVID-19 U07.1 Multifocal pneumonia J18.9 Hypoxemia R09.02 Hyperlipidemia E78.5 COPD (chronic obstructive pulmonary disease) J44.9 CAD (coronary artery disease) I25.10 Hypothyroidism E03.9 Hyponatremia E87.1 GERD (gastroesophageal reflux disease) K21.9 Constipation K59.00
[2021-06-23] MEDS: FLUTICASONE PROPIONATE NA SPR 16 GM BTL SCH ×2 (15:16→22:20)
[2021-06-23] MEDS ORDERED: OPTIRAY 320 125ml IV ONE (17:22)
--- NOTE | 2021-06-23 17:53 | CT Scan Report ---
CT angio chest PE protocol CLINICAL HISTORY: Covid positive for shortness of breath . Evaluate for pulmonary embolus COMPARISON STUDY: 06/08/2021 and portable chest from 06/20/2021 CT DOSE: 450.12 mGy.cm TECHNIQUE: CT Angio of the chest was performed.followed by image post processing with coronal, and s agittal MIP reformats. Contrast Volume: Optiray 320, 118 ml FINDINGS: Vasculature: There is homogeneous perfusion of the pulmonary vasculature bilaterally. No intraluminal filling defects or evidence for pulmonary embolus is seen. Airway: The airway is clear. No endobronchial lesion is identified. Lungs: There is interval worsening of interstitial and groundglass alveolar opacities bilaterally whe n compared to the previous CT. No confluent alveolar opacities or air bronchograms are seen. Pleura: There is no evidence for pleural effusion. There is no evidence for pneumothorax. Mediastinum: There is no evidence for pathologic adenopathy. The heart size is within normal limits. The thoracic aorta is within normal limits. There is no evidence for pericardial effusion. Upper abdomen:The adrenal glands are normal bilaterally. There is a small hiatal hernia. Osseous structures: There is no acute osseous pathology. Impression: 1. No CTA evidence for pulmonary embolus. 2. Mild interval worsening of diffuse interstitial and groundglass alveolar opacities bilaterally. 3. Small hiatal hernia. ACT 112: Negative or not required by law. Electronically signed by: Abdirashid Escobar M.D. 06/23/2021 5:52 PM
[2021-06-23] MEDS ORDERED: MELATONIN 3 MG TAB PO PRN (20:11)
[2021-06-23 20:54] LABS: BUN Creatinine Ratio 22.9 (10-20); Calcium 8.3 mg/dl (8.5-10.1); Est GFR (African American) 58.2 ml/min; Est GFR (Non-African American) 50.2 ml/min; Potassium 4.1 mmol/L (3.5-5.1)
--- NOTE | 2021-06-23 21:13 | Communication Note ---
Date of Service: June 23, 2021 Was notified by RN that patient developed slightly worse SOB, bibasilar crackles, and trace LE edema, though his oxygen requirement had not changed over the past few hours. I noted that patient's dose of lasix was held this morning because patient had a CTA around noon. I ordered a repeat BMP which showed a bump in creatinine from 0.94 to 1.4 likely secondary to the contrast from the CTA. I decided not to give an additional lasix dose given this new NORRIS as well as because patient's oxygen requirement had not worsened recently. I will defer further decisions for diuresis to the day team unless there is further worsening. Discussed with the main line station engineer attending who was in agreement.
[2021-06-23] MEDS ORDERED: LORazepam 1 MG TAB PO STA (21:40)
[2021-06-23] MEDS: ASPIRIN 81 MG CHEW PO SCH (22:20)
[2021-06-23] MEDS: METOPROLOL TARTRATE 25 MG TAB PO SCH (22:20)
[2021-06-23] MEDS: CLOPIDOGREL BISULFATE 75 MG TAB PO SCH (22:20)
[2021-06-23] MEDS: ATORVASTATIN 40 MG TAB PO SCH (22:20)
[2021-06-24 00:37] LABS: Appearance Urine Clear (Clear); Bilirubin Urine Negative (Negative); Blood Urine Negative (Negative); Color Urine Yellow; Glucose Urine UA 3+ (Negative); Ketones Urine Negative (Negative); Leukocyte Esterase Urine Negative (Negative); Nitrite Urine Negative (Negative); Protein Urine Negative (Negative); Specific Gravity Urine 1.042 (1.000-1.030); Urobilinogen Urine Negative (Negative); pH Urine 5.5 (4.5-7.5)
[2021-06-24] MEDS: LEVOTHYROXINE SODIUM 50 MCG TABLET PO SCH (06:34)
[2021-06-24 06:35] LABS: Basophils # (auto) 0.01 K/uL (0-0.2); Basophils % (auto) 0.1 %; Eosinophils # (auto) 0.01 K/uL (0-0.5); Eosinophils % (auto) 0.1 %; Hematocrit (blood only) 42.8 % (42-52); Immature Granulocytes # (auto) 0.24 K/uL (0.00-0.02); Immature Granulocytes % (auto) 2.9 %; Lymphocytes # (auto) 0.78 K/uL (1.2-3.4); Lymphocytes % (auto) 9.5 %; Mean Corpuscular Hemoglobin 32.5 pg (25-34); Mean Corpuscular Volume 92.8 fL (80-100); Mean Platelet Volume 10.4 fL (7.4-10.4); Monocytes # (auto) 0.51 K/uL (0.11-0.59); Monocytes % (auto) 6.2 %; Neutrophils # (auto) 6.67 K/uL (1.4-6.5); Neutrophils % (auto) 81.2 %; Platelet Count 145 K/uL (130-400); RDW Coefficient of Variation 13.9 % (11.5-14.5); RDW Standard Deviation 46.8 fL (36.4-46.3); Red Blood Count 4.61 M/uL (4.7-6.1); White Blood Count 8.22 K/uL (4.8-10.8)
[2021-06-24 07:00] LABS: BUN Creatinine Ratio 30.8 (10-20); Calcium 8.4 mg/dl (8.5-10.1); Creatinine Clr Calc Pharmacy 61.5 ml/min; Est GFR (African American) 97.9 ml/min; Est GFR (Non-African American) 84.5 ml/min
[2021-06-24] MEDS: SODIUM CHLOR 7% 4 ML NEB NEB SCH ×2 (07:29→19:09)
--- NOTE | 2021-06-24 08:21 | Hospitalist Progress Note ---
Date of Service June 24, 2021 Assessment & Plan (1) COVID-19: Plan: COVID-19 multifocal pneumonia/COPD/withhypoxia Initial Covid + 05/31/2021 Covid - 05/27/2021 Required 6 days of 15 L oxygen mask Did not tolerate Vapotherm PCT previously negative, MRSA swab negative, no indication for antibiotics 06/23/21 CTA negative for PE Completed high-dose Dex 20 mg x 5 days followed by 10 mg x 1 week-> now on 6 mg Lasix daily to promote dry status CXR 06/14 progressively worsened CRP downtrended to normal 06/19. -Given elevated CRP resume decadron 6 mg daily repeat course started 06/23/21 overall still with significant oxygen demands, pt does not want to consider returning to vapotherm as feels it is a step backward will continue to support with oxygen, and resume lasix 06/25/21 family called but mailbox is full (2) Multifocal pneumonia: Plan: now worsened respiratory distress, repeat Procalcition does not support bacterial sepsis, (3) Hypoxemia: Plan: increased respiratory demands, could be copd exacerbation (4) Hyperlipidemia: Plan: Continue atorvastatin 40 mg daily, ASA (5) COPD (chronic obstructive pulmonary disease): Plan: See above continue DUonebs, steroids, O2 (6) CAD (coronary artery disease): Plan: -With a history of proximal LAD and mid left circumflex stents -Most recent cardiac catheterization on 01/07 performed for abnormal pharmacologic nuclear stress test revealed nonobstructive disease of the LAD and widely patent stents, slow flow in the RCA without significant obstruction suggesting microvascular disease -Continue medical management - No acute issues - Continue metoprolol and aspirin, Plavix, atorvastatin (7) Hypothyroidism: Plan: TSH here normal continue LT4 at home dose (8) Hyponatremia: Plan: - Initially sodium dropped to 131 and stable there for many days ?volume overload, however seemed to be worsening with diuresis - Urine sodium 29, urine osmolality elevated at 340 suggestive of SIADH - improved with Recommended fluid restriction pt adamantly refused as he likes to drink almost 4 L a day of water. Agreeable to cutting this down to 2-3 L of water per day. Asymptomatic with Na >130, will follow with labwork at this time. - Restarted Lasix 40 mg p.o. daily. Held x1 dose for high ratio and CTA, resume next - Na remains slightly hyponatremic but stable (9) GERD (gastroesophageal reflux disease): Plan: Continue PPI Previously treated with PPI/Carafate with improvement in epigastric symptoms (10) Constipation: Plan: Improved - Continue on MiraLAX daily - Continue on senna/docusate 1 tab daily Plan: DVT proph-Lovenox 40 mg twice daily, CTA eval as above Dispo- continued stay on tele, appreciative of updates by phone Admission and Anticipated Discharge Date Admission Date: June 08, 2021 Subjective Patient was seen in his room he is walking about he was on 15 L oxygen mask with 6 L nasal cannula additional. The patient was desaturating with walking about but he was only slightly tachypneic was not cyanotic. The patient continues to voice a strong will and desire to come home or make at home. He is full of energy and is happy that he can walk about his room. He is having a cough occasionally productive of a brown-reddish mucus otherwise has no other complaints or concerns Review of Systems Review of Systems: Moderate distress and fatigue no headache, no visual changes no speech or swallowing issues no chest pain, pressure or palpitations Continue shortness of breath, productive cough or wheezes no abdominal pain, nausea or vomiting, no diarrhea no dysuria, hematuria or frequency no focal joint pain or swelling no back pain, CVA tenderness or radicular pain no bruising, bleeding or rashes no focal signs of weakness or numbness or altered sensation no complaints of anxiety or depression.. Physical Exam Physical Exam: The patient appeared mild to moderate respiratory distress Vital signs as documented. Head exam is normocephalic atraumatic Neck is without JVD, thyromegaly, or carotid bruits. Lungs are coarse bilaterally in all lung rodriguez tachypnea no cyanosis noted Cardiac exam, Rhythm is regular.. No murmurs, rubs or gallops. Abdominal exam reveals normal bowel sounds, soft non tender, no masses Extremities are nonedematous and both pedal pulses are present Neurologic exam is alert and oriented, no focal loss of strength or sensation Skin is without bruises or rashes Psychologically is without concerns for anxiety or depression.. Results & Data Results & Data ([facility]) Vital Signs (Past 12 Hours) Vital Signs Temp Pulse Pulse Resp BP Pulse Ox 06/24/21 08:09 97.5 F L 74 20 108/72 91 06/24/21 07:29 75 26 H 83 L 06/24/21 04:12 97.9 F 71 18 92/58 L 93 06/23/21 23:36 97.5 F L 78 20 90/64 L 93 06/23/21 22:20 107 H PG Care Time/CCT Total # of Minutes Spent Total Time Spent with Patient: Total time spent is greater than 50% in coordination of care (as documented) at patient's floor/unit and/or counseling patient: Coding Level of Care Code 21313 Subseq Hosp Care Lvl 3 Diagnoses COVID-19 U07.1 Multifocal pneumonia J18.9 Hypoxemia R09.02 Hyperlipidemia E78.5 COPD (chronic obstructive pulmonary disease) J44.9 CAD (coronary artery disease) I25.10 Hypothyroidism E03.9 Hyponatremia E87.1 GERD (gastroesophageal reflux disease) K21.9 Constipation K59.00
[2021-06-24] MEDS: DEXTROMETHORPHAN POLYMR COMPLX 30 MG/5 ML UDP PO PRN ×2 (08:30→20:08)
[2021-06-24] MEDS: SUCRALFATE 1 GM/10 ML UDC PO SCH ×4 (08:30→20:09)
[2021-06-24] MEDS: PANTOprazole 40 MG TAB PO SCH (08:31)
[2021-06-24] MEDS: guaiFENesin 600 MG TABCR PO SCH ×2 (08:31→20:09)
[2021-06-24] MEDS: DOCUSATE SODIUM/SENNA 50/8.6MG TAB PO SCH (08:31)
[2021-06-24] MEDS: dexAMETHasone 6 MG in SYRINGE 0 ML IV SCH ×2 (08:32→20:08)
[2021-06-24] MEDS: POT PHOSPHATE MONOBASIC W/ SOD TAB PO SCH ×4 (08:32→20:07)
[2021-06-24] MEDS: CHOLECALCIFEROL 1,000 UNITS 25 MCG TAB PO SCH (08:32)
[2021-06-24] MEDS: ENOXAPARIN INJ 40 MG/0.4 ML SYR SQ SCH ×2 (08:32→20:10)
[2021-06-24] MEDS: UMECLIDINIUM/VILANTEROL 62.5/25MCG 7 PUFFS/INHALER INH SCH (08:33)
[2021-06-24] MEDS: FLUTICASONE PROPIONATE NA SPR 16 GM BTL SCH ×2 (08:33→20:10)
[2021-06-24] MEDS: NYSTATIN SUSP 500,000 U/5 ML UDC PO SCH ×3 (08:33→20:10)
[2021-06-24] MEDS: POLYETHYLENE (MIRALAX) 17 GM PACK PO SCH (08:33)
[2021-06-24] MEDS: CLOPIDOGREL BISULFATE 75 MG TAB PO SCH (20:08)
[2021-06-24] MEDS: ACETAMINOPHEN 500 MG TAB PO PRN (20:08)
[2021-06-24] MEDS: ATORVASTATIN 40 MG TAB PO SCH (20:09)
[2021-06-24] MEDS: ASPIRIN 81 MG CHEW PO SCH (20:09)
[2021-06-24] MEDS: METOPROLOL TARTRATE 25 MG TAB PO SCH (20:12)
[2021-06-24] MEDS ORDERED: QUEtiapine FUMARATE 25 MG TABLET PO SCH (21:00)
[2021-06-25] MEDS: LEVOTHYROXINE SODIUM 50 MCG TABLET PO SCH (06:26)
--- NOTE | 2021-06-25 07:23 | Hospitalist Progress Note ---
Date of Service June 25, 2021 Assessment & Plan (1) COVID-19: Plan: COVID-19 multifocal pneumonia/COPD/withhypoxia Initial Covid + 05/31/2021 Covid - 05/27/2021 oxygen requirement is still high, will discuss with vapotherm 06/25/21 PCT previously negative, MRSA swab negative, no indication for antibiotics 06/23/21 CTA negative for PE Completed high-dose Dex 20 mg x 5 days followed by 10 mg x 1 week-> now on 6 mg Lasix daily to promote dry status CXR 06/14 progressively worsened CRP downtrended to normal 06/19. -Given elevated CRP resume decadron 6 mg daily repeat course started 06/23/21 resume lasix 06/25/21 recheck cxr 06/25/21 (2) Multifocal pneumonia: Plan: now worsened respiratory distress, repeat Procalcition does not support bacterial sepsis, (3) Hypoxemia: Plan: increased respiratory demands, could be copd exacerbation (4) Hyperlipidemia: Plan: Continue atorvastatin 40 mg daily, ASA (5) COPD (chronic obstructive pulmonary disease): Plan: See above continue DUonebs, steroids, O2 (6) CAD (coronary artery disease): Plan: -With a history of proximal LAD and mid left circumflex stents -Most recent cardiac catheterization on performed for abnormal pharmacologic nuclear stress test revealed nonobstructive disease of the LAD and widely patent stents, slow flow in the RCA without significant obstruction suggesting microvascular disease -Continue medical management - No acute issues - Continue metoprolol and aspirin, Plavix, atorvastatin (7) Hypothyroidism: Plan: TSH here normal continue LT4 at home dose (8) Hyponatremia: Plan: - Initially sodium dropped to 131 and stable there for many days ?volume overload, however seemed to be worsening with diuresis - Urine sodium 29, urine osmolality elevated at 340 suggestive of SIADH - improved with Recommended fluid restriction pt adamantly refused as he likes to drink almost 4 L a day of water. Agreeable to cutting this down to 2-3 L of water per day. Asymptomatic with Na >130, will follow with labwork at this time. - Restarted Lasix 40 mg p.o. daily. Held x1 dose for high ratio and CTA, - Na remains slightly hyponatremic but stable (9) GERD (gastroesophageal reflux disease): Plan: Continue PPI Previously treated with PPI/Carafate with improvement in epigastric symptoms (10) Constipation: Plan: Improved - Continue on MiraLAX daily - Continue on senna/docusate 1 tab daily Plan: DVT proph-Lovenox 40 mg twice daily, CTA eval as above Dispo- continued stay on tele, appreciative of updates by phone Admission and Anticipated Discharge Date Admission Date: June 08, 2021 Subjective Patient was seen in his room he is walking about he was on 15 L oxygen mask. The patient continues desaturating with walking about, only slightly tachypneic was not cyanotic. The patient continues to voice a strong will and desire to come home or make at home. He is full of energy and is happy that he can walk about his room. He is having a cough occasionally productive of a brown-reddish mucus otherwise has no other complaints or concerns. we were able to do get some nasal mucus out which helps pt feel he can breath easier Review of Systems Review of Systems: Moderate distress and fatigue no headache, no visual changes no speech or swallowing issues no chest pain, pressure or palpitations Continue shortness of breath, productive cough or wheezes no abdominal pain, nausea or vomiting, no diarrhea no dysuria, hematuria or frequency no focal joint pain or swelling no back pain, CVA tenderness or radicular pain no bruising, bleeding or rashes no focal signs of weakness or numbness or altered sensation no complaints of anxiety or depression.. Physical Exam Physical Exam: The patient appeared mild to moderate respiratory distress Vital signs as documented. Head exam is normocephalic atraumatic Neck is without JVD, thyromegaly, or carotid bruits. Lungs are coarse bilaterally in all lung rodriguez tachypnea no cyanosis noted Cardiac exam, Rhythm is regular.. No murmurs, rubs or gallops. Abdominal exam reveals normal bowel sounds, soft non tender, no masses Extremities are nonedematous and both pedal pulses are present Neurologic exam is alert and oriented, no focal loss of strength or sensation Skin is without bruises or rashes Psychologically is without concerns for anxiety or depression.. Results & Data Results & Data ([facility]) Vital Signs (Past 12 Hours) Vital Signs Temp Pulse Pulse Resp BP Pulse Ox 06/25/21 07:12 98.3 F 06/25/21 07:09 71 22 138/90 88 L 06/25/21 03:01 97.9 F 80 20 129/76 90 06/25/21 01:52 92 06/25/21 01:41 95 06/25/21 00:01 94 06/24/21 23:53 96 06/24/21 23:21 97 06/24/21 22:57 97.9 F 83 20 128/77 98 06/24/21 22:20 88 PG Care Time/CCT Total # of Minutes Spent Total Time Spent with Patient: Total time spent is greater than 50% in coordination of care (as documented) at patient's floor/unit and/or counseling patient: Coding Level of Care Code 31870 Subseq Hosp Care Lvl 3 Diagnoses COVID-19 U07.1 Multifocal pneumonia J18.9 Hypoxemia R09.02 Hyperlipidemia E78.5 COPD (chronic obstructive pulmonary disease) J44.9 CAD (coronary artery disease) I25.10 Hypothyroidism E03.9 Hyponatremia E87.1 GERD (gastroesophageal reflux disease) K21.9 Constipation K59.00
[2021-06-25] MEDS: SODIUM CHLOR 7% 4 ML NEB NEB SCH (07:44)
[2021-06-25] MEDS: SODIUM CHLORIDE 0.65% NA SOLN 45 ML (OCEAN) NAE PRN (08:33)
[2021-06-25] MEDS: ACETAMINOPHEN 500 MG TAB PO PRN ×2 (08:35→18:48)
[2021-06-25] MEDS: UMECLIDINIUM/VILANTEROL 62.5/25MCG 7 PUFFS/INHALER INH SCH (08:39)
[2021-06-25] MEDS: SUCRALFATE 1 GM/10 ML UDC PO SCH ×4 (08:40→20:05)
[2021-06-25] MEDS: guaiFENesin 600 MG TABCR PO SCH ×2 (08:40→20:04)
[2021-06-25] MEDS: DOCUSATE SODIUM/SENNA 50/8.6MG TAB PO SCH (08:41)
[2021-06-25] MEDS: PANTOprazole 40 MG TAB PO SCH (08:41)
[2021-06-25] MEDS: dexAMETHasone 6 MG in SYRINGE 0 ML IV SCH ×2 (08:41→20:06)
[2021-06-25] MEDS: CHOLECALCIFEROL 1,000 UNITS 25 MCG TAB PO SCH (08:41)
[2021-06-25] MEDS: ENOXAPARIN INJ 40 MG/0.4 ML SYR SQ SCH ×2 (08:41→20:05)
[2021-06-25] MEDS: POLYETHYLENE (MIRALAX) 17 GM PACK PO SCH (08:41)
[2021-06-25] MEDS: FLUTICASONE PROPIONATE NA SPR 16 GM BTL SCH ×2 (08:42→20:07)
[2021-06-25] MEDS: NYSTATIN SUSP 500,000 U/5 ML UDC PO SCH ×4 (08:42→20:17)
[2021-06-25] MEDS: POT PHOSPHATE MONOBASIC W/ SOD TAB PO SCH ×4 (08:45→20:01)
--- NOTE | 2021-06-25 08:58 | XRay Report ---
XR chest 1V portable CLINICAL HISTORY: look for progression of ground glass infilt. Follow-up alveolar opacities COMPARISON STUDY: 06/20/2021 TECHNIQUE: 1 view of the chest FINDINGS: Single frontal view of the chest demonstrates the cardiomediastinal silhouette to be within normal li mits. Compared to previous examination, there has been partial resolution of alveolar opacities bilat erally, left greater than right. No new alveolar opacities are identified. There is no evidence for p leural effusion. There is no evidence for vascular congestion. There is no acute osseous pathology. IMPRESSION: Partial interval resolution of alveolar opacities, left greater than right. No new alveol ar opacities are seen. ACT 112: Negative or not required by law. Electronically signed by: Abdirashid Escobar M.D. 06/25/2021 8:56 AM
[2021-06-25] MEDS: QUEtiapine FUMARATE 25 MG TABLET PO SCH (20:00)
[2021-06-25] MEDS: DEXTROMETHORPHAN POLYMR COMPLX 30 MG/5 ML UDP PO PRN (20:02)
[2021-06-25] MEDS: ASPIRIN 81 MG CHEW PO SCH (20:03)
[2021-06-25] MEDS: METOPROLOL TARTRATE 25 MG TAB PO SCH (20:03)
[2021-06-25] MEDS: ATORVASTATIN 40 MG TAB PO SCH (20:03)
[2021-06-25] MEDS: CLOPIDOGREL BISULFATE 75 MG TAB PO SCH (20:07)
[2021-06-26] MEDS: LEVOTHYROXINE SODIUM 50 MCG TABLET PO SCH (06:40)
[2021-06-26] MEDS: ACETAMINOPHEN 500 MG TAB PO PRN ×2 (06:46→21:46)
--- NOTE | 2021-06-26 07:06 | Hospitalist Progress Note ---
Date of Service June 26, 2021 Assessment & Plan (1) COVID-19: Plan: COVID-19 multifocal pneumonia/COPD/withhypoxia Initial Covid + 05/31/2021 Covid - 05/27/2021 oxygen requirement is still high, will discuss with vapotherm 06/25/21 did not want to use this feels his nose is chronically stuffed up PCT previously negative, MRSA swab negative, no indication for antibiotics 06/23/21 CTA negative for PE Completed high-dose Dex 20 mg x 5 days followed by 10 mg x 1 week-> now on 6 mg Lasix daily to promote dry status CXR 06/14 progressively worsened CRP downtrended to normal 06/19. -Given elevated CRP resume decadron 6 mg daily repeat course started 06/23/21 resume lasix 06/25/21 recheck cxr 06/25/21 improvement in appearance but overall (2) Multifocal pneumonia: Plan: now worsened respiratory distress, repeat Procalcition does not support bacterial sepsis, (3) Hypoxemia: Plan: increased respiratory demands, could be copd exacerbation (4) Hyperlipidemia: Plan: Continue atorvastatin 40 mg daily, ASA (5) COPD (chronic obstructive pulmonary disease): Plan: See above continue DUonebs, steroids, O2 (6) CAD (coronary artery disease): Plan: -With a history of proximal LAD and mid left circumflex stents -Most recent cardiac catheterization on performed for abnormal pharmacologic nuclear stress test revealed nonobstructive disease of the LAD and widely patent stents, slow flow in the RCA without significant obstruction suggesting microvascular disease -Continue medical management - No acute issues - Continue metoprolol and aspirin, Plavix, atorvastatin (7) Hypothyroidism: Plan: TSH here normal continue LT4 at home dose (8) Hyponatremia: Plan: - Initially sodium dropped to 131 and stable there for many days ?volume overload, however seemed to be worsening with diuresis - Urine sodium 29, urine osmolality elevated at 340 suggestive of SIADH - improved with Recommended fluid restriction pt adamantly refused as he likes to drink almost 4 L a day of water. Agreeable to cutting this down to 2-3 L of water per day. Asymptomatic with Na >130, will follow - Restarted Lasix 40 mg p.o. daily. Held x1 dose for high ratio and CTA, - Na remains slightly hyponatremic but stable (9) GERD (gastroesophageal reflux disease): Plan: Continue PPI Previously treated with PPI/Carafate with improvement in epigastric symptoms (10) Constipation: Plan: Improved - Continue on MiraLAX daily - Continue on senna/docusate 1 tab daily Plan: DVT proph-Lovenox 40 mg twice daily, CTA eval negative for pe significant oxygen requirement and desaturations are needs to keep in pcu Admission and Anticipated Discharge Date Admission Date: June 08, 2021 Subjective this pt still continues to be positive, still with high oxygen requirements and desaturates when speaking or moving about the room. Review of Systems Review of Systems: Moderate distress and fatigue no headache, no visual changes no speech or swallowing issues no chest pain, pressure or palpitations Continue shortness of breath, productive cough but lessening or wheezes no abdominal pain, nausea or vomiting, no diarrhea no dysuria, hematuria or frequency no focal joint pain or swelling no back pain, CVA tenderness or radicular pain no bruising, bleeding or rashes no focal signs of weakness or numbness or altered sensation no complaints of anxiety or depression.. Physical Exam Physical Exam: The patient continues to appear to be in mild to moderate respiratory distress Vital signs as documented. Head exam is normocephalic atraumatic Neck is without JVD, thyromegaly, or carotid bruits. Lungs are coarse bilaterally in all lung rodriguez tachypnea no cyanosis noted Cardiac exam, Rhythm is regular.. No murmurs, rubs or gallops. Abdominal exam reveals normal bowel sounds, soft non tender, no masses Extremities are nonedematous and both pedal pulses are present Neurologic exam is alert and oriented, no focal loss of strength or sensation Skin is without bruises or rashes Psychologically is without concerns for anxiety or depression. Results & Data Results & Data ([facility]) Vital Signs (Past 12 Hours) Vital Signs Temp Pulse Pulse Pulse Resp BP Pulse Ox 06/26/21 04:33 90 06/26/21 03:27 97.7 F 81 24 122/77 92 06/25/21 23:10 97.9 F 95 H 28 H 136/79 90 06/25/21 19:26 98.2 F 92 H 20 124/78 91 PG Care Time/CCT Total # of Minutes Spent Total Time Spent with Patient: Total time spent is greater than 50% in coordination of care (as documented) at patient's floor/unit and/or counseling patient: Coding Level of Care Code 85757 Subseq Hosp Care Lvl 3 Diagnoses COVID-19 U07.1 Multifocal pneumonia J18.9 Hypoxemia R09.02 Hyperlipidemia E78.5 COPD (chronic obstructive pulmonary disease) J44.9 CAD (coronary artery disease) I25.10 Hypothyroidism E03.9 Hyponatremia E87.1 GERD (gastroesophageal reflux disease) K21.9 Constipation K59.00
[2021-06-26] MEDS: dexAMETHasone 6 MG in SYRINGE 0 ML IV SCH ×2 (09:02→22:10)
[2021-06-26] MEDS: POT PHOSPHATE MONOBASIC W/ SOD TAB PO SCH ×4 (09:02→21:48)
[2021-06-26] MEDS: UMECLIDINIUM/VILANTEROL 62.5/25MCG 7 PUFFS/INHALER INH SCH (09:02)
[2021-06-26] MEDS: DOCUSATE SODIUM/SENNA 50/8.6MG TAB PO SCH (09:03)
[2021-06-26] MEDS: CHOLECALCIFEROL 1,000 UNITS 25 MCG TAB PO SCH (09:03)
[2021-06-26] MEDS: ENOXAPARIN INJ 40 MG/0.4 ML SYR SQ SCH ×2 (09:04→21:48)
[2021-06-26] MEDS: PANTOprazole 40 MG TAB PO SCH (09:04)
[2021-06-26] MEDS: guaiFENesin 600 MG TABCR PO SCH ×2 (09:04→21:51)
[2021-06-26] MEDS: FLUTICASONE PROPIONATE NA SPR 16 GM BTL SCH ×2 (09:04→21:51)
[2021-06-26] MEDS: NYSTATIN SUSP 500,000 U/5 ML UDC PO SCH ×3 (09:04→13:03)
[2021-06-26] MEDS: POLYETHYLENE (MIRALAX) 17 GM PACK PO SCH (09:04)
[2021-06-26] MEDS: SUCRALFATE 1 GM/10 ML UDC PO SCH ×4 (09:05→21:48)
[2021-06-26 14:34] LABS: BUN Creatinine Ratio 26.6 (10-20); Calcium 8.6 mg/dl (8.5-10.1); Creatinine Clr Calc Pharmacy 59.7 ml/min; Est GFR (African American) 94.2 ml/min; Est GFR (Non-African American) 81.2 ml/min; Magnesium 1.9 mg/dl (1.7-2.4); Potassium 4.6 mmol/L (3.5-5.1)
[2021-06-26] MEDS: DEXTROMETHORPHAN POLYMR COMPLX 30 MG/5 ML UDP PO PRN (21:47)
[2021-06-26] MEDS: CLOPIDOGREL BISULFATE 75 MG TAB PO SCH (21:49)
[2021-06-26] MEDS: QUEtiapine FUMARATE 25 MG TABLET PO SCH (21:49)
[2021-06-26] MEDS: METOPROLOL TARTRATE 25 MG TAB PO SCH (21:50)
[2021-06-26] MEDS: ASPIRIN 81 MG CHEW PO SCH (21:51)
[2021-06-26] MEDS: ATORVASTATIN 40 MG TAB PO SCH (21:51)
[2021-06-27] MEDS: LEVOTHYROXINE SODIUM 50 MCG TABLET PO SCH (05:46)
[2021-06-27] MEDS ORDERED: GLUCOSE 10 TABS/TUBE PO PRN (08:16)
[2021-06-27] MEDS ORDERED: DEXTROSE 50% 50 ML SYRINGE IV PRN (08:16)
[2021-06-27] MEDS ORDERED: GLUCOSE 40% GEL 15 GM TUBE PO PRN (08:16)
[2021-06-27] MEDS ORDERED: CARBOHYDRATES FOR HYPOGLYCEMIA PO PRN (08:16)
[2021-06-27] MEDS ORDERED: GLUCAGON FOR INJ 1 MG VIAL SQ PRN (08:16)
[2021-06-27] MEDS ORDERED: dexAMETHasone 6 MG in SYRINGE 0 ML IV SCH (09:00)
[2021-06-27] MEDS: ENOXAPARIN INJ 40 MG/0.4 ML SYR SQ SCH ×2 (09:03→21:02)
[2021-06-27] MEDS: CHOLECALCIFEROL 1,000 UNITS 25 MCG TAB PO SCH (09:04)
[2021-06-27] MEDS: guaiFENesin 600 MG TABCR PO SCH ×2 (09:04→21:04)
[2021-06-27] MEDS: POLYETHYLENE (MIRALAX) 17 GM PACK PO SCH (09:04)
[2021-06-27] MEDS: DOCUSATE SODIUM/SENNA 50/8.6MG TAB PO SCH (09:04)
[2021-06-27] MEDS: POT PHOSPHATE MONOBASIC W/ SOD TAB PO SCH ×4 (09:04→20:56)
[2021-06-27] MEDS: PANTOprazole 40 MG TAB PO SCH (09:05)
[2021-06-27] MEDS: UMECLIDINIUM/VILANTEROL 62.5/25MCG 7 PUFFS/INHALER INH SCH (09:06)
[2021-06-27] MEDS: SUCRALFATE 1 GM/10 ML UDC PO SCH ×4 (09:06→22:01)
[2021-06-27] MEDS: FLUTICASONE PROPIONATE NA SPR 16 GM BTL SCH ×2 (09:07→22:00)
[2021-06-27] MEDS: DEXTROMETHORPHAN POLYMR COMPLX 30 MG/5 ML UDP PO PRN ×3 (09:21→21:13)
[2021-06-27] MEDS: INSULIN ASPART PER UNIT SC SCH ×3 (12:16→22:06)
--- NOTE | 2021-06-27 16:17 | Hospitalist Progress Note ---
Date of Service June 27, 2021 Assessment & Plan (1) COVID-19: Plan: COVID-19 multifocal pneumonia/COPD/withhypoxia Initial Covid + 05/31/2021 Covid - 05/27/2021 oxygen requirement is still high, will discuss with vapotherm 06/25/21 did not want to use this feels his nose is chronically stuffed up PCT previously negative, MRSA swab negative, no indication for antibiotics 06/23/21 CTA negative for PE Completed high-dose Dex 20 mg x 5 days followed by 10 mg x 1 week-> now on 6 mg Lasix daily to promote dry status CXR 06/14 progressively worsened CRP downtrended to normal 06/19. -Given elevated CRP resume decadron 6 mg daily repeat course started 06/23/21 resume lasix 06/25/21 recheck cxr 06/25/21 improvement in appearance but overall (2) Multifocal pneumonia: Plan: now worsened respiratory distress, repeat Procalcition does not support bacterial sepsis, (3) Hypoxemia: Plan: increased respiratory demands, could be copd exacerbation (4) Hyperlipidemia: Plan: Continue atorvastatin 40 mg daily, ASA (5) COPD (chronic obstructive pulmonary disease): Plan: See above continue DUonebs, steroids, O2 (6) CAD (coronary artery disease): Plan: -With a history of proximal LAD and mid left circumflex stents -Most recent cardiac catheterization on performed for abnormal pharmacologic nuclear stress test revealed nonobstructive disease of the LAD and widely patent stents, slow flow in the RCA without significant obstruction suggesting microvascular disease -Continue medical management - No acute issues - Continue metoprolol and aspirin, Plavix, atorvastatin (7) Hypothyroidism: Plan: TSH here normal continue LT4 at home dose (8) Hyponatremia: Plan: - Initially sodium dropped to 131 and stable there for many days ?volume overload, however seemed to be worsening with diuresis - Urine sodium 29, urine osmolality elevated at 340 suggestive of SIADH - improved with Recommended fluid restriction pt adamantly refused as he likes to drink almost 4 L a day of water. Agreeable to cutting this down to 2-3 L of water per day. Asymptomatic with Na >130, will follow - Restarted Lasix 40 mg p.o. daily. Held x1 dose for high ratio and CTA, - Na remains slightly hyponatremic but stable (9) GERD (gastroesophageal reflux disease): Plan: Continue PPI Previously treated with PPI/Carafate with improvement in epigastric symptoms (10) Constipation: Plan: Improved - Continue on MiraLAX daily - Continue on senna/docusate 1 tab daily Plan: DVT proph-Lovenox 40 mg twice daily, CTA eval negative for pe significant oxygen requirement and desaturations are needs to keep in pcu Admission and Anticipated Discharge Date Admission Date: June 08, 2021 Subjective this pt still continues to be positive, still with high oxygen requirements and desaturates when speaking or moving about the room. Review of Systems Review of Systems: Moderate distress and fatigue no headache, no visual changes no speech or swallowing issues no chest pain, pressure or palpitations Continue shortness of breath, productive cough but lessening or wheezes no abdominal pain, nausea or vomiting, no diarrhea no dysuria, hematuria or frequency no focal joint pain or swelling no back pain, CVA tenderness or radicular pain no bruising, bleeding or rashes no focal signs of weakness or numbness or altered sensation no complaints of anxiety or depression.. Physical Exam Physical Exam: The patient continues to appear to be in mild to moderate respiratory distress Vital signs as documented. Head exam is normocephalic atraumatic Neck is without JVD, thyromegaly, or carotid bruits. Lungs are coarse bilaterally in all lung rodriguez tachypnea no cyanosis noted Cardiac exam, Rhythm is regular.. No murmurs, rubs or gallops. Abdominal exam reveals normal bowel sounds, soft non tender, no masses Extremities are nonedematous and both pedal pulses are present Neurologic exam is alert and oriented, no focal loss of strength or sensation Skin is without bruises or rashes Psychologically is without concerns for anxiety or depression. Results & Data Results & Data ([facility]) Vital Signs (Past 12 Hours) Vital Signs Temp Pulse Pulse Pulse Resp BP BP 06/27/21 16:13 97.5 F L 122 H 24 138/82 06/27/21 12:05 97.9 F 78 20 115/79 06/27/21 07:30 97.5 F L 56 L 20 134/86 06/27/21 07:21 85 Pulse Ox 06/27/21 16:13 88 L 06/27/21 12:05 89 L 06/27/21 07:30 94 06/27/21 07:21 PG Care Time/CCT Total # of Minutes Spent Total Time Spent with Patient: Total time spent is greater than 50% in coordination of care (as documented) at patient's floor/unit and/or counseling patient: Coding Level of Care Code 05652 Subseq Hosp Care Lvl 2 Diagnoses COVID-19 U07.1 Multifocal pneumonia J18.9 Hypoxemia R09.02 Hyperlipidemia E78.5 COPD (chronic obstructive pulmonary disease) J44.9 CAD (coronary artery disease) I25.10 Hypothyroidism E03.9 Hyponatremia E87.1 GERD (gastroesophageal reflux disease) K21.9 Constipation K59.00
[2021-06-27] MEDS ORDERED: INSULIN HUMAN NPH SC ONE (19:19)
[2021-06-27] MEDS: dexAMETHasone 6 MG in SYRINGE 0 ML IV SCH (20:51)
[2021-06-27] MEDS: METOPROLOL TARTRATE 25 MG TAB PO SCH (20:53)
[2021-06-27] MEDS: CLOPIDOGREL BISULFATE 75 MG TAB PO SCH (21:04)
[2021-06-27] MEDS: ASPIRIN 81 MG CHEW PO SCH (21:05)
[2021-06-27] MEDS: ATORVASTATIN 40 MG TAB PO SCH (21:05)
[2021-06-27] MEDS: QUEtiapine FUMARATE 25 MG TABLET PO SCH (22:00)
[2021-06-27] MEDS: ACETAMINOPHEN 500 MG TAB PO PRN (22:59)
[2021-06-28] MEDS: LEVOTHYROXINE SODIUM 50 MCG TABLET PO SCH (05:59)
[2021-06-28 07:35] LABS: Hematocrit (blood only) 43.8 % (42-52); Mean Corpuscular Hemoglobin 32.3 pg (25-34); Mean Corpuscular Hgb Conc 34.2 g/dL (32-36); Mean Corpuscular Volume 94.2 fL (80-100); Mean Platelet Volume 10.7 fL (7.4-10.4); Platelet Count 155 K/uL (130-400); RDW Coefficient of Variation 13.9 % (11.5-14.5); RDW Standard Deviation 47.4 fL (36.4-46.3); Red Blood Count 4.65 M/uL (4.7-6.1); White Blood Count 10.89 K/uL (4.8-10.8)
[2021-06-28 08:00] LABS: BUN Creatinine Ratio 32.9 (10-20); Calcium 8.5 mg/dl (8.5-10.1); Creatinine Clr Calc Pharmacy 65.9 ml/min; Est GFR (African American) 100.9 ml/min; Est GFR (Non-African American) 87.1 ml/min; Potassium 4.4 mmol/L (3.5-5.1)
[2021-06-28] MEDS: ACETAMINOPHEN 500 MG TAB PO PRN ×2 (08:11→21:02)
[2021-06-28] MEDS: INSULIN ASPART PER UNIT SC SCH ×4 (08:52→20:47)
[2021-06-28] MEDS: ENOXAPARIN INJ 40 MG/0.4 ML SYR SQ SCH ×2 (09:51→21:01)
[2021-06-28] MEDS: guaiFENesin 600 MG TABCR PO SCH ×2 (09:52→21:05)
[2021-06-28] MEDS: dexAMETHasone 6 MG in SYRINGE 0 ML IV SCH ×2 (09:52→21:04)
[2021-06-28] MEDS: METOPROLOL TARTRATE 25 MG TAB PO SCH ×2 (09:53→21:09)
[2021-06-28] MEDS: POT PHOSPHATE MONOBASIC W/ SOD TAB PO SCH ×4 (09:56→21:04)
[2021-06-28] MEDS: UMECLIDINIUM/VILANTEROL 62.5/25MCG 7 PUFFS/INHALER INH SCH (09:57)
[2021-06-28] MEDS: POLYETHYLENE (MIRALAX) 17 GM PACK PO SCH (09:57)
[2021-06-28] MEDS: DOCUSATE SODIUM/SENNA 50/8.6MG TAB PO SCH (09:58)
[2021-06-28] MEDS: CHOLECALCIFEROL 1,000 UNITS 25 MCG TAB PO SCH (09:58)
[2021-06-28] MEDS: SUCRALFATE 1 GM/10 ML UDC PO SCH ×4 (09:59→21:04)
[2021-06-28] MEDS: SODIUM CHLORIDE 0.65% NA SOLN 45 ML (OCEAN) NAE PRN (09:59)
[2021-06-28] MEDS: FLUTICASONE PROPIONATE NA SPR 16 GM BTL SCH ×2 (10:03→21:10)
[2021-06-28] MEDS: PANTOprazole 40 MG TAB PO SCH (10:04)
--- NOTE | 2021-06-28 10:39 | XRay Report ---
XR chest 1V portable CLINICAL HISTORY: covid, persistent hypoxia COMPARISON STUDY: Chest CT June 23, 2021. Chest radiograph June 25, 2021. FINDINGS: Postoperative findings within the spine are partially imaged. There is no pneumothorax or p leural effusion. Mild cardiomegaly is noted. Asymmetric airspace opacity and interstitial thickening within left lung is similar to prior exam of June 25, 2021. Mild right basilar opacity is present. The appearance of the chest is unchanged. Findings have slightly improved when compared to exam of [facility]2021. IMPRESSION: Asymmetric interstitial thickening and opacities within the left lung, similar to prior exam but impr john since study of June 19, 2021. The findings favor an infectious process superimposed upon emph ysema and interstitial lung disease. ACT 112: Negative or not required by law. Electronically signed by: Geoff Sutherland M.D. 06/28/2021 10:38 AM
[2021-06-28] MEDS ORDERED: INSULIN HUMAN NPH SC SCH (11:00)
--- NOTE | 2021-06-28 18:33 | Hospitalist Progress Note ---
Date of Service June 28, 2021 Assessment & Plan (1) COVID-19: Plan: COVID-19 multifocal pneumonia/COPD/with, acute on chronic respiratory failure with hypoxia Initial Covid + 05/31/2021 Covid - 05/27/2021 oxygen requirement is still high, pt is not too enthused about using vapotherm and trying this and nc plus oxymask. PCT previously negative, MRSA swab negative, no indication for antibiotics 06/23/21 CTA negative for PE Completed high-dose Dex 20 mg x 5 days followed by 10 mg x 1 week-> now on 6 mg Lasix daily to promote dry status CXR 06/14 progressively worsened CRP downtrended to normal 06/19. -Given elevated CRP resume decadron 6 mg daily repeat course started 06/23/21 resume lasix 06/25/21, attempt to increase dose recheck cxr 06/25/21 improvement in appearance but overall (2) Multifocal pneumonia: Plan: now worsened respiratory distress, repeat Procalcition does not support bacterial sepsis (3) Hypoxemia: Plan: increased respiratory demands, could be copd exacerbation (4) Hyperlipidemia: Plan: Continue atorvastatin 40 mg daily, ASA (5) COPD (chronic obstructive pulmonary disease): Plan: See above continue DUonebs, steroids, O2 (6) CAD (coronary artery disease): Plan: -With a history of proximal LAD and mid left circumflex stents -Most recent cardiac catheterization on performed for abnormal pharmacologic nuclear stress test revealed nonobstructive disease of the LAD and widely patent stents, slow flow in the RCA without significant obstruction suggesting microvascular disease will repeat Echo to see if pulmonary htn is part of his current issue with persistent hypoxia -Continue medical management - No acute issues - Continue metoprolol and aspirin, Plavix, atorvastatin (7) Hypothyroidism: Plan: TSH here normal continue LT4 at home dose (8) Hyponatremia: Plan: - Initially sodium dropped to 131 and stable there for many days ?volume overload, however seemed to be worsening with diuresis - Urine sodium 29, urine osmolality elevated at 340 suggestive of SIADH - improved with Recommended fluid restriction pt adamantly refused as he likes to drink almost 4 L a day of water. Agreeable to cutting this down to 2-3 L of water per day. Asymptomatic with Na >130, will follow - Restarted Lasix 40 mg p.o. daily. Held x1 dose for high ratio and CTA, - Na remains slightly hyponatremic but stable (9) GERD (gastroesophageal reflux disease): Plan: Continue PPI Previously treated with PPI/Carafate with improvement in epigastric symptoms (10) Constipation: Plan: Improved - Continue on MiraLAX daily - Continue on senna/docusate 1 tab daily Plan: DVT proph-Lovenox 40 mg twice daily, CTA eval negative for pe significant oxygen requirement and desaturations are needs to keep in pcu Admission and Anticipated Discharge Date Admission Date: June 08, 2021 Subjective this pt still continues to be positive, still with high oxygen requirements and desaturates when speaking or moving about the room. 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 case by pulminary plastic extrusion operator and asks to consider echo Review of Systems Review of Systems: Moderate distress and fatigue no headache, no visual changes no speech or swallowing issues no chest pain, pressure or palpitations Continue shortness of breath, productive cough but lessening or wheezes no abdominal pain, nausea or vomiting, no diarrhea no dysuria, hematuria or frequency no focal joint pain or swelling no back pain, CVA tenderness or radicular pain no bruising, bleeding or rashes no focal signs of weakness or numbness or altered sensation no complaints of anxiety or depression.. Physical Exam Physical Exam: The patient continues to appear to be in mild to moderate respiratory distress Vital signs as documented. Head exam is normocephalic atraumatic Neck is without JVD, thyromegaly, or carotid bruits. Lungs are coarse bilaterally in all lung rodriguez tachypnea no cyanosis noted Cardiac exam, Rhythm is regular.. No murmurs, rubs or gallops. Abdominal exam reveals normal bowel sounds, soft non tender, no masses Extremities are nonedematous and both pedal pulses are present Neurologic exam is alert and oriented, no focal loss of strength or sensation Skin is without bruises or rashes Psychologically is without concerns for anxiety or depression. Results & Data Results & Data ([facility]) Vital Signs (Past 12 Hours) Vital Signs Temp Pulse Pulse Resp BP BP Pulse Ox 06/28/21 15:54 98.1 F 89 20 122/85 90 06/28/21 15:53 91 06/28/21 15:03 33 L 20 91 02/09/22 11:48 82 22 135/93 93 06/28/21 10:44 84 22 94 06/28/21 10:42 85 06/28/21 08:02 97.5 F L 75 22 148/92 H 87 L 06/28/21 07:17 67 20 98 PG Care Time/CCT Total # of Minutes Spent Total Time Spent with Patient: Total time spent is greater than 50% in coordination of care (as documented) at patient's floor/unit and/or counseling patient: Coding Level of Care Code 35640 Subseq Hosp Care Lvl 3 Diagnoses COVID-19 U07.1 Multifocal pneumonia J18.9 Hypoxemia R09.02 Hyperlipidemia E78.5 COPD (chronic obstructive pulmonary disease) J44.9 CAD (coronary artery disease) I25.10 Hypothyroidism E03.9 Hyponatremia E87.1 GERD (gastroesophageal reflux disease) K21.9 Constipation K59.00
[2021-06-28] MEDS: QUEtiapine FUMARATE 25 MG TABLET PO SCH (21:05)
[2021-06-28] MEDS: ASPIRIN 81 MG CHEW PO SCH (21:06)
[2021-06-28] MEDS: CLOPIDOGREL BISULFATE 75 MG TAB PO SCH (21:06)
[2021-06-28] MEDS: ATORVASTATIN 40 MG TAB PO SCH (21:07)
[2021-06-28] MEDS: SODIUM CHLORIDE 0.65% NA SOLN 45 ML (OCEAN) PRN (21:08)
[2021-06-29] MEDS: LEVOTHYROXINE SODIUM 50 MCG TABLET PO SCH (06:31)
[2021-06-29] MEDS: guaiFENesin 600 MG TABCR PO SCH ×2 (08:28→21:07)
[2021-06-29] MEDS: DOCUSATE SODIUM/SENNA 50/8.6MG TAB PO SCH (08:28)
[2021-06-29] MEDS: CHOLECALCIFEROL 1,000 UNITS 25 MCG TAB PO SCH (08:29)
[2021-06-29] MEDS: dexAMETHasone 6 MG in SYRINGE 0 ML IV SCH ×2 (08:29→21:08)
[2021-06-29] MEDS: METOPROLOL TARTRATE 25 MG TAB PO SCH ×2 (08:31→21:06)
[2021-06-29] MEDS: PANTOprazole 40 MG TAB PO SCH (08:32)
[2021-06-29] MEDS: SUCRALFATE 1 GM/10 ML UDC PO SCH ×4 (08:32→21:09)
[2021-06-29] MEDS: POT PHOSPHATE MONOBASIC W/ SOD TAB PO SCH ×4 (08:33→21:09)
[2021-06-29] MEDS: UMECLIDINIUM/VILANTEROL 62.5/25MCG 7 PUFFS/INHALER INH SCH (08:34)
[2021-06-29] MEDS: ENOXAPARIN INJ 40 MG/0.4 ML SYR SQ SCH ×2 (08:35→21:08)
[2021-06-29] MEDS: FLUTICASONE PROPIONATE NA SPR 16 GM BTL SCH ×2 (08:36→21:11)
[2021-06-29] MEDS: ACETAMINOPHEN 500 MG TAB PO PRN ×2 (08:37→21:04)
[2021-06-29] MEDS: INSULIN ASPART PER UNIT SC SCH ×4 (08:40→21:30)
[2021-06-29] MEDS: POLYETHYLENE (MIRALAX) 17 GM PACK PO SCH (09:23)
[2021-06-29] MEDS: FUROSEMIDE 40 MG TAB PO SCH (09:23)
--- NOTE | 2021-06-29 16:27 | Hospitalist Progress Note ---
Date of Service June 29, 2021 Assessment & Plan (1) COVID-19: Plan: COVID-19 multifocal pneumonia/COPD/with, acute on chronic respiratory failure with hypoxia Initial Covid + 05/31/2021 Covid - 05/27/2021 oxygen requirement is still high, pt is not too enthused about using vapotherm and trying this and nc plus oxymask. PCT previously negative, MRSA swab negative, no indication for antibiotics 06/23/21 CTA negative for PE Completed high-dose Dex 20 mg x 5 days followed by 10 mg x 1 week-> now on 6 mg bid Lasix daily to promote dry status CXR 06/14 progressively worsened CRP downtrended to normal 06/19. -Given elevated CRP resume decadron 6 mg daily repeat course started 06/23/21 Echo with severe pulmonary HTN, will continue daily diuresis and follow electrolytes recheck cxr 06/25/21 improvement in appearance but overall (2) Multifocal pneumonia: Plan: now worsened respiratory distress, repeat Procalcition was not significantly elevated (3) Hypoxemia: Plan: increased respiratory demands, could be copd exacerbation, does have history of restrictive lung disease and decreased DLCO, severe pulmonary htn, started diuresis (4) Hyperlipidemia: Plan: Continue atorvastatin 40 mg daily, ASA (5) COPD (chronic obstructive pulmonary disease): Plan: See above continue DUonebs, steroids, O2 (6) CAD (coronary artery disease): Plan: -With a history of proximal LAD and mid left circumflex stents -Most recent cardiac catheterization on performed for abnormal pharmacologic nuclear stress test revealed nonobstructive disease of the LAD and widely patent stents, slow flow in the RCA without significant obstruction suggesting microvascular disease repeat Echo severe pulmonary htn continue daily diuresis -Continue medical management - No acute issues - Continue metoprolol and aspirin, Plavix, atorvastatin (7) Hypothyroidism: Plan: TSH here normal continue LT4 at home dose (8) Hyponatremia: Plan: - Initially sodium dropped to 131 and stable there for many days ?volume overload, however seemed to be worsening with diuresis - Urine sodium 29, urine osmolality elevated at 340 suggestive of SIADH - improved with Recommended fluid restriction pt adamantly refused as he likes to drink almost 4 L a day of water. Agreeable to cutting this down to 2-3 L of water per day. Asymptomatic with Na >130, will follow - Restarted Lasix 40 mg p.o. daily. Held x1 dose for high ratio and CTA, - Na remains slightly hyponatremic but stable (9) GERD (gastroesophageal reflux disease): Plan: Continue PPI Previously treated with PPI/Carafate with improvement in epigastric symptoms (10) Constipation: Plan: Improved - Continue on MiraLAX daily - Continue on senna/docusate 1 tab daily Plan: DVT proph-Lovenox 40 mg twice daily, CTA eval negative for pe significant oxygen requirement and desaturations are needs to keep in pcu Admission and Anticipated Discharge Date Admission Date: June 08, 2021 Subjective this pt still continues to be positive, still with high oxygen requirements and desaturates when speaking or moving about the room. is now able to be off isolation when room opens up outside of the covid unit and will have visit 06/28/21 on his birthday, pulmonary medicine consult recommends aggressive diure sis Review of Systems Review of Systems: Moderate distress and fatigue no headache, no visual changes no speech or swallowing issues no chest pain, pressure or palpitations Continue shortness of breath, productive cough but lessening or wheezes no abdominal pain, nausea or vomiting, no diarrhea no dysuria, hematuria or frequency no focal joint pain or swelling no back pain, CVA tenderness or radicular pain no bruising, bleeding or rashes no focal signs of weakness or numbness or altered sensation no complaints of anxiety or depression.. Physical Exam Physical Exam: The patient continues to appear to be in mild to moderate respiratory distress Vital signs as documented. Head exam is normocephalic atraumatic Neck is without JVD, thyromegaly, or carotid bruits. Lungs are coarse bilaterally in all lung rodriguez tachypnea no cyanosis noted Cardiac exam, Rhythm is regular.. No murmurs, rubs or gallops. Abdominal exam reveals normal bowel sounds, soft non tender, no masses Extremities are nonedematous and both pedal pulses are present Neurologic exam is alert and oriented, no focal loss of strength or sensation Skin is without bruises or rashes Psychologically is without concerns for anxiety or depression. Results & Data Results & Data ([facility]) Vital Signs (Past 12 Hours) Vital Signs Temp Pulse Pulse Resp BP Pulse Ox 06/29/21 15:57 97.5 F L 113 H 24 127/82 86 L 06/29/21 15:42 88 06/29/21 14:53 104 H 20 91 06/29/21 11:47 97.9 F 86 24 122/75 90 06/29/21 07:45 90 22 96 06/29/21 07:43 97.9 F 81 18 120/71 92 06/29/21 06:28 74 PG Care Time/CCT Total # of Minutes Spent Total Time Spent with Patient: Total time spent is greater than 50% in coordination of care (as documented) at patient's floor/unit and/or counseling patient: Coding Level of Care Code 74206 Subseq Hosp Care Lvl 2 Diagnoses COVID-19 U07.1 Multifocal pneumonia J18.9 Hypoxemia R09.02 Hyperlipidemia E78.5 COPD (chronic obstructive pulmonary disease) J44.9 CAD (coronary artery disease) I25.10 Hypothyroidism E03.9 Hyponatremia E87.1 GERD (gastroesophageal reflux disease) K21.9 Constipation K59.00
[2021-06-29] MEDS ORDERED: FUROSEMIDE 40 MG/4 ML VIAL IV ONE (17:38)
--- NOTE | 2021-06-29 17:55 | Pulmonary Consultation ---
Date of Consultation June 29, 2021 Assessment & Plan (1) Acute respiratory distress syndrome (ARDS) due to COVID-19 virus: Patient is severely hypoxemic and requiring continuous high flow oxygen. 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 He has evidence of digital clubbing likely related to his history of severe emphysema. His pulmonary function testing from prior was reviewed by me personally. Interestingly spirometric values were within normal limits, but his DLCO was severely reduced. I suspect that he has developed a component of possible RV failure given his prolonged hypoxemia and ARDS-like picture. We will start the patient on 40 mg IV Lasix in order proBNP to evaluate his fluid status. Please obtain an echocardiogram. I am not certain that there is much utility for continued steroids in this case as he is at risk for developing an opportunistic infection with higher doses of steroids. Would recommend tapering his steroids over the course of the next 1 to 2 weeks. Discussed with the bedside nurse and hospitalist. (2) Emphysema of lung: (3) Volume overload: Lasix as above (4) Acute hypoxemic respiratory failure due to COVID-19: Maintain sats of 88 to 92% given his history of emphysema. History of Present Illness Reason for Consultation: COVID-19 viral pneumonia and continued hypoxia Attending Physician: Christian Diaz MD History of Present Illness 71-year-old male with a past medical history of severe emphysema, tobacco abuse, coronary artery disease, GERD and hypothyroidism who has been in the hospital for COVID-19 viral pneumonia since early May. He remains her family hypoxemic and is currently on 80% FiO2 and 40 L of oxygen via the high flow nasal cannula. He complains of sinus congestion and shortness of breath with minimal exertion. He has a cough that is occasionally productive of sputum, but denies any fevers or chills. He relates that he was not on oxygen prior to COVID-19. He was followed in the pulmonary clinic and was on Stiolto which she relates did not help. He has had several CT scans of his chest which have demonstrated evidence of fibrotic changes related to COVID-19 viral pneumo lise which appears worse in the left lung. These fibrotic areas are superimposed on severe emphysema. He is currently on Decadron 6 mg twice daily. Allergies Allergy/AdvReac Type Severity Reaction Status Date / Time hornet venom Allergy Intermediate EXTRA Verified 06/08/21 18:32 SWELLING AT SITE tomato Allergy Intermediate HIVES Verified 06/08/21 18:32 codeine AdvReac Mild STOMACH Verified 06/08/21 18:32 PROBLEMS-ABD PAIN Home Medications Medication Instructions Recorded Confirmed Type aspirin 81 mg chewable tablet 81 mg PO HS 02/07/18 06/08/21 History clopidogrel 75 mg tablet (Plavix) 75 mg PO HS 02/07/18 06/08/21 History levothyroxine 50 mcg capsule 50 mcg PO QAM 02/07/18 06/08/21 History metoprolol tartrate 25 mg tablet 12.5 mg PO HS 09/10/18 06/08/21 History cholecalciferol (vitamin D3) 50 50 mcg PO Q OTHER DAY cap 02/02/20 06/08/21 History mcg (2,000 unit) capsule (Vitamin D3) cartilage 40 mg-collagen II 10 1 tab PO BID 11/24/20 06/08/21 History mg-boron 5 mg-hyaluronate 3.3 mg tablet ([employer]) nitroglycerin 0.4 mg sublingual 0.4 mg SUBLINGUAL USEASDIRECTD PRN 11/24/20 06/08/21 History tablet (Nitrostat) albuterol sulfate 90 mcg/actuation 2 puff INHALATION Q6H PRN #18 g 12/05/20 06/08/21 Rx aerosol inhaler atorvastatin 40 mg tablet (Lipitor) 40 mg PO HS 01/03/21 06/08/21 History melatonin 10 mg tablet 10 mg PO HS PRN 01/03/21 06/08/21 History tiotropium 2.5 mcg-olodaterol 2.5 2 puff INHALATION DAILY 01/03/21 06/08/21 History mcg/actuation mist for inhalation (Stiolto Respimat) diphenhydramine HCl 25 mg capsule 25 - 50 mg PO DIRECTED PRN 01/22/21 06/08/21 History (Benadryl) acetaminophen 500 mg tablet 1,000 mg PO BID 04/23/21 06/08/21 History (Tylenol Extra Strength) prednisone 20 mg tablet 20 mg PO .as directed #15 tab 05/30/21 06/08/21 Rx Patient History Medical History (Updated 06/29/21 @ 17:48 by Jem Ellsworth MD) Acute hypoxemic respiratory failure due to COVID-19 Acute respiratory distress syndrome (ARDS) due to COVID-19 virus Chronic kidney disease STAGE 3 Chronic obstructive pulmonary disease Emphysema of lung GERD (gastroesophageal reflux disease) Hyperlipidemia Hypertension Hypothyroidism Insomnia Myocardial Infarction 2008 Osteoarthritis Spinal stenosis Stomach ulcer Volume overload Surgical History Hammer toes of both feet History of arthroscopy KNEE History of cardiac cath History of colonoscopy History of endoscopic sinus surgery History of heart artery stent STENT X 06/2008 History of herniorrhaphy INGUINAL History of repair of rotator cuff RT History of surgery LEFT INDEX FINGER REPAIR History of tooth extraction Family History Brother Family history of diabetes mellitus Mother Family history of diabetes mellitus Social History Smoking Status: Former smoker Cigarettes Per Day: 40; Second Hand Exposure: No; Hx Alcohol Use: No Hx Substance Use: No Preferred Language: Polish Communication Ability: Effective Masonry Inspector Required: No Beliefs That Will Affect Care: None marital status: Current Living Situation: Spouse Feels Safe at Home: Yes Assistive Devices: Oxygen - Continuous Review of Systems Review of Systems: All systems reviewed & are unremarkable except as noted in HPI & below Physical Exam Physical Exam: Constitutional: Fatigued appearing male in no apparent distress. High flow nasal cannula in place along with oxime mask. Eyes: Pupils are equal round and reactive to light. Conjunctivae are normal. Anicteric sclera. Ears nose, mouth and throat: No obvious deformities. Neck: Trachea is midline. Visual inspection is normal. Respiratory: Crackles noted in the left lower lobe. Significant clubbing noted in the fingers bilaterally. Cardiovascular: Regular rate and rhythm. No murmurs. 2+ pitting edema in the lower extremities bilaterally. Gastrointestinal: Normal bowel sounds, soft, nontender and nondistended. No hepatosplenomegaly noted. Musculoskeletal: No cyanosis. Patient is able to move all extremities. Skin: No rashes, warm dry and intact. Neurologic: No obvious focal neurological deficits seen. Psychiatric: Alert and oriented x3 with a euthymic affect. Results & Data Results & Data ([facility]) Vital Signs (Past 12 Hours) Vital Signs Temp Pulse Pulse Resp BP Pulse Ox 06/29/21 15:57 36.4 C L 113 H 24 127/82 86 L 06/29/21 15:42 88 06/29/21 14:53 104 H 20 91 06/29/21 11:47 36.6 C 86 24 122/75 90 06/29/21 07:45 90 22 96 06/29/21 07:43 36.6 C 81 18 120/71 92 06/29/21 06:28 74 PG Care Time/CCT Total # of Minutes Spent Total Time Spent with Patient: Total time spent is greater than 50% in coordination of care (as documented) at patient's floor/unit and/or counseling patient: Coding Level of Care Code 18802 Initial Inpt Care Lvl 3 Diagnoses Acute respiratory distress syndrome (ARDS) due to COVID-19 virus U07.1; J80 Emphysema of lung J43.9 Volume overload E87.70 Acute hypoxemic respiratory failure due to COVID-19 U07.1; J96.01
[2021-06-29] MEDS: ATORVASTATIN 40 MG TAB PO SCH (21:05)
[2021-06-29] MEDS: QUEtiapine FUMARATE 25 MG TABLET PO SCH (21:07)
[2021-06-29] MEDS: CLOPIDOGREL BISULFATE 75 MG TAB PO SCH (21:09)
[2021-06-29] MEDS: DEXTROMETHORPHAN POLYMR COMPLX 30 MG/5 ML UDP PO PRN (21:09)
[2021-06-29] MEDS: ASPIRIN 81 MG CHEW PO SCH (21:10)
[2021-06-30] MEDS: LEVOTHYROXINE SODIUM 50 MCG TABLET PO SCH (05:43)
[2021-06-30] MEDS: INSULIN ASPART PER UNIT SC SCH ×4 (08:33→21:30)
[2021-06-30 08:37] LABS: Hematocrit (blood only) 47.1 % (42-52); Hemoglobin 16.2 g/dL (14.0-18.0); Mean Corpuscular Hemoglobin 32.3 pg (25-34); Mean Corpuscular Hgb Conc 34.4 g/dL (32-36); Mean Corpuscular Volume 93.8 fL (80-100); Mean Platelet Volume 10.8 fL (7.4-10.4); Platelet Count 183 K/uL (130-400); RDW Coefficient of Variation 14.1 % (11.5-14.5); RDW Standard Deviation 47.5 fL (36.4-46.3); Red Blood Count 5.02 M/uL (4.7-6.1); White Blood Count 11.95 K/uL (4.8-10.8)
[2021-06-30] MEDS: dexAMETHasone 6 MG in SYRINGE 0 ML IV SCH ×2 (08:40→22:27)
[2021-06-30] MEDS: ACETAMINOPHEN 500 MG TAB PO PRN ×2 (08:40→23:42)
[2021-06-30] MEDS: UMECLIDINIUM/VILANTEROL 62.5/25MCG 7 PUFFS/INHALER INH SCH (08:42)
[2021-06-30] MEDS: ENOXAPARIN INJ 40 MG/0.4 ML SYR SQ SCH ×2 (08:42→21:28)
[2021-06-30] MEDS: DOCUSATE SODIUM/SENNA 50/8.6MG TAB PO SCH (08:43)
[2021-06-30] MEDS: CHOLECALCIFEROL 1,000 UNITS 25 MCG TAB PO SCH (08:43)
[2021-06-30] MEDS: METOPROLOL TARTRATE 25 MG TAB PO SCH ×2 (08:44→21:26)
[2021-06-30] MEDS: POT PHOSPHATE MONOBASIC W/ SOD TAB PO SCH ×4 (08:45→21:24)
[2021-06-30] MEDS: guaiFENesin 600 MG TABCR PO SCH (08:45)
[2021-06-30] MEDS: POLYETHYLENE (MIRALAX) 17 GM PACK PO SCH (08:46)
[2021-06-30] MEDS: SUCRALFATE 1 GM/10 ML UDC PO SCH ×4 (08:46→21:28)
[2021-06-30] MEDS: PANTOprazole 40 MG TAB PO SCH (08:46)
[2021-06-30] MEDS: FLUTICASONE PROPIONATE NA SPR 16 GM BTL SCH ×2 (08:53→21:30)
[2021-06-30 08:56] LABS: Calcium 8.8 mg/dl (8.5-10.1); Creatinine Clr Calc Pharmacy 54.9 ml/min; Est GFR (African American) 86.8 ml/min; Est GFR (Non-African American) 74.9 ml/min; Potassium 4.2 mmol/L (3.5-5.1)
[2021-06-30] MEDS ORDERED: FUROSEMIDE 40 MG/4 ML VIAL IV ONE (09:00)
[2021-06-30] MEDS ORDERED: OXYMETAZOLINE 0.05% 30 ML BTL PRN (17:36)
--- NOTE | 2021-06-30 17:50 | Hospitalist Progress Note ---
Date of Service June 30, 2021 Assessment & Plan (1) COVID-19: Plan: COVID-19 multifocal pneumonia/COPD/with, acute on chronic respiratory failure with hypoxia Initial Covid + 05/31/2021 Covid - 05/27/2021 oxygen requirement is still high, pt is not too enthused about using vapotherm and trying this and nc plus oxymask. PCT previously negative, MRSA swab negative, no indication for antibiotics 06/23/21 CTA negative for PE Completed high-dose Dex 20 mg x 5 days followed by 10 mg x 1 week-> now on 6 mg bid Lasix daily to promote dry status CXR 06/14 progressively worsened CRP downtrended to normal 06/19. -Given elevated CRP resume decadron 6 mg daily repeat course started 06/23/21 Echo with severe pulmonary HTN, will continue daily diuresis and follow electrolytes recheck cxr 06/25/21 improvement in appearance but overall (2) Multifocal pneumonia: Plan: now worsened respiratory distress, repeat Procalcition was not significantly elevated (3) Hypoxemia: Plan: increased respiratory demands, could be copd exacerbation, does have history of restrictive lung disease and decreased DLCO, severe pulmonary htn, started diuresis (4) Hyperlipidemia: Plan: Continue atorvastatin 40 mg daily, ASA (5) COPD (chronic obstructive pulmonary disease): Plan: See above continue DUonebs, steroids, O2 (6) CAD (coronary artery disease): Plan: -With a history of proximal LAD and mid left circumflex stents -Most recent cardiac catheterization on performed for abnormal pharmacologic nuclear stress test revealed nonobstructive disease of the LAD and widely patent stents, slow flow in the RCA without significant obstruction suggesting microvascular disease repeat Echo severe pulmonary htn continue daily diuresis -Continue medical management - No acute issues - Continue metoprolol and aspirin, Plavix, atorvastatin (7) Hypothyroidism: Plan: TSH here normal continue LT4 at home dose (8) Hyponatremia: Plan: - Initially sodium dropped to 131 and stable there for many days ?volume overload, however seemed to be worsening with diuresis - Urine sodium 29, urine osmolality elevated at 340 suggestive of SIADH - improved with Recommended fluid restriction pt adamantly refused as he likes to drink almost 4 L a day of water. Agreeable to cutting this down to 2-3 L of water per day. Asymptomatic with Na >130, will follow - Restarted Lasix 40 mg p.o. daily. Held x1 dose for high ratio and CTA, - Na remains slightly hyponatremic but stable (9) GERD (gastroesophageal reflux disease): Plan: Continue PPI Previously treated with PPI/Carafate with improvement in epigastric symptoms (10) Constipation: Plan: Improved - Continue on MiraLAX daily - Continue on senna/docusate 1 tab daily Plan: DVT proph-Lovenox 40 mg twice daily, CTA eval negative for pe significant oxygen requirement and desaturations are needs to keep in pcu Admission and Anticipated Discharge Date Admission Date: June 08, 2021 Subjective this pt still continues to be positive, still with high oxygen requirements and desaturates when speaking or moving about the room. is now able to be off isolation when room opens up outside of the covid unit and will have visit [birth year] birthday, pulmonary medicine consult recommends aggressive diure sis Review of Systems Review of Systems: Moderate distress and fatigue no headache, no visual changes no speech or swallowing issues no chest pain, pressure or palpitations Continue shortness of breath, productive cough but lessening or wheezes no abdominal pain, nausea or vomiting, no diarrhea no dysuria, hematuria or frequency no focal joint pain or swelling no back pain, CVA tenderness or radicular pain no bruising, bleeding or rashes no focal signs of weakness or numbness or altered sensation no complaints of anxiety or depression.. Physical Exam Physical Exam: The patient continues to appear to be in mild to moderate respiratory distress Vital signs as documented. Head exam is normocephalic atraumatic Neck is without JVD, thyromegaly, or carotid bruits. Lungs are coarse bilaterally in all lung rodriguez tachypnea no cyanosis noted Cardiac exam, Rhythm is regular.. No murmurs, rubs or gallops. Abdominal exam reveals normal bowel sounds, soft non tender, no masses Extremities are nonedematous and both pedal pulses are present Neurologic exam is alert and oriented, no focal loss of strength or sensation Skin is without bruises or rashes Psychologically is without concerns for anxiety or depression. Results & Data Results & Data ([facility]) Vital Signs (Past 12 Hours) Vital Signs Temp Pulse Pulse Resp BP BP Pulse Ox 06/30/21 15:45 98.4 F 99 H 24 122/84 93 06/30/21 14:36 97 H 20 88 L 06/30/21 14:24 98 H 06/30/21 11:54 97.9 F 79 20 109/78 94 06/30/21 11:16 96 H 06/30/21 11:13 85 20 91 06/30/21 07:59 97.5 F L 97 H 24 129/75 90 06/30/21 07:24 84 24 89 L PG Care Time/CCT Total # of Minutes Spent Total Time Spent with Patient: Total time spent is greater than 50% in coordination of care (as documented) at patient's floor/unit and/or counseling patient: Coding Level of Care Code 35699 Subseq Hosp Care Lvl 2 Diagnoses COVID-19 U07.1 Multifocal pneumonia J18.9 Hypoxemia R09.02 Hyperlipidemia E78.5 COPD (chronic obstructive pulmonary disease) J44.9 CAD (coronary artery disease) I25.10 Hypothyroidism E03.9 Hyponatremia E87.1 GERD (gastroesophageal reflux disease) K21.9 Constipation K59.00
[2021-06-30] MEDS: diphenhydrAMINE HCL 25 MG/10 ML UDC PO SCH (21:23)
[2021-06-30] MEDS: CLOPIDOGREL BISULFATE 75 MG TAB PO SCH (21:25)
[2021-06-30] MEDS: ASPIRIN 81 MG CHEW PO SCH (21:25)
[2021-06-30] MEDS: DEXTROMETHORPHAN POLYMR COMPLX 30 MG/5 ML UDP PO PRN (21:25)
[2021-06-30] MEDS: ATORVASTATIN 40 MG TAB PO SCH (21:26)
[2021-06-30] MEDS: QUEtiapine FUMARATE 25 MG TABLET PO SCH (21:27)
--- NOTE | 2021-06-30 22:57 | Pulmonology Progress Note ---
Date of Service June 30, 2021 Assessment & Plan (1) Acute respiratory distress syndrome (ARDS) due to COVID-19 virus: Plan: Patient is severely hypoxemic and requiring continuous high flow oxygen. 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 He has evidence of digital clubbing likely related to his history of severe emphysema. His pulmonary function testing from prior was reviewed by me personally. Interestingly, spirometric values were within normal limits, but his DLCO was severely reduced. Continue supportive care including IV diuresis. (2) Emphysema of lung: (3) Volume overload: Plan: Lasix as above (4) Acute hypoxemic respiratory failure due to COVID-19: Plan: Maintain sats of 88 to 92% given his history of emphysema. Admission and Anticipated Discharge Date Admission Date: June 08, 2021 Subjective Patient seen and examined. Continues with hypoxia needing 80% FiO2 and 40 L of flow. Patient notes that his nose is very congested and he feels that his hypoxia is related to sinus congestion. Endorses shortness of breath with mild exertion such as walking a few feet. Review of Systems Review of Systems: All systems reviewed & are unremarkable except as noted in HPI & below Physical Exam Physical Exam: Constitutional: Fatigued appearing male in no apparent distress. High flow nasal cannula in place along with oxime mask. Eyes: Pupils are equal round and reactive to light. Conjunctivae are normal. Anicteric sclera. Ears nose, mouth and throat: No obvious deformities. Neck: Trachea is midline. Visual inspection is normal. Respiratory: Crackles noted in the left lower lobe. Significant clubbing noted in the fingers bilaterally. Cardiovascular: Regular rate and rhythm. No murmurs. 2+ pitting edema in the lower extremities bilaterally. Gastrointestinal: Normal bowel sounds, soft, nontender and nondistended. No hepatosplenomegaly noted. Musculoskeletal: No cyanosis. Patient is able to move all extremities. Skin: No rashes, warm dry and intact. Neurologic: No obvious focal neurological deficits seen. Psychiatric: Alert and oriented x3 with a euthymic affect. Results & Data Results & Data ([facility]) Vital Signs (Past 12 Hours) Vital Signs Temp Pulse Pulse Resp BP BP Pulse Ox 06/30/21 20:27 88 24 93 06/30/21 19:27 36.5 C 94 H 22 112/70 91 06/30/21 15:45 36.9 C 99 H 24 122/84 93 06/30/21 14:36 97 H 20 88 L 06/30/21 14:24 98 H 06/30/21 11:54 36.6 C 79 20 109/78 94 06/30/21 11:16 96 H 06/30/21 11:13 85 20 91 PG Care Time/CCT Total # of Minutes Spent Total Time Spent with Patient: Total time spent is greater than 50% in coordination of care (as documented) at patient's floor/unit and/or counseling patient: Coding Level of Care Code 07867 Subseq Hosp Care Lvl 2 Diagnoses Acute respiratory distress syndrome (ARDS) due to COVID-19 virus U07.1; J80 Emphysema of lung J43.9 Volume overload E87.70 Acute hypoxemic respiratory failure due to COVID-19 U07.1; J96.01
[2021-07-01] MEDS: LEVOTHYROXINE SODIUM 50 MCG TABLET PO SCH (06:40)
[2021-07-01 08:30] LABS: BUN Creatinine Ratio 37.1 (10-20); Calcium 8.4 mg/dl (8.5-10.1); Creatinine Clr Calc Pharmacy 52.5 ml/min; Est GFR (African American) 81.8 ml/min; Est GFR (Non-African American) 70.6 ml/min; Magnesium 1.8 mg/dl (1.7-2.4)
[2021-07-01] MEDS ORDERED: FUROSEMIDE 40 MG/4 ML VIAL IV SCH (09:00)
[2021-07-01] MEDS: ACETAMINOPHEN 500 MG TAB PO PRN ×2 (09:10→20:37)
[2021-07-01] MEDS: SUCRALFATE 1 GM/10 ML UDC PO SCH ×4 (09:10→20:28)
[2021-07-01] MEDS: POLYETHYLENE (MIRALAX) 17 GM PACK PO SCH (09:10)
[2021-07-01] MEDS: METOPROLOL TARTRATE 25 MG TAB PO SCH ×2 (09:11→20:26)
[2021-07-01] MEDS: DOCUSATE SODIUM/SENNA 50/8.6MG TAB PO SCH (09:12)
[2021-07-01] MEDS: CHOLECALCIFEROL 1,000 UNITS 25 MCG TAB PO SCH (09:12)
[2021-07-01] MEDS: diphenhydrAMINE HCL 25 MG/10 ML UDC PO SCH ×3 (09:12→20:23)
[2021-07-01] MEDS: POT PHOSPHATE MONOBASIC W/ SOD TAB PO SCH ×4 (09:13→20:27)
[2021-07-01] MEDS: ENOXAPARIN INJ 40 MG/0.4 ML SYR SQ SCH ×2 (09:13→20:24)
[2021-07-01] MEDS: PANTOprazole 40 MG TAB PO SCH (09:13)
[2021-07-01] MEDS: UMECLIDINIUM/VILANTEROL 62.5/25MCG 7 PUFFS/INHALER INH SCH (09:13)
[2021-07-01] MEDS: dexAMETHasone 6 MG in SYRINGE 0 ML IV SCH ×2 (09:13→20:23)
[2021-07-01] MEDS: FLUTICASONE PROPIONATE NA SPR 16 GM BTL SCH ×2 (09:15→21:19)
[2021-07-01] MEDS: INSULIN ASPART PER UNIT SC SCH ×4 (10:01→21:05)
--- NOTE | 2021-07-01 17:21 | Hospitalist Progress Note ---
Date of Service July 01, 2021 Assessment & Plan (1) COVID-19: Plan: COVID-19 multifocal pneumonia/COPD/with, acute on chronic respiratory failure with hypoxia Initial Covid + 05/31/2021 Covid - 05/27/2021 oxygen requirement is still high, patient using Vapotherm plus oxygen mask discussions with the makes me believe the patient would never want to be intubated although he still remains a full code as he tells me he has a lot to live for with his multigenerational family living in his home with him. Overall very little additional therapies to offer continue supportive care at this time hopefully get hypoxia down to perhaps get to long-term acute care facility PCT previously negative, MRSA swab negative, no indication for antibiotics 06/23/21 CTA negative for PE Completed high-dose Dex 20 mg x 5 days followed by 10 mg x 1 week-> now on 6 mg bid Lasix daily to promote dry status CXR 06/14 progressively worsened CRP downtrended to normal 06/19. -Given elevated CRP resume decadron 6 mg twice daily repeat course started 06/23/21 Echo with severe pulmonary HTN, will continue daily diuresis increase diuresis to every 12 on 07/01/2021 Chest x-ray remain with significant impact from likely fibrotic change of Covid (2) Multifocal pneumonia: Plan: now worsened respiratory distress, repeat Procalcition was not significantly elevated, antibiotics use at this time changes appear to be Covid related process but with progression to fibrotic change (3) Hypoxemia: Plan: increased respiratory demands, could be copd exacerbation, does have history of restrictive lung disease and decreased DLCO, severe pulmonary htn, started diuresis (4) Hyperlipidemia: Plan: Continue atorvastatin 40 mg daily, ASA (5) COPD (chronic obstructive pulmonary disease): Plan: See above continue DUonebs, steroids, O2 (6) CAD (coronary artery disease): Plan: -With a history of proximal LAD and mid left circumflex stents -Most recent cardiac catheterization on performed for abnormal pharmacologic nuclear stress test revealed nonobstructive disease of the LAD and widely patent stents, slow flow in the RCA without significant obstruction suggesting microvascular disease repeat Echo severe pulmonary htn continue daily diuresis creased furosemide on 07/01/2021 to every 12 hours -Continue medical management -Patient is acutely short of breath with without chest pain with hypoxia - Continue metoprolol and aspirin, Plavix, atorvastatin (7) Hypothyroidism: Plan: TSH here normal continue LT4 at home dose (8) Hyponatremia: Plan: - Initially sodium dropped to 131 and stable there for many days ?volume overload, however seemed to be worsening with diuresis - Urine sodium 29, urine osmolality elevated at 340 suggestive of SIADH - improved with Recommended fluid restriction pt adamantly refused as he likes to drink almost 4 L a day of water. Agreeable to cutting this down to 2-3 L of water per day. Asymptomatic with Na >130, will follow - Restarted Lasix 40 mg p.o. daily. Held x1 dose for high ratio and CTA, - Na remains slightly hyponatremic but stable (9) GERD (gastroesophageal reflux disease): Plan: Continue PPI Previously treated with PPI/Carafate with improvement in epigastric symptoms (10) Constipation: Plan: Improved - Continue on MiraLAX daily - Continue on senna/docusate 1 tab daily Plan: DVT proph-Lovenox 40 mg twice daily, CTA eval negative for pe significant oxygen requirement and desaturations are needs to keep in pcu Admission and Anticipated Discharge Date Admission Date: June 08, 2021 Subjective Patient seen and examined. Continues with hypoxia needing 80% FiO2 and 40 L of flow. Patient notes that his nose is very congested and he feels that his hypoxia is related to sinus congestion. Endorses shortness of breath with mild exertion such as walking a few feet. He becomes hypoxic with casual c onversation. He feels he needs more diuretics. Continues remain very positive trying to manage his health care with mild changes in his regiment there is significant concern about his overall mortality and I did have a irais conversation with his on the evening of 06/30/2021 regarding this Review of Systems Review of Systems: Moderate distress and fatigue no headache, no visual changes no speech or swallowing issues no chest pain, pressure or palpitations Continue shortness of breath, productive cough but lessening or wheezes no abdominal pain, nausea or vomiting, no diarrhea no dysuria, hematuria or frequency no focal joint pain or swelling no back pain, CVA tenderness or radicular pain no bruising, bleeding or rashes no focal signs of weakness or numbness or altered sensation no complaints of anxiety or depression.. Physical Exam Physical Exam: The patient continues to appear to be in mild to moderate respiratory distress Vital signs as documented. Head exam is normocephalic atraumatic Neck is without JVD, thyromegaly, or carotid bruits. Lungs are coarse bilaterally in all lung rodriguez tachypnea no cyanosis noted Cardiac exam, Rhythm is regular.. No murmurs, rubs or gallops. Abdominal exam reveals normal bowel sounds, soft non tender, no masses Extremities are nonedematous and both pedal pulses are present Neurologic exam is alert and oriented, no focal loss of strength or sensation Skin is without bruises or rashes Psychologically is without concerns for anxiety or depression. Results & Data Results & Data ([facility] [place]) Vital Signs (Past 12 Hours) Vital Signs Temp Pulse Pulse Resp BP Pulse Ox 07/01/21 16:21 102 H 20 92 07/01/21 15:30 98.6 F 100 H 22 133/90 90 07/01/21 11:19 108 H 20 91 07/01/21 08:01 75 22 93 07/01/21 07:51 88 07/01/21 06:55 97.7 F 85 19 104/75 91 07/01/21 05:54 81 26 H 91 PG Care Time/CCT Total # of Minutes Spent Total Time Spent with Patient: Total time spent is greater than 50% in coordination of care (as documented) at patient's floor/unit and/or counseling patient: Coding Level of Care Code 99408 Subseq Hosp Care Lvl 2 Diagnoses COVID-19 U07.1 Multifocal pneumonia J18.9 Hypoxemia R09.02 Hyperlipidemia E78.5 COPD (chronic obstructive pulmonary disease) J44.9 CAD (coronary artery disease) I25.10 Hypothyroidism E03.9 Hyponatremia E87.1 GERD (gastroesophageal reflux disease) K21.9 Constipation K59.00
[2021-07-01] MEDS: ASPIRIN 81 MG CHEW PO SCH (20:21)
[2021-07-01] MEDS: ATORVASTATIN 40 MG TAB PO SCH (20:22)
[2021-07-01] MEDS: CLOPIDOGREL BISULFATE 75 MG TAB PO SCH (20:22)
[2021-07-01] MEDS: FUROSEMIDE 40 MG/4 ML VIAL IV SCH (20:25)
[2021-07-01] MEDS: QUEtiapine FUMARATE 25 MG TABLET PO SCH (20:27)
[2021-07-01] MEDS: DEXTROMETHORPHAN POLYMR COMPLX 30 MG/5 ML UDP PO PRN (23:08)
[2021-07-02] MEDS: LEVOTHYROXINE SODIUM 50 MCG TABLET PO SCH (05:55)
[2021-07-02 07:14] LABS: Hematocrit (blood only) 44.3 % (42-52); Hemoglobin 15.1 g/dL (14.0-18.0); Mean Corpuscular Hemoglobin 32.1 pg (25-34); Mean Corpuscular Hgb Conc 34.1 g/dL (32-36); Mean Corpuscular Volume 94.1 fL (80-100); Platelet Count 174 K/uL (130-400); RDW Coefficient of Variation 14.1 % (11.5-14.5); RDW Standard Deviation 48.2 fL (36.4-46.3); Red Blood Count 4.71 M/uL (4.7-6.1); White Blood Count 9.27 K/uL (4.8-10.8)
[2021-07-02 07:39] LABS: BUN Creatinine Ratio 37.9 (10-20); Calcium 8.6 mg/dl (8.5-10.1); Creatinine Clr Calc Pharmacy 56.5 ml/min; Est GFR (African American) 92.3 ml/min; Est GFR (Non-African American) 79.7 ml/min; Magnesium 1.9 mg/dl (1.7-2.4); Potassium 4.3 mmol/L (3.5-5.1)
[2021-07-02] MEDS: METOPROLOL TARTRATE 25 MG TAB PO SCH ×2 (07:56→20:50)
[2021-07-02] MEDS: POT PHOSPHATE MONOBASIC W/ SOD TAB PO SCH ×4 (07:57→20:50)
[2021-07-02] MEDS: diphenhydrAMINE HCL 25 MG/10 ML UDC PO SCH ×2 (07:57→20:48)
[2021-07-02] MEDS: DOCUSATE SODIUM/SENNA 50/8.6MG TAB PO SCH (07:58)
[2021-07-02] MEDS: ASPIRIN 81 MG CHEW PO SCH (07:58)
[2021-07-02] MEDS: SUCRALFATE 1 GM/10 ML UDC PO SCH ×4 (07:58→20:51)
[2021-07-02] MEDS: CHOLECALCIFEROL 1,000 UNITS 25 MCG TAB PO SCH (07:59)
[2021-07-02] MEDS: PANTOprazole 40 MG TAB PO SCH (07:59)
[2021-07-02] MEDS: POLYETHYLENE (MIRALAX) 17 GM PACK PO SCH (08:00)
[2021-07-02] MEDS: ENOXAPARIN INJ 40 MG/0.4 ML SYR SQ SCH ×2 (08:04→20:48)
[2021-07-02] MEDS: dexAMETHasone 6 MG in SYRINGE 0 ML IV SCH ×2 (08:04→20:47)
[2021-07-02] MEDS: UMECLIDINIUM/VILANTEROL 62.5/25MCG 7 PUFFS/INHALER INH SCH (09:00)
[2021-07-02] MEDS: FUROSEMIDE 40 MG/4 ML VIAL IV SCH ×2 (09:00→21:28)
[2021-07-02] MEDS: FLUTICASONE PROPIONATE NA SPR 16 GM BTL SCH ×2 (09:00→20:49)
[2021-07-02] MEDS: INSULIN ASPART PER UNIT SC SCH ×4 (10:08→20:49)
--- NOTE | 2021-07-02 12:49 | Pulmonology Progress Note ---
Date of Service July 02, 2021 Assessment & Plan (1) Acute respiratory distress syndrome (ARDS) due to COVID-19 virus: Plan: Patient is severely hypoxemic and requiring continuous high flow oxygen due to COVID-19 ARDS. 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 He has evidence of digital clubbing likely related to his history of severe emphysema. His pulmonary function testing from prior was reviewed by me personally. Interestingly, spirometric values were within normal limits, but his DLCO was severely reduced. Echo with evidence of pulmonary hypertension likely related to longstanding history of emphysema and possibly exacerbated due to his ARDS-like picture. Can consider an empiric trial of Revatio or consideration of a right heart catheterization to look at pulmonary artery pressures, pulmonary vascular resistance and pulmonary capillary wedge pressures. Continue supportive care including IV diuresis. Recommend transfer to LTAC given his high flow oxygen requirement. Thank you for the consult. Will continue to follow along with you. (2) Emphysema of lung: (3) Volume overload: Plan: Lasix as above (4) Acute hypoxemic respiratory failure due to COVID-19: Plan: Maintain sats of 88 to 92% given his history of emphysema. (5) Pulmonary hypertension: Admission and Anticipated Discharge Date Admission Date: June 08, 2021 Subjective Patient unchanged from yesterday. Continues on high flow nasal cannula. Sitting up in bed. Denies any dyspnea at rest. Continues with sinus congestion. Review of Systems Review of Systems: All systems reviewed & are unremarkable except as noted in HPI & below Physical Exam Physical Exam: Constitutional: Fatigued appearing male in no apparent distress. High flow nasal cannula in place along with oxime mask. Eyes: Pupils are equal round and reactive to light. Conjunctivae are normal. Anicteric sclera. Ears nose, mouth and throat: No obvious deformities. Neck: Trachea is midline. Visual inspection is normal. Respiratory: Crackles noted in the left lower lobe. Significant clubbing noted in the fingers bilaterally. Cardiovascular: Regular rate and rhythm. No murmurs. 2+ pitting edema in the lower extremities bilaterally. Gastrointestinal: Normal bowel sounds, soft, nontender and nondistended. No hepatosplenomegaly noted. Musculoskeletal: No cyanosis. Patient is able to move all extremities. Skin: No rashes, warm dry and intact. Neurologic: No obvious focal neurological deficits seen. Psychiatric: Alert and oriented x3 with a euthymic affect. Results & Data Results & Data ([facility]) Vital Signs (Past 12 Hours) Vital Signs Temp Pulse Pulse Resp BP Pulse Ox 07/02/21 10:57 89 20 93 07/02/21 10:52 36.6 C 95 H 20 99/68 L 93 07/02/21 10:18 78 07/02/21 07:35 36.6 C 93 H 22 134/84 92 07/02/21 07:33 67 20 93 07/02/21 04:25 36.4 C L 77 22 119/78 95 07/02/21 04:18 86 22 95 07/02/21 01:39 77 PG Care Time/CCT Total # of Minutes Spent Total Time Spent with Patient: Total time spent is greater than 50% in coordination of care (as documented) at patient's floor/unit and/or counseling patient: Coding Level of Care Code 60946 Subseq Hosp Care Lvl 2 Diagnoses Acute respiratory distress syndrome (ARDS) due to COVID-19 virus U07.1; J80 Emphysema of lung J43.9 Volume overload E87.70 Acute hypoxemic respiratory failure due to COVID-19 U07.1; J96.01 Pulmonary hypertension I27.20
--- NOTE | 2021-07-02 14:29 | Hospitalist Progress Note ---
Date of Service July 02, 2021 Assessment & Plan (1) COVID-19: Plan: COVID-19 multifocal pneumonia/COPD/with, acute on chronic respiratory failure with hypoxia Initial Covid + 05/31/2021 Covid - 05/27/2021 Per prior provider discussion 07/01 "patient using Vapotherm plus oxygen mask discussions with the makes me believe the patient would never want to be intubated although he still remains a full code as he tells me he has a lot to live for with his multigenerational family living in his home with him. Overall very little additional therapies to offer continue supportive care at this time hopefully get hypoxia down to perhaps get to long-term acute care facility" PCT previously negative, MRSA swab negative, no indication for antibiotics 06/23/21 CTA negative for PE Completed high-dose Dex 20 mg x 5 days followed by 10 mg x 1 week-> now on 6 mg bid Lasix daily to promote dry status. Is tolerating aggressive diuresis without creatinine elevation at this time, continue labs daily. CXR 06/14 progressively worsened CRP downtrended to normal 06/19. -Given elevated CRP resume decadron 6 mg twice daily repeat course started 06/23/21 -Echo with severe pulmonary HTN, will continue daily diuresis increase diuresis to every 12 on 07/01/2021 -Chest x-ray remain with significant impact from likely fibrotic change of Covid Will need to proceed with discharge planning anticipating long-term high flow oxygen requirement at this time. LTAC likely required, will continue to diurese to address possible to help minimize effect of underlying edema. Goal oxygen greater than 88%. (2) Multifocal pneumonia: Plan: now worsened respiratory distress, repeat Procalcition was not significantly elevated, antibiotics use at this time changes appear to be Covid related process but with progression to fibrotic change (3) Hypoxemia: Plan: increased respiratory demands, could be copd exacerbation, does have history of restrictive lung disease and decreased DLCO, severe pulmonary htn, started diuresis (4) Hyperlipidemia: Plan: Continue atorvastatin 40 mg daily, ASA (5) COPD (chronic obstructive pulmonary disease): Plan: See above continue DUonebs, steroids, O2 (6) CAD (coronary artery disease): Plan: -With a history of proximal LAD and mid left circumflex stents -Most recent cardiac catheterization on 7 /8/21 performed for abnormal pharmacologic nuclear stress test revealed nonobstructive disease of the LAD and widely patent stents, slow flow in the RCA without significant obstruction suggesting microvascular disease repeat Echo severe pulmonary htn continue daily diuresis creased furosemide on 07/01/2021 to every 12 hours -Continue medical management -Patient is acutely short of breath with without chest pain with hypoxia - Continue metoprolol and aspirin, Plavix, atorvastatin (7) Hypothyroidism: Plan: TSH here normal continue LT4 at home dose (8) Hyponatremia: Plan: - Initially sodium dropped to 131 and stable there for many days ?volume overload, however seemed to be worsening with diuresis - Urine sodium 29, urine osmolality elevated at 340 suggestive of SIADH - improved with Recommended fluid restriction pt adamantly refused as he likes to drink almost 4 L a day of water. Agreeable to cutting this down to 2-3 L of water per day. Asymptomatic with Na >130, will follow -Lasix as above - Na remains slightly hyponatremic but stable (9) GERD (gastroesophageal reflux disease): Plan: Continue PPI Previously treated with PPI/Carafate with improvement in epigastric symptoms (10) Constipation: Plan: Improved - Continue on MiraLAX daily - Continue on senna/docusate 1 tab daily Plan: DVT proph-Lovenox 40 mg twice daily, CTA eval negative for pe significant oxygen requirement and desaturations are needs to keep in pcu Admission and Anticipated Discharge Date Admission Date: June 08, 2021 Gennaro Davis is seen at the bedside this morning. He is laying in bed, somewhat frustrated by the shorter oxygen tubing while on high flow as this limits his ability to move around but otherwise no change today. Discussed his prolonged course, underlying pulmonary disease, and likely need for long-term oxygen with possible stepdown to LTAC/rehab depending on what his oxygen levels are. Patient expressed an understanding of this, although is frustrated by his overall course. Denies fever, chills, sweats, lightheadedness, dizziness, nausea, vomiting, diarrhea today. Is not short of breath while on high flow, does fatigue easily with some shortness of breath with exertion. Review of Systems Review of Systems: All systems reviewed & are unremarkable except as noted in Subjective Physical Exam Physical Exam: General: A&Ox3. NAD. Cooperative. Nontoxic. Appears more fatigued laying in bed today. HEENT: Atraumatic, normocephalic. Vision/hearing grossly intact. Pulm: Diffusely coarse, without wheezes/rales. Symmetrical chest rise. Cardiac: Regular rate and rhythm, -mrg. Radial pulses intact and symmetrical. Abdominal: Nontender, nondistended, soft. BS present. Extremities: No edema, no calf asymmetry Results & Data Results & Data ([facility]) Vital Signs (Past 12 Hours) Vital Signs Temp Pulse Pulse Resp BP Pulse Ox 07/02/21 10:57 89 20 93 07/02/21 10:52 36.6 C 95 H 20 99/68 L 93 07/02/21 10:18 78 07/02/21 07:35 36.6 C 93 H 22 134/84 92 07/02/21 07:33 67 20 93 07/02/21 04:25 36.4 C L 77 22 119/78 95 07/02/21 04:18 86 22 95 PG Care Time/CCT Total # of Minutes Spent Total Time Spent with Patient: Total time spent is greater than 50% in coordination of care (as documented) at patient's floor/unit and/or counseling patient: Coding Level of Care Code 90146 Subseq Hosp Care Lvl 2 Diagnoses COVID-19 U07.1 Multifocal pneumonia J18.9 Hypoxemia R09.02 Hyperlipidemia E78.5 COPD (chronic obstructive pulmonary disease) J44.9 CAD (coronary artery disease) I25.10 Hypothyroidism E03.9 Hyponatremia E87.1 GERD (gastroesophageal reflux disease) K21.9 Constipation K59.00
[2021-07-02] MEDS: ATORVASTATIN 40 MG TAB PO SCH (20:47)
[2021-07-02] MEDS: ACETAMINOPHEN 500 MG TAB PO PRN (20:51)
[2021-07-02] MEDS: QUEtiapine FUMARATE 25 MG TABLET PO SCH (20:51)
[2021-07-02] MEDS: DEXTROMETHORPHAN POLYMR COMPLX 30 MG/5 ML UDP PO PRN (20:58)
[2021-07-02] MEDS: CLOPIDOGREL BISULFATE 75 MG TAB PO SCH (21:27)
[2021-07-03] MEDS: LEVOTHYROXINE SODIUM 50 MCG TABLET PO SCH (06:05)
[2021-07-03 08:17] LABS: BUN Creatinine Ratio 40.4 (10-20); Calcium 9.2 mg/dl (8.5-10.1); Creatinine Clr Calc Pharmacy 60.3 ml/min; Est GFR (Non-African American) 85.4 ml/min; Potassium 4.6 mmol/L (3.5-5.1)
[2021-07-03] MEDS: INSULIN ASPART PER UNIT SC SCH ×4 (08:17→20:58)
[2021-07-03] MEDS: ACETAMINOPHEN 500 MG TAB PO PRN ×2 (08:23→20:40)
[2021-07-03] MEDS: CHOLECALCIFEROL 1,000 UNITS 25 MCG TAB PO SCH (09:33)
[2021-07-03] MEDS: dexAMETHasone 6 MG in SYRINGE 0 ML IV SCH (09:34)
[2021-07-03] MEDS: DEXTROMETHORPHAN POLYMR COMPLX 30 MG/5 ML UDP PO PRN ×2 (09:35→20:40)
[2021-07-03] MEDS: diphenhydrAMINE HCL 25 MG/10 ML UDC PO SCH ×3 (09:36→20:37)
[2021-07-03] MEDS: ENOXAPARIN INJ 40 MG/0.4 ML SYR SQ SCH ×2 (09:37→20:37)
[2021-07-03] MEDS: DOCUSATE SODIUM/SENNA 50/8.6MG TAB PO SCH (09:37)
[2021-07-03] MEDS: FUROSEMIDE 40 MG/4 ML VIAL IV SCH ×2 (09:39→20:59)
[2021-07-03] MEDS: FLUTICASONE PROPIONATE NA SPR 16 GM BTL SCH ×3 (09:39→20:38)
[2021-07-03] MEDS: METOPROLOL TARTRATE 25 MG TAB PO SCH ×2 (09:41→20:38)
[2021-07-03] MEDS: POLYETHYLENE (MIRALAX) 17 GM PACK PO SCH (09:42)
[2021-07-03] MEDS: PANTOprazole 40 MG TAB PO SCH (09:42)
[2021-07-03] MEDS: SUCRALFATE 1 GM/10 ML UDC PO SCH ×4 (09:43→20:40)
[2021-07-03] MEDS: POT PHOSPHATE MONOBASIC W/ SOD TAB PO SCH ×4 (09:43→20:39)
[2021-07-03] MEDS: UMECLIDINIUM/VILANTEROL 62.5/25MCG 7 PUFFS/INHALER INH SCH (09:44)
--- NOTE | 2021-07-03 11:36 | Pulmonology Progress Note ---
Date of Service July 03, 2021 Assessment & Plan (1) Acute hypoxemic respiratory failure due to COVID-19: (2) Emphysema of lung: (3) Pulmonary hypertension: Plan: Impression: 71-year-old male with known emphysematous changes of the lungs now status post Covid with significant subpleural fibrosis and chronic hypoxemic respiratory failure. Recommendations: 1. 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 No indication for antifibrotic agents currently. No indication for additional steroids. Patient CRP has been normal. 2. Acute on chronic hypoxemic respiratory failure: Multifactorial due to combinations of fibrotic changes as well as superimposed emphysematous changes. Continue to wean oxygen as tolerated. Could consider more invasive approaches such as echo with bubble study to evaluate for right to left shunt however it is unlikely to manager exchange. 3. COPD: The patient is not bronchospastic currently. Continue current management. No indication for antibiotics or steroids at this point time. 4. Secondary pulmonary hypertension: Suspect WHO group 3 although cannot rule out component of group 2. Agree with plans for aggressive diuresis. Follow-up BNP level. Would be reluctant to use empiric pulmonary vasodilators without assessment of left ventricular end-diastolic pressure and do not believe the patient requires right heart catheterization currently. It is highly likely the patient will require aggressive long-term pulmonary management and referral to LTAC should be undertaken if not already in progress. From review of case management notes, it appears that the discharge plan is to have the patient return home. Unclear if this is a feasible goal or not. Admission and Anticipated Discharge Date Admission Date: June 08, 2021 Subjective Patient seen and examined. EMR reviewed. Discussed with off going tiler's assistant. The patient is sitting up at bedside shaving. He states he is not having any respiratory difficulty currently. He feels his breathing is stable. He is not coughing or expectorating phlegm Review of Systems Review of Systems: All systems reviewed & are unremarkable except as noted in Subjective Physical Exam Constitutional: WD/WN, vitals as above Neck: trachea midline, no thyromegaly Respiratory: no respiratory distress, no labored breathing and not tachypneic Auscultation: + crackles; no wheezes Cardiovascular: RRR, no murmur, no edema Gastrointestinal (Abdomen): normal bowel sounds, soft, nontender, no hepatosplenomegaly Musculoskeletal: Extremities: extremities normal to inspection Skin: no rashes, warm and dry Neurologic: Nonfocal exam Lymphatic: no cervical lymphadenopathy Results & Data Results & Data ([facility]) Vital Signs (Past 12 Hours) Vital Signs Temp Pulse Pulse Resp BP BP Pulse Ox 07/03/21 11:18 36.4 C L 91 H 20 126/87 92 07/03/21 10:55 92 H 20 92 07/03/21 07:40 79 18 94 07/03/21 07:20 92 H 07/03/21 07:18 36.6 C 84 16 129/87 90 07/03/21 04:49 36.8 C 78 22 95/62 L 95 07/03/21 02:56 77 20 95 07/03/21 00:00 36.5 C 79 20 109/72 92 Laboratory Results 07/02/21 05:41 07/03/21 07:37 Diagnostic Findings No new imaging PG Care Time/CCT Total # of Minutes Spent Total Time Spent with Patient: Total time spent is greater than 50% in coordination of care (as documented) at patient's floor/unit and/or counseling patient: Coding Level of Care Code 92999 Subseq Hosp Care Lvl 3 Diagnoses Acute hypoxemic respiratory failure due to COVID-19 U07.1; J96.01 Emphysema of lung J43.9 Pulmonary hypertension I27.20 Time Spent (min) 40
[2021-07-03 12:57] LABS: Estimated Average Glucose 160 mg/dl; Hemoglobin A1C 7.2 % (4.5-5.6)
--- NOTE | 2021-07-03 13:37 | XRay Report ---
XR chest 1V portable CLINICAL HISTORY: covid pneumonia TECHNIQUE: Single frontal radiograph of the chest was obtained. Comparison: Comparison is made to chest one view 06/28/2021 FINDINGS: No lines and tubes are seen. The cardiomediastinal silhouette is normal. Interval slight improvement in multifocal airspace opacities, most prominent in the left lower lung. No evidence of pleural effus ion or pneumothorax. IMPRESSION: Multifocal airspace opacities most prominent in the left lower lung have improved from prior exam, co mpatible with improving pneumonia. ACT 112: Negative or not required by law. Electronically signed by: Bry Wilson M.D. 07/03/2021 1:36 PM
--- NOTE | 2021-07-03 16:37 | Hospitalist Progress Note ---
Date of Service July 03, 2021 Assessment & Plan (1) COVID-19: Plan: Present on admission. Chest x-ray today, July 03, looks improved. He is still requiring more than his baseline oxygen. He is receiving dexamethasone intravenously. Chest CTA negative for pulmonary embolism on admission. MRSA swab negative, CTA negative for PE Completed high-dose Dex 20 mg x 5 days followed by 10 mg x 1 week-> now on 6 mg bid Lasix daily to promote dry status. Continue labs daily. CXR today, July 03, looks better -Continue decadron 6 mg twice daily , repeat course started 06/23/21 -Echo with severe pulmonary HTN, will continue daily diuresis with Lasix. (2) Multifocal pneumonia: Plan: Bilateral, viral etiology. Serial chest x-ray (3) Hypoxemia: Plan: Acute on chronic hypoxic respiratory failure. Wean oxygen down to usual 3 L/min as tolerated. (4) Hyperlipidemia: Plan: Continue atorvastatin 40 mg daily (5) COPD (chronic obstructive pulmonary disease): Plan: See above continue DUonebs, steroids, O2 (6) CAD (coronary artery disease): Plan: -With a history of proximal LAD and mid left circumflex stents -Most recent cardiac catheterization on performed for abnormal pharmacologic nuclear stress test revealed nonobstructive disease of the LAD and widely patent stents, slow flow in the RCA without significant obstruction suggesting microvascular disease repeat Echo reveals severe pulmonary htn . Continue daily diuresis with furosemide -Continue medical management - Continue metoprolol and aspirin, Plavix, atorvastatin (7) Hypothyroidism: Plan: TSH normal continue LT4 at home dose (8) Hyponatremia: Plan: -Mild, present on admission - Urine sodium 29, urine osmolality elevated at 340 suggestive of SIADH - improved with Recommended fluid restriction pt adamantly refused as he likes to drink almost 4 L a day of water. Agreed to cut this down to 2-3 L of water per day. Asymptomatic with Na >130, will follow -Lasix as above - remains slightly hyponatremic but stable (9) GERD (gastroesophageal reflux disease): Plan: Continue PPI Previously treated with PPI/Carafate with improvement in epigastric symptoms (10) Constipation: Plan: Improved - Continue on MiraLAX daily - Continue on senna/docusate 1 tab daily Plan: DVT proph-Lovenox 40 mg twice daily, CTA eval negative for pe Disposition: Probable discharge to home when oxygen requirements are down to 6 L/min or less Admission and Anticipated Discharge Date Admission Date: June 08, 2021 Subjective Alert and oriented. Pleasant. Chest x-ray done today, July 03, is improved. Hemoglobin A1c noted to be 7.2%. Carb ratio decreased from 12 down to 8. Continue intravenous dexamethasone for now along with Lasix intravenous diuresis. Chest CTA was negative for PE. Review of Systems Review of Systems: Constitutional-no fever or chills ENT-no blurred vision, no double vision, no epistaxis, no sore throat Respiratory-no cough, no wheezing. Shortness of breath with exertion Cardiac-no palpitations, no chest pain, no syncope GI-no nausea, vomiting, diarrhea, melena, hematochezia -no urinary retention, no urinary incontinence, no dysuria, no hematuria Musculoskeletal-no joint pain, no muscle tenderness Skin-no bruising, no rashes, no pruritus Neuro-no isolated weakness, no paresthesia, no weakness Psych-no depression, no anxiety Physical Exam Physical Exam: General-alert and oriented x3, no fevers, no chills HEENT-head atraumatic and normocephalic, TMs intact bilaterally, pupils equal and reactive to light, extraocular muscles intact Neck-no lymphadenopathy or thyromegaly, trachea midline Chest-adventitious respiratory sounds bilaterally. No rales or wheezing Cardiac-regular rate and rhythm, normal S1 and S2, no murmurs Abdomen-normal bowel sounds, nontender, no hepatosplenomegaly Extremities-no cyanosis, clubbing, or edema Neuro-cranial nerves II through XII intact, motor and sensory function within normal limits, strength symmetrical , no focal deficits Psych-normal affect, normal mood Results & Data Results & Data ([facility]) Vital Signs (Past 12 Hours) Vital Signs Temp Pulse Pulse Resp BP BP Pulse Ox 07/03/21 15:49 36.8 C 89 22 109/72 90 07/03/21 15:15 88 18 93 07/03/21 11:18 36.4 C L 91 H 20 126/87 92 07/03/21 10:55 92 H 20 92 07/03/21 07:40 79 18 94 07/03/21 07:20 92 H 07/03/21 07:18 36.6 C 84 16 129/87 90 07/03/21 04:49 36.8 C 78 22 95/62 L 95 Laboratory Results 07/02/21 05:41 07/03/21 07:37 PG Care Time/CCT Total # of Minutes Spent Total Time Spent with Patient: Total time spent is greater than 50% in coordination of care (as documented) at patient's floor/unit and/or counseling patient: Coding Level of Care Code 65918 Subseq Hosp Care Lvl 3 Diagnoses COVID-19 U07.1 Multifocal pneumonia J18.9 Hypoxemia R09.02 Hyperlipidemia E78.5 COPD (chronic obstructive pulmonary disease) J44.9 CAD (coronary artery disease) I25.10 Hypothyroidism E03.9 Hyponatremia E87.1 GERD (gastroesophageal reflux disease) K21.9 Constipation K59.00
[2021-07-03] MEDS: ATORVASTATIN 40 MG TAB PO SCH (20:37)
[2021-07-03] MEDS: CLOPIDOGREL BISULFATE 75 MG TAB PO SCH (20:37)
[2021-07-03] MEDS: QUEtiapine FUMARATE 25 MG TABLET PO SCH (20:39)
[2021-07-03] MEDS: ASPIRIN 81 MG CHEW PO SCH (20:58)
[2021-07-04] MEDS: LEVOTHYROXINE SODIUM 50 MCG TABLET PO SCH (05:25)
[2021-07-04 06:59] LABS: BUN Creatinine Ratio 34.3 (10-20); Calcium 8.6 mg/dl (8.5-10.1); Creatinine Clr Calc Pharmacy 45.7 ml/min; Est GFR (African American) 79.1 ml/min; Est GFR (Non-African American) 68.2 ml/min; Potassium 3.7 mmol/L (3.5-5.1)
[2021-07-04] MEDS: ENOXAPARIN INJ 40 MG/0.4 ML SYR SQ SCH ×2 (09:04→20:32)
[2021-07-04] MEDS: SUCRALFATE 1 GM/10 ML UDC PO SCH ×4 (09:04→20:32)
[2021-07-04] MEDS: CHOLECALCIFEROL 1,000 UNITS 25 MCG TAB PO SCH (09:04)
[2021-07-04] MEDS: PANTOprazole 40 MG TAB PO SCH (09:04)
[2021-07-04] MEDS: POT PHOSPHATE MONOBASIC W/ SOD TAB PO SCH ×4 (09:04→20:32)
[2021-07-04] MEDS: UMECLIDINIUM/VILANTEROL 62.5/25MCG 7 PUFFS/INHALER INH SCH (09:05)
[2021-07-04] MEDS: METOPROLOL TARTRATE 25 MG TAB PO SCH ×2 (09:05→20:32)
[2021-07-04] MEDS: FLUTICASONE PROPIONATE NA SPR 16 GM BTL SCH ×3 (09:05→20:33)
[2021-07-04] MEDS: diphenhydrAMINE HCL 25 MG/10 ML UDC PO SCH ×3 (09:07→20:32)
[2021-07-04] MEDS: SODIUM CHLORIDE 0.65% NA SOLN 45 ML (OCEAN) PRN (09:19)
[2021-07-04] MEDS: ACETAMINOPHEN 500 MG TAB PO PRN ×2 (09:20→17:04)
[2021-07-04] MEDS: DOCUSATE SODIUM/SENNA 50/8.6MG TAB PO SCH (09:20)
[2021-07-04] MEDS: FUROSEMIDE 40 MG/4 ML VIAL IV SCH ×2 (09:20→17:38)
[2021-07-04] MEDS: POLYETHYLENE (MIRALAX) 17 GM PACK PO SCH (09:21)
[2021-07-04] MEDS: INSULIN ASPART PER UNIT SC SCH ×4 (09:21→21:14)
--- NOTE | 2021-07-04 11:20 | Pulmonology Progress Note ---
Date of Service July 04, 2021 Assessment & Plan (1) Acute hypoxemic respiratory failure due to COVID-19: (2) Emphysema of lung: (3) Pulmonary hypertension: Plan: Impression: 71-year-old male with known emphysematous changes of the lungs now status post Covid with significant subpleural fibrosis and chronic hypoxemic respiratory failure. Recommendations: 1. 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 No indication for antifibrotic agents currently. No indication for additional steroids. Patient CRP has been normal. 2. Acute on chronic hypoxemic respiratory failure: Multifactorial due to combinations of fibrotic changes as well as superimposed emphysematous changes. Continue to wean oxygen as tolerated. Could consider more invasive approaches such as echo with bubble study to evaluate for right to left shunt however it is unlikely to exchange mechanic. 3. COPD: The patient is not bronchospastic currently. Continue current management. No indication for antibiotics or steroids at this point time. 4. Secondary pulmonary hypertension: Suspect WHO group 3 although cannot rule out component of group 2. Agree with plans for aggressive diuresis. Follow-up BNP level. Would be reluctant to use empiric pulmonary vasodilators without assessment of left ventricular end-diastolic pressure and do not believe the patient requires right heart catheterization currently. It is highly likely the patient will require aggressive long-term pulmonary management and referral to LTAC should be undertaken if not already in progress. From review of case management notes, it appears that the discharge plan is to have the patient return home. Unclear if this is a feasible goal or not. I advised the patient that this may take weeks to months to show significant improvement. If the patient can be out of bed to chair and ambulatory, they may benefit his pulmonary toilet. Unfortunately there is no rapid solution to the patient's hypoxemia and this may take a prolonged period of time to progress. Continued supportive care recommended. We will sign off at this point in time. Feel free to contact us if additional questions arise. Admission and Anticipated Discharge Date Admission Date: June 08, 2021 Subjective Patient seen and examined. EMR reviewed. The patient is sleeping comfortably. He has high flow and anoxia mask in place. He arouses easily. He denies any respiratory problems including shortness of breath or chest pain. No cough or sputum production. Review of Systems Review of Systems: All systems reviewed & are unremarkable except as noted in Subjective Physical Exam Constitutional: WD/WN, vitals as above Neck: trachea midline, no thyromegaly Respiratory: no respiratory distress, no labored breathing and not tachypneic Auscultation: + crackles; no wheezes Cardiovascular: RRR, no murmur, no edema Gastrointestinal (Abdomen): normal bowel sounds, soft, nontender, no hepatosplenomegaly Musculoskeletal: Extremities: extremities normal to inspection Skin: no rashes, warm and dry Lymphatic: no cervical lymphadenopathy Results & Data Results & Data ([facility]) Vital Signs (Past 12 Hours) Vital Signs Temp Pulse Pulse Resp BP BP Pulse Ox 07/04/21 08:31 36.5 C 81 18 124/78 91 07/04/21 07:30 83 07/04/21 07:15 76 20 98 07/04/21 04:34 86 18 90 07/04/21 04:26 36.4 C L 83 20 95/61 L 93 07/04/21 00:12 36.5 C 90 20 129/92 92 07/03/21 23:27 20 94 Laboratory Results 07/02/21 05:41 07/04/21 06:18 Diagnostic Findings No new imaging PG Care Time/CCT Total # of Minutes Spent Total Time Spent with Patient: Total time spent is greater than 50% in coordination of care (as documented) at patient's floor/unit and/or counseling patient: Coding Level of Care Code 88465 Subseq Hosp Care Lvl 2 Diagnoses Acute hypoxemic respiratory failure due to COVID-19 U07.1; J96.01 Emphysema of lung J43.9 Pulmonary hypertension I27.20
--- NOTE | 2021-07-04 14:28 | Hospitalist Progress Note ---
Date of Service July 04, 2021 Assessment & Plan (1) COVID-19: Plan: Present on admission. Chest x-ray done July 03 looked improved. He is still requiring more than his baseline oxygen. He is receiving dexamethasone intravenously. Chest CTA negative for pulmonary embolism on admission. MRSA swab negative, CTA negative for PE Completed high-dose Dex 20 mg x 5 days followed by 10 mg x 1 week-> now on 6 mg bid Lasix dosage uptitrated today, July 04. CXR today, July 03, looks better -Continue decadron 6 mg twice daily , repeat course started 06/23/21 -Echo with severe pulmonary HTN, will continue daily diuresis with Lasix. (2) Multifocal pneumonia: Plan: Bilateral, viral etiology. Serial chest x-ray (3) Hypoxemia: Plan: Acute on chronic hypoxic respiratory failure. Wean oxygen down to usual 3 L/min as tolerated. (4) Hyperlipidemia: Plan: Continue atorvastatin 40 mg daily (5) COPD (chronic obstructive pulmonary disease): Plan: See above continue DUonebs, steroids, O2 (6) CAD (coronary artery disease): Plan: -With a history of proximal LAD and mid left circumflex stents -Most recent cardiac catheterization on performed for abnormal pharmacologic nuclear stress test revealed nonobstructive disease of the LAD and widely patent stents, slow flow in the RCA without significant obstruction suggesting microvascular disease Repeat Echo reveals severe pulmonary htn . Continue daily diuresis with furosemide -Continue medical management - Continue metoprolol and aspirin, Plavix, atorvastatin (7) Hypothyroidism: Plan: TSH normal continue LT4 at home dose (8) Hyponatremia: Plan: -Mild, present on admission - Urine sodium 29, urine osmolality elevated at 340 suggestive of SIADH - improved with Recommended fluid restriction pt adamantly refused as he likes to drink almost 4 L a day of water. Agreed to cut this down to 2-3 L of water per day. Asymptomatic with Na >130, will follow -Lasix as above - remains slightly hyponatremic but stable (9) GERD (gastroesophageal reflux disease): Plan: Continue PPI Previously treated with PPI/Carafate with improvement in epigastric symptoms (10) Constipation: Plan: Improved - Continue on MiraLAX daily - Continue on senna/docusate 1 tab daily Plan: DVT proph-Lovenox 40 mg twice daily, CTA eval negative for pe Disposition: Probable discharge to home when oxygen requirements are down to 6 L/min or less Admission and Anticipated Discharge Date Admission Date: June 08, 2021 Subjective Alert and oriented. No distress. He has edema mostly in the right lower extremity and feels as if he is getting fluid overloaded. Parenteral Lasix dosage uptitrated. He remains on intravenous dexamethasone. Chest x-ray done on July 03 looks better. He remains on high flow oxygen however. Review of Systems Review of Systems: Constitutional-no fever or chills ENT-no blurred vision, no double vision, no epistaxis, no sore throat Respiratory-no cough, no wheezing. Shortness of breath with exertion Cardiac-no palpitations, no chest pain, no syncope GI-no nausea, vomiting, diarrhea, melena, hematochezia -no urinary retention, no urinary incontinence, no dysuria, no hematuria Musculoskeletal-no joint pain, no muscle tenderness. Edema noted right lower extremity below the knee Skin-no bruising, no rashes, no pruritus Neuro-no isolated weakness, no paresthesia, no weakness Psych-no depression, no anxiety Physical Exam Physical Exam: General-alert and oriented x3, no fevers, no chills HEENT-head atraumatic and normocephalic, TMs intact bilaterally, pupils equal and reactive to light, extraocular muscles intact Neck-no lymphadenopathy or thyromegaly, trachea midline Chest-diminished breath sounds bilaterally. Scattered rhonchi. No wheezing Cardiac-regular rate and rhythm, normal S1 and S2, no murmurs Abdomen-normal bowel sounds, nontender, no hepatosplenomegaly Extremities-no cyanosis, clubbing. 1-2+ pitting edema right lower extremity below the knee Neuro-cranial nerves II through XII intact, motor and sensory function within normal limits, strength symmetrical 5/5, no focal deficits Psych-normal affect, normal mood Results & Data Results & Data ([facility]) Vital Signs (Past 12 Hours) Vital Signs Temp Pulse Pulse Resp BP BP Pulse Ox 07/04/21 11:15 78 20 90 07/04/21 11:01 36.3 C L 81 20 107/22 L 93 07/04/21 08:31 36.5 C 81 18 124/78 91 07/04/21 07:30 83 07/04/21 07:15 76 20 98 07/04/21 04:34 86 18 90 07/04/21 04:26 36.4 C L 83 20 95/61 L 93 Laboratory Results 07/02/21 05:41 07/04/21 06:18 PG Care Time/CCT Total # of Minutes Spent Total Time Spent with Patient: Total time spent is greater than 50% in coordination of care (as documented) at patient's floor/unit and/or counseling patient: Coding Level of Care Code 30403 Subseq Hosp Care Lvl 3 Diagnoses COVID-19 U07.1 Multifocal pneumonia J18.9 Hypoxemia R09.02 Hyperlipidemia E78.5 COPD (chronic obstructive pulmonary disease) J44.9 CAD (coronary artery disease) I25.10 Hypothyroidism E03.9 Hyponatremia E87.1 GERD (gastroesophageal reflux disease) K21.9 Constipation K59.00
[2021-07-04] MEDS: LORATADINE 10 MG TAB PO SCH (14:35)
[2021-07-04] MEDS: ASPIRIN 81 MG CHEW PO SCH (20:32)
[2021-07-04] MEDS: ATORVASTATIN 40 MG TAB PO SCH (20:32)
[2021-07-04] MEDS: CLOPIDOGREL BISULFATE 75 MG TAB PO SCH (20:32)
[2021-07-04] MEDS: QUEtiapine FUMARATE 25 MG TABLET PO SCH (20:32)
[2021-07-04] MEDS: DEXTROMETHORPHAN POLYMR COMPLX 30 MG/5 ML UDP PO PRN (21:16)
[2021-07-05] MEDS: ALBUT/IPRATROP 3MG/0.5MG NEB 3 ML VIAL NEB PRN ×2 (00:19→13:02)
[2021-07-05] MEDS ORDERED: LORazepam 1 MG TAB PO STA ×2 (01:08→20:09)
[2021-07-05] MEDS ORDERED: LORazepam 1 MG TAB ONE ×2 (01:14→20:18)
[2021-07-05] MEDS: LEVOTHYROXINE SODIUM 50 MCG TABLET PO SCH (05:47)
[2021-07-05] MEDS: FUROSEMIDE 40 MG/4 ML VIAL IV SCH ×2 (05:47→18:27)
[2021-07-05] MEDS: INSULIN ASPART PER UNIT SC SCH ×4 (08:32→21:49)
[2021-07-05] MEDS: ACETAMINOPHEN 500 MG TAB PO PRN ×2 (08:47→17:42)
[2021-07-05] MEDS: METOPROLOL TARTRATE 25 MG TAB PO SCH ×2 (08:49→21:50)
[2021-07-05] MEDS: SUCRALFATE 1 GM/10 ML UDC PO SCH ×4 (08:49→21:49)
[2021-07-05] MEDS: CHOLECALCIFEROL 1,000 UNITS 25 MCG TAB PO SCH (08:52)
[2021-07-05] MEDS: LORATADINE 10 MG TAB PO SCH (08:52)
[2021-07-05] MEDS: PANTOprazole 40 MG TAB PO SCH (08:53)
[2021-07-05] MEDS: POLYETHYLENE (MIRALAX) 17 GM PACK PO SCH (08:53)
[2021-07-05] MEDS: DOCUSATE SODIUM/SENNA 50/8.6MG TAB PO SCH (08:53)
[2021-07-05] MEDS: FLUTICASONE PROPIONATE NA SPR 16 GM BTL SCH ×3 (08:54→21:50)
[2021-07-05] MEDS: POT PHOSPHATE MONOBASIC W/ SOD TAB PO SCH ×4 (08:54→22:00)
[2021-07-05] MEDS: ENOXAPARIN INJ 40 MG/0.4 ML SYR SQ SCH ×2 (08:55→21:50)
[2021-07-05] MEDS: diphenhydrAMINE HCL 25 MG/10 ML UDC PO SCH ×2 (08:56→21:49)
[2021-07-05] MEDS: UMECLIDINIUM/VILANTEROL 62.5/25MCG 7 PUFFS/INHALER INH SCH (08:57)
--- NOTE | 2021-07-05 14:10 | Hospitalist Progress Note ---
Date of Service July 05, 2021 Assessment & Plan (1) COVID-19: Plan: Present on admission. Chest x-ray done July 03 looked improved. He is still requiring more than his baseline oxygen. He is receiving dexamethasone intravenously. Chest CTA negative for pulmonary embolism on admission. MRSA swab negative, CTA negative for PE Completed high-dose Dex 20 mg x 5 days followed by 10 mg x 1 week-> now on 6 mg bid Lasix dosage uptitrated today, July 04. CXR done July 03, looked better . Repeat portable chest x-ray tomorrow, July 06 -Continue decadron 6 mg twice daily , repeat course started 06/23/21 -Echo with severe pulmonary HTN, will continue daily diuresis with Lasix. (2) Multifocal pneumonia: Plan: Bilateral, viral etiology. Serial chest x-rays (3) Hypoxemia: Plan: Acute on chronic hypoxic respiratory failure. Wean oxygen down to usual 3 L/min as tolerated. Currently on high flow oxygen per nasal cannula (4) Hyperlipidemia: Plan: Continue atorvastatin 40 mg daily (5) COPD (chronic obstructive pulmonary disease): Plan: See above continue DUonebs, steroids, O2 (6) CAD (coronary artery disease): Plan: -With a history of proximal LAD and mid left circumflex stents -Most recent cardiac catheterization on performed for abnormal pharmacologic nuclear stress test revealed nonobstructive disease of the LAD and widely patent stents, slow flow in the RCA without significant obstruction suggesting microvascular disease Repeat Echo reveals severe pulmonary htn . Continue daily diuresis with furosemide -Continue medical management - Continue metoprolol and aspirin, Plavix, atorvastatin (7) Hypothyroidism: Plan: TSH normal continue LT4 at home dose (8) Hyponatremia: Plan: -Mild, present on admission - Urine sodium 29, urine osmolality elevated at 340 suggestive of SIADH - improved with recommended fluid restriction. Asymptomatic with Na >130, will follow -Lasix as above (9) GERD (gastroesophageal reflux disease): Plan: Continue PPI Previously treated with PPI/Carafate with improvement in epigastric symptoms (10) Constipation: Plan: Improved - Continue on MiraLAX daily - Continue on senna/docusate 1 tab daily Plan: DVT proph-Lovenox 40 mg twice daily, CTA eval negative for pe Disposition: Probable discharge to [facility] due to high flow oxygen requirement Admission and Anticipated Discharge Date Admission Date: June 08, 2021 Subjective Good diuretic effect with high-dose parenteral Lasix. We will repeat chest x- ray tomorrow, July 06. He feels better. He remains on high flow oxygen and probably will need LTAC placement at discharge. No acute problems. Review of Systems Review of Systems: Constitutional-no fever or chills ENT-no blurred vision, no double vision, no epistaxis, no sore throat Respiratory-no cough, no wheezing. Shortness of breath with minimal exertion Cardiac-no palpitations, no chest pain, no syncope GI-no nausea, vomiting, diarrhea, melena, hematochezia -no urinary retention, no urinary incontinence, no dysuria, no hematuria Musculoskeletal-no joint pain, no muscle tenderness Skin-no bruising, no rashes, no pruritus Neuro-no isolated weakness, no paresthesia, no weakness Psych-no depression, no anxiety Physical Exam Physical Exam: General-alert and oriented x3, no fevers, no chills HEENT-head atraumatic and normocephalic, TMs intact bilaterally, pupils equal and reactive to light, extraocular muscles intact Neck-no lymphadenopathy or thyromegaly, trachea midline Chest-bilateral adventitious respiratory sounds. No rales wheezing or rhonchi Cardiac-regular rate and rhythm, normal S1 and S2, no murmurs Abdomen-normal bowel sounds, nontender, no hepatosplenomegaly Extremities-no cyanosis, clubbing, or edema Neuro-cranial nerves II through XII intact, motor and sensory function within normal limits, strength symmetrical , no focal deficits Psych-normal affect, normal mood Results & Data Results & Data ([facility]) Vital Signs (Past 12 Hours) Vital Signs Temp Pulse Resp BP Pulse Ox 07/05/21 13:02 114 H 26 H 91 07/05/21 11:08 96 H 22 98 07/05/21 10:15 35.4 C L 93 H 18 96/69 L 94 07/05/21 07:48 36.4 C L 103 H 18 104/72 93 07/05/21 07:15 100 H 22 92 07/05/21 04:00 36.6 C 90 22 111/72 92 07/05/21 03:49 93 H 19 93 Laboratory Results 07/02/21 05:41 07/04/21 06:18 PG Care Time/CCT Total # of Minutes Spent Total Time Spent with Patient: Total time spent is greater than 50% in coordination of care (as documented) at patient's floor/unit and/or counseling patient: Coding Level of Care Code 33965 Subseq Hosp Care Lvl 3 Diagnoses COVID-19 U07.1 Multifocal pneumonia J18.9 Hypoxemia R09.02 Hyperlipidemia E78.5 COPD (chronic obstructive pulmonary disease) J44.9 CAD (coronary artery disease) I25.10 Hypothyroidism E03.9 Hyponatremia E87.1 GERD (gastroesophageal reflux disease) K21.9 Constipation K59.00
--- NOTE | 2021-07-05 18:10 | XRay Report ---
XR chest 1V portable CLINICAL HISTORY: Respiratory distress TECHNIQUE: Single frontal radiograph of the chest was obtained. Comparison: Comparison is made to chest one view 07/03/2021 FINDINGS: No lines and tubes are seen. The cardiomediastinal silhouette is normal. Multifocal airspace opacitie s are seen. No evidence of pleural effusion or pneumothorax. IMPRESSION: Redemonstration multifocal airspace opacities, similar in extent to prior exam, compatible with pneum onia. ACT 112: Negative or not required by law. Electronically signed by: Bry Wilson M.D. 07/05/2021 6:09 PM
[2021-07-05 18:46] LABS: Base Excess ABG 5.9 mEq/L (-9-1.8); HCO3 ABG 28 mmol/L (19-24); PCO2 ABG 33 mmHg (35-46); PO2 ABG 57 mmHg (80-95)
[2021-07-05 18:53] LABS: pH ABG 7.55 (7.35-7.45)
[2021-07-05 18:54] LABS: Allen Test POS (Pos)
[2021-07-05 19:58] LABS: D Dimer 1470 ug/L FEU (0-500)
[2021-07-05] MEDS ORDERED: OPTIRAY 320 125ml IV ONE (20:57)
--- NOTE | 2021-07-05 21:23 | CT Scan Report ---
CT angio chest PE protocol CLINICAL HISTORY: PE TECHNIQUE: Multidetector row helical CT of the chest was performed. Coronal and sagittal reformations were obtained. Coronal and sagittal MIPS were obtained from the axial data set and were submitted fo r review. Automated dose lowering techniques and/or adjustment according to patient size were utiliz ed for this exam. Comparison: Comparison is made to CT chest to 09/06/2021 FINDINGS: Lungs and pleura: Severe emphysema and scarring is seen. Heart and pericardium: Heart size is normal. No pericardial effusion. Vessels: No evidence of pulmonary embolism. The pulmonary trunk measures 35 mm in diameter. Mediastinum and gee: Subcentimeter lymph nodes are seen. Chest wall and lower neck: Unremarkable. Abdomen: A hiatal hernia is seen. Bones: Degenerative changes in the thoracic spine. Posterior fixation hardware is partially visualize d in the upper thoracic spine. IMPRESSION: 1. No evidence of pulmonary embolism. 2. Severe emphysema, scarring, and pulmonary hypertension. ACT 112: Negative or not required by law. Electronically signed by: Bry Wilson M.D. 07/05/2021 9:22 PM
[2021-07-05] MEDS ORDERED: LORazepam 1 MG TAB PO PRN (21:32)
[2021-07-05] MEDS: QUEtiapine FUMARATE 25 MG TABLET PO SCH (21:50)
[2021-07-05] MEDS: CLOPIDOGREL BISULFATE 75 MG TAB PO SCH (21:50)
[2021-07-05] MEDS: ATORVASTATIN 40 MG TAB PO SCH (21:50)
[2021-07-05] MEDS: ASPIRIN 81 MG CHEW PO SCH (21:52)
--- NOTE | 2021-07-06 03:13 | Procedure Note ---
Procedure Note Date of Service July 06, 2021 Note INTUBATION PROCEDURE NOTE: Provider: ARASELI Barcenas Attending: Dr. Chaparro Child A time-out was completed verifying correct patient, procedure, site, positioning. Patient was evaluated and required emergent intubation during a cardiac arrest. Emergent consent was implied given patients rapidly declining clinical status and need for airway protection. The patient was prepared in the appropriate fashion. No sedation was required as the patient was in cardiac arrest during CODE BLUE. The patient was ventilated using [id number] prior to intubation. A 8.0 [place] endotracheal tube was placed utilizing video-assisted laryngoscope through the vocal cords with ease, to 25 cm at the lip. The stylette was removed and balloon was inflated with 10mL of air. Appropriate Colorimetric change was appreciated. Bilateral breath sounds were auscultated. Post intubation chest x-ray was not obtained as ROSC was not achieved and the patient . Coding CPT Codes Resuscitation - Resuscitation: 81010 Endotracheal Intubation, emergency ([id number]) [facility] Procedure Codes (Charges) Resuscitation Resuscitation: 47295 Endotracheal Intubation, emergency
--- NOTE | 2021-07-06 03:14 | Death Pronouncement Note ---
Date of Service July 06, 2021 Pronouncement Note Admission Date Admission Date: June 08, 2021 Contributing Factors (1) COVID-19: Contributing factors: PRONOUNCEMENT NOTE - Date: 07/06/2021 Time: 0304 I presented to the patient's room during the CODE BLUE in which the patient was in PEA arrest. Patient was being treated for hypoxic respiratory failure secondary to COVID-19/multifocal pneumonia. Patient remained in PEA rhythm on monitor with no pulses appreciated and nonshockable rhythm throughout the entire code. Unfortunately we were unable to achieve ROSC despite heroic efforts and code was stopped at 25 minutes. Assessment: Upon assessment, the patient was found to be in a terminal state. Pupils were fixed and dilated without response. No palpable pulses appreciated. No spontaneous breaths noted. Heart sounds were absent. No spontaneous movement was appreciated. Time of : 3:04 am as pronounced by myself. Patient's primary service was at the bedside at this time. Cause of : PEA arrest due to hypoxic respiratory failure from COVID-19 pneumonia Please feel free to contact me with any questions regarding the above-mentioned course. (2) Multifocal pneumonia: (3) Hypoxemia: (4) COPD (chronic obstructive pulmonary disease): (5) CAD (coronary artery disease): (6) Constipation: Additional Data Attending physician: Jun Sparks MD Coding Level of Care Code None Diagnoses COVID-19 U07.1 Multifocal pneumonia J18.9 Hypoxemia R09.02 COPD (chronic obstructive pulmonary disease) J44.9 CAD (coronary artery disease) I25.10 Constipation K59.00
--- NOTE | 2021-07-06 07:09 | Discharge Summary ---
Date of Service July 06, 2021 Admission HPI Per Admitting Provider The patient is a 70-year-old male with a past medical history including COVID-19 pneumonia, hyperlipidemia, COPD, pulmonary embolism, CAD, multiple pulmonary nodules and hypoxia. The patient is most recently admitted from 05/31-06/03/21 for treatment of COVID-19 infection, COPD, pulmonary embolism and elevated troponin level with hypoxia. Patient was discharged on increased oxygen of 3 L at rest and 5 L with exertion, steroids and antibiotics. He was noted to have more difficulty breathing today by his , who measured his pulse ox at home while on oxygen, which was recorded as 64%, and came to the ED for assessment Principal Diagnosis Covid-19 pneumonia Discharge Exam Did not see the patient. No physical exam. Discharge Data Allergies Allergy/AdvReac Type Severity Reaction Status Date / Time hornet venom Allergy Intermediate EXTRA Verified 06/08/21 18:32 SWELLING AT SITE tomato Allergy Intermediate HIVES Verified 06/08/21 18:32 codeine AdvReac Mild STOMACH Verified 06/08/21 18:32 PROBLEMS-ABD PAIN Consultations 06/08/21 20:02 ED Decision to Admit Stat 06/29/21 08:30 Consult Pulmonology Routine Ordered Studies 06/08/21 17:28 CT angio chest PE protocol Stat 06/23/21 12:06 CT angio chest PE protocol Urgent 07/05/21 20:08 CT angio chest PE protocol Stat Hospital Course (1) COVID-19: Present on admission. Chest x-ray done July 03 looked improved. He is still requiring more than his baseline oxygen. He is receiving dexamethasone intravenously. Chest CTA negative for pulmonary embolism on admission. MRSA swab negative, CTA negative for PE Completed high-dose Dex 20 mg x 5 days followed by 10 mg x 1 week-> now on 6 mg bid Lasix dosage uptitrated today, July 04. CXR done July 03, looked better . Repeat portable chest x-ray tomorrow, July 06 -Continue decadron 6 mg twice daily , repeat course started 06/23/21 -Echo with severe pulmonary HTN, will continue daily diuresis with Lasix. -> Patient had PEA arrest overnight. Unable to achieve ROSC. Time of was 3:04 am, pronounced by ARASELI Landa. (2) Multifocal pneumonia: Bilateral, viral etiology. Serial chest x-rays (3) Hypoxemia: Acute on chronic hypoxic respiratory failure. Wean oxygen down to usual 3 L/min as tolerated. Currently on high flow oxygen per nasal cannula (4) COPD (chronic obstructive pulmonary disease): See above continue DUonebs, steroids, O2 (5) CAD (coronary artery disease): -With a history of proximal LAD and mid left circumflex stents -Most recent cardiac catheterization on performed for abnormal pharmacologic nuclear stress test revealed nonobstructive disease of the LAD and widely patent stents, slow flow in the RCA without significant obstruction suggesting microvascular disease Repeat Echo reveals severe pulmonary htn . Continue daily diuresis with furosemide -Continue medical management - Continue metoprolol and aspirin, Plavix, atorvastatin (6) Constipation: Improved - Continue on MiraLAX daily - Continue on senna/docusate 1 tab daily DVT proph-Lovenox 40 mg twice daily, CTA eval negative for pe Disposition: Probable discharge to [facility] due to high flow oxygen requirement Total Time Total Time Spent Total Time Spent (In Minutes): 0 Discharge Plan Discharge Items Patient Disposition: Discharge Diagnosis: Acute hypoxemic respiratory failure, multifocal pneumonia Other Date/Time: 07/06/21 03:04 Interventions: Discharge Summary Assessment (RN) Last Done: 07/06/21 06:05 Coding Level of Care Code None Diagnoses COVID-19 U07.1 Multifocal pneumonia J18.9 Hypoxemia R09.02 COPD (chronic obstructive pulmonary disease) J44.9 CAD (coronary artery disease) I25.10 Constipation K59.00
--- NOTE | 2021-07-06 08:59 | Electrocardiogram Report ---
Test Reason : Blood Pressure : / mmHG Vent. Rate : 134 BPM Atrial Rate : 134 BPM P-R Int : 122 ms QRS Dur : 092 ms QT Int : 316 ms P-R-T Axes : 035 107 068 degrees QTc Int : 471 ms Sinus tachycardia Left atrial enlargement Possible Right ventricular hypertrophy ST depression in Lateral leads , consider ischemia Abnormal ECG When compared with ECG of 09-SEP-2018 22:30, Vent. rate has increased BY [address] now depressed in Lateral leads Confirmed by Irving Chapin ([id number]) on 07/06/2021 8:58:57 AM Referred By: REFERRED SELF Confirmed By:Irving Chapin
== END 2021-07-06 06:06 | disposition expired | DRG 177 ==
LOC: ED 16:58 → 2S 21:28 → SUATTDRO 21:28 → 2S 23:19